=== PATIENT | male | born 1975 | race African-American/Black ===

== ENCOUNTER 2016-10-31 11:15 | Inpatient (IN) | payer OTHER ==
[2016-10-31 12:20] VITALS: BMI 30.3
--- NOTE | 2016-10-31 17:07 | HP ---
CIWA Score - CIWA Score Nausea/Vomitin-Mild Nausea/No Vomiting Muscle Tremors: 4-Moderate,w/Arms Extend Anxiety: 4-Mod. Anxious/Guarded Agitation: 4-Moderately Restless Paroxysmal Sweats: 1-Minimal Palms Moist Orientation: 3-Disoriented Date>2 days Tacttile Disturbances: 0-None Auditory Disturbances: 0-None Visual Disturbances: 0-None Headache: 1-Very Mild CIWA-Ar Total Score: 18 Admission ROS S - HPI Chief Complaint: WITHDRAWAL SX Allergies/Adverse Reactions: Allergies Allergy/AdvReac Type Severity Reaction Status Date / Time apple Allergy Severe Swelling Verified 10/31/16 16:16 Fish Containing Products Allergy Severe Swelling Verified 10/31/16 16:16 pork derived (porcine) Allergy Severe Swelling Verified 10/31/16 16:16 No Known Drug Allergies Allergy Verified 10/31/16 16:17 History of Present Illness: 41 YEARS OLD MALE WITH LONG HISTORY OF ALCOHOL XANAX NICOTINE DEPENDENCE HAS HYPERTENSION DIABETES II SEIZURE AND DEPRESSION IS ADMITTED TO DETOX Exam Limitations: No Limitations - Ebola screening Have you traveled outside of the country in the last 21 days: No Have you had contact with anyone from an Ebola affected area: No Have you been sick,other than usual withdrawal symptoms: No Do you have a fever: No - Review of Systems Constitutional: Chills, Changes in sleep, Weight Stable EENT: reports: No Symptoms Reported Respiratory: reports: No Symptoms reported Cardiac: reports: No Symptoms Reported GI: reports: Nausea, Poor Fluid Intake, Abdominal cramping : reports: No Symptoms Reported Musculoskeletal: reports: No Symptoms Reported Integumentary: reports: No Symptoms Reported Neuro: reports: Seizure (8 YEARS OLD SEIZURE), Tremors Endocrine: reports: No Symptoms Reported Hematology: reports: No Symptoms Reported Psychiatric: reports: Judgement Intact, Depressed Other Systems: Reviewed and Negative Patient History - Patient Medical History Hx Anemia: No Hx Asthma: No Hx Chronic Obstructive Pulmonary Disease (COPD): No Hx Cancer: No Hx Cardiac Disorders: No Hx Congestive Heart Failure: No Hx Hypertension: Yes Hx Hypercholesterolemia: No Hx Pacemaker: No HX Cerebrovascular Accident: No Hx Seizures: Yes (etoh related 07/2016.) Hx Dementia: No Hx Diabetes: Yes (Type II) Hx Gastrointestinal Disorders: No Hx Liver Disease: No Hx Genitourinary Disorders: No Hx Sexually Transmitted Disorders: No Hx Renal Disease (ESRD): No Hx Thyroid Disease: No Hx Human Immunodeficiency Virus (HIV): No (08/26 last tested) Hx Hepatitis C: No Hx Depression: Yes Hx Suicide Attempt: No Hx Bipolar Disorder: No Hx Schizophrenia: No - Patient Surgical History Past Surgical History: Yes Hx Neurologic Surgery: No Hx Cataract Extraction: No Hx Cardiac Surgery: No Hx Lung Surgery: No Hx Breast Surgery: No Hx Breast Biopsy: No Hx Abdominal Surgery: No Hx Appendectomy: No Hx Cholecystectomy: No Hx Genitourinary Surgery: No Hx Orthopedic Surgery: Yes (L foot sx for flatfoot.) Anesthesia Reaction: No - PPD History Previous Implant?: Yes Documented Results: Negative w/o proof Implanted On Prior R Admission?: Yes Date: 11/23/13 Results: Negative PPD to be Administered?: Yes - Smoking Cessation Smoking history: Current every day smoker Have you smoked in the past 12 months: Yes Aproximately how many cigarettes per day: 20 Cigars Per Day: 0 Hx Chewing Tobacco Use: No Initiated information on smoking cessation: Yes 'Breaking Loose' booklet given: 10/31/16 - Substance & Tx. History Hx Alcohol Use: Yes Hx Substance Use: Yes Substance Use Type: Alcohol, Tranquilizers Hx Substance Use Treatment: Yes (01/17-01/21/14 [place] - Substances Abused Alcohol Route: Oral Frequency: Daily Amount used: 4-5v cans beer/ 1 pint cognac Age of first use: 14 Date of Last Use: 10/30/16 Alprazolam (Xanax) Route: Oral Frequency: Daily Amount used: 20 MG Age of first use: 18 Date of Last Use: 10/31/16 Family Disease History - Family Disease History Family Disease History: Heart Disease: Grandparent Admission Physical Exam S - Vital Signs Vital Signs: Vital Signs - 24 hr 10/31/16 12:17 Temperature 97.0 F L Pulse Rate 132 H Respiratory 20 Rate Blood Pressure 153/111 - Physical General Appearance: Yes: Appropriately Dressed, Moderate Distress, Obese, Tremorous, Irritable, Sweating, Anxious HEENTM: Yes: Hearing grossly Normal, Normal ENT Inspection, Normocephalic, Normal Voice Respiratory: Yes: Chest Non-Tender, Lungs Clear, Normal Breath Sounds, No Respiratory Distress, No Accessory Muscle Use Neck: Yes: Trachea in good position Breast: Yes: Breasts Symetrical Cardiology: Yes: Regular Rhythm, S1, S2, Tachycardia Abdominal: Yes: Non Tender, Soft Genitourinary: Yes: Within Normal Limits Back: Yes: Normal Inspection Musculoskeletal: Yes: full range of Motion, Gait Steady Extremities: Yes: Normal Inspection, Normal Range of Motion, Non-Tender, Tremors Neurological: Yes: Alert, Motor Strength 5/5, Normal Response, Depressed Affect Integumentary: Yes: Warm, Track Perez Lymphatic: Yes: Within Normal Limits - Diagnostic (1) Depression Current Visit: Yes Status: Suspected Qualifiers: Depression Type: dysthymia Qualified Code(s): F34.1 - Dysthymic disorder (2) Nicotine dependence Current Visit: Yes Status: Acute Qualifiers: Nicotine product type: cigarettes Substance use status: in withdrawal Qualified Code(s): F17.213 - Nicotine dependence, cigarettes, with withdrawal (3) Alcohol dependence with uncomplicated withdrawal Current Visit: Yes Status: Acute (4) Sedative, hypnotic or anxiolytic dependence with withdrawal, uncomplicated Current Visit: Yes Status: Acute (5) Diabetes mellitus type II, controlled, with no complications Current Visit: Yes Status: Chronic Qualifiers: Diabetes mellitus superintendent terminal insulin use: without intermediate use Qualified Code(s): E11.9 - Type 2 diabetes mellitus without complications (6) Hypertension Current Visit: Yes Status: Chronic Qualifiers: Hypertension type: essential hypertension Qualified Code(s): I10 - Essential (primary) hypertension (7) Seizure Current Visit: Yes Status: Chronic Cleared for Admission S - Detox or Rehab [facility] Level of Care: Medically Managed Detox Regimen/Protocol: Librium S Breath Alcohol Content Breath Alcohol Content: 0 Urine Drug Screen - Results Drug Screen Negative: No Urine Drug Screen Results: BZO-Benzodiazepines
[2016-10-31] MEDS ORDERED: chlordiazePOXIDE HCL 25 MG CAPSULE PO PRN (17:11)
[2016-10-31] MEDS ORDERED: MAG HYDROX/AL HYDROX/SIMETH 30 ML UNIT-DOSE CUP PO PRN (17:11)
[2016-10-31] MEDS ORDERED: P-EPHED 60MG/TRIPROLIDI 2.5MG TABLET PO PRN (17:11)
[2016-10-31] MEDS ORDERED: ACETAMINOPHEN 325 MG TABLET (FP) PO PRN (17:11)
[2016-10-31] MEDS ORDERED: MAGNESIUM CITRATE 300 ML BOTTLE PO PRN (17:11)
[2016-10-31] MEDS ORDERED: NICOTINE POLACRILEX 4 MG GUM BC PRN (17:11)
[2016-10-31] MEDS ORDERED: MAGNESIUM HYDROX 2400MG/30ML ORAL SUSPENSION 30 ML CUP PO PRN (17:11)
[2016-10-31] MEDS ORDERED: MENTHOL/PHENOL 1 EACH UD MM PRN (17:11)
[2016-10-31] MEDS ORDERED: hydrOXYzine PAMOATE 50 MG CAPSULE (FP) PO PRN (17:11)
[2016-10-31] MEDS ORDERED: LOPERAMIDE HCL 2 MG CAPSULE PO PRN (17:11)
[2016-10-31] MEDS ORDERED: diphenhydrAMINE HCL 50 MG CAPSULE PO PRN (17:11)
[2016-10-31] MEDS ORDERED: IBUPROFEN 400 MG TABLET (FP) PO PRN (17:11)
[2016-10-31] MEDS ORDERED: chlordiazePOXIDE HCL 25 MG CAPSULE PO ONE (18:45)
[2016-10-31] MEDS: LISINOPRIL 10 MG TABLET (FP) PO SCH (19:57)
[2016-10-31] MEDS: levETIRAcetam 500 MG TABLET (FP) PO SCH (22:34)
[2016-10-31] MEDS: chlordiazePOXIDE HCL 25 MG CAPSULE PO SCH (22:34)
[2016-10-31] MEDS: THIAMINE HCL 100 MG TABLET (FP) PO SCH (22:34)
[2016-10-31 23:25] LABS: URINE APPEARANCE CLEAR; URINE BILIRUBIN NEGATIVE (NEGATIVE); URINE BLOOD NEGATIVE (NEGATIVE); URINE COLOR YELLOW; URINE GLUCOSE (UA) NEGATIVE (NEGATIVE); URINE KETONE NEGATIVE (NEGATIVE); URINE LEUK ESTERASE NEGATIVE (NEGATIVE); URINE NITRITE NEGATIVE (NEGATIVE); URINE UROBILINOGEN NEGATIVE E.U./dl (0.2-1.0)
[2016-10-31 23:26] LABS: URINE PROTEIN 1+ (NEGATIVE)
[2016-10-31 23:28] LABS: URINE MUCUS RARE; URINE RBC 1 /hpf (0-3); URINE WBC 1 /hpf (3-5)
[2016-11-01] MEDS: chlordiazePOXIDE HCL 25 MG CAPSULE PO SCH ×4 (05:16→22:15)
[2016-11-01] MEDS: metFORMIN HCL 500 MG TABLET (FP) PO SCH ×2 (06:45→17:05)
[2016-11-01 09:47] LABS: MCH 28.9 pg (25.7-33.7); MCHC 32.7 g/dl (32.0-35.9); MEAN CELL VOLUME 88.5 fl (80-96); MEAN PLT VOLUME 9.6 fl (7.5-11.1); PLATELET COUNT 197 K/MM3 (134-434); RDW 14.8 % (11.9-15.9); WHITE BLOOD COUNT 9.5 K/mm3 (4.0-10.0)
[2016-11-01] MEDS: NICOTINE 21 MG/24 HOURS TOPICAL PATCH TD SCH (10:14)
[2016-11-01] MEDS: PRENATAL VITAMINS W/ FOLIC ACID TABLET (FP) PO SCH (10:15)
[2016-11-01] MEDS: levETIRAcetam 500 MG TABLET (FP) PO SCH ×2 (10:15→22:15)
[2016-11-01] MEDS: LISINOPRIL 10 MG TABLET (FP) PO SCH (10:15)
[2016-11-01 10:16] LABS: ALBUMIN 4.2 g/dl (3.4-5.0); ALK PHOS 166 U/L (45-117); ANION GAP 9 (8-16); BILIRUBIN,TOTAL 0.6 mg/dL (0.2-1.0); CALCIUM 9.5 mg/dL (8.5-10.1); CO2 27 mmol/L (21-32); CREATININE 1.1 mg/dL (0.7-1.3); GLUCOSE,RANDOM 140 mg/dL (74-106); SGOT/AST 49 U/L (15-37); SGPT/ALT 52 U/L (12-78); TOT PROT 9.2 g/dl (6.4-8.2)
--- NOTE | 2016-11-01 10:26 | CONSULT ---
[facility] Psychiatric Consult - Data Date of interview: 11/01/16 Admission source: [facility] Identifying data: This is 41 years old male with no psychiatrioc hospitalization history intoxicated with: Alcohol, Xanax and Nicotine Substance Abuse History: - Smoking Cessation. Smoking history: Current every day smoker. Have you smoked in the past 12 months: Yes. Aproximately how many cigarettes per day: 20. Cigars Per Day: 0. Hx Chewing Tobacco Use: No. Initiated information on smoking cessation: Yes. 'Breaking Loose' booklet given : 10/31/16. - Substance & Tx. History. Hx Alcohol Use: Yes. Hx Substance Use : Yes. Substance Use Type: Alcohol, Tranquilizers. Hx Substance Use Treatment : Yes (01/17-01/21/14 [place] - Substances Abused. Alcohol. Route: Oral. Frequency: Daily. Amount used: 4-5v cans beer/ 1 pint cognac. Age of first use : 14. Date of Last Use: 10/30/16. Alprazolam (Xanax). Route: Oral. Frequency: Daily. Amount used: 20 MG. Age of first use: 18. Date of Last Use : 10/31/16 Medical History: DM-2, HTN, Seizure history, Syncope history Psychiatric History: Patient reprots historty of depression and insomnia, reports taking prior to admission: Remeron 45mg po qhs Physical/Sexual Abuse/Trauma History: Denies Additional Comment: Remeron 45mg po qhs Mental Status Exam - Mental Status Exam Alert and Oriented to: Person Cognitive Function: Fair Patient Appearance: Unkempt Mood: Sad Affect: Flat Patient Behavior: Sedated Speech Pattern: Delayed Voice Loudness: Moderately Soft/Quiet Thought Process: Circumstantial Thought Disorder: Being Controlled Hallucinations: Denies Suicidal Ideation: Denies Homicidal Ideation: Denies Insight/Judgement: Fair Sleep: Difficulty falling asleep Appetite: Fair Muscle strength/Tone: Moderate Hypotonicity Gait/Station: Shuffling Additional Comments: Remeron 45mg po qhs Psychiatric Findings - Problem List ([place] 1, 2,3) (1) Alcohol dependence with uncomplicated withdrawal Current Visit: Yes Status: Acute (2) Nicotine dependence Current Visit: Yes Status: Acute Qualifiers: Nicotine product type: cigarettes Substance use status: in withdrawal Qualified Code(s): F17.213 - Nicotine dependence, cigarettes, with withdrawal (3) Sedative, hypnotic or anxiolytic dependence with withdrawal, uncomplicated Current Visit: Yes Status: Acute (4) Depression Current Visit: Yes Status: Suspected Qualifiers: Depression Type: dysthymia Qualified Code(s): F34.1 - Dysthymic disorder (5) Alcohol dependence Current Visit: No Status: Acute (6) Substance-induced anxiety disorder Current Visit: No Status: Acute (7) Substance-induced sleep disorder Current Visit: No Status: Acute - Initial Treatment Plan Initial Treatment Plan: Remeron 45mg po qhs
[2016-11-01 10:48] LABS: HIV 1 & 2 AB NEGATIVE; HIV 1 AGp24 NEGATIVE
--- NOTE | 2016-11-01 14:47 | EKG ---
Test Reason : Blood Pressure : / mmHG Vent. Rate : 098 BPM Atrial Rate : 098 BPM P-R Int : 160 ms QRS Dur : 090 ms QT Int : 346 ms P-R-T Axes : 053 019 028 degrees QTc Int : 441 ms NORMAL SINUS RHYTHM POSSIBLE LEFT ATRIAL ENLARGEMENT LEFT VENTRICULAR HYPERTROPHY CANNOT RULE OUT SEPTAL INFARCT , AGE UNDETERMINED ABNORMAL ECG NO PREVIOUS ECGS AVAILABLE Confirmed by CARLA CORNEJO MD ([id number]) on 11/01/2016 2:47:11 PM Referred By: Confirmed By:CARLA CORNEJO MD
--- NOTE | 2016-11-01 15:06 | PN ---
S CIWA - CIWA Score Nausea/Vomitin-No Nausea/No Vomiting Muscle Tremors: 3 Anxiety: 4-Mod. Anxious/Guarded Agitation: 4-Moderately Restless Paroxysmal Sweats: 3 Orientation: 0-Oriented Tacttile Disturbances: 0-None Auditory Disturbances: 0-None Visual Disturbances: 0-None Headache: 0-None Present CIWA-Ar Total Score: 14 [facility] Progress Note (SOAP) Subjective: Anxiety,tremors,sweating,interrupted sleep,restless. Objective: 11/01/16 15:05 Vital Signs - 8 hr 11/01/16 11/01/16 09:20 13:14 Temperature 97.0 F L 97.6 F Pulse Rate 100 H 100 H Respiratory 20 20 Rate Blood Pressure 121/85 125/88 Laboratory Tests 10/31/16 10/31/16 10/31/16 06:00 16:27 23:05 WBC RBC Hgb Hct MCV MCHC RDW Plt Count MPV Sodium Potassium Chloride Carbon Dioxide Anion Gap BUN Creatinine Creat Clearance w eGFR POC Glucometer 146 Random Glucose Calcium Total Bilirubin AST ALT Alkaline Phosphatase Total Protein Albumin Urine Color Yellow Urine Appearance Clear Urine pH 7.0 D Ur Specific [place] 1.020 Urine Protein 1+ H Urine Glucose (UA) Negative Urine Ketones Negative Urine Blood Negative Urine Nitrite Negative Urine Bilirubin Negative Urine Urobilinogen Negative Ur Leukocyte Esterase Negative Urine RBC 1 Urine WBC 1 Ur Epithelial Cells Rare Urine Mucus Rare RPR Titer HIV 1&2 Antibody Screen Negative HIV P24 Antigen Negative 11/01/16 11/01/16 11/01/16 05:19 06:00 06:00 WBC 9.5 D RBC 5.08 Hgb 14.7 Hct 45.0 MCV 88.5 MCHC 32.7 RDW 14.8 Plt Count 197 D MPV 9.6 Sodium 138 Potassium 4.0 Chloride 102 Carbon Dioxide 27 Anion Gap 9 BUN 9 Creatinine 1.1 D Creat Clearance w eGFR > 60 POC Glucometer 166 Random Glucose 140 H D Calcium 9.5 Total Bilirubin 0.6 D AST 49 H D ALT 52 D Alkaline Phosphatase 166 H D Total Protein 9.2 H Albumin 4.2 Urine Color Urine Appearance Urine pH Ur Specific [place] Urine Protein Urine Glucose (UA) Urine Ketones Urine Blood Urine Nitrite Urine Bilirubin Urine Urobilinogen Ur Leukocyte Esterase Urine RBC Urine WBC Ur Epithelial Cells Urine Mucus RPR Titer HIV 1&2 Antibody Screen HIV P24 Antigen 11/01/16 06:00 WBC RBC Hgb Hct MCV MCHC RDW Plt Count MPV Sodium Potassium Chloride Carbon Dioxide Anion Gap BUN Creatinine Creat Clearance w eGFR POC Glucometer Random Glucose Calcium Total Bilirubin AST ALT Alkaline Phosphatase Total Protein Albumin Urine Color Urine Appearance Urine pH Ur Specific [place] Urine Protein Urine Glucose (UA) Urine Ketones Urine Blood Urine Nitrite Urine Bilirubin Urine Urobilinogen Ur Leukocyte Esterase Urine RBC Urine WBC Ur Epithelial Cells Urine Mucus RPR Titer Nonreactive HIV 1&2 Antibody Screen HIV P24 Antigen labs noted Assessment: 11/01/16 15:05 Withdrawal sx. Plan: Continue detox
[2016-11-01] MEDS: guaiFENesin/D-METHORPHAN HB 10 ML UNIT-DOSE CUPS PO PRN (17:07)
[2016-11-01] MEDS: MIRTAZAPINE 15 MG TABLET (FP) PO SCH (22:15)
[2016-11-01] MEDS: THIAMINE HCL 100 MG TABLET (FP) PO SCH (22:15)
[2016-11-02] MEDS: chlordiazePOXIDE HCL 25 MG CAPSULE PO SCH ×3 (07:18→16:49)
[2016-11-02] MEDS: metFORMIN HCL 500 MG TABLET (FP) PO SCH ×2 (07:18→16:49)
[2016-11-02] MEDS: PRENATAL VITAMINS W/ FOLIC ACID TABLET (FP) PO SCH (10:09)
[2016-11-02] MEDS: LISINOPRIL 10 MG TABLET (FP) PO SCH (10:09)
[2016-11-02] MEDS: NICOTINE 21 MG/24 HOURS TOPICAL PATCH TD SCH (10:09)
[2016-11-02] MEDS: levETIRAcetam 500 MG TABLET (FP) PO SCH ×2 (10:09→22:31)
--- NOTE | 2016-11-02 12:19 | PN ---
[facility] CIWA - CIWA Score Nausea/Vomitin-No Nausea/No Vomiting Muscle Tremors: 3 Anxiety: 1-Mildly Anxious Agitation: 0-Normal Activity Paroxysmal Sweats: 4-Forehead w/Sweat Beads Orientation: 2-Disoriented Date<2 days Tacttile Disturbances: 2-Mild Itch/Numbness/Burn Auditory Disturbances: 3-Moderate Harsh/Frighten Visual Disturbances: 1-Very Mild Sensitivity Headache: 0-None Present CIWA-Ar Total Score: 16 [facility] Progress Note (SOAP) Subjective: Fatigue, Tremors, Interrupted sleep, Tremors. Objective: PT. A & O X 2 (DISORIENTED ABOUT DAY / DATE). NO ACUTE DISTRESS. PT. DENIES CHEST PAIN. 11/02/16 12:17 Vital Signs Temperature 95.2 F L 11/02/16 09:42 Pulse Rate 113 H 11/02/16 09:42 Respiratory Rate 18 11/02/16 09:42 Blood Pressure 135/95 11/02/16 09:42 O2 Sat by Pulse Oximetry (%) Laboratory Tests 10/31/16 10/31/16 10/31/16 06:00 16:27 23:05 WBC RBC Hgb Hct MCV MCHC RDW Plt Count MPV Sodium Potassium Chloride Carbon Dioxide Anion Gap BUN Creatinine Creat Clearance w eGFR POC Glucometer 146 Random Glucose Calcium Total Bilirubin AST ALT Alkaline Phosphatase Total Protein Albumin Urine Color Yellow Urine Appearance Clear Urine pH 7.0 D Ur Specific [place] 1.020 Urine Protein 1+ H Urine Glucose (UA) Negative Urine Ketones Negative Urine Blood Negative Urine Nitrite Negative Urine Bilirubin Negative Urine Urobilinogen Negative Ur Leukocyte Esterase Negative Urine RBC 1 Urine WBC 1 Ur Epithelial Cells Rare Urine Mucus Rare RPR Titer HIV 1&2 Antibody Screen Negative HIV P24 Antigen Negative 11/01/16 11/01/16 11/01/16 05:19 06:00 06:00 WBC 9.5 D RBC 5.08 Hgb 14.7 Hct 45.0 MCV 88.5 MCHC 32.7 RDW 14.8 Plt Count 197 D MPV 9.6 Sodium 138 Potassium 4.0 Chloride 102 Carbon Dioxide 27 Anion Gap 9 BUN 9 Creatinine 1.1 D Creat Clearance w eGFR > 60 POC Glucometer 166 Random Glucose 140 H D Calcium 9.5 Total Bilirubin 0.6 D AST 49 H D ALT 52 D Alkaline Phosphatase 166 H D Total Protein 9.2 H Albumin 4.2 Urine Color Urine Appearance Urine pH Ur Specific [place] Urine Protein Urine Glucose (UA) Urine Ketones Urine Blood Urine Nitrite Urine Bilirubin Urine Urobilinogen Ur Leukocyte Esterase Urine RBC Urine WBC Ur Epithelial Cells Urine Mucus RPR Titer HIV 1&2 Antibody Screen HIV P24 Antigen 11/01/16 11/01/16 11/02/16 06:00 16:23 05:31 WBC RBC Hgb Hct MCV MCHC RDW Plt Count MPV Sodium Potassium Chloride Carbon Dioxide Anion Gap BUN Creatinine Creat Clearance w eGFR POC Glucometer 179 227 Random Glucose Calcium Total Bilirubin AST ALT Alkaline Phosphatase Total Protein Albumin Urine Color Urine Appearance Urine pH Ur Specific [place] Urine Protein Urine Glucose (UA) Urine Ketones Urine Blood Urine Nitrite Urine Bilirubin Urine Urobilinogen Ur Leukocyte Esterase Urine RBC Urine WBC Ur Epithelial Cells Urine Mucus RPR Titer Nonreactive HIV 1&2 Antibody Screen HIV P24 Antigen LABS NOTED. Assessment: 11/02/16 12:18 WITHDRAWAL SYMPTOMS. Plan: CONTINUE DETOX.
[2016-11-02] MEDS: guaiFENesin/D-METHORPHAN HB 10 ML UNIT-DOSE CUPS PO PRN (19:37)
[2016-11-02] MEDS: chlordiazePOXIDE 5 MG CAPSULE PO SCH (22:31)
[2016-11-02] MEDS: THIAMINE HCL 100 MG TABLET (FP) PO SCH (22:31)
[2016-11-02] MEDS: MIRTAZAPINE 15 MG TABLET (FP) PO SCH (22:32)
[2016-11-03] MEDS: chlordiazePOXIDE 5 MG CAPSULE PO SCH ×3 (06:28→16:36)
[2016-11-03] MEDS: metFORMIN HCL 500 MG TABLET (FP) PO SCH ×2 (07:14→16:34)
[2016-11-03] MEDS: guaiFENesin/D-METHORPHAN HB 10 ML UNIT-DOSE CUPS PO PRN (09:26)
[2016-11-03] MEDS: LISINOPRIL 10 MG TABLET (FP) PO SCH (10:22)
[2016-11-03] MEDS: PRENATAL VITAMINS W/ FOLIC ACID TABLET (FP) PO SCH (10:22)
[2016-11-03] MEDS: NICOTINE 21 MG/24 HOURS TOPICAL PATCH TD SCH (10:22)
[2016-11-03] MEDS: levETIRAcetam 500 MG TABLET (FP) PO SCH ×2 (10:22→22:26)
--- NOTE | 2016-11-03 13:53 | PN ---
S Progress Note (SOAP) Subjective: Fatigue, Tremors. Objective: PT. A & O X 3, OBSERVED AMBULATING ON UNIT. NO ACUTE DISTRESS. PATIENT DENIES CHEST PAIN. 11/03/16 13:51 Vital Signs Temperature 97.5 F L 11/03/16 13:38 Pulse Rate 100 H 11/03/16 13:38 Respiratory Rate 18 11/03/16 13:38 Blood Pressure 129/90 11/03/16 13:38 O2 Sat by Pulse Oximetry (%) Laboratory Tests 10/31/16 10/31/16 10/31/16 06:00 16:27 23:05 WBC RBC Hgb Hct MCV MCHC RDW Plt Count MPV Sodium Potassium Chloride Carbon Dioxide Anion Gap BUN Creatinine Creat Clearance w eGFR POC Glucometer 146 Random Glucose Calcium Total Bilirubin AST ALT Alkaline Phosphatase Total Protein Albumin Urine Color Yellow Urine Appearance Clear Urine pH 7.0 D Ur Specific [place] 1.020 Urine Protein 1+ H Urine Glucose (UA) Negative Urine Ketones Negative Urine Blood Negative Urine Nitrite Negative Urine Bilirubin Negative Urine Urobilinogen Negative Ur Leukocyte Esterase Negative Urine RBC 1 Urine WBC 1 Ur Epithelial Cells Rare Urine Mucus Rare RPR Titer HIV 1&2 Antibody Screen Negative HIV P24 Antigen Negative 11/01/16 11/01/16 11/01/16 05:19 06:00 06:00 WBC 9.5 D RBC 5.08 Hgb 14.7 Hct 45.0 MCV 88.5 MCHC 32.7 RDW 14.8 Plt Count 197 D MPV 9.6 Sodium 138 Potassium 4.0 Chloride 102 Carbon Dioxide 27 Anion Gap 9 BUN 9 Creatinine 1.1 D Creat Clearance w eGFR > 60 POC Glucometer 166 Random Glucose 140 H D Calcium 9.5 Total Bilirubin 0.6 D AST 49 H D ALT 52 D Alkaline Phosphatase 166 H D Total Protein 9.2 H Albumin 4.2 Urine Color Urine Appearance Urine pH Ur Specific [place] Urine Protein Urine Glucose (UA) Urine Ketones Urine Blood Urine Nitrite Urine Bilirubin Urine Urobilinogen Ur Leukocyte Esterase Urine RBC Urine WBC Ur Epithelial Cells Urine Mucus RPR Titer HIV 1&2 Antibody Screen HIV P24 Antigen 11/01/16 11/01/16 11/02/16 06:00 16:23 05:31 WBC RBC Hgb Hct MCV MCHC RDW Plt Count MPV Sodium Potassium Chloride Carbon Dioxide Anion Gap BUN Creatinine Creat Clearance w eGFR POC Glucometer 179 227 Random Glucose Calcium Total Bilirubin AST ALT Alkaline Phosphatase Total Protein Albumin Urine Color Urine Appearance Urine pH Ur Specific [place] Urine Protein Urine Glucose (UA) Urine Ketones Urine Blood Urine Nitrite Urine Bilirubin Urine Urobilinogen Ur Leukocyte Esterase Urine RBC Urine WBC Ur Epithelial Cells Urine Mucus RPR Titer Nonreactive HIV 1&2 Antibody Screen HIV P24 Antigen 11/02/16 11/03/16 16:20 05:38 WBC RBC Hgb Hct MCV MCHC RDW Plt Count MPV Sodium Potassium Chloride Carbon Dioxide Anion Gap BUN Creatinine Creat Clearance w eGFR POC Glucometer 290 267 Random Glucose Calcium Total Bilirubin AST ALT Alkaline Phosphatase Total Protein Albumin Urine Color Urine Appearance Urine pH Ur Specific [place] Urine Protein Urine Glucose (UA) Urine Ketones Urine Blood Urine Nitrite Urine Bilirubin Urine Urobilinogen Ur Leukocyte Esterase Urine RBC Urine WBC Ur Epithelial Cells Urine Mucus RPR Titer HIV 1&2 Antibody Screen HIV P24 Antigen LABS NOTED. Assessment: 11/03/16 13:52 WITHDRAWAL SYMPTOMS. Plan: CONTINUE DETOX.
[2016-11-03] MEDS: MIRTAZAPINE 15 MG TABLET (FP) PO SCH (22:26)
[2016-11-03] MEDS: chlordiazePOXIDE HCL 10 MG CAPSULE PO SCH (22:26)
[2016-11-03] MEDS: THIAMINE HCL 100 MG TABLET (FP) PO SCH (22:26)
[2016-11-04] MEDS: chlordiazePOXIDE HCL 10 MG CAPSULE PO SCH ×3 (06:34→16:41)
[2016-11-04] MEDS: metFORMIN HCL 500 MG TABLET (FP) PO SCH ×2 (07:31→16:41)
[2016-11-04] MEDS: levETIRAcetam 500 MG TABLET (FP) PO SCH (10:23)
[2016-11-04] MEDS: LISINOPRIL 10 MG TABLET (FP) PO SCH (10:23)
[2016-11-04] MEDS: PRENATAL VITAMINS W/ FOLIC ACID TABLET (FP) PO SCH (10:23)
[2016-11-04] MEDS: NICOTINE 21 MG/24 HOURS TOPICAL PATCH TD SCH (10:24)
--- NOTE | 2016-11-04 13:09 | DS ---
[facility] Detox Discharge Summary Admission Date: 10/31/16 Discharge Date: 11/04/16 - History Present History: Alcohol Dependence, Sedative Dependence Additional Comments: ADVISED PATIENT TO FOLLOW-UP WITH [facility] REHAB MEDICAL PROVIDER AFTER DISCHARGE FROM DETOX FOR GENERAL MEDICAL ASSESSMENT. Pertinent Past History: Depression, HTN, Seizures (ETOH-Related), Type II DM. - Physical Exam Results Vital Signs: Vital Signs Temperature 96.5 F L 11/04/16 09:52 Pulse Rate 117 H 11/04/16 09:52 Respiratory Rate 18 11/04/16 09:52 Blood Pressure 130/86 11/04/16 09:52 O2 Sat by Pulse Oximetry (%) Pertinent Admission Physical Exam Findings: WITHDRAWAL SYMPTOMS. Laboratory Tests 10/31/16 10/31/16 10/31/16 06:00 06:00 16:27 WBC RBC Hgb Hct MCV MCHC RDW Plt Count MPV Sodium Potassium Chloride Carbon Dioxide Anion Gap BUN Creatinine Creat Clearance w eGFR POC Glucometer 146 Random Glucose Calcium Total Bilirubin AST ALT Alkaline Phosphatase Total Protein Albumin Urine Color Urine Appearance Urine pH Ur Specific [place] Urine Protein Urine Glucose (UA) Urine Ketones Urine Blood Urine Nitrite Urine Bilirubin Urine Urobilinogen Ur Leukocyte Esterase Urine RBC Urine WBC Ur Epithelial Cells Urine Mucus RPR Titer Hepatitis C Antibody <0.1 HIV 1&2 Antibody Screen Negative HIV P24 Antigen Negative 10/31/16 11/01/16 11/01/16 23:05 05:19 06:00 WBC 9.5 D RBC 5.08 Hgb 14.7 Hct 45.0 MCV 88.5 MCHC 32.7 RDW 14.8 Plt Count 197 D MPV 9.6 Sodium Potassium Chloride Carbon Dioxide Anion Gap BUN Creatinine Creat Clearance w eGFR POC Glucometer 166 Random Glucose Calcium Total Bilirubin AST ALT Alkaline Phosphatase Total Protein Albumin Urine Color Yellow Urine Appearance Clear Urine pH 7.0 D Ur Specific [place] 1.020 Urine Protein 1+ H Urine Glucose (UA) Negative Urine Ketones Negative Urine Blood Negative Urine Nitrite Negative Urine Bilirubin Negative Urine Urobilinogen Negative Ur Leukocyte Esterase Negative Urine RBC 1 Urine WBC 1 Ur Epithelial Cells Rare Urine Mucus Rare RPR Titer Hepatitis C Antibody HIV 1&2 Antibody Screen HIV P24 Antigen 11/01/16 11/01/16 11/01/16 06:00 06:00 16:23 WBC RBC Hgb Hct MCV MCHC RDW Plt Count MPV Sodium 138 Potassium 4.0 Chloride 102 Carbon Dioxide 27 Anion Gap 9 BUN 9 Creatinine 1.1 D Creat Clearance w eGFR > 60 POC Glucometer 179 Random Glucose 140 H D Calcium 9.5 Total Bilirubin 0.6 D AST 49 H D ALT 52 D Alkaline Phosphatase 166 H D Total Protein 9.2 H Albumin 4.2 Urine Color Urine Appearance Urine pH Ur Specific [place] Urine Protein Urine Glucose (UA) Urine Ketones Urine Blood Urine Nitrite Urine Bilirubin Urine Urobilinogen Ur Leukocyte Esterase Urine RBC Urine WBC Ur Epithelial Cells Urine Mucus RPR Titer Nonreactive Hepatitis C Antibody HIV 1&2 Antibody Screen HIV P24 Antigen 11/02/16 11/02/16 11/03/16 05:31 16:20 05:38 WBC RBC Hgb Hct MCV MCHC RDW Plt Count MPV Sodium Potassium Chloride Carbon Dioxide Anion Gap BUN Creatinine Creat Clearance w eGFR POC Glucometer 227 290 267 Random Glucose Calcium Total Bilirubin AST ALT Alkaline Phosphatase Total Protein Albumin Urine Color Urine Appearance Urine pH Ur Specific [place] Urine Protein Urine Glucose (UA) Urine Ketones Urine Blood Urine Nitrite Urine Bilirubin Urine Urobilinogen Ur Leukocyte Esterase Urine RBC Urine WBC Ur Epithelial Cells Urine Mucus RPR Titer Hepatitis C Antibody HIV 1&2 Antibody Screen HIV P24 Antigen 11/03/16 11/04/16 16:19 05:52 WBC RBC Hgb Hct MCV MCHC RDW Plt Count MPV Sodium Potassium Chloride Carbon Dioxide Anion Gap BUN Creatinine Creat Clearance w eGFR POC Glucometer 359 325 Random Glucose Calcium Total Bilirubin AST ALT Alkaline Phosphatase Total Protein Albumin Urine Color Urine Appearance Urine pH Ur Specific [place] Urine Protein Urine Glucose (UA) Urine Ketones Urine Blood Urine Nitrite Urine Bilirubin Urine Urobilinogen Ur Leukocyte Esterase Urine RBC Urine WBC Ur Epithelial Cells Urine Mucus RPR Titer Hepatitis C Antibody HIV 1&2 Antibody Screen HIV P24 Antigen LABS NOTED. - Treatment Hospital Course: Detox Protocol Followed, Detoxed Safely, Responded well, Discharged Condition Good, Rehab Referral Accepted Patient has Accepted a Rehab Referral to: [facility]. - Medication Discharge Medications: Ambulatory Orders Levetiracetam [Keppra -] 500 mg PO BID 08/30/16 Lisinopril 10 mg PO DAILY 08/30/16 Metformin HCl [Glucophage -] 500 mg PO BID 08/30/16 Mirtazapine [Remeron [DO NOT STOCK]] 45 mg PO HS #30 tab 11/01/16 - Diagnosis (1) Alcohol dependence with uncomplicated withdrawal Current Visit: Yes Status: Acute (2) Nicotine dependence Current Visit: Yes Status: Chronic Qualifiers: Nicotine product type: cigarettes Substance use status: in withdrawal Qualified Code(s): F17.213 - Nicotine dependence, cigarettes, with withdrawal (3) Sedative, hypnotic or anxiolytic dependence with withdrawal, uncomplicated Current Visit: Yes Status: Acute (4) Diabetes mellitus type II, controlled, with no complications Current Visit: Yes Status: Chronic Qualifiers: Diabetes mellitus oil heaterman insulin use: without oil heaterman use Qualified Code(s): E11.9 - Type 2 diabetes mellitus without complications (5) Hypertension Current Visit: Yes Status: Chronic Qualifiers: Hypertension type: essential hypertension Qualified Code(s): I10 - Essential (primary) hypertension (6) Seizure Current Visit: Yes Status: Chronic (7) Depression Current Visit: Yes Status: Suspected Qualifiers: Depression Type: dysthymia Qualified Code(s): F34.1 - Dysthymic disorder (8) Substance-induced anxiety disorder Current Visit: Yes Status: Acute (9) Substance-induced sleep disorder Current Visit: Yes Status: Acute - AMA Did Patient Leave Against Medical Advice: No
[2016-11-04 17:11] VITALS: BP 118/85; PULSE 114; TEMP 97.9
== END 2016-11-04 17:32 | disposition other institution (70) | DRG 897 ==
LOC: YASAS 11:15 → Y3N 18:22
PROVIDERS: ADMIT Internal Medicine; ATTEND Internal Medicine
PROC: HZ2ZZZZ Detoxification Services for Substance Abuse Treatment (ICD-10-PCS; principal; 2016-11-04)
DX: F13.230 Sedative, hypnotic or anxiolytic dependence with withdrawal, uncomplicated (principal); F19.282 Other psychoactive substance dependence with psychoactive substance-induced sleep disorder; F19.280 Other psychoactive substance dependence with psychoactive substance-induced anxiety disorder; G40.509 Epileptic seizures related to external causes, not intractable, without status epilepticus; F10.230 Alcohol dependence with withdrawal, uncomplicated; F17.213 Nicotine dependence, cigarettes, with withdrawal; F34.1 Dysthymic disorder; E11.9 Type 2 diabetes mellitus without complications; Z79.84 Long term (current) use of oral hypoglycemic drugs; I10 Essential (primary) hypertension
CPT/HCPCS: 36415; 80053; 81003; 81015; 85027; 86593; 86803; 87389; 93005; 93010

== ENCOUNTER 2016-11-04 19:19 | Inpatient (IN) | payer OTHER ==
--- NOTE | 2016-11-04 17:46 | HP ---
[facility] Rehab Assess/Revision - Admission History Admitted to Rehab from: [facility] Date of Admission to Rehab: 11/04/16 - Findings Detox History & Physical reviewed: Yes Concur with findings: Yes Comments/Additional Findings: transferred from detox to rehab admission as per protocol
[~2016-11-04 19:19] MED LIST: ACETAMINOPHEN 325 MG TABLET (FP) PO PRN; IBUPROFEN 400 MG TABLET (FP) PO PRN; LOPERAMIDE HCL 2 MG CAPSULE PO PRN; MAG HYDROX/AL HYDROX/SIMETH 30 ML UNIT-DOSE CUP PO PRN; MAGNESIUM CITRATE 300 ML BOTTLE PO PRN; MAGNESIUM HYDROX 2400MG/30ML ORAL SUSPENSION 30 ML CUP PO PRN; MENTHOL/PHENOL 1 EACH UD MM PRN; NICOTINE POLACRILEX 2 MG GUM BUC PRN; P-EPHED 60MG/TRIPROLIDI 2.5MG TABLET PO PRN; diphenhydrAMINE HCL 50 MG CAPSULE PO PRN
[2016-11-04] MEDS: INSULIN SLIDING SCALE (NOVOLOG) 1 VIAL SQ SCH (21:06)
[2016-11-04] MEDS: levETIRAcetam 500 MG TABLET (FP) PO SCH (21:08)
[2016-11-04] MEDS: THIAMINE HCL 100 MG TABLET (FP) PO SCH (21:08)
[2016-11-04] MEDS: guaiFENesin/D-METHORPHAN HB 10 ML UNIT-DOSE CUPS PO PRN (21:43)
[2016-11-04] MEDS ORDERED: INSULIN (NOVOLOG) ASPART 100 UNITS/ML 10ML VIAL ONE (21:47)
[2016-11-05] MEDS: metFORMIN HCL 500 MG TABLET (FP) PO SCH ×2 (07:01→16:53)
[2016-11-05] MEDS: INSULIN SLIDING SCALE (NOVOLOG) 1 VIAL SQ SCH ×4 (07:02→21:22)
[2016-11-05] MEDS ORDERED: INSULIN (NOVOLOG) ASPART 100 UNITS/ML 10ML VIAL ONE ×4 (07:03→21:21)
[2016-11-05] MEDS: NICOTINE 14 MG/24 HOURS TOPICAL PATCH TD PRN (09:39)
[2016-11-05] MEDS: LISINOPRIL 10 MG TABLET (FP) PO SCH (09:39)
[2016-11-05] MEDS: PRENATAL VITAMINS W/ FOLIC ACID TABLET (FP) PO SCH (09:39)
[2016-11-05] MEDS: levETIRAcetam 500 MG TABLET (FP) PO SCH ×2 (09:39→21:16)
[2016-11-05] MEDS: guaiFENesin/D-METHORPHAN HB 10 ML UNIT-DOSE CUPS PO PRN (14:27)
[2016-11-05 15:03] LABS: HIV 1 & 2 AB NEGATIVE; HIV 1 AGp24 NEGATIVE
[2016-11-05] MEDS: THIAMINE HCL 100 MG TABLET (FP) PO SCH (21:15)
[2016-11-05] MEDS: MIRTAZAPINE 15 MG TABLET (FP) PO SCH (21:52)
[2016-11-06] MEDS: metFORMIN HCL 500 MG TABLET (FP) PO SCH ×2 (07:08→17:03)
[2016-11-06] MEDS ORDERED: INSULIN (NOVOLOG) ASPART 100 UNITS/ML 10ML VIAL ONE ×2 (07:09→12:13)
[2016-11-06] MEDS: INSULIN SLIDING SCALE (NOVOLOG) 1 VIAL SQ SCH ×4 (07:09→21:45)
[2016-11-06] MEDS: PRENATAL VITAMINS W/ FOLIC ACID TABLET (FP) PO SCH (09:55)
[2016-11-06] MEDS: LISINOPRIL 10 MG TABLET (FP) PO SCH (09:55)
[2016-11-06] MEDS: levETIRAcetam 500 MG TABLET (FP) PO SCH ×2 (09:55→21:45)
[2016-11-06] MEDS: NICOTINE 14 MG/24 HOURS TOPICAL PATCH TD PRN (10:51)
[2016-11-06] MEDS: MIRTAZAPINE 15 MG TABLET (FP) PO SCH (21:44)
[2016-11-06] MEDS: THIAMINE HCL 100 MG TABLET (FP) PO SCH (21:44)
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
[2016-11-07] MEDS: metFORMIN HCL 500 MG TABLET (FP) PO SCH ×2 (07:17→16:52)
[2016-11-07] MEDS ORDERED: INSULIN (NOVOLOG) ASPART 100 UNITS/ML 10ML VIAL ONE ×3 (07:18→21:50)
[2016-11-07] MEDS: INSULIN SLIDING SCALE (NOVOLOG) 1 VIAL SQ SCH ×4 (07:18→21:03)
[2016-11-07] MEDS: PRENATAL VITAMINS W/ FOLIC ACID TABLET (FP) PO SCH (10:06)
[2016-11-07] MEDS: LISINOPRIL 10 MG TABLET (FP) PO SCH (10:06)
[2016-11-07] MEDS: levETIRAcetam 500 MG TABLET (FP) PO SCH ×2 (10:06→21:24)
[2016-11-07] MEDS: NICOTINE 14 MG/24 HOURS TOPICAL PATCH TD PRN (10:46)
[2016-11-07] MEDS: THIAMINE HCL 100 MG TABLET (FP) PO SCH (21:24)
[2016-11-07] MEDS: MIRTAZAPINE 15 MG TABLET (FP) PO SCH (21:24)
[2016-11-08] MEDS: metFORMIN HCL 500 MG TABLET (FP) PO SCH ×2 (06:33→17:18)
[2016-11-08] MEDS ORDERED: INSULIN (NOVOLOG) ASPART 100 UNITS/ML 10ML VIAL ONE ×4 (06:34→21:35)
[2016-11-08] MEDS: INSULIN SLIDING SCALE (NOVOLOG) 1 VIAL SQ SCH ×3 (06:35→17:14)
[2016-11-08] MEDS: levETIRAcetam 500 MG TABLET (FP) PO SCH ×2 (09:48→21:36)
[2016-11-08] MEDS: PRENATAL VITAMINS W/ FOLIC ACID TABLET (FP) PO SCH (09:48)
[2016-11-08] MEDS: LISINOPRIL 10 MG TABLET (FP) PO SCH (09:48)
[2016-11-08] MEDS: MIRTAZAPINE 15 MG TABLET (FP) PO SCH (21:36)
[2016-11-08] MEDS: THIAMINE HCL 100 MG TABLET (FP) PO SCH (21:36)
[2016-11-09] MEDS: INSULIN SLIDING SCALE (NOVOLOG) 1 VIAL SQ SCH ×5 (07:05→21:24)
[2016-11-09] MEDS: metFORMIN HCL 500 MG TABLET (FP) PO SCH ×2 (07:06→16:41)
[2016-11-09] MEDS ORDERED: INSULIN (NOVOLOG) ASPART 100 UNITS/ML 10ML VIAL ONE ×4 (07:06→22:45)
[2016-11-09] MEDS: LISINOPRIL 10 MG TABLET (FP) PO SCH (09:39)
[2016-11-09] MEDS: PRENATAL VITAMINS W/ FOLIC ACID TABLET (FP) PO SCH (09:39)
[2016-11-09] MEDS: levETIRAcetam 500 MG TABLET (FP) PO SCH ×2 (09:40→21:23)
[2016-11-09] MEDS: NICOTINE 14 MG/24 HOURS TOPICAL PATCH TD PRN (09:52)
[2016-11-09] MEDS: THIAMINE HCL 100 MG TABLET (FP) PO SCH (21:23)
[2016-11-09] MEDS: MIRTAZAPINE 15 MG TABLET (FP) PO SCH (21:24)
[2016-11-10] MEDS ORDERED: INSULIN (NOVOLOG) ASPART 100 UNITS/ML 10ML VIAL ONE ×3 (06:05→20:34)
[2016-11-10] MEDS: metFORMIN HCL 500 MG TABLET (FP) PO SCH ×2 (06:41→16:31)
[2016-11-10] MEDS: INSULIN SLIDING SCALE (NOVOLOG) 1 VIAL SQ SCH ×4 (06:41→21:25)
[2016-11-10] MEDS: levETIRAcetam 500 MG TABLET (FP) PO SCH ×2 (09:31→21:25)
[2016-11-10] MEDS: PRENATAL VITAMINS W/ FOLIC ACID TABLET (FP) PO SCH (09:31)
[2016-11-10] MEDS: LISINOPRIL 10 MG TABLET (FP) PO SCH (09:31)
[2016-11-10] MEDS: NICOTINE 14 MG/24 HOURS TOPICAL PATCH TD PRN (09:32)
[2016-11-10] MEDS: MIRTAZAPINE 15 MG TABLET (FP) PO SCH (21:25)
[2016-11-10] MEDS: THIAMINE HCL 100 MG TABLET (FP) PO SCH (21:25)
[2016-11-11] MEDS ORDERED: INSULIN (NOVOLOG) ASPART 100 UNITS/ML 10ML VIAL ONE ×4 (07:19→21:56)
[2016-11-11] MEDS: INSULIN SLIDING SCALE (NOVOLOG) 1 VIAL SQ SCH ×4 (07:19→21:14)
[2016-11-11] MEDS: metFORMIN HCL 500 MG TABLET (FP) PO SCH ×2 (07:20→16:50)
[2016-11-11] MEDS: PRENATAL VITAMINS W/ FOLIC ACID TABLET (FP) PO SCH (09:45)
[2016-11-11] MEDS: levETIRAcetam 500 MG TABLET (FP) PO SCH ×2 (09:45→21:14)
[2016-11-11] MEDS: LISINOPRIL 10 MG TABLET (FP) PO SCH (09:45)
[2016-11-11] MEDS: NICOTINE 14 MG/24 HOURS TOPICAL PATCH TD PRN (09:47)
[2016-11-11] MEDS: MIRTAZAPINE 15 MG TABLET (FP) PO SCH (21:14)
[2016-11-11] MEDS: THIAMINE HCL 100 MG TABLET (FP) PO SCH (21:14)
[2016-11-12] MEDS: metFORMIN HCL 500 MG TABLET (FP) PO SCH ×2 (06:13→16:47)
[2016-11-12] MEDS ORDERED: INSULIN (NOVOLOG) ASPART 100 UNITS/ML 10ML VIAL ONE ×4 (06:16→21:36)
[2016-11-12] MEDS: INSULIN SLIDING SCALE (NOVOLOG) 1 VIAL SQ SCH ×4 (06:17→21:36)
[2016-11-12] MEDS: LISINOPRIL 10 MG TABLET (FP) PO SCH (09:35)
[2016-11-12] MEDS: levETIRAcetam 500 MG TABLET (FP) PO SCH ×2 (09:35→21:36)
[2016-11-12] MEDS: PRENATAL VITAMINS W/ FOLIC ACID TABLET (FP) PO SCH (09:35)
[2016-11-12] MEDS: NICOTINE 14 MG/24 HOURS TOPICAL PATCH TD PRN (09:44)
--- NOTE | 2016-11-12 15:12 | PN ---
[facility] Progress Note Note: pt. has two small rashes on left hand & right leg P : Hydrocortisone cream qid
[2016-11-12] MEDS: HYDROCORTISONE 1% TOPICAL CREAM 30 GM TUBE TP SCH ×3 (16:07→21:50)
[2016-11-12] MEDS: THIAMINE HCL 100 MG TABLET (FP) PO SCH (21:36)
[2016-11-12] MEDS: MIRTAZAPINE 15 MG TABLET (FP) PO SCH (21:49)
[2016-11-13] MEDS: metFORMIN HCL 500 MG TABLET (FP) PO SCH ×2 (06:12→16:56)
[2016-11-13] MEDS ORDERED: INSULIN (NOVOLOG) ASPART 100 UNITS/ML 10ML VIAL ONE ×4 (06:14→21:23)
[2016-11-13] MEDS: INSULIN SLIDING SCALE (NOVOLOG) 1 VIAL SQ SCH ×4 (06:15→21:23)
[2016-11-13] MEDS: HYDROCORTISONE 1% TOPICAL CREAM 30 GM TUBE TP SCH ×4 (09:43→21:25)
[2016-11-13] MEDS: levETIRAcetam 500 MG TABLET (FP) PO SCH ×2 (09:44→21:25)
[2016-11-13] MEDS: LISINOPRIL 10 MG TABLET (FP) PO SCH (09:44)
[2016-11-13] MEDS: PRENATAL VITAMINS W/ FOLIC ACID TABLET (FP) PO SCH (09:45)
[2016-11-13] MEDS: NICOTINE 14 MG/24 HOURS TOPICAL PATCH TD PRN (09:46)
[2016-11-13] MEDS: THIAMINE HCL 100 MG TABLET (FP) PO SCH (21:25)
[2016-11-13] MEDS: MIRTAZAPINE 15 MG TABLET (FP) PO SCH (22:02)
[2016-11-14] MEDS: metFORMIN HCL 500 MG TABLET (FP) PO SCH ×2 (06:04→16:40)
[2016-11-14] MEDS ORDERED: INSULIN (NOVOLOG) ASPART 100 UNITS/ML 10ML VIAL ONE ×3 (06:45→21:52)
[2016-11-14] MEDS: INSULIN SLIDING SCALE (NOVOLOG) 1 VIAL SQ SCH ×4 (06:57→21:08)
[2016-11-14] MEDS: LISINOPRIL 10 MG TABLET (FP) PO SCH (09:55)
[2016-11-14] MEDS: levETIRAcetam 500 MG TABLET (FP) PO SCH ×2 (09:56→21:08)
[2016-11-14] MEDS: PRENATAL VITAMINS W/ FOLIC ACID TABLET (FP) PO SCH (09:56)
[2016-11-14] MEDS: HYDROCORTISONE 1% TOPICAL CREAM 30 GM TUBE TP SCH ×4 (09:57→21:11)
[2016-11-14] MEDS: NICOTINE 14 MG/24 HOURS TOPICAL PATCH TD PRN (14:18)
[2016-11-14] MEDS: MIRTAZAPINE 15 MG TABLET (FP) PO SCH (21:10)
[2016-11-14] MEDS: THIAMINE HCL 100 MG TABLET (FP) PO SCH (21:11)
[2016-11-15] MEDS: INSULIN SLIDING SCALE (NOVOLOG) 1 VIAL SQ SCH ×4 (06:17→21:19)
[2016-11-15] MEDS ORDERED: INSULIN (NOVOLOG) ASPART 100 UNITS/ML 10ML VIAL ONE ×4 (06:18→21:21)
[2016-11-15] MEDS: metFORMIN HCL 500 MG TABLET (FP) PO SCH ×2 (06:19→17:02)
[2016-11-15] MEDS: levETIRAcetam 500 MG TABLET (FP) PO SCH ×2 (09:37→21:18)
[2016-11-15] MEDS: LISINOPRIL 10 MG TABLET (FP) PO SCH (09:37)
[2016-11-15] MEDS: HYDROCORTISONE 1% TOPICAL CREAM 30 GM TUBE TP SCH ×4 (09:37→21:18)
[2016-11-15] MEDS: PRENATAL VITAMINS W/ FOLIC ACID TABLET (FP) PO SCH (09:37)
[2016-11-15] MEDS: NICOTINE 14 MG/24 HOURS TOPICAL PATCH TD PRN (09:37)
[2016-11-15] MEDS: THIAMINE HCL 100 MG TABLET (FP) PO SCH (21:18)
[2016-11-15] MEDS: MIRTAZAPINE 15 MG TABLET (FP) PO SCH (22:00)
[2016-11-16] MEDS ORDERED: INSULIN (NOVOLOG) ASPART 100 UNITS/ML 10ML VIAL ONE ×3 (06:17→21:01)
[2016-11-16] MEDS: metFORMIN HCL 500 MG TABLET (FP) PO SCH ×2 (06:17→16:46)
[2016-11-16] MEDS: INSULIN SLIDING SCALE (NOVOLOG) 1 VIAL SQ SCH ×4 (07:10→20:59)
[2016-11-16] MEDS: NICOTINE 14 MG/24 HOURS TOPICAL PATCH TD PRN (09:35)
[2016-11-16] MEDS: LISINOPRIL 10 MG TABLET (FP) PO SCH (09:35)
[2016-11-16] MEDS: PRENATAL VITAMINS W/ FOLIC ACID TABLET (FP) PO SCH (09:35)
[2016-11-16] MEDS: levETIRAcetam 500 MG TABLET (FP) PO SCH ×2 (09:35→21:43)
[2016-11-16] MEDS: HYDROCORTISONE 1% TOPICAL CREAM 30 GM TUBE TP SCH ×4 (09:36→21:46)
[2016-11-16] MEDS: MIRTAZAPINE 15 MG TABLET (FP) PO SCH (21:44)
[2016-11-16] MEDS: THIAMINE HCL 100 MG TABLET (FP) PO SCH (21:44)
[2016-11-17] MEDS: metFORMIN HCL 500 MG TABLET (FP) PO SCH ×2 (06:04→17:18)
[2016-11-17] MEDS: INSULIN SLIDING SCALE (NOVOLOG) 1 VIAL SQ SCH ×4 (06:06→21:12)
[2016-11-17] MEDS ORDERED: INSULIN (NOVOLOG) ASPART 100 UNITS/ML 10ML VIAL ONE ×3 (06:10→21:12)
[2016-11-17] MEDS: levETIRAcetam 500 MG TABLET (FP) PO SCH ×2 (09:32→21:13)
[2016-11-17] MEDS: LISINOPRIL 10 MG TABLET (FP) PO SCH (09:32)
[2016-11-17] MEDS: HYDROCORTISONE 1% TOPICAL CREAM 30 GM TUBE TP SCH ×4 (09:32→21:13)
[2016-11-17] MEDS: PRENATAL VITAMINS W/ FOLIC ACID TABLET (FP) PO SCH (09:32)
[2016-11-17] MEDS: NICOTINE 14 MG/24 HOURS TOPICAL PATCH TD PRN (09:37)
[2016-11-17] MEDS: THIAMINE HCL 100 MG TABLET (FP) PO SCH (21:13)
[2016-11-17] MEDS: MIRTAZAPINE 15 MG TABLET (FP) PO SCH (21:52)
[2016-11-18] MEDS: metFORMIN HCL 500 MG TABLET (FP) PO SCH ×2 (06:09→16:43)
[2016-11-18] MEDS ORDERED: INSULIN (NOVOLOG) ASPART 100 UNITS/ML 10ML VIAL ONE ×4 (06:56→20:55)
[2016-11-18] MEDS: INSULIN SLIDING SCALE (NOVOLOG) 1 VIAL SQ SCH ×4 (07:08→21:31)
[2016-11-18] MEDS: HYDROCORTISONE 1% TOPICAL CREAM 30 GM TUBE TP SCH ×4 (09:31→21:31)
[2016-11-18] MEDS: PRENATAL VITAMINS W/ FOLIC ACID TABLET (FP) PO SCH (09:32)
[2016-11-18] MEDS: levETIRAcetam 500 MG TABLET (FP) PO SCH ×2 (09:32→21:30)
[2016-11-18] MEDS: LISINOPRIL 10 MG TABLET (FP) PO SCH (09:32)
[2016-11-18] MEDS: NICOTINE 14 MG/24 HOURS TOPICAL PATCH TD PRN (09:35)
[2016-11-18] MEDS: MIRTAZAPINE 15 MG TABLET (FP) PO SCH (21:30)
[2016-11-18] MEDS: THIAMINE HCL 100 MG TABLET (FP) PO SCH (21:30)
[2016-11-19] MEDS: metFORMIN HCL 500 MG TABLET (FP) PO SCH ×2 (06:09→16:38)
[2016-11-19] MEDS: INSULIN SLIDING SCALE (NOVOLOG) 1 VIAL SQ SCH ×4 (07:05→21:37)
[2016-11-19] MEDS ORDERED: INSULIN (NOVOLOG) ASPART 100 UNITS/ML 10ML VIAL ONE ×3 (07:06→16:47)
[2016-11-19] MEDS: LISINOPRIL 10 MG TABLET (FP) PO SCH (09:32)
[2016-11-19] MEDS: PRENATAL VITAMINS W/ FOLIC ACID TABLET (FP) PO SCH (09:32)
[2016-11-19] MEDS: levETIRAcetam 500 MG TABLET (FP) PO SCH ×2 (09:32→21:37)
[2016-11-19] MEDS: HYDROCORTISONE 1% TOPICAL CREAM 30 GM TUBE TP SCH ×4 (09:32→21:37)
[2016-11-19] MEDS: THIAMINE HCL 100 MG TABLET (FP) PO SCH (21:36)
[2016-11-19] MEDS: MIRTAZAPINE 15 MG TABLET (FP) PO SCH (21:37)
[2016-11-20] MEDS ORDERED: INSULIN (NOVOLOG) ASPART 100 UNITS/ML 10ML VIAL ONE ×4 (07:07→21:27)
[2016-11-20] MEDS: INSULIN SLIDING SCALE (NOVOLOG) 1 VIAL SQ SCH ×4 (07:07→21:04)
[2016-11-20] MEDS: metFORMIN HCL 500 MG TABLET (FP) PO SCH ×2 (07:08→16:41)
[2016-11-20] MEDS: HYDROCORTISONE 1% TOPICAL CREAM 30 GM TUBE TP SCH ×4 (09:32→21:19)
[2016-11-20] MEDS: levETIRAcetam 500 MG TABLET (FP) PO SCH ×2 (09:32→21:19)
[2016-11-20] MEDS: PRENATAL VITAMINS W/ FOLIC ACID TABLET (FP) PO SCH (09:32)
[2016-11-20] MEDS: LISINOPRIL 10 MG TABLET (FP) PO SCH (09:32)
[2016-11-20] MEDS: THIAMINE HCL 100 MG TABLET (FP) PO SCH (21:18)
[2016-11-20] MEDS: MIRTAZAPINE 15 MG TABLET (FP) PO SCH (21:19)
[2016-11-21] MEDS ORDERED: INSULIN (NOVOLOG) ASPART 100 UNITS/ML 10ML VIAL ONE ×4 (05:26→21:15)
[2016-11-21] MEDS: metFORMIN HCL 500 MG TABLET (FP) PO SCH ×2 (06:16→16:43)
[2016-11-21] MEDS: INSULIN SLIDING SCALE (NOVOLOG) 1 VIAL SQ SCH ×4 (06:18→21:13)
[2016-11-21] MEDS: PRENATAL VITAMINS W/ FOLIC ACID TABLET (FP) PO SCH (09:51)
[2016-11-21] MEDS: levETIRAcetam 500 MG TABLET (FP) PO SCH ×2 (09:51→21:12)
[2016-11-21] MEDS: LISINOPRIL 10 MG TABLET (FP) PO SCH (09:51)
[2016-11-21] MEDS: HYDROCORTISONE 1% TOPICAL CREAM 30 GM TUBE TP SCH ×4 (09:51→21:17)
[2016-11-21] MEDS: THIAMINE HCL 100 MG TABLET (FP) PO SCH (21:12)
[2016-11-21] MEDS: MIRTAZAPINE 15 MG TABLET (FP) PO SCH (21:12)
[2016-11-22] MEDS: INSULIN SLIDING SCALE (NOVOLOG) 1 VIAL SQ SCH ×4 (06:46→21:15)
[2016-11-22] MEDS ORDERED: INSULIN (NOVOLOG) ASPART 100 UNITS/ML 10ML VIAL ONE ×3 (06:47→21:15)
[2016-11-22] MEDS: metFORMIN HCL 500 MG TABLET (FP) PO SCH ×2 (06:47→17:01)
[2016-11-22] MEDS: levETIRAcetam 500 MG TABLET (FP) PO SCH ×2 (09:46→21:16)
[2016-11-22] MEDS: PRENATAL VITAMINS W/ FOLIC ACID TABLET (FP) PO SCH (09:46)
[2016-11-22] MEDS: LISINOPRIL 10 MG TABLET (FP) PO SCH (09:46)
[2016-11-22] MEDS: HYDROCORTISONE 1% TOPICAL CREAM 30 GM TUBE TP SCH ×4 (09:47→21:16)
[2016-11-22] MEDS: THIAMINE HCL 100 MG TABLET (FP) PO SCH (21:16)
[2016-11-22] MEDS: MIRTAZAPINE 15 MG TABLET (FP) PO SCH (21:16)
[2016-11-23] MEDS: metFORMIN HCL 500 MG TABLET (FP) PO SCH ×2 (07:13→16:32)
[2016-11-23] MEDS ORDERED: INSULIN (NOVOLOG) ASPART 100 UNITS/ML 10ML VIAL ONE ×4 (07:14→21:01)
[2016-11-23] MEDS: INSULIN SLIDING SCALE (NOVOLOG) 1 VIAL SQ SCH ×4 (07:14→21:13)
[2016-11-23] MEDS: PRENATAL VITAMINS W/ FOLIC ACID TABLET (FP) PO SCH (09:43)
[2016-11-23] MEDS: LISINOPRIL 10 MG TABLET (FP) PO SCH (09:43)
[2016-11-23] MEDS: levETIRAcetam 500 MG TABLET (FP) PO SCH ×2 (09:43→21:13)
[2016-11-23] MEDS: HYDROCORTISONE 1% TOPICAL CREAM 30 GM TUBE TP SCH ×4 (09:44→21:13)
[2016-11-23] MEDS: MIRTAZAPINE 15 MG TABLET (FP) PO SCH (21:12)
[2016-11-23] MEDS: THIAMINE HCL 100 MG TABLET (FP) PO SCH (21:13)
[2016-11-24 06:32] VITALS: TEMP 98.3
[2016-11-24] MEDS: metFORMIN HCL 500 MG TABLET (FP) PO SCH ×2 (07:09→16:45)
[2016-11-24] MEDS: INSULIN SLIDING SCALE (NOVOLOG) 1 VIAL SQ SCH ×4 (07:10→21:34)
[2016-11-24] MEDS ORDERED: INSULIN (NOVOLOG) ASPART 100 UNITS/ML 10ML VIAL ONE ×3 (07:11→21:44)
[2016-11-24] MEDS: HYDROCORTISONE 1% TOPICAL CREAM 30 GM TUBE TP SCH ×4 (09:30→21:34)
[2016-11-24] MEDS: PRENATAL VITAMINS W/ FOLIC ACID TABLET (FP) PO SCH (09:30)
[2016-11-24] MEDS: LISINOPRIL 10 MG TABLET (FP) PO SCH (09:30)
[2016-11-24] MEDS: levETIRAcetam 500 MG TABLET (FP) PO SCH ×2 (09:30→21:34)
--- NOTE | 2016-11-24 10:11 | PN ---
Psychiatric Progress Note Vital Signs: Vital Signs Period Temp Pulse Resp BP Sys/[place] Pulse Ox Last 24 Hr 98.3 F 92-101 18-20 117-125/82-82 Date of Session: 11/24/16 Chief Complaint:: Discharge Note HPI: Patient addressing Alcohol and Sedative Dependence comorbid with Nicotine Dependence and Depressive Disorder ROS: Type 2 DM, HTN were medically managed Current Medications: Active Medications Generic Name Dose Route Start Last Admin Trade Name Freq PRN Reason Stop Dose Admin Acetaminophen 650 mg 11/04/16 17:46 Tylenol - PO Q4H PRN FEVER OR PAIN Al Hydroxide/Mg Hydroxide 30 ml 11/04/16 17:46 Mylanta Oral Suspension - PO Q6H PRN DYSPEPSIA Diphenhydramine HCl 50 mg 11/04/16 17:46 Benadryl - PO HSMR1 PRN FOR ITCHING Eucalyptus/Menthol/Phenol/Sorbitol 1 each 11/04/16 17:46 Cepastat Lozenge - MM Q4H PRN SORE THROAT Guaifenesin 10 ml 11/04/16 17:46 11/05/16 14:27 Robitussin Dm - PO 10 ml Q6H PRN Administration COUGH Hydrocortisone 1 applic 11/12/16 15:10 11/24/16 09:30 Hytone 1% Cream - TP Not Given QID WALTER Ibuprofen 400 mg 11/04/16 17:46 Motrin - PO Q6H PRN PAIN Insulin Aspart 1 vial 11/04/16 22:00 11/24/16 07:10 Novolog Vial Sliding Scale - SQ 6 unit ACHS WALTER Administration Protocol Levetiracetam 500 mg 11/04/16 22:00 11/24/16 09:30 Keppra - PO 500 mg BID WALTER Administration Lisinopril 10 mg 11/05/16 10:00 11/24/16 09:30 Prinivil PO 10 mg DAILY WALTER Administration Loperamide HCl 4 mg 11/04/16 17:46 Imodium - PO Q6H PRN DIARRHEA Magnesium Hydroxide 30 ml 11/04/16 17:46 Milk Of Magnesia - PO DAILY PRN CONSTIPATION Metformin HCl 1,000 mg 11/05/16 23:59 11/24/16 07:09 Glucophage - PO 1,000 mg BID@0700,1630 WALTER Administration Mirtazapine 45 mg 11/05/16 22:00 11/23/16 21:12 Remeron - PO 45 mg HS WALTER Administration Nicotine 14 mg 11/04/16 17:46 11/18/16 09:35 Nicoderm Patch - TD 14 mg DAILY PRN Administration WITHDRAWAL(CONT SUBST) Nicotine Polacrilex 2 mg 11/04/16 17:46 Nicorette Gum - BUC Q2H PRN NICOTINE REPLACEMENT RX Multivit/Folic Acid/Iron 1 tab 11/05/16 10:00 11/24/16 09:30 Vitamins (Sjr) - PO 1 tab DAILY WALTER Administration Pseudoephedrine/Triprolidine 1 combo 11/04/16 17:46 Actifed - PO TID PRN NASAL CONGESTION Thiamine HCl 100 mg 11/04/16 22:00 11/23/16 21:13 Vitamin B1 - PO 100 mg HS WALTER Administration Current Side Effect: No Lab tests ordered: Yes Lab tests reviewed: Yes Provider note:: Patient will complete this program on 11/25/16. He has met his treatment goals and will continue to address his issues [facility] Told global technical writer that from his participation in this program, he has learned the importance of attending AA/NA meetings and surrounding himself with positive People in order to maintain abstinence. He responded well to Remeron 45 mg po HS. Script for 30 days supply of that medication will be electronically transmitted to [facility] at [address] [place] [address]. He is stable for discharge on 11/25/16 Total face to face time:: 35 Mental Status Exam - Mental Status Exam Alert and Oriented to: Time, Place, Person Cognitive Function: Fair Patient Appearance: Well Groomed Mood: Hopeful, Euthymic Affect: Appropriate Patient Behavior: Cooperative Speech Pattern: Clear Voice Loudness: Normal Thought Process: Intact, Goal Oriented Thought Disorder: Not Present Hallucinations: Denies Suicidal Ideation: Denies Homicidal Ideation: Denies Insight/Judgement: Fair Sleep: Fair Appetite: Good Muscle strength/Tone: Normal Gait/Station: Normal Psychiatric Treatment Plan - Problem List (1) Alcohol dependence Current Visit: No (2) Sedative dependence Current Visit: Yes (3) Nicotine dependence Current Visit: No Qualifiers: Nicotine product type: cigarettes Substance use status: in withdrawal Qualified Code(s): F17.213 - Nicotine dependence, cigarettes, with withdrawal (4) Substance induced mood disorder Current Visit: Yes (5) MDD (major depressive disorder) Current Visit: Yes (6) Diabetes mellitus type II, controlled, with no complications Current Visit: No Qualifiers: Diabetes mellitus senior care insulin use: without bed bug exterminator use Qualified Code(s): E11.9 - Type 2 diabetes mellitus without complications (7) Hypertension Current Visit: No Qualifiers: Hypertension type: essential hypertension Qualified Code(s): I10 - Essential (primary) hypertension (8) Depressive disorder Current Visit: Yes Initial treatment plan: Patient will be discharged tomorrow and referred to [facility] for bed bug exterminator treatment
[2016-11-24] MEDS: MIRTAZAPINE 15 MG TABLET (FP) PO SCH (21:33)
[2016-11-24] MEDS: THIAMINE HCL 100 MG TABLET (FP) PO SCH (21:33)
[2016-11-25 06:31] VITALS: BP 137/88; PULSE 102
[2016-11-25] MEDS ORDERED: INSULIN (NOVOLOG) ASPART 100 UNITS/ML 10ML VIAL ONE (07:04)
[2016-11-25] MEDS: INSULIN SLIDING SCALE (NOVOLOG) 1 VIAL SQ SCH (07:04)
[2016-11-25] MEDS: metFORMIN HCL 500 MG TABLET (FP) PO SCH (07:05)
[2016-11-25] MEDS: PRENATAL VITAMINS W/ FOLIC ACID TABLET (FP) PO SCH (09:38)
[2016-11-25] MEDS: levETIRAcetam 500 MG TABLET (FP) PO SCH (09:38)
[2016-11-25] MEDS: LISINOPRIL 10 MG TABLET (FP) PO SCH (09:38)
[2016-11-25] MEDS: HYDROCORTISONE 1% TOPICAL CREAM 30 GM TUBE TP SCH (09:40)
== END 2016-11-25 09:50 | disposition home or self-care (01) | DRG 895 ==
LOC: YASAS 19:19 → Y3W 19:21
PROVIDERS: ADMIT Psychiatry & Neurology Psychiatry; ATTEND Psychiatry & Neurology Psychiatry
PROC: HZ42ZZZ Group Counseling for Substance Abuse Treatment, Cognitive-Behavioral (ICD-10-PCS; principal; 2016-11-25)
DX: F10.20 Alcohol dependence, uncomplicated (principal); F13.20 Sedative, hypnotic or anxiolytic dependence, uncomplicated; F33.9 Major depressive disorder, recurrent, unspecified; G40.509 Epileptic seizures related to external causes, not intractable, without status epilepticus; F17.213 Nicotine dependence, cigarettes, with withdrawal; F19.24 Other psychoactive substance dependence with psychoactive substance-induced mood disorder; E11.9 Type 2 diabetes mellitus without complications; I10 Essential (primary) hypertension
CPT/HCPCS: 36415; 87389

== ENCOUNTER 2017-01-09 12:56 | Inpatient (IN) | payer OTHER ==
[2017-01-09 14:36] VITALS: BMI 31.8
--- NOTE | 2017-01-09 15:52 | HP ---
CIWA Score - CIWA Score Nausea/Vomitin Muscle Tremors: 3 Anxiety: 3 Agitation: 3 Paroxysmal Sweats: 1-Minimal Palms Moist Orientation: 0-Oriented Tacttile Disturbances: 2-Mild Itch/Numbness/Burn Auditory Disturbances: 2-Mild Harshness/Frighten Visual Disturbances: 2-Mild Sensitivity Headache: 2-Mild CIWA-Ar Total Score: 21 Admission ROS [facility] - HPI Chief Complaint: i am here for detox from alcohol Allergies/Adverse Reactions: Allergies Allergy/AdvReac Type Severity Reaction Status Date / Time apple Allergy Severe Swelling Verified 01/09/17 16:30 Fish Containing Products Allergy Severe Swelling Verified 01/09/17 16:30 pork derived (porcine) Allergy Severe Swelling Verified 01/09/17 16:30 No Known Drug Allergies Allergy Verified 01/09/17 16:30 History of Present Illness: this 41 years old male with alcohol dependence,seeking detox,patient seen in [place] last night,refer for detox, last detox 10/31/16 to 11/06/16 detox,rehab 11/04/16 to 11/25/16 syncope alcohol related type 2 dm nicotine dependence longest period of sobriety 5 years - Ebola screening Have you traveled outside of the country in the last 21 days: No Have you had contact with anyone from an Ebola affected area: No Have you been sick,other than usual withdrawal symptoms: No Do you have a fever: No - Review of Systems Constitutional: Loss of Appetite, Night Sweats, Weakness EENT: reports: Nose Congestion Respiratory: reports: No Symptoms reported Cardiac: reports: Palpitations GI: reports: Nausea, Vomiting, Abdominal cramping : reports: No Symptoms Reported Musculoskeletal: reports: Back Pain, Muscle Pain Integumentary: reports: Dryness Neuro: reports: Headache, Tremors Endocrine: reports: No Symptoms Reported Hematology: reports: No Symptoms Reported Psychiatric: reports: No Sypmtoms Reported, Judgement Intact, Mood/Affect Appropiate, Orientated x3 Patient History - Patient Medical History Hx Anemia: No Hx Asthma: No Hx Chronic Obstructive Pulmonary Disease (COPD): No Hx Cancer: No Hx Cardiac Disorders: No Hx Congestive Heart Failure: No Hx Hypertension: Yes (no medication) Hx Hypercholesterolemia: No Hx Pacemaker: No HX Cerebrovascular Accident: No Hx Seizures: Yes (last since 1991) Hx Dementia: No Hx Diabetes: No Hx Gastrointestinal Disorders: No Hx Liver Disease: No Hx Genitourinary Disorders: No Hx Sexually Transmitted Disorders: No Hx Renal Disease (ESRD): No Hx Thyroid Disease: No Hx Human Immunodeficiency Virus (HIV): No (08/26 last tested negative) Hx Hepatitis C: No Hx Depression: Yes (no med) Hx Suicide Attempt: No Hx Bipolar Disorder: No Hx Schizophrenia: No Other Medical History: no suicidal,no homicidal - Patient Surgical History Past Surgical History: Yes Hx Neurologic Surgery: No Hx Cataract Extraction: No Hx Cardiac Surgery: No Hx Lung Surgery: No Hx Breast Surgery: No Hx Breast Biopsy: No Hx Abdominal Surgery: No Hx Appendectomy: No Hx Cholecystectomy: No Hx Genitourinary Surgery: No Hx Section: No Hx Orthopedic Surgery: Yes (L foot sx for flatfoot.) Anesthesia Reaction: No - PPD History Previous Implant?: Yes Documented Results: Negative w/proof Date: 11/02/16 Results: Negative PPD to be Administered?: No - Smoking Cessation Smoking history: Current every day smoker Have you smoked in the past 12 months: Yes Aproximately how many cigarettes per day: 20 Cigars Per Day: 0 Hx Chewing Tobacco Use: No Initiated information on smoking cessation: Yes 'Breaking Loose' booklet given: 01/09/17 - Substance & Tx. History Hx Alcohol Use: Yes Hx Substance Use: No Substance Use Type: Alcohol Hx Substance Use Treatment: Yes ([facility] 10/31/16 to 11/04/16,rehab 11/04/16 to ) - Substances Abused Alcohol Route: Oral Frequency: Daily Amount used: 1pint of liquor/5 of 24 ozs of beer Age of first use: 14 Date of Last Use: 01/08/17 Family Disease History - Family Disease History Family Disease History: Heart Disease: Grandparent, Other: Father (alcohol), Mother (alcohol) Admission Physical Exam [facility] - Vital Signs Vital Signs: Vital Signs - 24 hr 01/09/17 14:35 Temperature 98.0 F Pulse Rate 122 H Respiratory 20 Rate Blood Pressure 156/110 - Physical General Appearance: Yes: Moderate Distress, Tremorous, Irritable, Sweating, Anxious HEENTM: Yes: Within Normal Limits, Normocephalic, TIMOTHY Respiratory: Yes: Lungs Clear, Normal Breath Sounds, No Respiratory Distress Neck: Yes: Within Normal Limits Breast: Yes: Within Normal Limits Cardiology: Yes: S1, S2, Tachycardia Abdominal: Yes: Within Normal Limits, Normal Bowel Sounds, Non Tender, Flat, Soft Genitourinary: Yes: Within Normal Limits Back: Yes: Muscle Spasm Musculoskeletal: Yes: Back pain, Muscle Pain Extremities: Yes: Within Normal Limits, Normal Range of Motion, Tremors Neurological: Yes: Within Normal Limits, recyclable materials sorter II-XII NML intact, Fully Oriented, Alert, Motor Strength 5/5 Integumentary: Yes: Dry Lymphatic: Yes: Within Normal Limits - Diagnostic (1) Alcohol dependence with uncomplicated withdrawal Current Visit: No Status: Acute (2) Syncope Current Visit: No Status: Acute (3) Diabetes mellitus type II, controlled, with no complications Current Visit: No Status: Chronic Qualifiers: Qualified Code(s): E11.9 - Type 2 diabetes mellitus without complications (4) Hypertension Current Visit: No Status: Chronic Qualifiers: Qualified Code(s): I10 - Essential (primary) hypertension (5) Nicotine dependence Current Visit: No Status: Chronic Qualifiers: Qualified Code(s): F17.213 - Nicotine dependence, cigarettes, with withdrawal (6) Seizure Current Visit: No Status: Chronic (7) Depression Current Visit: No Status: Suspected Qualifiers: Qualified Code(s): F34.1 - Dysthymic disorder (8) Insomnia Current Visit: Yes Status: Acute Cleared for Admission [facility] - Detox or Rehab [facility] Level of Care: Medically Managed Detox Regimen/Protocol: Librium [facility] Breath Alcohol Content Breath Alcohol Content: 0 Urine Drug Screen - Results Drug Screen Negative: Yes
[2017-01-09] MEDS ORDERED: hydrOXYzine PAMOATE 25 MG CAPSULE (FP) PO PRN (16:05)
[2017-01-09] MEDS ORDERED: diphenhydrAMINE HCL 50 MG CAPSULE PO PRN (16:05)
[2017-01-09] MEDS ORDERED: MAG HYDROX/AL HYDROX/SIMETH 30 ML UNIT-DOSE CUP PO PRN (16:05)
[2017-01-09] MEDS ORDERED: MAGNESIUM CITRATE 300 ML BOTTLE PO PRN (16:05)
[2017-01-09] MEDS ORDERED: chlordiazePOXIDE HCL 25 MG CAPSULE PO PRN (16:05)
[2017-01-09] MEDS ORDERED: IBUPROFEN 400 MG TABLET (FP) PO PRN (16:05)
[2017-01-09] MEDS ORDERED: MAGNESIUM HYDROX 2400MG/30ML ORAL SUSPENSION 30 ML CUP PO PRN (16:05)
[2017-01-09] MEDS ORDERED: ACETAMINOPHEN 325 MG TABLET (FP) PO PRN (16:05)
[2017-01-09] MEDS ORDERED: P-EPHED 60MG/TRIPROLIDI 2.5MG TABLET PO PRN (16:05)
[2017-01-09] MEDS ORDERED: guaiFENesin/D-METHORPHAN HB 10 ML UNIT-DOSE CUPS PO PRN (16:05)
[2017-01-09] MEDS ORDERED: chlordiazePOXIDE HCL 25 MG CAPSULE PO ONE (16:05)
[2017-01-09] MEDS ORDERED: MENTHOL/PHENOL 1 EACH UD MM PRN (16:05)
[2017-01-09] MEDS ORDERED: LOPERAMIDE HCL 2 MG CAPSULE PO PRN (16:05)
[2017-01-09] MEDS: LISINOPRIL 10 MG TABLET (FP) PO SCH (19:41)
[2017-01-09] MEDS: metFORMIN HCL 500 MG TABLET (FP) PO SCH (19:41)
[2017-01-09] MEDS: NICOTINE 21 MG/24 HOURS TOPICAL PATCH TD SCH (19:43)
[2017-01-09 21:02] LABS: URINE APPEARANCE CLEAR; URINE BILIRUBIN NEGATIVE (NEGATIVE); URINE BLOOD NEGATIVE (NEGATIVE); URINE COLOR YELLOW; URINE GLUCOSE (UA) 2+ (NEGATIVE); URINE KETONE NEGATIVE (NEGATIVE); URINE LEUK ESTERASE NEGATIVE (NEGATIVE); URINE NITRITE NEGATIVE (NEGATIVE); URINE UROBILINOGEN NEGATIVE mg/dL (0.2-1.0)
[2017-01-09 21:12] LABS: URINE PROTEIN 1+ (NEGATIVE)
[2017-01-09 21:22] LABS: URINE MUCUS RARE; URINE WBC 1 /hpf (3-5)
[2017-01-09] MEDS: THIAMINE HCL 100 MG TABLET (FP) PO SCH (22:14)
[2017-01-09] MEDS: levETIRAcetam 500 MG TABLET (FP) PO SCH (22:14)
[2017-01-09] MEDS: chlordiazePOXIDE HCL 25 MG CAPSULE PO SCH (22:14)
[2017-01-10] MEDS: chlordiazePOXIDE HCL 25 MG CAPSULE PO SCH ×4 (05:31→22:18)
[2017-01-10] MEDS: metFORMIN HCL 500 MG TABLET (FP) PO SCH ×2 (06:28→16:45)
[2017-01-10 10:20] LABS: ALBUMIN 3.6 g/dl (3.4-5.0); ALK PHOS 107 U/L (45-117); ANION GAP 7 (8-16); BILIRUBIN,TOTAL 0.2 mg/dL (0.2-1.0); CALCIUM 8.9 mg/dL (8.5-10.1); CO2 27 mmol/L (21-32); GLUCOSE,RANDOM 159 mg/dL (74-106); MCH 28.7 pg (25.7-33.7); MCHC 32.6 g/dl (32.0-35.9); MEAN CELL VOLUME 88.1 fl (80-96); MEAN PLT VOLUME 9.4 fl (7.5-11.1); PLATELET COUNT 192 K/MM3 (134-434); RDW 14.1 % (11.9-15.9); SGOT/AST 20 U/L (15-37); SGPT/ALT 23 U/L (12-78); TOT PROT 7.5 g/dl (6.4-8.2); WHITE BLOOD COUNT 7.1 K/mm3 (4.0-10.0)
[2017-01-10] MEDS: PRENATAL VITAMINS W/ FOLIC ACID TABLET (FP) PO SCH (10:42)
[2017-01-10] MEDS: levETIRAcetam 500 MG TABLET (FP) PO SCH ×2 (10:42→22:18)
[2017-01-10] MEDS: LISINOPRIL 10 MG TABLET (FP) PO SCH (10:43)
[2017-01-10] MEDS: NICOTINE 21 MG/24 HOURS TOPICAL PATCH TD SCH (10:45)
--- NOTE | 2017-01-10 11:21 | PN ---
[facility] CIWA - CIWA Score Nausea/Vomitin Muscle Tremors: 3 Anxiety: 3 Agitation: 2 Paroxysmal Sweats: 1-Minimal Palms Moist Orientation: 0-Oriented Tacttile Disturbances: 1-Very Mild Itch/Numbness Auditory Disturbances: 1-Very Mild Visual Disturbances: 1-Very Mild Sensitivity Headache: 2-Mild CIWA-Ar Total Score: 17 S Progress Note (SOAP) Subjective: ALERT,IRRITABLE,ANXIOUS,INTERRUPTED SLEEP,TREMOR Objective: 01/10/17 11:18 Vital Signs Temperature 97.3 F L 01/10/17 10:23 Pulse Rate 106 H 01/10/17 10:23 Respiratory Rate 18 01/10/17 10:23 Blood Pressure 137/95 01/10/17 10:23 O2 Sat by Pulse Oximetry (%) EKG SINUS TACHYCARDIA 104/VA,ST IN V2 V3 NO CHEST PAIN,NO SOB,,NO DIZZINESS Laboratory Last Values WBC 7.1 K/mm3 (4.0-10.0) 01/10/17 07:00 RBC 4.80 M/mm3 (4.00-5.60) 01/10/17 07:00 Hgb 13.8 GM/dL (11.7-16.9) 01/10/17 07:00 Hct 42.3 % (35.4-49) 01/10/17 07:00 MCV 88.1 fl (80-96) 01/10/17 07:00 MCH 28.7 pg (25.7-33.7) 01/10/17 07:00 MCHC 32.6 g/dl (32.0-35.9) 01/10/17 07:00 RDW 14.1 % (11.9-15.9) 01/10/17 07:00 Plt Count 192 K/MM3 (134-434) 01/10/17 07:00 MPV 9.4 fl (7.5-11.1) 01/10/17 07:00 Sodium 140 mmol/L (136-145) 01/10/17 07:00 Potassium 4.3 mmol/L (3.5-5.1) 01/10/17 07:00 Chloride 106 mmol/L (98-107) 01/10/17 07:00 Carbon Dioxide 27 mmol/L (21-32) 01/10/17 07:00 Anion Gap 7 (8-16) L 01/10/17 07:00 BUN 15 mg/dL (7-18) D 01/10/17 07:00 Creatinine 1.0 mg/dL (0.7-1.3) 01/10/17 07:00 Creat Clearance w eGFR > 60 (>60) 01/10/17 07:00 POC Glucometer 155 UNITS (()) 01/10/17 05:34 Random Glucose 159 mg/dL (74-106) H 01/10/17 07:00 Calcium 8.9 mg/dL (8.5-10.1) 01/10/17 07:00 Total Bilirubin 0.2 mg/dL (0.2-1.0) D 01/10/17 07:00 AST 20 U/L (15-37) D 01/10/17 07:00 ALT 23 U/L (12-78) D 01/10/17 07:00 Alkaline Phosphatase 107 U/L (45-117) D 01/10/17 07:00 Total Protein 7.5 g/dl (6.4-8.2) 01/10/17 07:00 Albumin 3.6 g/dl (3.4-5.0) 01/10/17 07:00 Urine Color Yellow 01/09/17 20:47 Urine Appearance Clear 01/09/17 20:47 Urine pH 8.0 (5.0-8.0) 01/09/17 20:47 Ur Specific [place] 1.015 (1.005-1.025) 01/09/17 20:47 Urine Protein 1+ (NEGATIVE) H 01/09/17 20:47 Urine Glucose (UA) 2+ (NEGATIVE) H 01/09/17 20:47 Urine Ketones Negative (NEGATIVE) 01/09/17 20:47 Urine Blood Negative (NEGATIVE) 01/09/17 20:47 Urine Nitrite Negative (NEGATIVE) 01/09/17 20:47 Urine Bilirubin Negative (NEGATIVE) 01/09/17 20:47 Urine Urobilinogen Negative mg/dL (0.2-1.0) 01/09/17 20:47 Ur Leukocyte Esterase Negative (NEGATIVE) 01/09/17 20:47 Urine RBC None /hpf (0-3) 01/09/17 20:47 Urine WBC 1 /hpf (3-5) 01/09/17 20:47 Urine Mucus Rare 01/09/17 20:47 Assessment: 01/10/17 11:20 WITHDRAWAL SYMPTOM Plan: CONTINUE DETOX
[2017-01-10 11:36] LABS: HIV 1 & 2 AB NEGATIVE; HIV 1 AGp24 NEGATIVE
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
[2017-01-10] MEDS: THIAMINE HCL 100 MG TABLET (FP) PO SCH (22:18)
[2017-01-10] MEDS: MIRTAZAPINE 30 MG TABLET (FP) PO SCH (22:18)
[2017-01-11] MEDS: chlordiazePOXIDE HCL 25 MG CAPSULE PO SCH ×3 (05:28→17:00)
[2017-01-11] MEDS: metFORMIN HCL 500 MG TABLET (FP) PO SCH ×2 (06:54→16:58)
[2017-01-11] MEDS: levETIRAcetam 500 MG TABLET (FP) PO SCH ×2 (10:15→22:25)
[2017-01-11] MEDS: NICOTINE 21 MG/24 HOURS TOPICAL PATCH TD SCH (10:15)
[2017-01-11] MEDS: LISINOPRIL 10 MG TABLET (FP) PO SCH (10:15)
[2017-01-11] MEDS: PRENATAL VITAMINS W/ FOLIC ACID TABLET (FP) PO SCH (10:15)
--- NOTE | 2017-01-11 11:42 | PN ---
S CIWA - CIWA Score Nausea/Vomitin Muscle Tremors: 4-Moderate,w/Arms Extend Anxiety: 4-Mod. Anxious/Guarded Agitation: 4-Moderately Restless Paroxysmal Sweats: 3 Orientation: 0-Oriented Tacttile Disturbances: 0-None Auditory Disturbances: 0-None Visual Disturbances: 0-None Headache: 0-None Present CIWA-Ar Total Score: 18 BHS Progress Note (SOAP) Subjective: nausea, sweats, interrupted sleep, anxiety, trmeors Objective: 01/11/17 11:41 Vital Signs - 8 hr 01/11/17 01/11/17 06:31 09:51 Temperature 96.3 F L 97.2 F L Pulse Rate 87 116 H Respiratory 18 20 Rate Blood Pressure 103/72 135/97 Laboratory Tests 01/09/17 01/09/17 01/09/17 07:00 16:41 20:47 WBC RBC Hgb Hct MCV MCH MCHC RDW Plt Count MPV Sodium Potassium Chloride Carbon Dioxide Anion Gap BUN Creatinine Creat Clearance w eGFR POC Glucometer 115 Random Glucose Calcium Total Bilirubin AST ALT Alkaline Phosphatase Total Protein Albumin Urine Color Yellow Urine Appearance Clear Urine pH 8.0 Ur Specific [place] 1.015 Urine Protein 1+ H Urine Glucose (UA) 2+ H Urine Ketones Negative Urine Blood Negative Urine Nitrite Negative Urine Bilirubin Negative Urine Urobilinogen Negative Ur Leukocyte Esterase Negative Urine RBC None Urine WBC 1 Urine Mucus Rare RPR Titer HIV 1&2 Antibody Screen Negative HIV P24 Antigen Negative 01/10/17 01/10/17 01/10/17 05:34 07:00 07:00 WBC 7.1 RBC 4.80 Hgb 13.8 Hct 42.3 MCV 88.1 MCH 28.7 MCHC 32.6 RDW 14.1 Plt Count 192 MPV 9.4 Sodium 140 Potassium 4.3 Chloride 106 Carbon Dioxide 27 Anion Gap 7 L BUN 15 D Creatinine 1.0 Creat Clearance w eGFR > 60 POC Glucometer 155 Random Glucose 159 H Calcium 8.9 Total Bilirubin 0.2 D AST 20 D ALT 23 D Alkaline Phosphatase 107 D Total Protein 7.5 Albumin 3.6 Urine Color Urine Appearance Urine pH Ur Specific [place] Urine Protein Urine Glucose (UA) Urine Ketones Urine Blood Urine Nitrite Urine Bilirubin Urine Urobilinogen Ur Leukocyte Esterase Urine RBC Urine WBC Urine Mucus RPR Titer HIV 1&2 Antibody Screen HIV P24 Antigen 0801/10/17 01/11/17 07:00 16:15 06:06 WBC RBC Hgb Hct MCV MCH MCHC RDW Plt Count MPV Sodium Potassium Chloride Carbon Dioxide Anion Gap BUN Creatinine Creat Clearance w eGFR POC Glucometer 162 227 Random Glucose Calcium Total Bilirubin AST ALT Alkaline Phosphatase Total Protein Albumin Urine Color Urine Appearance Urine pH Ur Specific [place] Urine Protein Urine Glucose (UA) Urine Ketones Urine Blood Urine Nitrite Urine Bilirubin Urine Urobilinogen Ur Leukocyte Esterase Urine RBC Urine WBC Urine Mucus RPR Titer Nonreactive HIV 1&2 Antibody Screen HIV P24 Antigen Assessment: 01/11/17 11:42 withdrawal sx Plan: cont detox, fluids, encourage ambualtion
[2017-01-11] MEDS: THIAMINE HCL 100 MG TABLET (FP) PO SCH (22:25)
[2017-01-11] MEDS: MIRTAZAPINE 30 MG TABLET (FP) PO SCH (22:25)
[2017-01-11] MEDS: chlordiazePOXIDE 5 MG CAPSULE PO SCH (22:25)
[2017-01-12] MEDS: chlordiazePOXIDE 5 MG CAPSULE PO SCH ×3 (06:03→17:55)
[2017-01-12] MEDS: metFORMIN HCL 500 MG TABLET (FP) PO SCH ×2 (06:08→16:52)
[2017-01-12] MEDS: PRENATAL VITAMINS W/ FOLIC ACID TABLET (FP) PO SCH (10:43)
[2017-01-12] MEDS: NICOTINE 21 MG/24 HOURS TOPICAL PATCH TD SCH (10:43)
[2017-01-12] MEDS: levETIRAcetam 500 MG TABLET (FP) PO SCH ×2 (10:44→22:27)
[2017-01-12] MEDS: LISINOPRIL 10 MG TABLET (FP) PO SCH (10:45)
--- NOTE | 2017-01-12 11:36 | EKG ---
Test Reason : Blood Pressure : / mmHG Vent. Rate : 104 BPM Atrial Rate : 104 BPM P-R Int : 166 ms QRS Dur : 092 ms QT Int : 304 ms P-R-T Axes : 046 017 049 degrees QTc Int : 399 ms SINUS TACHYCARDIA POSSIBLE LEFT ATRIAL ENLARGEMENT SEPTAL INFARCT (CITED ON OR BEFORE 31-OCT-2016) ABNORMAL ECG WHEN COMPARED WITH ECG OF 31-OCT-2016 18:48, NO SIGNIFICANT CHANGE WAS FOUND Confirmed by DENG LYONS, DIOGENES ([id number]) on 01/12/2017 11:35:51 AM Referred By: Confirmed By:DIOGENES VILCHIS MD
--- NOTE | 2017-01-12 13:17 | PN ---
BHS Progress Note (SOAP) Subjective: nausea, sweats, interrupted sleep, anxiety, tremors Objective: 01/12/17 13:16 Vital Signs - 8 hr 01/12/17 01/12/17 06:37 09:32 Temperature 97.7 F 97.5 F L Pulse Rate 85 112 H Respiratory 18 18 Rate Blood Pressure 98/62 116/79 Laboratory Tests 01/09/17 01/09/17 01/09/17 07:00 16:41 20:47 WBC RBC Hgb Hct MCV MCH MCHC RDW Plt Count MPV Sodium Potassium Chloride Carbon Dioxide Anion Gap BUN Creatinine Creat Clearance w eGFR POC Glucometer 115 Random Glucose Calcium Total Bilirubin AST ALT Alkaline Phosphatase Total Protein Albumin Urine Color Yellow Urine Appearance Clear Urine pH 8.0 Ur Specific [place] 1.015 Urine Protein 1+ H Urine Glucose (UA) 2+ H Urine Ketones Negative Urine Blood Negative Urine Nitrite Negative Urine Bilirubin Negative Urine Urobilinogen Negative Ur Leukocyte Esterase Negative Urine RBC None Urine WBC 1 Urine Mucus Rare RPR Titer HIV 1&2 Antibody Screen Negative HIV P24 Antigen Negative 01/10/17 01/10/17 01/10/17 05:34 07:00 07:00 WBC 7.1 RBC 4.80 Hgb 13.8 Hct 42.3 MCV 88.1 MCH 28.7 MCHC 32.6 RDW 14.1 Plt Count 192 MPV 9.4 Sodium 140 Potassium 4.3 Chloride 106 Carbon Dioxide 27 Anion Gap 7 L BUN 15 D Creatinine 1.0 Creat Clearance w eGFR > 60 POC Glucometer 155 Random Glucose 159 H Calcium 8.9 Total Bilirubin 0.2 D AST 20 D ALT 23 D Alkaline Phosphatase 107 D Total Protein 7.5 Albumin 3.6 Urine Color Urine Appearance Urine pH Ur Specific [place] Urine Protein Urine Glucose (UA) Urine Ketones Urine Blood Urine Nitrite Urine Bilirubin Urine Urobilinogen Ur Leukocyte Esterase Urine RBC Urine WBC Urine Mucus RPR Titer HIV 1&2 Antibody Screen HIV P24 Antigen 01/10/17 01/10/17 01/11/17 07:00 16:15 06:06 WBC RBC Hgb Hct MCV MCH MCHC RDW Plt Count MPV Sodium Potassium Chloride Carbon Dioxide Anion Gap BUN Creatinine Creat Clearance w eGFR POC Glucometer 162 227 Random Glucose Calcium Total Bilirubin AST ALT Alkaline Phosphatase Total Protein Albumin Urine Color Urine Appearance Urine pH Ur Specific [place] Urine Protein Urine Glucose (UA) Urine Ketones Urine Blood Urine Nitrite Urine Bilirubin Urine Urobilinogen Ur Leukocyte Esterase Urine RBC Urine WBC Urine Mucus RPR Titer Nonreactive HIV 1&2 Antibody Screen HIV P24 Antigen 01/11/17 01/12/17 16:27 06:07 WBC RBC Hgb Hct MCV MCH MCHC RDW Plt Count MPV Sodium Potassium Chloride Carbon Dioxide Anion Gap BUN Creatinine Creat Clearance w eGFR POC Glucometer 305 395 Random Glucose Calcium Total Bilirubin AST ALT Alkaline Phosphatase Total Protein Albumin Urine Color Urine Appearance Urine pH Ur Specific [place] Urine Protein Urine Glucose (UA) Urine Ketones Urine Blood Urine Nitrite Urine Bilirubin Urine Urobilinogen Ur Leukocyte Esterase Urine RBC Urine WBC Urine Mucus RPR Titer HIV 1&2 Antibody Screen HIV P24 Antigen Assessment: 01/12/17 13:16 withdrawal sx Plan: cont detox, fluids, control bs
[2017-01-12] MEDS ORDERED: ZOLPIDEM TARTRATE 10 MG TABLET (PARK CARE ONLY) PO PRN (13:19)
[2017-01-12] MEDS: INSULIN SLIDING SCALE (NOVOLOG) 1 VIAL SQ SCH (16:48)
[2017-01-12] MEDS ORDERED: INSULIN (NOVOLOG) ASPART 100 UNITS/ML 10ML VIAL ONE (16:51)
[2017-01-12] MEDS: THIAMINE HCL 100 MG TABLET (FP) PO SCH (22:27)
[2017-01-12] MEDS: MIRTAZAPINE 30 MG TABLET (FP) PO SCH (22:27)
[2017-01-12] MEDS: chlordiazePOXIDE HCL 10 MG CAPSULE PO SCH (22:28)
[2017-01-13] MEDS: chlordiazePOXIDE HCL 10 MG CAPSULE PO SCH (06:01)
[2017-01-13] MEDS: metFORMIN HCL 500 MG TABLET (FP) PO SCH (06:03)
[2017-01-13] MEDS ORDERED: INSULIN (NOVOLOG) ASPART 100 UNITS/ML 10ML VIAL ONE (06:48)
[2017-01-13] MEDS: INSULIN SLIDING SCALE (NOVOLOG) 1 VIAL SQ SCH (06:50)
--- NOTE | 2017-01-13 09:37 | DS ---
[facility] Detox Discharge Summary Admission Date: 01/09/17 Discharge Date: 01/13/17 - History Present History: Alcohol Dependence Additional Comments: FOLLOW UP WITH AFTER CARE PROGRAM ARRANGEMENT Pertinent Past History: TYPE 2 DM HYPERTENSION SEIZURE NICOTINE DEPENDENCE INSOMNIA 'DEPRESSION - Physical Exam Results Vital Signs: Vital Signs Temperature 97.2 F L 01/13/17 06:00 Pulse Rate 90 01/13/17 06:00 Respiratory Rate 18 01/13/17 06:00 Blood Pressure 108/69 01/13/17 06:00 O2 Sat by Pulse Oximetry (%) Pertinent Admission Physical Exam Findings: WITHDRAWAL SYMPTOM - Treatment Hospital Course: Detox Protocol Followed, Detoxed Safely, Responded well, Discharged Condition Good Patient has Accepted a Rehab Referral to: DECLINED - Medication Discharge Medications: Ambulatory Orders Levetiracetam [Keppra -] 500 mg PO BID #60 tab 11/24/16 Lisinopril 10 mg PO DAILY #30 tab 11/24/16 Mirtazapine [Remeron -] 45 mg PO HS #30 tablet 11/24/16 Metformin HCl [Glucophage -] 1,000 mg PO BID 01/09/17 Mirtazapine [Remeron -] 45 mg PO HS #60 tablet 01/10/17 - Diagnosis (1) Alcohol dependence with uncomplicated withdrawal Current Visit: Yes Status: Acute (2) Syncope Current Visit: No Status: Acute (3) Diabetes mellitus type II, controlled, with no complications Current Visit: Yes Status: Chronic Qualifiers: 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-term insulin use: without long-term use Qualified Code(s): E11.9 - Type 2 diabetes mellitus without complications (4) Hypertension Current Visit: Yes Status: Chronic Qualifiers: Hypertension type: essential hypertension Qualified Code(s): I10 - Essential (primary) hypertension (5) Nicotine dependence Current Visit: Yes Status: Acute Qualifiers: Nicotine product type: cigarettes Substance use status: in withdrawal Qualified Code(s): F17.213 - Nicotine dependence, cigarettes, with withdrawal (6) Seizure Current Visit: No Status: Chronic (7) Depression Current Visit: No Status: Suspected Qualifiers: Depression Type: dysthymia Qualified Code(s): F34.1 - Dysthymic disorder (8) Insomnia Current Visit: Yes Status: Acute - AMA Did Patient Leave Against Medical Advice: No
[2017-01-13 10:03] VITALS: BP 144/95; PULSE 121; TEMP 98.1
== END 2017-01-13 10:03 | disposition home or self-care (01) | DRG 897 ==
LOC: YASAS 12:56 → Y6N 18:30
PROVIDERS: ADMIT Internal Medicine Addiction Medicine; ATTEND Internal Medicine Addiction Medicine
PROC: HZ2ZZZZ Detoxification Services for Substance Abuse Treatment (ICD-10-PCS; principal; 2017-01-13)
DX: F10.230 Alcohol dependence with withdrawal, uncomplicated (principal); F17.213 Nicotine dependence, cigarettes, with withdrawal; F34.1 Dysthymic disorder; G47.00 Insomnia, unspecified; I10 Essential (primary) hypertension; E11.9 Type 2 diabetes mellitus without complications; Z86.69 Personal history of other diseases of the nervous system and sense organs; Z86.79 Personal history of other diseases of the circulatory system; R55 Syncope and collapse
CPT/HCPCS: 36415; 80053; 81003; 81015; 85027; 86593; 87389; 93005; 93010

== ENCOUNTER 2017-05-02 18:24 | Inpatient (IN) | payer OTHER ==
[2017-05-02 18:43] VITALS: BMI 30.9
--- NOTE | 2017-05-02 20:18 | HP ---
Admission ROS [facility] Chief Complaint: I WANT TO GO TO REHAB Allergies/Adverse Reactions: Allergies Allergy/AdvReac Type Severity Reaction Status Date / Time apple Allergy Severe Swelling Verified 05/02/17 18:31 Fish Containing Products Allergy Severe Swelling Verified 05/02/17 18:31 pork derived (porcine) Allergy Severe Swelling Verified 05/02/17 18:31 No Known Drug Allergies Allergy Verified 05/02/17 18:31 History of Present Illness: 41 YEARS OLD MALE WITH LONG HISTORY OF ALCOHOL NICOTINE DEPENDENCE HAS DIABETES II (SINCE AGE 14), HYPERTENSION SEIZURE (LAST EPISODE 2006), BIPOLAR II IS ADMITTED TO REHAB Exam Limitations: No Limitations - Ebola screening Have you traveled outside of the country in the last 21 days: No Have you had contact with anyone from an Ebola affected area: No Have you been sick,other than usual withdrawal symptoms: No Do you have a fever: No - Review of Systems Constitutional: Weight Stable EENT: reports: No Symptoms Reported Respiratory: reports: No Symptoms reported Cardiac: reports: No Symptoms Reported GI: reports: No Symptoms Reported : reports: No Symptoms Reported Musculoskeletal: reports: No Symptoms Reported Integumentary: reports: No Symptoms Reported Neuro: reports: Seizure (LAST EPISODE 2006 NO TREATMENT) Endocrine: reports: Increased Urine Hematology: reports: No Symptoms Reported Psychiatric: reports: Judgement Intact, Orientated x3, Anxious, Depressed Other Systems: Reviewed and Negative Patient History - Patient Medical History Hx Anemia: No Hx Asthma: No Hx Chronic Obstructive Pulmonary Disease (COPD): No Hx Cancer: No Hx Cardiac Disorders: No Hx Congestive Heart Failure: No Hx Hypertension: Yes (no medication) Hx Hypercholesterolemia: No Hx Pacemaker: No HX Cerebrovascular Accident: No Hx Seizures: Yes (last since 1991) Hx Dementia: No Hx Diabetes: Yes Hx Gastrointestinal Disorders: No Hx Liver Disease: No Hx Genitourinary Disorders: No Hx Sexually Transmitted Disorders: No Hx Renal Disease (ESRD): No Hx Thyroid Disease: No Hx Human Immunodeficiency Virus (HIV): No (08/26 last tested negative) Hx Hepatitis C: No Hx Depression: No (no med) Hx Suicide Attempt: No Hx Bipolar Disorder: Yes Hx Schizophrenia: No - Patient Surgical History Past Surgical History: Yes Hx Neurologic Surgery: No Hx Cataract Extraction: No Hx Cardiac Surgery: No Hx Lung Surgery: No Hx Breast Surgery: No Hx Breast Biopsy: No Hx Abdominal Surgery: No Hx Appendectomy: No Hx Cholecystectomy: No Hx Genitourinary Surgery: No Hx Orthopedic Surgery: Yes (L foot sx for flatfoot.2011) Anesthesia Reaction: No - PPD History Previous Implant?: Yes Documented Results: Negative w/proof Implanted On Prior [facility] Admission?: Yes Date: 11/02/16 Results: Negative PPD to be Administered?: No - Smoking Cessation Smoking history: Current every day smoker Have you smoked in the past 12 months: Yes Aproximately how many cigarettes per day: 20 Cigars Per Day: 0 Hx Chewing Tobacco Use: No Initiated information on smoking cessation: Yes 'Breaking Loose' booklet given: 05/02/17 - Substance & Tx. History Hx Alcohol Use: Yes Hx Substance Use: No Substance Use Type: Alcohol Hx Substance Use Treatment: Yes (01/2017 [facility] ) - Substances Abused Alcohol Route: Oral Frequency: Daily Amount used: PINT E&J [id number] Age of first use: 14 Date of Last Use: 04/23/17 Family Disease History - Family Disease History Family Disease History: Heart Disease: Grandparent, Other: Father (alcohol), Mother (alcohol) Admission Physical Exam S - Vital Signs Vital Signs: Vital Signs - 24 hr 05/02/17 18:35 Temperature 98.8 F Pulse Rate 96 H Respiratory 18 Rate Blood Pressure 131/102 - Physical General Appearance: Yes: Obese HEENTM: Yes: Hearing grossly Normal, Normal ENT Inspection, Normocephalic, Normal Voice Respiratory: Yes: Chest Non-Tender, Lungs Clear, Normal Breath Sounds, No Respiratory Distress, No Accessory Muscle Use Neck: Yes: Supple, Trachea in good position Breast: Yes: Breasts Symetrical Cardiology: Yes: Regular Rhythm, S1, S2, Tachycardia Abdominal: Yes: Normal Bowel Sounds, Non Tender, Soft Genitourinary: Yes: Within Normal Limits Back: Yes: Normal Inspection Musculoskeletal: Yes: full range of Motion, Gait Steady Extremities: Yes: Normal Inspection, Normal Range of Motion, Non-Tender Neurological: Yes: Fully Oriented, Alert, Motor Strength 5/5, Normal Response, Depressed Affect Integumentary: Yes: Warm Lymphatic: Yes: Within Normal Limits - Diagnostic (1) Hyperlipidemia Current Visit: Yes Status: Chronic Qualifiers: Hyperlipidemia type: pure hypercholesterolemia Qualified Code(s): E78.00 - Pure hypercholesterolemia, unspecified; E78.0 - Pure hypercholesterolemia (2) Neuropathy Current Visit: Yes Status: Chronic (3) Alcohol dependence with uncomplicated withdrawal Current Visit: Yes Status: Acute Comment: ADMITTED TO [facility] X 9 DAYS FOR SUICIDAL IDEATION (BEST FRIEND ) DISCHRGED TODAY (4) Nicotine dependence Current Visit: Yes Status: Acute Qualifiers: Nicotine product type: cigarettes Substance use status: in withdrawal Qualified Code(s): F17.213 - Nicotine dependence, cigarettes, with withdrawal (5) Diabetes mellitus type II, controlled, with no complications Current Visit: Yes Status: Chronic Qualifiers: Diabetes mellitus extermination inspector insulin use: with correction use Qualified Code( s): E11.9 - Type 2 diabetes mellitus without complications; Z79.4 - senior living ( current) use of insulin; Z79.4 - senior living (current) use of insulin; Z79.4 - extermination inspector (current) use of insulin; Z79.4 - senior living (current) use of insulin (6) Hypertension Current Visit: Yes Status: Chronic Qualifiers: Hypertension type: essential hypertension Qualified Code(s): I10 - Essential (primary) hypertension Cleared for Admission [facility] - Detox or Rehab [facility] Level of Care: Observation Bed Detox Regimen/Protocol: Not Applicable Claeared for Rehab Admission: Yes [facility] Breath Alcohol Content Breath Alcohol Content: 0 Urine Drug Screen - Results Drug Screen Negative: Yes Inpatient Rehab Admission - Initial Determination Are CD services needed?: Yes Free of communicable disease: Yes Not in need of hospitalization: Yes - Rehab Admission Criteria Previous failed treatment: Yes Poor recovery environment: Yes Comorbidities: Yes Lacks judgement: No Patient is meeting Inpatient Rehab admission criteria:: Yes
[2017-05-02] MEDS ORDERED: MENTHOL/PHENOL 1 EACH UD MM PRN (20:25)
[2017-05-02] MEDS ORDERED: ACETAMINOPHEN 325 MG TABLET (FP) PO PRN (20:25)
[2017-05-02] MEDS ORDERED: MAGNESIUM CITRATE 300 ML BOTTLE PO PRN (20:25)
[2017-05-02] MEDS ORDERED: guaiFENesin/D-METHORPHAN HB 10 ML UNIT-DOSE CUPS PO PRN (20:25)
[2017-05-02] MEDS ORDERED: MAG HYDROX/AL HYDROX/SIMETH 30 ML UNIT-DOSE CUP PO PRN (20:25)
[2017-05-02] MEDS ORDERED: IBUPROFEN 400 MG TABLET (FP) PO PRN (20:25)
[2017-05-02] MEDS ORDERED: NICOTINE POLACRILEX 4 MG GUM BC PRN (20:25)
[2017-05-02] MEDS ORDERED: MAGNESIUM HYDROX 2400MG/30ML ORAL SUSPENSION 30 ML CUP PO PRN (20:25)
[2017-05-02] MEDS ORDERED: LOPERAMIDE HCL 2 MG CAPSULE PO PRN (20:25)
[2017-05-02] MEDS ORDERED: P-EPHED 60MG/TRIPROLIDI 2.5MG TABLET PO PRN (20:25)
[2017-05-02] MEDS: GABAPENTIN 300 MG CAPSULE (FP) PO SCH (23:28)
[2017-05-02] MEDS: ATORVASTATIN CA 10 MG TABLET (FP) PO SCH (23:28)
[2017-05-02] MEDS: THIAMINE HCL 100 MG TABLET (FP) PO SCH (23:28)
[2017-05-02] MEDS: INSULIN SLIDING SCALE (NOVOLOG) 1 VIAL SQ SCH (23:29)
[2017-05-02] MEDS: INSULIN DETEMIR 100 UNITS/ML MDV SQ SCH (23:31)
[2017-05-03] MEDS: MIRTAZAPINE 30 MG TABLET (FP) PO SCH ×2 (00:09→21:02)
[2017-05-03 01:25] LABS: URINE APPEARANCE CLEAR; URINE BILIRUBIN NEGATIVE (NEGATIVE); URINE BLOOD NEGATIVE (NEGATIVE); URINE COLOR YELLOW; URINE GLUCOSE (UA) 3+ (NEGATIVE); URINE KETONE NEGATIVE (NEGATIVE); URINE LEUK ESTERASE NEGATIVE (NEGATIVE); URINE NITRITE NEGATIVE (NEGATIVE); URINE PROTEIN NEGATIVE (NEGATIVE); URINE UROBILINOGEN NEGATIVE mg/dL (0.2-1.0)
[2017-05-03] MEDS: metFORMIN HCL 500 MG TABLET (FP) PO SCH ×2 (06:12→16:48)
[2017-05-03] MEDS: GABAPENTIN 300 MG CAPSULE (FP) PO SCH ×3 (06:12→21:02)
[2017-05-03] MEDS: INSULIN SLIDING SCALE (NOVOLOG) 1 VIAL SQ SCH ×4 (06:12→21:02)
[2017-05-03] MEDS ORDERED: INSULIN (NOVOLOG) ASPART 100 UNITS/ML 10ML VIAL ONE ×3 (06:43→16:52)
[2017-05-03] MEDS: NICOTINE 21 MG/24 HOURS TOPICAL PATCH TD SCH (09:57)
[2017-05-03] MEDS: PRENATAL VITAMINS W/ FOLIC ACID TABLET (FP) PO SCH (09:57)
[2017-05-03] MEDS: ASPIRIN 81 MG CHEWABLE TABLETS PO SCH (09:57)
[2017-05-03] MEDS: LISINOPRIL 10 MG TABLET (FP) PO SCH (09:57)
[2017-05-03] MEDS: HALOPERIDOL 5 MG TABLET (FP) PO SCH (09:57)
--- NOTE | 2017-05-03 10:09 | EKG ---
Test Reason : Blood Pressure : / mmHG Vent. Rate : 069 BPM Atrial Rate : 069 BPM P-R Int : 172 ms QRS Dur : 096 ms QT Int : 378 ms P-R-T Axes : 052 020 028 degrees QTc Int : 405 ms NORMAL SINUS RHYTHM NONSPECIFIC ST AND T WAVE ABNORMALITY ABNORMAL ECG WHEN COMPARED WITH ECG OF 09-JAN-2017 18:52, VENT. RATE HAS DECREASED BY 35 BPM CRITERIA FOR SEPTAL INFARCT ARE NO LONGER PRESENT Confirmed by TERESA NUNEZ MD ([id number]) on 05/03/2017 10:09:26 AM Referred By: DELON RODNEY Confirmed By:TERESA NUNEZ MD
[2017-05-03 10:13] LABS: HEMATOCRIT 42.9 % (35.4-49); HEMOGLOBIN 13.9 GM/dL (11.7-16.9); MCH 27.8 pg (25.7-33.7); MCHC 32.5 g/dl (32.0-35.9); MEAN CELL VOLUME 85.5 fl (80-96); MEAN PLT VOLUME 10.1 fl (7.5-11.1); PLATELET COUNT 248 K/MM3 (134-434); RBC 5.02 M/mm3 (4.00-5.60); RDW 13.9 % (11.9-15.9); WHITE BLOOD COUNT 8.2 K/mm3 (4.0-10.0)
[2017-05-03 10:18] LABS: CHLORIDE 105 mmol/L (98-107); POTASSIUM 3.8 mmol/L (3.5-5.1); SODIUM 139 mmol/L (136-145)
[2017-05-03 10:37] LABS: ALBUMIN 4.1 g/dl (3.4-5.0); ALK PHOS 112 U/L (45-117); ANION GAP 8 (8-16); BILIRUBIN,TOTAL 0.4 mg/dL (0.2-1.0); BLOOD UREA NITROGEN 12 mg/dL (7-18); CALCIUM 9.5 mg/dL (8.5-10.1); CO2 26 mmol/L (21-32); CREATININE 1.1 mg/dL (0.7-1.3); GLUCOSE,RANDOM 160 mg/dL (74-106); SGOT/AST 19 U/L (15-37); SGPT/ALT 31 U/L (12-78); TOT PROT 8.2 g/dl (6.4-8.2)
[2017-05-03] MEDS ORDERED: PNEUMOCOCCAL 23 VACCINE 0.5 ML VIAL IM ONE (12:00)
[2017-05-03] MEDS ORDERED: PNEUMOC 13-VAL CONJ-DIP CRM/PF 0.5 ML DISP.SYRIN IM ONE (12:00)
--- NOTE | 2017-05-03 12:17 | HP ---
Psychiatrist Admission - Data Date of interview: 05/03/17 Admission source: [facility] Identifying data: This is the second [facility] for this 41 years old single AA male, father of 2 children, unemployed on SSI/SSD and currently homeless. Medical History: Significant for HTN, type 2 DM, Alcohol-related seizure and history of surgery on the left foot to correct flat foot Psychiatric History: Patient treports history of depression and two psychiatric hospitalizations at [facility] and most recently [facility], he was for 9 days from where he was referred to [place], reports was admitted to depression. He currently on Remeron 30 mg po hs. Physical/Sexual Abuse/Trauma History: Denies Vital Signs: Vital Signs - 24 hr 05/02/17 05/03/17 05/03/17 18:35 00:40 03:30 Temperature 98.8 F Pulse Rate 96 H Respiratory 18 16 16 Rate Blood Pressure 131/102 05/03/17 06:35 Temperature 97.6 F Pulse Rate 72 Respiratory 16 Rate Blood Pressure 108/77 Allergies/Adverse Reactions: Allergies Allergy/AdvReac Type Severity Reaction Status Date / Time apple Allergy Severe Swelling Verified 05/02/17 18:31 Fish Containing Products Allergy Severe Swelling Verified 05/02/17 18:31 pork derived (porcine) Allergy Severe Swelling Verified 05/02/17 18:31 No Known Drug Allergies Allergy Verified 05/02/17 18:31 Date of last physical exam: 05/02/17 Concur with the findings of this exam: Yes - Substance Abuse/Tx History Hx Alcohol Use: Yes Hx Substance Use: Yes Hx Substance Use Treatment: Yes Mental Status Exam - Mental Status Exam Alert and Oriented to: Time, Place, Person Cognitive Function: Grossly Intact Patient Appearance: Well Groomed Mood: Sad Affect: Mood Congruent, Flat, Blunted Patient Behavior: Appropriate, Cooperative Speech Pattern: Clear, Appropriate Voice Loudness: Normal Thought Process: Goal Oriented Thought Disorder: Not Present Hallucinations: Denies Suicidal Ideation: Denies Homicidal Ideation: Denies Insight/Judgement: Fair Sleep: Fair Appetite: Fair Muscle strength/Tone: Normal Gait/Station: Normal Psychiatric Findings - Problem List ([place] 1, 2,3) (1) Nicotine dependence Current Visit: Yes Status: Acute Qualifiers: Nicotine product type: cigarettes Substance use status: in withdrawal Qualified Code(s): F17.213 - Nicotine dependence, cigarettes, with withdrawal (2) Diabetes mellitus type II, controlled, with no complications Current Visit: Yes Status: Chronic Qualifiers: Diabetes mellitus shelter insulin use: with termite treater use Qualified Code( s): E11.9 - Type 2 diabetes mellitus without complications; Z79.4 - jail ( current) use of insulin; Z79.4 - oysterman (current) use of insulin; Z79.4 - oysterman (current) use of insulin; Z79.4 - oysterman (current) use of insulin (3) Hyperlipidemia Current Visit: Yes Status: Chronic Qualifiers: Hyperlipidemia type: pure hypercholesterolemia Qualified Code(s): E78.00 - Pure hypercholesterolemia, unspecified; E78.0 - Pure hypercholesterolemia (4) Hypertension Current Visit: Yes Status: Chronic Qualifiers: Hypertension type: essential hypertension Qualified Code(s): I10 - Essential (primary) hypertension (5) Alcohol dependence Current Visit: No Status: Acute (6) Alcohol-induced mood disorder Current Visit: Yes Status: Acute - Initial Treatment Plan Initial Treatment Plan: will continue Remeron, monitor progress as needed.
[2017-05-03] MEDS: INSULIN DETEMIR 100 UNITS/ML MDV SQ SCH (21:01)
[2017-05-03] MEDS: levETIRAcetam 500 MG TABLET (FP) PO SCH (21:02)
[2017-05-03] MEDS: ATORVASTATIN CA 10 MG TABLET (FP) PO SCH (21:02)
[2017-05-03] MEDS: THIAMINE HCL 100 MG TABLET (FP) PO SCH (21:02)
[2017-05-04] MEDS: GABAPENTIN 300 MG CAPSULE (FP) PO SCH ×3 (06:11→21:23)
[2017-05-04] MEDS: metFORMIN HCL 500 MG TABLET (FP) PO SCH ×2 (06:11→16:55)
[2017-05-04] MEDS: INSULIN SLIDING SCALE (NOVOLOG) 1 VIAL SQ SCH ×4 (06:19→21:24)
[2017-05-04] MEDS: NICOTINE 21 MG/24 HOURS TOPICAL PATCH TD SCH (09:43)
[2017-05-04] MEDS: ASPIRIN 81 MG CHEWABLE TABLETS PO SCH (09:43)
[2017-05-04] MEDS: HALOPERIDOL 5 MG TABLET (FP) PO SCH (09:43)
[2017-05-04] MEDS: levETIRAcetam 500 MG TABLET (FP) PO SCH ×2 (09:43→21:23)
[2017-05-04] MEDS: LISINOPRIL 10 MG TABLET (FP) PO SCH (09:43)
[2017-05-04] MEDS: PRENATAL VITAMINS W/ FOLIC ACID TABLET (FP) PO SCH (09:43)
[2017-05-04] MEDS ORDERED: INSULIN (NOVOLOG) ASPART 100 UNITS/ML 10ML VIAL ONE (16:54)
[2017-05-04] MEDS: THIAMINE HCL 100 MG TABLET (FP) PO SCH (21:23)
[2017-05-04] MEDS: MIRTAZAPINE 30 MG TABLET (FP) PO SCH (21:23)
[2017-05-04] MEDS: ATORVASTATIN CA 10 MG TABLET (FP) PO SCH (21:23)
[2017-05-04] MEDS: INSULIN DETEMIR 100 UNITS/ML MDV SQ SCH (21:25)
[2017-05-05] MEDS: GABAPENTIN 300 MG CAPSULE (FP) PO SCH ×3 (06:16→21:08)
[2017-05-05] MEDS: metFORMIN HCL 500 MG TABLET (FP) PO SCH ×2 (07:04→16:44)
[2017-05-05] MEDS: INSULIN SLIDING SCALE (NOVOLOG) 1 VIAL SQ SCH ×4 (07:23→21:09)
[2017-05-05] MEDS: LISINOPRIL 10 MG TABLET (FP) PO SCH (09:46)
[2017-05-05] MEDS: ASPIRIN 81 MG CHEWABLE TABLETS PO SCH (09:46)
[2017-05-05] MEDS: PRENATAL VITAMINS W/ FOLIC ACID TABLET (FP) PO SCH (09:46)
[2017-05-05] MEDS: levETIRAcetam 500 MG TABLET (FP) PO SCH ×2 (09:46→21:08)
[2017-05-05] MEDS: NICOTINE 21 MG/24 HOURS TOPICAL PATCH TD SCH (09:46)
[2017-05-05] MEDS: HALOPERIDOL 5 MG TABLET (FP) PO SCH (09:46)
[2017-05-05] MEDS ORDERED: INSULIN (NOVOLOG) ASPART 100 UNITS/ML 10ML VIAL ONE (12:05)
[2017-05-05] MEDS: ATORVASTATIN CA 10 MG TABLET (FP) PO SCH (21:08)
[2017-05-05] MEDS: INSULIN DETEMIR 100 UNITS/ML MDV SQ SCH (21:08)
[2017-05-05] MEDS: MIRTAZAPINE 30 MG TABLET (FP) PO SCH (21:08)
[2017-05-05] MEDS: THIAMINE HCL 100 MG TABLET (FP) PO SCH (21:08)
[2017-05-06] MEDS: metFORMIN HCL 500 MG TABLET (FP) PO SCH ×2 (06:26→16:35)
[2017-05-06] MEDS: GABAPENTIN 300 MG CAPSULE (FP) PO SCH ×3 (06:26→21:02)
[2017-05-06] MEDS: INSULIN SLIDING SCALE (NOVOLOG) 1 VIAL SQ SCH ×4 (06:27→21:02)
[2017-05-06] MEDS: NICOTINE 21 MG/24 HOURS TOPICAL PATCH TD SCH (09:53)
[2017-05-06] MEDS: levETIRAcetam 500 MG TABLET (FP) PO SCH ×2 (09:54→21:02)
[2017-05-06] MEDS: HALOPERIDOL 5 MG TABLET (FP) PO SCH (09:54)
[2017-05-06] MEDS: PRENATAL VITAMINS W/ FOLIC ACID TABLET (FP) PO SCH (09:54)
[2017-05-06] MEDS: ASPIRIN 81 MG CHEWABLE TABLETS PO SCH (09:54)
[2017-05-06] MEDS: LISINOPRIL 10 MG TABLET (FP) PO SCH (09:54)
[2017-05-06] MEDS ORDERED: INSULIN (NOVOLOG) ASPART 100 UNITS/ML 10ML VIAL ONE ×2 (11:47→16:42)
[2017-05-06] MEDS: INSULIN DETEMIR 100 UNITS/ML MDV SQ SCH (21:00)
[2017-05-06] MEDS: THIAMINE HCL 100 MG TABLET (FP) PO SCH (21:01)
[2017-05-06] MEDS: ATORVASTATIN CA 10 MG TABLET (FP) PO SCH (21:02)
[2017-05-06] MEDS: MIRTAZAPINE 30 MG TABLET (FP) PO SCH (21:02)
[2017-05-07] MEDS: metFORMIN HCL 500 MG TABLET (FP) PO SCH ×2 (06:27→16:38)
[2017-05-07] MEDS: GABAPENTIN 300 MG CAPSULE (FP) PO SCH ×3 (06:27→21:02)
[2017-05-07] MEDS: INSULIN SLIDING SCALE (NOVOLOG) 1 VIAL SQ SCH ×4 (06:28→21:02)
[2017-05-07] MEDS: LISINOPRIL 10 MG TABLET (FP) PO SCH (09:21)
[2017-05-07] MEDS: HALOPERIDOL 5 MG TABLET (FP) PO SCH (09:21)
[2017-05-07] MEDS: levETIRAcetam 500 MG TABLET (FP) PO SCH ×2 (09:21→21:02)
[2017-05-07] MEDS: ASPIRIN 81 MG CHEWABLE TABLETS PO SCH (09:21)
[2017-05-07] MEDS: PRENATAL VITAMINS W/ FOLIC ACID TABLET (FP) PO SCH (09:21)
[2017-05-07] MEDS: NICOTINE 21 MG/24 HOURS TOPICAL PATCH TD SCH (09:22)
[2017-05-07] MEDS ORDERED: INSULIN (NOVOLOG) ASPART 100 UNITS/ML 10ML VIAL ONE ×2 (12:06→16:48)
[2017-05-07] MEDS: INSULIN DETEMIR 100 UNITS/ML MDV SQ SCH (21:01)
[2017-05-07] MEDS: THIAMINE HCL 100 MG TABLET (FP) PO SCH (21:02)
[2017-05-07] MEDS: MIRTAZAPINE 30 MG TABLET (FP) PO SCH (21:02)
[2017-05-07] MEDS: ATORVASTATIN CA 10 MG TABLET (FP) PO SCH (21:02)
[2017-05-08] MEDS: GABAPENTIN 300 MG CAPSULE (FP) PO SCH ×3 (06:09→21:04)
[2017-05-08] MEDS: metFORMIN HCL 500 MG TABLET (FP) PO SCH ×2 (06:09→16:47)
[2017-05-08] MEDS: INSULIN SLIDING SCALE (NOVOLOG) 1 VIAL SQ SCH ×4 (06:10→21:06)
[2017-05-08] MEDS: ASPIRIN 81 MG CHEWABLE TABLETS PO SCH (09:58)
[2017-05-08] MEDS: LISINOPRIL 10 MG TABLET (FP) PO SCH (09:59)
[2017-05-08] MEDS: PRENATAL VITAMINS W/ FOLIC ACID TABLET (FP) PO SCH (09:59)
[2017-05-08] MEDS: levETIRAcetam 500 MG TABLET (FP) PO SCH ×2 (09:59→21:04)
[2017-05-08] MEDS: NICOTINE 21 MG/24 HOURS TOPICAL PATCH TD SCH (09:59)
[2017-05-08] MEDS: HALOPERIDOL 5 MG TABLET (FP) PO SCH (09:59)
[2017-05-08] MEDS ORDERED: INSULIN (NOVOLOG) ASPART 100 UNITS/ML 10ML VIAL ONE ×2 (11:53→16:46)
[2017-05-08] MEDS: ATORVASTATIN CA 10 MG TABLET (FP) PO SCH (21:04)
[2017-05-08] MEDS: THIAMINE HCL 100 MG TABLET (FP) PO SCH (21:04)
[2017-05-08] MEDS: MIRTAZAPINE 30 MG TABLET (FP) PO SCH (21:04)
[2017-05-08] MEDS: INSULIN DETEMIR 100 UNITS/ML MDV SQ SCH (21:05)
[2017-05-09] MEDS: metFORMIN HCL 500 MG TABLET (FP) PO SCH ×2 (06:02→16:37)
[2017-05-09] MEDS: GABAPENTIN 300 MG CAPSULE (FP) PO SCH ×3 (06:02→21:10)
[2017-05-09] MEDS: INSULIN SLIDING SCALE (NOVOLOG) 1 VIAL SQ SCH ×4 (06:04→21:11)
[2017-05-09] MEDS ORDERED: INSULIN (NOVOLOG) ASPART 100 UNITS/ML 10ML VIAL ONE ×3 (06:25→16:39)
[2017-05-09] MEDS: LISINOPRIL 10 MG TABLET (FP) PO SCH (09:49)
[2017-05-09] MEDS: ASPIRIN 81 MG CHEWABLE TABLETS PO SCH (09:49)
[2017-05-09] MEDS: levETIRAcetam 500 MG TABLET (FP) PO SCH ×2 (09:49→21:10)
[2017-05-09] MEDS: NICOTINE 21 MG/24 HOURS TOPICAL PATCH TD SCH (09:49)
[2017-05-09] MEDS: HALOPERIDOL 5 MG TABLET (FP) PO SCH (09:49)
[2017-05-09] MEDS: PRENATAL VITAMINS W/ FOLIC ACID TABLET (FP) PO SCH (09:49)
[2017-05-09] MEDS: ATORVASTATIN CA 10 MG TABLET (FP) PO SCH (21:10)
[2017-05-09] MEDS: THIAMINE HCL 100 MG TABLET (FP) PO SCH (21:10)
[2017-05-09] MEDS: MIRTAZAPINE 30 MG TABLET (FP) PO SCH (21:10)
[2017-05-09] MEDS: INSULIN DETEMIR 100 UNITS/ML MDV SQ SCH (21:11)
[2017-05-10] MEDS: metFORMIN HCL 500 MG TABLET (FP) PO SCH ×2 (06:04→16:58)
[2017-05-10] MEDS: GABAPENTIN 300 MG CAPSULE (FP) PO SCH ×3 (06:04→21:06)
[2017-05-10] MEDS: INSULIN SLIDING SCALE (NOVOLOG) 1 VIAL SQ SCH ×4 (06:06→21:06)
[2017-05-10] MEDS ORDERED: INSULIN (NOVOLOG) ASPART 100 UNITS/ML 10ML VIAL ONE ×3 (07:23→17:13)
[2017-05-10] MEDS: NICOTINE 21 MG/24 HOURS TOPICAL PATCH TD SCH (09:47)
[2017-05-10] MEDS: LISINOPRIL 10 MG TABLET (FP) PO SCH (09:47)
[2017-05-10] MEDS: ASPIRIN 81 MG CHEWABLE TABLETS PO SCH (09:47)
[2017-05-10] MEDS: levETIRAcetam 500 MG TABLET (FP) PO SCH ×2 (09:47→21:06)
[2017-05-10] MEDS: HALOPERIDOL 5 MG TABLET (FP) PO SCH (09:47)
[2017-05-10] MEDS: PRENATAL VITAMINS W/ FOLIC ACID TABLET (FP) PO SCH (09:47)
[2017-05-10] MEDS: INSULIN DETEMIR 100 UNITS/ML MDV SQ SCH (21:05)
[2017-05-10] MEDS: MIRTAZAPINE 30 MG TABLET (FP) PO SCH (21:06)
[2017-05-10] MEDS: ATORVASTATIN CA 10 MG TABLET (FP) PO SCH (21:06)
[2017-05-10] MEDS: THIAMINE HCL 100 MG TABLET (FP) PO SCH (21:06)
[2017-05-11] MEDS: GABAPENTIN 300 MG CAPSULE (FP) PO SCH ×3 (06:16→21:01)
[2017-05-11] MEDS: INSULIN SLIDING SCALE (NOVOLOG) 1 VIAL SQ SCH ×4 (06:16→21:02)
[2017-05-11] MEDS: metFORMIN HCL 500 MG TABLET (FP) PO SCH ×2 (06:16→16:38)
[2017-05-11] MEDS: HALOPERIDOL 5 MG TABLET (FP) PO SCH (10:08)
[2017-05-11] MEDS: ASPIRIN 81 MG CHEWABLE TABLETS PO SCH (10:08)
[2017-05-11] MEDS: NICOTINE 21 MG/24 HOURS TOPICAL PATCH TD SCH (10:09)
[2017-05-11] MEDS: PRENATAL VITAMINS W/ FOLIC ACID TABLET (FP) PO SCH (10:09)
[2017-05-11] MEDS: levETIRAcetam 500 MG TABLET (FP) PO SCH ×2 (10:09→21:01)
[2017-05-11] MEDS: LISINOPRIL 10 MG TABLET (FP) PO SCH (10:09)
[2017-05-11] MEDS ORDERED: INSULIN (NOVOLOG) ASPART 100 UNITS/ML 10ML VIAL ONE ×2 (11:32→16:39)
[2017-05-11] MEDS: ATORVASTATIN CA 10 MG TABLET (FP) PO SCH (21:01)
[2017-05-11] MEDS: MIRTAZAPINE 30 MG TABLET (FP) PO SCH (21:01)
[2017-05-11] MEDS: THIAMINE HCL 100 MG TABLET (FP) PO SCH (21:01)
[2017-05-11] MEDS: INSULIN DETEMIR 100 UNITS/ML MDV SQ SCH (21:04)
[2017-05-12] MEDS: INSULIN SLIDING SCALE (NOVOLOG) 1 VIAL SQ SCH ×4 (06:10→21:07)
[2017-05-12] MEDS: GABAPENTIN 300 MG CAPSULE (FP) PO SCH ×3 (06:10→21:07)
[2017-05-12] MEDS: metFORMIN HCL 500 MG TABLET (FP) PO SCH ×2 (06:10→16:41)
[2017-05-12] MEDS ORDERED: INSULIN (NOVOLOG) ASPART 100 UNITS/ML 10ML VIAL ONE ×4 (06:42→21:10)
[2017-05-12] MEDS: PRENATAL VITAMINS W/ FOLIC ACID TABLET (FP) PO SCH (09:32)
[2017-05-12] MEDS: ASPIRIN 81 MG CHEWABLE TABLETS PO SCH (09:33)
[2017-05-12] MEDS: HALOPERIDOL 5 MG TABLET (FP) PO SCH (09:33)
[2017-05-12] MEDS: levETIRAcetam 500 MG TABLET (FP) PO SCH ×2 (09:34→21:07)
[2017-05-12] MEDS: NICOTINE 21 MG/24 HOURS TOPICAL PATCH TD SCH (09:34)
[2017-05-12] MEDS: LISINOPRIL 10 MG TABLET (FP) PO SCH (09:35)
[2017-05-12] MEDS: INSULIN DETEMIR 100 UNITS/ML MDV SQ SCH (21:06)
[2017-05-12] MEDS: THIAMINE HCL 100 MG TABLET (FP) PO SCH (21:07)
[2017-05-12] MEDS: ATORVASTATIN CA 10 MG TABLET (FP) PO SCH (21:07)
[2017-05-12] MEDS: MIRTAZAPINE 30 MG TABLET (FP) PO SCH (21:07)
[2017-05-13] MEDS: GABAPENTIN 300 MG CAPSULE (FP) PO SCH ×3 (06:08→21:07)
[2017-05-13] MEDS: metFORMIN HCL 500 MG TABLET (FP) PO SCH ×2 (06:08→16:37)
[2017-05-13] MEDS: INSULIN SLIDING SCALE (NOVOLOG) 1 VIAL SQ SCH ×4 (06:09→21:10)
[2017-05-13] MEDS ORDERED: INSULIN (NOVOLOG) ASPART 100 UNITS/ML 10ML VIAL ONE ×4 (06:11→21:04)
[2017-05-13] MEDS: NICOTINE 21 MG/24 HOURS TOPICAL PATCH TD SCH (09:42)
[2017-05-13] MEDS: PRENATAL VITAMINS W/ FOLIC ACID TABLET (FP) PO SCH (09:42)
[2017-05-13] MEDS: LISINOPRIL 10 MG TABLET (FP) PO SCH (09:42)
[2017-05-13] MEDS: levETIRAcetam 500 MG TABLET (FP) PO SCH ×2 (09:42→21:07)
[2017-05-13] MEDS: ASPIRIN 81 MG CHEWABLE TABLETS PO SCH (09:42)
[2017-05-13] MEDS: HALOPERIDOL 5 MG TABLET (FP) PO SCH (09:42)
[2017-05-13] MEDS: MIRTAZAPINE 30 MG TABLET (FP) PO SCH (21:07)
[2017-05-13] MEDS: ATORVASTATIN CA 10 MG TABLET (FP) PO SCH (21:07)
[2017-05-13] MEDS: THIAMINE HCL 100 MG TABLET (FP) PO SCH (21:07)
[2017-05-13] MEDS: INSULIN DETEMIR 100 UNITS/ML MDV SQ SCH (21:08)
[2017-05-14] MEDS: metFORMIN HCL 500 MG TABLET (FP) PO SCH ×2 (06:10→16:41)
[2017-05-14] MEDS: GABAPENTIN 300 MG CAPSULE (FP) PO SCH ×3 (06:10→21:06)
[2017-05-14] MEDS: INSULIN SLIDING SCALE (NOVOLOG) 1 VIAL SQ SCH ×4 (06:35→21:09)
[2017-05-14] MEDS: LISINOPRIL 10 MG TABLET (FP) PO SCH (09:21)
[2017-05-14] MEDS: HALOPERIDOL 5 MG TABLET (FP) PO SCH (09:21)
[2017-05-14] MEDS: levETIRAcetam 500 MG TABLET (FP) PO SCH ×2 (09:21→21:06)
[2017-05-14] MEDS: ASPIRIN 81 MG CHEWABLE TABLETS PO SCH (09:21)
[2017-05-14] MEDS: NICOTINE 21 MG/24 HOURS TOPICAL PATCH TD SCH (09:21)
[2017-05-14] MEDS: PRENATAL VITAMINS W/ FOLIC ACID TABLET (FP) PO SCH (09:21)
[2017-05-14] MEDS ORDERED: INSULIN (NOVOLOG) ASPART 100 UNITS/ML 10ML VIAL ONE ×2 (11:55→16:40)
[2017-05-14] MEDS: ATORVASTATIN CA 10 MG TABLET (FP) PO SCH (21:06)
[2017-05-14] MEDS: MIRTAZAPINE 30 MG TABLET (FP) PO SCH (21:06)
[2017-05-14] MEDS: THIAMINE HCL 100 MG TABLET (FP) PO SCH (21:06)
[2017-05-14] MEDS: INSULIN DETEMIR 100 UNITS/ML MDV SQ SCH (21:08)
[2017-05-15] MEDS: GABAPENTIN 300 MG CAPSULE (FP) PO SCH ×3 (06:13→21:07)
[2017-05-15] MEDS: INSULIN SLIDING SCALE (NOVOLOG) 1 VIAL SQ SCH ×4 (06:13→21:07)
[2017-05-15] MEDS: metFORMIN HCL 500 MG TABLET (FP) PO SCH ×2 (06:13→16:38)
[2017-05-15] MEDS ORDERED: INSULIN (NOVOLOG) ASPART 100 UNITS/ML 10ML VIAL ONE ×4 (07:07→21:42)
[2017-05-15] MEDS: PRENATAL VITAMINS W/ FOLIC ACID TABLET (FP) PO SCH (09:20)
[2017-05-15] MEDS: ASPIRIN 81 MG CHEWABLE TABLETS PO SCH (09:20)
[2017-05-15] MEDS: LISINOPRIL 10 MG TABLET (FP) PO SCH (09:21)
[2017-05-15] MEDS: levETIRAcetam 500 MG TABLET (FP) PO SCH ×2 (09:21→21:07)
[2017-05-15] MEDS: HALOPERIDOL 5 MG TABLET (FP) PO SCH (09:21)
[2017-05-15] MEDS: NICOTINE 21 MG/24 HOURS TOPICAL PATCH TD SCH (09:21)
[2017-05-15] MEDS: ATORVASTATIN CA 10 MG TABLET (FP) PO SCH (21:07)
[2017-05-15] MEDS: INSULIN DETEMIR 100 UNITS/ML MDV SQ SCH (21:07)
[2017-05-15] MEDS: THIAMINE HCL 100 MG TABLET (FP) PO SCH (21:07)
[2017-05-15] MEDS: MIRTAZAPINE 30 MG TABLET (FP) PO SCH (21:07)
[2017-05-16] MEDS: GABAPENTIN 300 MG CAPSULE (FP) PO SCH ×3 (06:12→21:22)
[2017-05-16] MEDS: metFORMIN HCL 500 MG TABLET (FP) PO SCH ×2 (06:12→16:36)
[2017-05-16] MEDS: INSULIN SLIDING SCALE (NOVOLOG) 1 VIAL SQ SCH ×4 (06:13→21:21)
[2017-05-16] MEDS ORDERED: INSULIN (NOVOLOG) ASPART 100 UNITS/ML 10ML VIAL ONE ×4 (06:39→22:10)
[2017-05-16] MEDS: ASPIRIN 81 MG CHEWABLE TABLETS PO SCH (09:45)
[2017-05-16] MEDS: PRENATAL VITAMINS W/ FOLIC ACID TABLET (FP) PO SCH (09:45)
[2017-05-16] MEDS: LISINOPRIL 10 MG TABLET (FP) PO SCH (09:45)
[2017-05-16] MEDS: HALOPERIDOL 5 MG TABLET (FP) PO SCH (09:45)
[2017-05-16] MEDS: NICOTINE 21 MG/24 HOURS TOPICAL PATCH TD SCH (09:45)
[2017-05-16] MEDS: levETIRAcetam 500 MG TABLET (FP) PO SCH ×2 (09:45→21:22)
[2017-05-16] MEDS: INSULIN DETEMIR 100 UNITS/ML MDV SQ SCH (21:21)
[2017-05-16] MEDS: THIAMINE HCL 100 MG TABLET (FP) PO SCH (21:22)
[2017-05-16] MEDS: MIRTAZAPINE 30 MG TABLET (FP) PO SCH (21:22)
[2017-05-16] MEDS: ATORVASTATIN CA 10 MG TABLET (FP) PO SCH (21:22)
[2017-05-17] MEDS: metFORMIN HCL 500 MG TABLET (FP) PO SCH ×2 (06:10→16:43)
[2017-05-17] MEDS: GABAPENTIN 300 MG CAPSULE (FP) PO SCH ×3 (06:10→21:03)
[2017-05-17] MEDS: INSULIN SLIDING SCALE (NOVOLOG) 1 VIAL SQ SCH ×4 (06:11→21:04)
[2017-05-17] MEDS: levETIRAcetam 500 MG TABLET (FP) PO SCH ×2 (09:35→21:03)
[2017-05-17] MEDS: NICOTINE 21 MG/24 HOURS TOPICAL PATCH TD SCH (09:35)
[2017-05-17] MEDS: HALOPERIDOL 5 MG TABLET (FP) PO SCH (09:35)
[2017-05-17] MEDS: LISINOPRIL 10 MG TABLET (FP) PO SCH (09:35)
[2017-05-17] MEDS: ASPIRIN 81 MG CHEWABLE TABLETS PO SCH (09:35)
[2017-05-17] MEDS: PRENATAL VITAMINS W/ FOLIC ACID TABLET (FP) PO SCH (09:35)
[2017-05-17] MEDS ORDERED: INSULIN (NOVOLOG) ASPART 100 UNITS/ML 10ML VIAL ONE ×3 (11:50→22:04)
[2017-05-17] MEDS: ATORVASTATIN CA 10 MG TABLET (FP) PO SCH (21:03)
[2017-05-17] MEDS: THIAMINE HCL 100 MG TABLET (FP) PO SCH (21:03)
[2017-05-17] MEDS: MIRTAZAPINE 30 MG TABLET (FP) PO SCH (21:03)
[2017-05-17] MEDS: INSULIN DETEMIR 100 UNITS/ML MDV SQ SCH (21:04)
[2017-05-18] MEDS: INSULIN SLIDING SCALE (NOVOLOG) 1 VIAL SQ SCH ×4 (06:01→20:59)
[2017-05-18] MEDS: GABAPENTIN 300 MG CAPSULE (FP) PO SCH ×3 (06:01→21:00)
[2017-05-18] MEDS: metFORMIN HCL 500 MG TABLET (FP) PO SCH ×2 (06:01→16:57)
[2017-05-18] MEDS ORDERED: INSULIN (NOVOLOG) ASPART 100 UNITS/ML 10ML VIAL ONE ×4 (06:53→20:38)
[2017-05-18] MEDS: PRENATAL VITAMINS W/ FOLIC ACID TABLET (FP) PO SCH (09:47)
[2017-05-18] MEDS: NICOTINE 21 MG/24 HOURS TOPICAL PATCH TD SCH (09:47)
[2017-05-18] MEDS: LISINOPRIL 10 MG TABLET (FP) PO SCH (09:47)
[2017-05-18] MEDS: HALOPERIDOL 5 MG TABLET (FP) PO SCH (09:47)
[2017-05-18] MEDS: ASPIRIN 81 MG CHEWABLE TABLETS PO SCH (09:47)
[2017-05-18] MEDS: levETIRAcetam 500 MG TABLET (FP) PO SCH ×2 (09:47→21:00)
[2017-05-18] MEDS: INSULIN DETEMIR 100 UNITS/ML MDV SQ SCH (21:00)
[2017-05-18] MEDS: MIRTAZAPINE 30 MG TABLET (FP) PO SCH (21:00)
[2017-05-18] MEDS: THIAMINE HCL 100 MG TABLET (FP) PO SCH (21:00)
[2017-05-18] MEDS: ATORVASTATIN CA 10 MG TABLET (FP) PO SCH (21:00)
[2017-05-19] MEDS: INSULIN SLIDING SCALE (NOVOLOG) 1 VIAL SQ SCH ×4 (06:02→21:08)
[2017-05-19] MEDS ORDERED: INSULIN (NOVOLOG) ASPART 100 UNITS/ML 10ML VIAL ONE ×4 (06:02→22:26)
[2017-05-19] MEDS: GABAPENTIN 300 MG CAPSULE (FP) PO SCH ×3 (06:03→21:05)
[2017-05-19] MEDS: metFORMIN HCL 500 MG TABLET (FP) PO SCH ×2 (06:03→16:42)
[2017-05-19] MEDS: NICOTINE 21 MG/24 HOURS TOPICAL PATCH TD SCH (09:38)
[2017-05-19] MEDS: levETIRAcetam 500 MG TABLET (FP) PO SCH ×2 (09:38→21:05)
[2017-05-19] MEDS: PRENATAL VITAMINS W/ FOLIC ACID TABLET (FP) PO SCH (09:38)
[2017-05-19] MEDS: ASPIRIN 81 MG CHEWABLE TABLETS PO SCH (09:38)
[2017-05-19] MEDS: HALOPERIDOL 5 MG TABLET (FP) PO SCH (09:38)
[2017-05-19] MEDS: LISINOPRIL 10 MG TABLET (FP) PO SCH (09:39)
[2017-05-19] MEDS: MIRTAZAPINE 30 MG TABLET (FP) PO SCH (21:05)
[2017-05-19] MEDS: ATORVASTATIN CA 10 MG TABLET (FP) PO SCH (21:05)
[2017-05-19] MEDS: THIAMINE HCL 100 MG TABLET (FP) PO SCH (21:05)
[2017-05-19] MEDS: INSULIN DETEMIR 100 UNITS/ML MDV SQ SCH (21:06)
[2017-05-20] MEDS: metFORMIN HCL 500 MG TABLET (FP) PO SCH ×2 (06:49→16:51)
[2017-05-20] MEDS: INSULIN SLIDING SCALE (NOVOLOG) 1 VIAL SQ SCH ×4 (06:50→21:10)
[2017-05-20] MEDS: GABAPENTIN 300 MG CAPSULE (FP) PO SCH ×3 (06:50→21:11)
[2017-05-20] MEDS: LISINOPRIL 10 MG TABLET (FP) PO SCH (09:36)
[2017-05-20] MEDS: HALOPERIDOL 5 MG TABLET (FP) PO SCH (09:36)
[2017-05-20] MEDS: NICOTINE 21 MG/24 HOURS TOPICAL PATCH TD SCH (09:36)
[2017-05-20] MEDS: ASPIRIN 81 MG CHEWABLE TABLETS PO SCH (09:36)
[2017-05-20] MEDS: PRENATAL VITAMINS W/ FOLIC ACID TABLET (FP) PO SCH (09:36)
[2017-05-20] MEDS: levETIRAcetam 500 MG TABLET (FP) PO SCH ×2 (09:36→21:11)
[2017-05-20] MEDS ORDERED: INSULIN (NOVOLOG) ASPART 100 UNITS/ML 10ML VIAL ONE ×3 (11:54→21:53)
[2017-05-20] MEDS: MIRTAZAPINE 30 MG TABLET (FP) PO SCH (21:11)
[2017-05-20] MEDS: ATORVASTATIN CA 10 MG TABLET (FP) PO SCH (21:11)
[2017-05-20] MEDS: INSULIN DETEMIR 100 UNITS/ML MDV SQ SCH (21:11)
[2017-05-20] MEDS: THIAMINE HCL 100 MG TABLET (FP) PO SCH (21:11)
[2017-05-21] MEDS: metFORMIN HCL 500 MG TABLET (FP) PO SCH ×2 (06:32→16:37)
[2017-05-21] MEDS: GABAPENTIN 300 MG CAPSULE (FP) PO SCH ×3 (06:32→21:07)
[2017-05-21] MEDS: INSULIN SLIDING SCALE (NOVOLOG) 1 VIAL SQ SCH ×4 (06:33→21:06)
[2017-05-21] MEDS: ASPIRIN 81 MG CHEWABLE TABLETS PO SCH (09:27)
[2017-05-21] MEDS: LISINOPRIL 10 MG TABLET (FP) PO SCH (09:28)
[2017-05-21] MEDS: HALOPERIDOL 5 MG TABLET (FP) PO SCH (09:28)
[2017-05-21] MEDS: levETIRAcetam 500 MG TABLET (FP) PO SCH ×2 (09:28→21:07)
[2017-05-21] MEDS: NICOTINE 21 MG/24 HOURS TOPICAL PATCH TD SCH (09:28)
[2017-05-21] MEDS: PRENATAL VITAMINS W/ FOLIC ACID TABLET (FP) PO SCH (09:28)
[2017-05-21] MEDS ORDERED: INSULIN (NOVOLOG) ASPART 100 UNITS/ML 10ML VIAL ONE ×3 (11:53→21:08)
[2017-05-21] MEDS: INSULIN DETEMIR 100 UNITS/ML MDV SQ SCH (21:06)
[2017-05-21] MEDS: ATORVASTATIN CA 10 MG TABLET (FP) PO SCH (21:07)
[2017-05-21] MEDS: THIAMINE HCL 100 MG TABLET (FP) PO SCH (21:07)
[2017-05-21] MEDS: MIRTAZAPINE 30 MG TABLET (FP) PO SCH (21:07)
[2017-05-22] MEDS: metFORMIN HCL 500 MG TABLET (FP) PO SCH ×2 (06:17→16:39)
[2017-05-22] MEDS: GABAPENTIN 300 MG CAPSULE (FP) PO SCH ×3 (06:17→21:08)
[2017-05-22] MEDS: INSULIN SLIDING SCALE (NOVOLOG) 1 VIAL SQ SCH ×4 (06:52→21:09)
[2017-05-22] MEDS: ASPIRIN 81 MG CHEWABLE TABLETS PO SCH (09:51)
[2017-05-22] MEDS: NICOTINE 21 MG/24 HOURS TOPICAL PATCH TD SCH (09:52)
[2017-05-22] MEDS: levETIRAcetam 500 MG TABLET (FP) PO SCH ×2 (09:52→21:08)
[2017-05-22] MEDS: PRENATAL VITAMINS W/ FOLIC ACID TABLET (FP) PO SCH (09:52)
[2017-05-22] MEDS: LISINOPRIL 10 MG TABLET (FP) PO SCH (09:52)
[2017-05-22] MEDS: HALOPERIDOL 5 MG TABLET (FP) PO SCH (09:52)
[2017-05-22] MEDS ORDERED: INSULIN (NOVOLOG) ASPART 100 UNITS/ML 10ML VIAL ONE (16:37)
[2017-05-22] MEDS: MIRTAZAPINE 30 MG TABLET (FP) PO SCH (21:07)
[2017-05-22] MEDS: ATORVASTATIN CA 10 MG TABLET (FP) PO SCH (21:07)
[2017-05-22] MEDS: THIAMINE HCL 100 MG TABLET (FP) PO SCH (21:08)
[2017-05-22] MEDS: INSULIN DETEMIR 100 UNITS/ML MDV SQ SCH (21:11)
[2017-05-23] MEDS: GABAPENTIN 300 MG CAPSULE (FP) PO SCH ×3 (06:05→21:28)
[2017-05-23] MEDS: INSULIN SLIDING SCALE (NOVOLOG) 1 VIAL SQ SCH ×4 (07:21→21:27)
[2017-05-23] MEDS: metFORMIN HCL 500 MG TABLET (FP) PO SCH ×2 (07:21→17:07)
[2017-05-23] MEDS ORDERED: INSULIN (NOVOLOG) ASPART 100 UNITS/ML 10ML VIAL ONE ×3 (08:02→22:09)
[2017-05-23] MEDS: levETIRAcetam 500 MG TABLET (FP) PO SCH ×2 (09:33→21:28)
[2017-05-23] MEDS: HALOPERIDOL 5 MG TABLET (FP) PO SCH (09:33)
[2017-05-23] MEDS: NICOTINE 21 MG/24 HOURS TOPICAL PATCH TD SCH (09:33)
[2017-05-23] MEDS: PRENATAL VITAMINS W/ FOLIC ACID TABLET (FP) PO SCH (09:33)
[2017-05-23] MEDS: LISINOPRIL 10 MG TABLET (FP) PO SCH (09:33)
[2017-05-23] MEDS: ASPIRIN 81 MG CHEWABLE TABLETS PO SCH (09:33)
[2017-05-23] MEDS: INSULIN DETEMIR 100 UNITS/ML MDV SQ SCH (21:26)
[2017-05-23] MEDS: THIAMINE HCL 100 MG TABLET (FP) PO SCH (21:27)
[2017-05-23] MEDS: MIRTAZAPINE 30 MG TABLET (FP) PO SCH (21:28)
[2017-05-23] MEDS: ATORVASTATIN CA 10 MG TABLET (FP) PO SCH (21:28)
[2017-05-24] MEDS ORDERED: INSULIN (NOVOLOG) ASPART 100 UNITS/ML 10ML VIAL ONE ×3 (06:13→16:42)
[2017-05-24] MEDS: INSULIN SLIDING SCALE (NOVOLOG) 1 VIAL SQ SCH ×4 (06:45→21:12)
[2017-05-24] MEDS: GABAPENTIN 300 MG CAPSULE (FP) PO SCH ×3 (06:45→21:09)
[2017-05-24] MEDS: metFORMIN HCL 500 MG TABLET (FP) PO SCH ×2 (06:45→16:41)
[2017-05-24] MEDS: HALOPERIDOL 5 MG TABLET (FP) PO SCH (09:34)
[2017-05-24] MEDS: LISINOPRIL 10 MG TABLET (FP) PO SCH (09:34)
[2017-05-24] MEDS: NICOTINE 21 MG/24 HOURS TOPICAL PATCH TD SCH (09:34)
[2017-05-24] MEDS: ASPIRIN 81 MG CHEWABLE TABLETS PO SCH (09:34)
[2017-05-24] MEDS: PRENATAL VITAMINS W/ FOLIC ACID TABLET (FP) PO SCH (09:34)
[2017-05-24] MEDS: levETIRAcetam 500 MG TABLET (FP) PO SCH ×2 (09:34→21:09)
[2017-05-24] MEDS: THIAMINE HCL 100 MG TABLET (FP) PO SCH (21:09)
[2017-05-24] MEDS: ATORVASTATIN CA 10 MG TABLET (FP) PO SCH (21:09)
[2017-05-24] MEDS: MIRTAZAPINE 30 MG TABLET (FP) PO SCH (21:09)
[2017-05-24] MEDS: INSULIN DETEMIR 100 UNITS/ML MDV SQ SCH (21:10)
[2017-05-25] MEDS: GABAPENTIN 300 MG CAPSULE (FP) PO SCH (06:05)
[2017-05-25 06:31] VITALS: BP 127/90; PULSE 91; TEMP 98.3
[2017-05-25] MEDS: metFORMIN HCL 500 MG TABLET (FP) PO SCH (07:27)
[2017-05-25] MEDS: INSULIN SLIDING SCALE (NOVOLOG) 1 VIAL SQ SCH (07:28)
--- NOTE | 2017-05-25 08:14 | PN ---
Psychiatric Progress Note Vital Signs: Vital Signs Period Temp Pulse Resp BP Sys/Christianson Pulse Ox Last 24 Hr 98.3 F 91 18-18 127/90 Date of Session: 05/25/17 Chief Complaint:: discharge visit HPI: Patient has adddressed alcohol, nicotine dependencxe comorbid Alcohol induced mood disorder. ROS: HTN, type 2 DM, Alcohol-related seizure medically managed. Current Medications: Active Medications Generic Name Dose Route Start Last Admin Trade Name Freq PRN Reason Stop Dose Admin Acetaminophen 650 mg 05/02/17 20:25 Tylenol - PO Q4H PRN PAIN Al Hydroxide/Mg Hydroxide 30 ml 05/02/17 20:25 Mylanta Oral Suspension - PO Q6H PRN DYSPEPSIA Aspirin 81 mg 05/03/17 10:00 05/24/17 09:34 Asa - PO 81 mg DAILY WALTER Administration Atorvastatin Calcium 10 mg 05/02/17 22:00 05/24/17 21:09 Lipitor - PO 10 mg HS WALTER Administration Eucalyptus/Menthol/Phenol/Sorbitol 1 each 05/02/17 20:25 Cepastat Lozenge - MM Q4H PRN SORE THROAT Gabapentin 300 mg 05/02/17 22:00 05/25/17 06:05 Neurontin - PO 300 mg TID WALTER Administration Guaifenesin 10 ml 05/02/17 20:25 Robitussin Dm - PO Q6H PRN COUGH Haloperidol 5 mg 05/03/17 10:00 05/24/17 09:34 Haldol - PO 5 mg DAILY WALTER Administration Insulin Aspart 1 vial 05/19/17 12:09 05/25/17 07:28 Novolog Vial Sliding Scale - SQ Not Given ACHS [facility] Protocol Insulin Detemir 45 units 05/02/17 22:00 05/24/17 21:10 Levemir Vial SQ 45 unit HS WALTER Administration Levetiracetam 500 mg 05/03/17 22:00 05/24/17 21:09 Keppra - PO 500 mg BID WALTER Administration Lisinopril 10 mg 05/03/17 10:00 05/24/17 09:34 Prinivil PO 10 mg DAILY WALTER Administration Loperamide HCl 4 mg 05/02/17 20:25 Imodium - PO Q6H PRN DIARRHEA Magnesium Citrate 300 ml 05/02/17 20:25 Citroma - PO Q48H PRN CONSTIPATION Magnesium Hydroxide 30 ml 05/02/17 20:25 Milk Of Magnesia - PO DAILY PRN CONSTIPATION Metformin HCl 1,000 mg 05/03/17 07:00 05/25/17 07:27 Glucophage - PO 1,000 mg BID@0700,1630 WALTER Administration Mirtazapine 30 mg 05/02/17 23:45 05/24/17 21:09 Remeron - PO 30 mg HS WALTER Administration Nicotine 21 mg 05/03/17 10:00 05/24/17 09:34 Nicoderm Patch - TD Not Given DAILY WALTER Nicotine Polacrilex 4 mg 05/02/17 20:25 Nicorette Gum - BC Q2H PRN NICOTINE REPLACEMENT RX Multivit/Folic Acid/Iron 1 tab 05/03/17 10:00 05/24/17 09:34 Vitamins (Sjr) - PO 1 tab DAILY WALTER Administration Pseudoephedrine/Triprolidine 1 combo 05/02/17 20:25 Actifed - PO TID PRN NASAL CONGESTION Thiamine HCl 100 mg 05/02/17 22:00 05/24/17 21:09 Vitamin B1 - PO 100 mg HS WALTER Administration Current Side Effect: No Lab tests ordered: No Lab tests reviewed: Yes Provider note:: Patient has completed today his treatment and met his goals, will continue to address his issues at [facility] rehabilitation program.He verbalized understanding of the consequence of his addiction and the need to make positive changes to his lifestyle in order to maintain abstience. Pt. responded well to Haldol and Remeron. Scripts for 30 days supply were electronically transferred to [place] pharmacy. He is stable for discharge today. Total face to face time:: 20 Mental Status Exam - Mental Status Exam Alert and Oriented to: Time, Place, Person Cognitive Function: Good Patient Appearance: Well Groomed Mood: Hopeful Affect: Appropriate, Mood Congruent Patient Behavior: Appropriate, Cooperative Speech Pattern: Clear, Appropriate Voice Loudness: Normal Thought Process: Intact, Goal Oriented Thought Disorder: Not Present Hallucinations: Denies Suicidal Ideation: Denies Homicidal Ideation: Denies Insight/Judgement: Good Sleep: Well Appetite: Good Muscle strength/Tone: Normal Gait/Station: Normal Psychiatric Treatment Plan - Problem List (1) Nicotine dependence Current Visit: Yes Qualifiers: Nicotine product type: cigarettes Substance use status: in withdrawal Qualified Code(s): F17.213 - Nicotine dependence, cigarettes, with withdrawal (2) Alcohol dependence Current Visit: No (3) Alcohol-induced mood disorder Current Visit: Yes
[2017-05-25] MEDS: levETIRAcetam 500 MG TABLET (FP) PO SCH (09:43)
[2017-05-25] MEDS: ASPIRIN 81 MG CHEWABLE TABLETS PO SCH (09:43)
[2017-05-25] MEDS: PRENATAL VITAMINS W/ FOLIC ACID TABLET (FP) PO SCH (09:43)
[2017-05-25] MEDS: NICOTINE 21 MG/24 HOURS TOPICAL PATCH TD SCH (09:44)
[2017-05-25] MEDS: LISINOPRIL 10 MG TABLET (FP) PO SCH (09:44)
[2017-05-25] MEDS: HALOPERIDOL 5 MG TABLET (FP) PO SCH (09:44)
== END 2017-05-25 10:25 | disposition home or self-care (01) | DRG 895 ==
LOC: YASAS 18:24 → Y5N 21:30
PROVIDERS: ADMIT Psychiatry & Neurology Psychiatry; ATTEND Psychiatry & Neurology Psychiatry
PROC: HZ42ZZZ Group Counseling for Substance Abuse Treatment, Cognitive-Behavioral (ICD-10-PCS; principal; 2017-05-02)
DX: F10.230 Alcohol dependence with withdrawal, uncomplicated (principal); G40.509 Epileptic seizures related to external causes, not intractable, without status epilepticus; F17.213 Nicotine dependence, cigarettes, with withdrawal; F10.24 Alcohol dependence with alcohol-induced mood disorder; E11.9 Type 2 diabetes mellitus without complications; Z79.4 Long term (current) use of insulin; E78.00 Pure hypercholesterolemia, unspecified; I10 Essential (primary) hypertension
CPT/HCPCS: 36415; 80053; 81003; 82962; 85027; 86593; 87389; 90732; 93005; 93010; G0009

== ENCOUNTER 2017-06-20 10:00 | Inpatient (IN) | payer OTHER ==
[2017-06-20 10:18] VITALS: BMI 31.3
--- NOTE | 2017-06-20 11:46 | HP ---
CIWA Score - CIWA Score Nausea/Vomitin-Mild Nausea/No Vomiting Muscle Tremors: 4-Moderate,w/Arms Extend Anxiety: 4-Mod. Anxious/Guarded Agitation: 4-Moderately Restless Paroxysmal Sweats: 3 Orientation: 0-Oriented Tacttile Disturbances: 0-None Auditory Disturbances: 0-None Visual Disturbances: 0-None Headache: 0-None Present CIWA-Ar Total Score: 16 Admission ROS S - HPI Chief Complaint: I am here for detox. Allergies/Adverse Reactions: Allergies Allergy/AdvReac Type Severity Reaction Status Date / Time apple Allergy Severe Swelling Verified 06/20/17 11:11 Fish Containing Products Allergy Severe Swelling Verified 06/20/17 11:11 pork derived (porcine) Allergy Severe Swelling Verified 06/20/17 11:11 No Known Drug Allergies Allergy Verified 06/20/17 11:11 History of Present Illness: pt is a 42yr old male with a history of alcohol dependence seeking detox for treatment. pt was seen at [facility] 06/20/17 for alcohol intoxication to be d/c to home. Pt is now here at [facility] for detox. Exam Limitations: No Limitations - Ebola screening Have you traveled outside of the country in the last 21 days: No Have you had contact with anyone from an Ebola affected area: No Have you been sick,other than usual withdrawal symptoms: No Do you have a fever: No - Review of Systems Constitutional: Chills, Night Sweats, Changes in sleep EENT: reports: No Symptoms Reported Respiratory: reports: No Symptoms reported Cardiac: reports: Syncope GI: reports: Nausea, Poor Appetite, Poor Fluid Intake : reports: No Symptoms Reported Musculoskeletal: reports: No Symptoms Reported Integumentary: reports: Flushing, Sweating Neuro: reports: Headache, Seizure (alcohol related seizure a year ago.), Tingling, Tremors Endocrine: reports: Excessive Sweating, Flushing, Intolerance to Cold, Intolerance to Heat Hematology: reports: No Symptoms Reported Psychiatric: reports: Judgement Intact, Mood/Affect Appropiate, Orientated x3, Agitated, Anxious Other Systems: Reviewed and Negative Patient History - Patient Medical History Hx Anemia: No Hx Asthma: No Hx Chronic Obstructive Pulmonary Disease (COPD): No Hx Cancer: No Hx Cardiac Disorders: No Hx Congestive Heart Failure: No Hx Hypertension: Yes Hx Hypercholesterolemia: No Hx Pacemaker: No HX Cerebrovascular Accident: No Hx Seizures: Yes (alcohol related-last episode was a year ago) Hx Dementia: No Hx Diabetes: Yes (NIDDM) Hx Gastrointestinal Disorders: No Hx Liver Disease: No Hx Genitourinary Disorders: No Hx Sexually Transmitted Disorders: No Hx Renal Disease (ESRD): No Hx Thyroid Disease: No Hx Human Immunodeficiency Virus (HIV): No (08/26 last tested negative) Hx Hepatitis C: No (negative) Hx Depression: Yes Hx Suicide Attempt: No Hx Bipolar Disorder: Yes Hx Schizophrenia: Yes - Patient Surgical History Past Surgical History: Yes Hx Neurologic Surgery: No Hx Cataract Extraction: No Hx Cardiac Surgery: No Hx Lung Surgery: No Hx Breast Surgery: No Hx Breast Biopsy: No Hx Abdominal Surgery: No Hx Appendectomy: No Hx Cholecystectomy: No Hx Genitourinary Surgery: No Hx Section: No Hx Orthopedic Surgery: Yes (L foot sx for flatfoot.2011) Anesthesia Reaction: No - PPD History Previous Implant?: Yes Documented Results: Negative w/proof Implanted On Prior [facility] Admission?: Yes Date: 11/02/16 Results: 0 mm PPD to be Administered?: No - Reproductive History Patient is a Female of Child Bearing Age (11 -55 yrs old): No - Smoking Cessation Smoking history: Current every day smoker Have you smoked in the past 12 months: Yes Aproximately how many cigarettes per day: 20 Cigars Per Day: 0 Hx Chewing Tobacco Use: No Initiated information on smoking cessation: Yes 'Breaking Loose' booklet given: 06/20/17 - Substance & Tx. History Hx Alcohol Use: Yes Hx Substance Use: No Substance Use Type: Alcohol Hx Substance Use Treatment: Yes (last detox [facility] 2016) - Substances Abused Alcohol-vodka/beer Route: Oral Frequency: Daily Amount used: 1 pt./4-6 pks. Age of first use: 14 Date of Last Use: 06/19/17 Family Disease History - Family Disease History Family Disease History: Heart Disease: Grandparent, Other: Father (alcohol), Mother (alcohol) Admission Physical Exam BHS - Vital Signs Vital Signs: Vital Signs - 24 hr 06/20/17 10:11 Temperature 97.2 F L Pulse Rate 121 H Respiratory 20 Rate Blood Pressure 165/116 - Physical General Appearance: Yes: Appropriately Dressed, Moderate Distress, Tremorous, Irritable, Sweating, Anxious HEENTM: Yes: Normal Voice, Nasal Congestion, Rhinorrhea Respiratory: Yes: Lungs Clear, Normal Breath Sounds, No Respiratory Distress Neck: Yes: No masses,lesions,Nodules Breast: Yes: Within Normal Limits Cardiology: Yes: Regular Rhythm, Regular Rate, S1, S2 Abdominal: Yes: Normal Bowel Sounds, Non Tender, Soft Genitourinary: Yes: Within Normal Limits Back: Yes: Normal Inspection Musculoskeletal: Yes: full range of Motion Extremities: Yes: Normal Capillary Refill, Normal Inspection, Tremors Neurological: Yes: Fully Oriented, Alert, Normal Response Integumentary: Yes: Normal Color, Diaphoresis Lymphatic: Yes: Within Normal Limits - Diagnostic (1) Alcohol dependence with uncomplicated withdrawal Current Visit: Yes Status: Chronic (2) Nicotine dependence Current Visit: Yes Status: Chronic Qualifiers: Nicotine product type: cigarettes Substance use status: uncomplicated Qualified Code(s): F17.210 - Nicotine dependence, cigarettes, uncomplicated (3) Hyperlipidemia Current Visit: Yes Status: Chronic Qualifiers: Hyperlipidemia type: pure hypercholesterolemia (4) Hypertension Current Visit: Yes Status: Chronic Qualifiers: Hypertension type: essential hypertension (5) Neuropathy Current Visit: Yes Status: Chronic (6) Seizure Current Visit: Yes Status: Suspected Comment: ETOH related seizures Cleared for Admission S - Detox or Rehab [facility] Level of Care: Medically Managed Detox Regimen/Protocol: Librium S Breath Alcohol Content Breath Alcohol Content: 0 Urine Drug Screen - Results Drug Screen Negative: Yes
[2017-06-20] MEDS ORDERED: LOPERAMIDE HCL 2 MG CAPSULE PO PRN (11:49)
[2017-06-20] MEDS ORDERED: ACETAMINOPHEN 325 MG TABLET (FP) PO PRN (11:49)
[2017-06-20] MEDS ORDERED: P-EPHED 60MG/TRIPROLIDI 2.5MG TABLET PO PRN (11:49)
[2017-06-20] MEDS ORDERED: guaiFENesin/D-METHORPHAN HB 10 ML UNIT-DOSE CUPS PO PRN (11:49)
[2017-06-20] MEDS ORDERED: MAG HYDROX/AL HYDROX/SIMETH 30 ML UNIT-DOSE CUP PO PRN (11:49)
[2017-06-20] MEDS ORDERED: NICOTINE POLACRILEX 4 MG GUM BUC PRN (11:49)
[2017-06-20] MEDS ORDERED: MENTHOL/PHENOL 1 EACH UD MM PRN (11:49)
[2017-06-20] MEDS ORDERED: hydrOXYzine PAMOATE 50 MG CAPSULE (FP) PO PRN (11:49)
[2017-06-20] MEDS ORDERED: chlordiazePOXIDE HCL 25 MG CAPSULE PO PRN (11:49)
[2017-06-20] MEDS ORDERED: IBUPROFEN 400 MG TABLET (FP) PO PRN (11:49)
[2017-06-20] MEDS ORDERED: MAGNESIUM HYDROX 2400MG/30ML ORAL SUSPENSION 30 ML CUP PO PRN (11:49)
[2017-06-20] MEDS ORDERED: MAGNESIUM CITRATE 300 ML BOTTLE PO PRN (11:49)
[2017-06-20] MEDS ORDERED: chlordiazePOXIDE HCL 25 MG CAPSULE PO ONE (12:15)
[2017-06-20] MEDS: GABAPENTIN 300 MG CAPSULE (FP) PO SCH ×2 (13:00→22:12)
[2017-06-20 16:58] LABS: URINE APPEARANCE CLEAR; URINE BILIRUBIN NEGATIVE (NEGATIVE); URINE BLOOD NEGATIVE (NEGATIVE); URINE COLOR LTYELLOW; URINE GLUCOSE (UA) NEGATIVE (NEGATIVE); URINE KETONE NEGATIVE (NEGATIVE); URINE LEUK ESTERASE NEGATIVE (NEGATIVE); URINE NITRITE NEGATIVE (NEGATIVE); URINE UROBILINOGEN NEGATIVE mg/dL (0.2-1.0)
[2017-06-20 17:02] LABS: URINE PROTEIN 1+ (NEGATIVE)
[2017-06-20 17:05] LABS: EPI CELLS RARE /HPF (FEW); URINE MUCUS RARE
[2017-06-20] MEDS: chlordiazePOXIDE HCL 25 MG CAPSULE PO SCH ×2 (17:18→22:12)
[2017-06-20] MEDS: metFORMIN HCL 500 MG TABLET (FP) PO SCH (17:18)
--- NOTE | 2017-06-20 17:32 | EKG ---
Test Reason : Blood Pressure : / mmHG Vent. Rate : 101 BPM Atrial Rate : 101 BPM P-R Int : 164 ms QRS Dur : 086 ms QT Int : 328 ms P-R-T Axes : 053 030 042 degrees QTc Int : 425 ms SINUS TACHYCARDIA OTHERWISE NORMAL ECG WHEN COMPARED WITH ECG OF 03-MAY-2017 07:18, NO SIGNIFICANT CHANGE WAS FOUND Confirmed by Topher Hurt ([id number]) on 06/20/2017 5:31:42 PM Referred By: Confirmed By:Topher Hurt
[2017-06-20] MEDS: ATORVASTATIN CA 10 MG TABLET (FP) PO SCH (22:12)
[2017-06-20] MEDS: THIAMINE HCL 100 MG TABLET (FP) PO SCH (22:12)
[2017-06-20] MEDS: levETIRAcetam 500 MG TABLET (FP) PO SCH (22:12)
[2017-06-21] MEDS: chlordiazePOXIDE HCL 25 MG CAPSULE PO SCH ×4 (05:47→22:08)
[2017-06-21] MEDS: GABAPENTIN 300 MG CAPSULE (FP) PO SCH ×3 (05:47→22:08)
[2017-06-21] MEDS: metFORMIN HCL 500 MG TABLET (FP) PO SCH ×2 (07:09→17:22)
[2017-06-21] MEDS: levETIRAcetam 500 MG TABLET (FP) PO SCH ×2 (10:09→22:08)
[2017-06-21] MEDS: PRENATAL VITAMINS W/ FOLIC ACID TABLET (FP) PO SCH (10:09)
[2017-06-21] MEDS: LISINOPRIL 10 MG TABLET (FP) PO SCH (10:09)
[2017-06-21] MEDS: NICOTINE 21 MG/24 HOURS TOPICAL PATCH TD SCH (10:09)
[2017-06-21 10:28] LABS: HEMATOCRIT 44.5 % (35.4-49); HEMOGLOBIN 14.5 GM/dL (11.7-16.9); MCH 27.9 pg (25.7-33.7); MCHC 32.5 g/dl (32.0-35.9); MEAN CELL VOLUME 85.9 fl (80-96); MEAN PLT VOLUME 9.3 fl (7.5-11.1); PLATELET COUNT 240 K/MM3 (134-434); RBC 5.18 M/mm3 (4.00-5.60); RDW 14.8 % (11.9-15.9); WHITE BLOOD COUNT 8.9 K/mm3 (4.0-10.0)
[2017-06-21 10:35] LABS: ALBUMIN 4.5 g/dl (3.4-5.0); ANION GAP 11 (8-16); BLOOD UREA NITROGEN 6 mg/dL (7-18); CALCIUM 8.9 mg/dL (8.5-10.1); CHLORIDE 105 mmol/L (98-107); CO2 23 mmol/L (21-32); GLUCOSE,RANDOM 148 mg/dL (74-106); POTASSIUM 3.9 mmol/L (3.5-5.1); SODIUM 139 mmol/L (136-145)
[2017-06-21 10:38] LABS: ALK PHOS 148 U/L (45-117); BILIRUBIN,TOTAL 0.5 mg/dL (0.2-1.0); CREATININE 1.1 mg/dL (0.7-1.3); SGOT/AST 28 U/L (15-37); SGPT/ALT 34 U/L (12-78)
--- NOTE | 2017-06-21 11:22 | PN ---
[facility] CIWA - CIWA Score Nausea/Vomitin-No Nausea/No Vomiting Muscle Tremors: 4-Moderate,w/Arms Extend Anxiety: 4-Mod. Anxious/Guarded Agitation: 4-Moderately Restless Paroxysmal Sweats: 1-Minimal Palms Moist Orientation: 0-Oriented Tacttile Disturbances: 3-Moderate Itch/Numb/Burn Auditory Disturbances: 0-None Visual Disturbances: 0-None Headache: 0-None Present CIWA-Ar Total Score: 16 BHS Progress Note (SOAP) Subjective: C/O ANXIETY,SWEATS,TREMORS,FATIGUE,DIARRHEA Objective: 06/21/17 11:21 Vital Signs 06/21/17 06/21/17 06/21/17 04:05 06:17 09:06 Temperature 97.4 F L 96.3 F L Pulse Rate 86 115 H Respiratory 18 18 20 Rate Blood Pressure 124/86 132/94 Laboratory Last Values WBC 8.9 K/mm3 (4.0-10.0) 06/21/17 06:00 RBC 5.18 M/mm3 (4.00-5.60) 06/21/17 06:00 Hgb 14.5 GM/dL (11.7-16.9) 06/21/17 06:00 Hct 44.5 % (35.4-49) 06/21/17 06:00 MCV 85.9 fl (80-96) 06/21/17 06:00 MCH 27.9 pg (25.7-33.7) 06/21/17 06:00 MCHC 32.5 g/dl (32.0-35.9) 06/21/17 06:00 RDW 14.8 % (11.9-15.9) 06/21/17 06:00 Plt Count 240 K/MM3 (134-434) 06/21/17 06:00 MPV 9.3 fl (7.5-11.1) 06/21/17 06:00 Sodium 139 mmol/L (136-145) 06/21/17 06:00 Potassium 3.9 mmol/L (3.5-5.1) 06/21/17 06:00 Chloride 105 mmol/L (98-107) 06/21/17 06:00 Carbon Dioxide 23 mmol/L (21-32) 06/21/17 06:00 Anion Gap 11 (8-16) 06/21/17 06:00 BUN 6 mg/dL (7-18) L D 06/21/17 06:00 Creatinine 1.1 mg/dL (0.7-1.3) 06/21/17 06:00 Creat Clearance w eGFR > 60 (>60) 06/21/17 06:00 POC Glucometer 160 UNITS (80-120) 06/21/17 05:47 Random Glucose 148 mg/dL (74-106) H 06/21/17 06:00 Calcium 8.9 mg/dL (8.5-10.1) 06/21/17 06:00 Total Bilirubin 0.5 mg/dL (0.2-1.0) D 06/21/17 06:00 AST 28 U/L (15-37) D 06/21/17 06:00 ALT 34 U/L (12-78) 06/21/17 06:00 Alkaline Phosphatase 148 U/L (45-117) H D 06/21/17 06:00 Total Protein 9.0 g/dl (6.4-8.2) H 06/21/17 06:00 Albumin 4.5 g/dl (3.4-5.0) 06/21/17 06:00 Urine Color Ltyellow 06/20/17 15:00 Urine Appearance Clear 06/20/17 15:00 Urine pH 8.0 (5.0-8.0) D 06/20/17 15:00 Ur Specific [place] 1.015 (1.001-1.035) 06/20/17 15:00 Urine Protein 1+ (NEGATIVE) H 06/20/17 15:00 Urine Glucose (UA) Negative (NEGATIVE) 06/20/17 15:00 Urine Ketones Negative (NEGATIVE) 06/20/17 15:00 Urine Blood Negative (NEGATIVE) 06/20/17 15:00 Urine Nitrite Negative (NEGATIVE) 06/20/17 15:00 Urine Bilirubin Negative (NEGATIVE) 06/20/17 15:00 Urine Urobilinogen Negative mg/dL (0.2-1.0) 06/20/17 15:00 Ur Leukocyte Esterase Negative (NEGATIVE) 06/20/17 15:00 Urine WBC (Auto) None /hpf (3-5) 06/20/17 15:00 Urine RBC (Auto) <1 /hpf (0-3) 06/20/17 15:00 Ur Epithelial Cells Rare /HPF (FEW) 06/20/17 15:00 Urine Mucus Rare 06/20/17 15:00 Assessment: 06/21/17 11:22 WITHDRAWAL SX Plan: CONTINUE DETOX
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
[2017-06-21] MEDS: THIAMINE HCL 100 MG TABLET (FP) PO SCH (22:08)
[2017-06-21] MEDS: ATORVASTATIN CA 10 MG TABLET (FP) PO SCH (22:08)
[2017-06-21] MEDS: MIRTAZAPINE 15 MG TABLET (FP) PO SCH (22:08)
[2017-06-22] MEDS: chlordiazePOXIDE HCL 25 MG CAPSULE PO SCH ×2 (05:33→10:20)
[2017-06-22] MEDS: GABAPENTIN 300 MG CAPSULE (FP) PO SCH ×3 (05:33→22:24)
[2017-06-22] MEDS: metFORMIN HCL 500 MG TABLET (FP) PO SCH ×2 (07:12→17:30)
[2017-06-22] MEDS: LISINOPRIL 10 MG TABLET (FP) PO SCH (10:20)
[2017-06-22] MEDS: levETIRAcetam 500 MG TABLET (FP) PO SCH ×2 (10:20→22:24)
[2017-06-22] MEDS: NICOTINE 21 MG/24 HOURS TOPICAL PATCH TD SCH (10:20)
[2017-06-22] MEDS: PRENATAL VITAMINS W/ FOLIC ACID TABLET (FP) PO SCH (10:20)
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
[2017-06-22] MEDS: chlordiazePOXIDE 5 MG CAPSULE PO SCH ×2 (17:46→22:23)
[2017-06-22] MEDS: THIAMINE HCL 100 MG TABLET (FP) PO SCH (22:23)
[2017-06-22] MEDS: ATORVASTATIN CA 10 MG TABLET (FP) PO SCH (22:24)
[2017-06-22] MEDS: MIRTAZAPINE 15 MG TABLET (FP) PO SCH (22:24)
[2017-06-23] MEDS: GABAPENTIN 300 MG CAPSULE (FP) PO SCH ×3 (05:19→22:37)
[2017-06-23] MEDS: chlordiazePOXIDE 5 MG CAPSULE PO SCH ×2 (05:19→10:35)
[2017-06-23] MEDS: metFORMIN HCL 500 MG TABLET (FP) PO SCH ×2 (07:47→17:37)
[2017-06-23] MEDS: PRENATAL VITAMINS W/ FOLIC ACID TABLET (FP) PO SCH (10:35)
[2017-06-23] MEDS: levETIRAcetam 500 MG TABLET (FP) PO SCH ×2 (10:35→22:37)
[2017-06-23] MEDS: LISINOPRIL 10 MG TABLET (FP) PO SCH (10:35)
[2017-06-23] MEDS: NICOTINE 21 MG/24 HOURS TOPICAL PATCH TD SCH (10:38)
--- NOTE | 2017-06-23 12:19 | PN ---
[facility] Progress Note (SOAP) Subjective: Tremors, Fatigue, Anxious, Sweating. Objective: PT. A & O X 2 (UNCERTAIN ABOUT CURRENT DAY/ DATE), OBSERVED AMBULATING ON UNIT. NO ACUTE DISTRESS. 06/23/17 12:17 Vital Signs Temperature 97.2 F L 06/23/17 09:40 Pulse Rate 78 06/23/17 09:40 Respiratory Rate 18 06/23/17 09:40 Blood Pressure 123/72 06/23/17 09:40 O2 Sat by Pulse Oximetry (%) Laboratory Tests 06/20/17 06/20/17 06/20/17 11:26 11:55 15:00 WBC RBC Hgb Hct MCV MCH MCHC RDW Plt Count MPV Sodium Potassium Chloride Carbon Dioxide Anion Gap BUN Creatinine Creat Clearance w eGFR POC Glucometer 130 Random Glucose Calcium Total Bilirubin AST ALT Alkaline Phosphatase Total Protein Albumin Urine Color Ltyellow Urine Appearance Clear Urine pH 8.0 D Ur Specific [place] 1.015 Urine Protein 1+ H Urine Glucose (UA) Negative Urine Ketones Negative Urine Blood Negative Urine Nitrite Negative Urine Bilirubin Negative Urine Urobilinogen Negative Ur Leukocyte Esterase Negative Urine WBC (Auto) None Urine RBC (Auto) <1 Ur Epithelial Cells Rare Urine Mucus Rare Levetiracetam 2.8 L RPR Titer 06/20/17 06/21/17 06/21/17 16:23 05:47 06:00 WBC 8.9 RBC 5.18 Hgb 14.5 Hct 44.5 MCV 85.9 MCH 27.9 MCHC 32.5 RDW 14.8 Plt Count 240 MPV 9.3 Sodium Potassium Chloride Carbon Dioxide Anion Gap BUN Creatinine Creat Clearance w eGFR POC Glucometer 141 160 Random Glucose Calcium Total Bilirubin AST ALT Alkaline Phosphatase Total Protein Albumin Urine Color Urine Appearance Urine pH Ur Specific [place] Urine Protein Urine Glucose (UA) Urine Ketones Urine Blood Urine Nitrite Urine Bilirubin Urine Urobilinogen Ur Leukocyte Esterase Urine WBC (Auto) Urine RBC (Auto) Ur Epithelial Cells Urine Mucus Levetiracetam RPR Titer 06/21/17 06/21/17 06/21/17 06:00 06:00 16:22 WBC RBC Hgb Hct MCV MCH MCHC RDW Plt Count MPV Sodium 139 Potassium 3.9 Chloride 105 Carbon Dioxide 23 Anion Gap 11 BUN 6 L D Creatinine 1.1 Creat Clearance w eGFR > 60 POC Glucometer 184 Random Glucose 148 H Calcium 8.9 Total Bilirubin 0.5 D AST 28 D ALT 34 Alkaline Phosphatase 148 H D Total Protein 9.0 H Albumin 4.5 Urine Color Urine Appearance Urine pH Ur Specific [place] Urine Protein Urine Glucose (UA) Urine Ketones Urine Blood Urine Nitrite Urine Bilirubin Urine Urobilinogen Ur Leukocyte Esterase Urine WBC (Auto) Urine RBC (Auto) Ur Epithelial Cells Urine Mucus Levetiracetam RPR Titer Nonreactive 06/22/17 06/22/17 06/23/17 05:33 16:23 05:18 WBC RBC Hgb Hct MCV MCH MCHC RDW Plt Count MPV Sodium Potassium Chloride Carbon Dioxide Anion Gap BUN Creatinine Creat Clearance w eGFR POC Glucometer 229 362 298 Random Glucose Calcium Total Bilirubin AST ALT Alkaline Phosphatase Total Protein Albumin Urine Color Urine Appearance Urine pH Ur Specific [place] Urine Protein Urine Glucose (UA) Urine Ketones Urine Blood Urine Nitrite Urine Bilirubin Urine Urobilinogen Ur Leukocyte Esterase Urine WBC (Auto) Urine RBC (Auto) Ur Epithelial Cells Urine Mucus Levetiracetam RPR Titer LABS NOTED. Assessment: 06/23/17 12:17 WITHDRAWAL SYMPTOMS. Plan: CONTINUE DETOX. INCREASE DAILY PO FLUID INTAKE.
--- NOTE | 2017-06-23 15:09 | PN ---
[facility] Progress Note Note: Received call from [facility] Sdet David Palmer that patient has been approved by his insurance company ([employer]) to remain on Detox unit for two (2) additional days beyond original date of discharge so as to reduce likelihood of relapse. Patient to remain on Detox unit until 06/26/2017, at which time he will be discharged to go to [facility] ([place], [place] Patient in agreement with this plan. Stewart Rivas NP
[2017-06-23] MEDS: chlordiazePOXIDE HCL 10 MG CAPSULE PO SCH ×2 (17:37→22:37)
[2017-06-23] MEDS: THIAMINE HCL 100 MG TABLET (FP) PO SCH (22:36)
[2017-06-23] MEDS: ATORVASTATIN CA 10 MG TABLET (FP) PO SCH (22:37)
[2017-06-23] MEDS: MIRTAZAPINE 15 MG TABLET (FP) PO SCH (22:37)
[2017-06-24] MEDS: chlordiazePOXIDE HCL 10 MG CAPSULE PO SCH ×2 (06:11→10:52)
[2017-06-24] MEDS: GABAPENTIN 300 MG CAPSULE (FP) PO SCH ×3 (06:11→22:19)
[2017-06-24] MEDS: metFORMIN HCL 500 MG TABLET (FP) PO SCH ×2 (06:11→17:26)
[2017-06-24] MEDS: levETIRAcetam 500 MG TABLET (FP) PO SCH ×2 (10:50→22:19)
[2017-06-24] MEDS: PRENATAL VITAMINS W/ FOLIC ACID TABLET (FP) PO SCH (10:50)
[2017-06-24] MEDS: LISINOPRIL 10 MG TABLET (FP) PO SCH (10:50)
[2017-06-24] MEDS: NICOTINE 21 MG/24 HOURS TOPICAL PATCH TD SCH (10:51)
--- NOTE | 2017-06-24 14:07 | PN ---
[facility] Progress Note (SOAP) Subjective: Sweating, tremor, interrupted sleep Objective: 06/24/17 14:03 Last Vital Signs Temp Pulse Resp BP Pulse Ox 97.4 F L 114 H 20 111/80 06/24/17 13:18 06/24/17 13:18 06/24/17 13:18 06/24/17 13:18 Laboratory Tests 06/20/17 06/20/17 06/20/17 11:26 11:55 15:00 WBC RBC Hgb Hct MCV MCH MCHC RDW Plt Count MPV Sodium Potassium Chloride Carbon Dioxide Anion Gap BUN Creatinine Creat Clearance w eGFR POC Glucometer 130 Random Glucose Calcium Total Bilirubin AST ALT Alkaline Phosphatase Total Protein Albumin Urine Color Ltyellow Urine Appearance Clear Urine pH 8.0 D Ur Specific [place] 1.015 Urine Protein 1+ H Urine Glucose (UA) Negative Urine Ketones Negative Urine Blood Negative Urine Nitrite Negative Urine Bilirubin Negative Urine Urobilinogen Negative Ur Leukocyte Esterase Negative Urine WBC (Auto) None Urine RBC (Auto) <1 Ur Epithelial Cells Rare Urine Mucus Rare Levetiracetam 2.8 L RPR Titer 06/20/17 06/21/17 06/21/17 16:23 05:47 06:00 WBC 8.9 RBC 5.18 Hgb 14.5 Hct 44.5 MCV 85.9 MCH 27.9 MCHC 32.5 RDW 14.8 Plt Count 240 MPV 9.3 Sodium Potassium Chloride Carbon Dioxide Anion Gap BUN Creatinine Creat Clearance w eGFR POC Glucometer 141 160 Random Glucose Calcium Total Bilirubin AST ALT Alkaline Phosphatase Total Protein Albumin Urine Color Urine Appearance Urine pH Ur Specific [place] Urine Protein Urine Glucose (UA) Urine Ketones Urine Blood Urine Nitrite Urine Bilirubin Urine Urobilinogen Ur Leukocyte Esterase Urine WBC (Auto) Urine RBC (Auto) Ur Epithelial Cells Urine Mucus Levetiracetam RPR Titer 06/21/17 06/21/17 06/21/17 06:00 06:00 16:22 WBC RBC Hgb Hct MCV MCH MCHC RDW Plt Count MPV Sodium 139 Potassium 3.9 Chloride 105 Carbon Dioxide 23 Anion Gap 11 BUN 6 L D Creatinine 1.1 Creat Clearance w eGFR > 60 POC Glucometer 184 Random Glucose 148 H Calcium 8.9 Total Bilirubin 0.5 D AST 28 D ALT 34 Alkaline Phosphatase 148 H D Total Protein 9.0 H Albumin 4.5 Urine Color Urine Appearance Urine pH Ur Specific [place] Urine Protein Urine Glucose (UA) Urine Ketones Urine Blood Urine Nitrite Urine Bilirubin Urine Urobilinogen Ur Leukocyte Esterase Urine WBC (Auto) Urine RBC (Auto) Ur Epithelial Cells Urine Mucus Levetiracetam RPR Titer Nonreactive 06/22/17 06/22/17 06/23/17 05:33 16:23 05:18 WBC RBC Hgb Hct MCV MCH MCHC RDW Plt Count MPV Sodium Potassium Chloride Carbon Dioxide Anion Gap BUN Creatinine Creat Clearance w eGFR POC Glucometer 229 362 298 Random Glucose Calcium Total Bilirubin AST ALT Alkaline Phosphatase Total Protein Albumin Urine Color Urine Appearance Urine pH Ur Specific [place] Urine Protein Urine Glucose (UA) Urine Ketones Urine Blood Urine Nitrite Urine Bilirubin Urine Urobilinogen Ur Leukocyte Esterase Urine WBC (Auto) Urine RBC (Auto) Ur Epithelial Cells Urine Mucus Levetiracetam RPR Titer 06/23/17 06/24/17 16:19 06:12 WBC RBC Hgb Hct MCV MCH MCHC RDW Plt Count MPV Sodium Potassium Chloride Carbon Dioxide Anion Gap BUN Creatinine Creat Clearance w eGFR POC Glucometer 358 239 Random Glucose Calcium Total Bilirubin AST ALT Alkaline Phosphatase Total Protein Albumin Urine Color Urine Appearance Urine pH Ur Specific [place] Urine Protein Urine Glucose (UA) Urine Ketones Urine Blood Urine Nitrite Urine Bilirubin Urine Urobilinogen Ur Leukocyte Esterase Urine WBC (Auto) Urine RBC (Auto) Ur Epithelial Cells Urine Mucus Levetiracetam RPR Titer Labs noted: hyperglycemia Assessment: 06/24/17 14:03 Withdrawal symptoms Noted with hyperglycemia r/t DMT2 Plan: Continue detox Encouraged PO hydration (water) Hyperglycemia secondary to DMT2: continue regimen, encouraged adherence to diabetic diet
[2017-06-24] MEDS: MIRTAZAPINE 15 MG TABLET (FP) PO SCH (22:19)
[2017-06-24] MEDS: THIAMINE HCL 100 MG TABLET (FP) PO SCH (22:19)
[2017-06-24] MEDS: ATORVASTATIN CA 10 MG TABLET (FP) PO SCH (22:19)
[2017-06-24] MEDS ORDERED: INSULIN (NOVOLOG) ASPART 100 UNITS/ML 10ML VIAL SQ ONE (23:31)
[2017-06-25] MEDS: GABAPENTIN 300 MG CAPSULE (FP) PO SCH ×3 (05:55→22:30)
[2017-06-25] MEDS: metFORMIN HCL 500 MG TABLET (FP) PO SCH ×2 (06:09→16:54)
[2017-06-25] MEDS: PRENATAL VITAMINS W/ FOLIC ACID TABLET (FP) PO SCH (10:01)
[2017-06-25] MEDS: LISINOPRIL 10 MG TABLET (FP) PO SCH (10:01)
[2017-06-25] MEDS: levETIRAcetam 500 MG TABLET (FP) PO SCH ×2 (10:01→22:30)
[2017-06-25] MEDS: NICOTINE 21 MG/24 HOURS TOPICAL PATCH TD SCH (10:02)
[2017-06-25] MEDS ORDERED: Insulin (LOG) Aspart 100 UNITS/ML VIAL SQ ONE (17:15)
[2017-06-25] MEDS ORDERED: INSULIN (NOVOLOG) ASPART 100 UNITS/ML 10ML VIAL ONE ×2 (17:23→22:29)
--- NOTE | 2017-06-25 21:36 | PN ---
[facility] Progress Note (SOAP) Subjective: sleepy shakes sleep disturbance Objective: 06/25/17 21:34 A & o x 3 Assessment: 06/25/17 21:35 withdrawal sx Plan: continue detox
[2017-06-25] MEDS: MIRTAZAPINE 15 MG TABLET (FP) PO SCH (22:30)
[2017-06-25] MEDS: THIAMINE HCL 100 MG TABLET (FP) PO SCH (22:30)
[2017-06-25] MEDS: ATORVASTATIN CA 10 MG TABLET (FP) PO SCH (22:30)
[2017-06-25] MEDS: INSULIN SLIDING SCALE (NOVOLOG) 1 VIAL SQ SCH (22:31)
[2017-06-26] MEDS: GABAPENTIN 300 MG CAPSULE (FP) PO SCH (05:19)
[2017-06-26 05:57] VITALS: BP 100/68; PULSE 83; TEMP 97.3
[2017-06-26] MEDS ORDERED: INSULIN (NOVOLOG) ASPART 100 UNITS/ML 10ML VIAL ONE (05:58)
[2017-06-26] MEDS: metFORMIN HCL 500 MG TABLET (FP) PO SCH (06:34)
[2017-06-26] MEDS: INSULIN SLIDING SCALE (NOVOLOG) 1 VIAL SQ SCH (06:43)
--- NOTE | 2017-06-26 09:10 | DS ---
[facility] Detox Discharge Summary Admission Date: 06/20/17 Discharge Date: 06/26/17 - History Present History: Alcohol Dependence Additional Comments: DETOX COMPLETED. Pertinent Past History: SEE DX BELOW - Physical Exam Results Vital Signs: Vital Signs Temperature 97.3 F L 06/26/17 05:56 Pulse Rate 83 06/26/17 05:56 Respiratory Rate 18 06/26/17 05:56 Blood Pressure 100/68 06/26/17 05:56 O2 Sat by Pulse Oximetry (%) Pertinent Admission Physical Exam Findings: WITHDRAWAL SX Laboratory Last Values WBC 8.9 K/mm3 (4.0-10.0) 06/21/17 06:00 RBC 5.18 M/mm3 (4.00-5.60) 06/21/17 06:00 Hgb 14.5 GM/dL (11.7-16.9) 06/21/17 06:00 Hct 44.5 % (35.4-49) 06/21/17 06:00 MCV 85.9 fl (80-96) 06/21/17 06:00 MCH 27.9 pg (25.7-33.7) 06/21/17 06:00 MCHC 32.5 g/dl (32.0-35.9) 06/21/17 06:00 RDW 14.8 % (11.9-15.9) 06/21/17 06:00 Plt Count 240 K/MM3 (134-434) 06/21/17 06:00 MPV 9.3 fl (7.5-11.1) 06/21/17 06:00 Sodium 139 mmol/L (136-145) 06/21/17 06:00 Potassium 3.9 mmol/L (3.5-5.1) 06/21/17 06:00 Chloride 105 mmol/L (98-107) 06/21/17 06:00 Carbon Dioxide 23 mmol/L (21-32) 06/21/17 06:00 Anion Gap 11 (8-16) 06/21/17 06:00 BUN 6 mg/dL (7-18) L D 06/21/17 06:00 Creatinine 1.1 mg/dL (0.7-1.3) 06/21/17 06:00 Creat Clearance w eGFR > 60 (>60) 06/21/17 06:00 POC Glucometer 277 UNITS (80-120) 06/26/17 05:19 Random Glucose 148 mg/dL (74-106) H 06/21/17 06:00 Calcium 8.9 mg/dL (8.5-10.1) 06/21/17 06:00 Total Bilirubin 0.5 mg/dL (0.2-1.0) D 06/21/17 06:00 AST 28 U/L (15-37) D 06/21/17 06:00 ALT 34 U/L (12-78) 06/21/17 06:00 Alkaline Phosphatase 148 U/L (45-117) H D 06/21/17 06:00 Total Protein 9.0 g/dl (6.4-8.2) H 06/21/17 06:00 Albumin 4.5 g/dl (3.4-5.0) 06/21/17 06:00 Urine Color Ltyellow 06/20/17 15:00 Urine Appearance Clear 06/20/17 15:00 Urine pH 8.0 (5.0-8.0) D 06/20/17 15:00 Ur Specific [place] 1.015 (1.001-1.035) 06/20/17 15:00 Urine Protein 1+ (NEGATIVE) H 06/20/17 15:00 Urine Glucose (UA) Negative (NEGATIVE) 06/20/17 15:00 Urine Ketones Negative (NEGATIVE) 06/20/17 15:00 Urine Blood Negative (NEGATIVE) 06/20/17 15:00 Urine Nitrite Negative (NEGATIVE) 06/20/17 15:00 Urine Bilirubin Negative (NEGATIVE) 06/20/17 15:00 Urine Urobilinogen Negative mg/dL (0.2-1.0) 06/20/17 15:00 Ur Leukocyte Esterase Negative (NEGATIVE) 06/20/17 15:00 Urine WBC (Auto) None /hpf (3-5) 06/20/17 15:00 Urine RBC (Auto) <1 /hpf (0-3) 06/20/17 15:00 Ur Epithelial Cells Rare /HPF (FEW) 06/20/17 15:00 Urine Mucus Rare 06/20/17 15:00 Levetiracetam 2.8 MCG/ML (10.0-40.0) L 06/20/17 11:55 RPR Titer Nonreactive (NONREACTIVE) 06/21/17 06:00 - Treatment Hospital Course: Detox Protocol Followed, Detoxed Safely, Responded well, Discharged Condition Good - Medication Discharge Medications: Ambulatory Orders Insulin Glargine,Hum.rec.anlog [Lantus] 45 unit SQ DAILY 05/02/17 Mirtazapine [Remeron -] 30 mg PO HS 05/02/17 Gabapentin 300 mg PO TID #90 capsule 05/23/17 Lisinopril 10 mg PO DAILY #30 tab 05/23/17 levETIRAcetam [Keppra -] 500 mg PO BID #60 tab 05/23/17 metFORMIN HCL [Glucophage -] 1,000 mg PO BID@0700,1630 #60 tablet 05/23/17 Haloperidol [Haldol -] 5 mg PO DAILY #30 tablet 05/24/17 Atorvastatin Ca [Lipitor] 10 mg PO HS 06/20/17 - Diagnosis (1) Alcohol dependence with uncomplicated withdrawal Status: Acute (2) Hyperlipidemia Status: Chronic Qualifiers: Hyperlipidemia type: pure hypercholesterolemia Qualified Code(s): E78.00 - Pure hypercholesterolemia, unspecified; E78.0 - Pure hypercholesterolemia (3) Hypertension Status: Chronic Qualifiers: Hypertension type: essential hypertension Qualified Code(s): I10 - Essential (primary) hypertension (4) Neuropathy Status: Chronic (5) Nicotine dependence Status: Acute Qualifiers: Nicotine product type: cigarettes Substance use status: in withdrawal Qualified Code(s): F17.213 - Nicotine dependence, cigarettes, with withdrawal (6) Seizure Status: Suspected (7) Diabetes mellitus type II, controlled, with no complications Status: Chronic Qualifiers: Diabetes mellitus jail insulin use: with jail use Qualified Code( s): E11.9 - Type 2 diabetes mellitus without complications; Z79.4 - MCFP ( current) use of insulin; Z79.4 - MCFP (current) use of insulin; Z79.4 - MCFP (current) use of insulin; Z79.4 - tick eradicator (current) use of insulin - AMA Did Patient Leave Against Medical Advice: No
== END 2017-06-26 08:53 | disposition home or self-care (01) | DRG 897 ==
LOC: YASAS 10:00 → Y3N 11:58
PROVIDERS: ADMIT Internal Medicine; ATTEND Internal Medicine
PROC: HZ2ZZZZ Detoxification Services for Substance Abuse Treatment (ICD-10-PCS; principal; 2017-06-20)
DX: F10.230 Alcohol dependence with withdrawal, uncomplicated (principal); F17.213 Nicotine dependence, cigarettes, with withdrawal; F32.9 Major depressive disorder, single episode, unspecified; F19.24 Other psychoactive substance dependence with psychoactive substance-induced mood disorder; E11.65 Type 2 diabetes mellitus with hyperglycemia; E78.5 Hyperlipidemia, unspecified; I10 Essential (primary) hypertension; G40.909 Epilepsy, unspecified, not intractable, without status epilepticus; G47.00 Insomnia, unspecified; Z79.4 Long term (current) use of insulin; Z91.013 Allergy to seafood; Z91.018 Allergy to other foods
CPT/HCPCS: 36415; 80053; 81003; 81015; 82962; 85027; 86593; 93005; 93010

== ENCOUNTER 2018-09-24 08:25 | Inpatient (IN) | payer OTHER ==
[2018-09-24 08:44] VITALS: BMI 29.8
--- NOTE | 2018-09-24 09:02 | HP ---
CIWA Score Nausea/Vomitin Muscle Tremors: 2 Anxiety: 2 Agitation: 3 Paroxysmal Sweats: 1-Minimal Palms Moist Orientation: 0-Oriented Tacttile Disturbances: 1-Very Mild Itch/Numbness Auditory Disturbances: 1-Very Mild Visual Disturbances: 0-None Headache: 2-Mild CIWA-Ar Total Score: 14 - Admission Criteria [facility]ASAS Guidelines: Admission for Medically Managed Detox: Requires at least one of the followin. CIWA greater than 12 2. Seizures within the past 24 hours 3. Delirium tremens within the past 24 hours 4. Hallucinations within the past 24 hours 5. Acute intervention needed for co occurring medical disorder 6. Acute intervention needed for co occurring psychiatric disorder 7. Severe withdrawal that cannot be handled at a lower level of care (continued vomiting, continued diarrhea, abnormal vital signs) requiring intravenous medication and/or fluids 8. Admission ROS [facility] - HPI Chief Complaint: I need help to stop drinking alcohol Allergies/Adverse Reactions: Allergies Allergy/AdvReac Type Severity Reaction Status Date / Time apple Allergy Severe Swelling Verified 09/24/18 08:32 Fish Containing Products Allergy Severe Swelling Verified 09/24/18 08:32 pork derived (porcine) Allergy Severe Swelling Verified 09/24/18 08:32 No Known Drug Allergies Allergy Verified 09/24/18 08:32 History of Present Illness: this 43 years old male with alcohol dependence,seeking detox,withdrawal symptom, multiple admissions in detox,last treatment 12/11/17 to 12/13/17 but keep relapsing syncope alcohol related nicotine dependence 1 pack.day,would like nicotine patch type 2 dm longest period of sobriety 5 years depression plan for rehab after detox hypertension seizure last 2016 also has bipolar disorder,schizoaffective disorder, hypercholestrolemia and neuropathy Exam Limitations: No Limitations - Ebola screening Have you traveled outside of the country in the last 21 days: No Have you had contact with anyone from an Ebola affected area: No Do you have a fever: No - Review of Systems Constitutional: Loss of Appetite, Malaise, Night Sweats, Changes in sleep, Weakness EENT: reports: Nose Congestion Respiratory: reports: No Symptoms reported Cardiac: reports: Palpitations GI: reports: Nausea, Abdominal cramping : reports: No Symptoms Reported Musculoskeletal: reports: Back Pain, Muscle Pain Integumentary: reports: Dryness Neuro: reports: Headache, Tremors Endocrine: reports: No Symptoms Reported Hematology: reports: No Symptoms Reported Psychiatric: reports: No Sypmtoms Reported, Judgement Intact, Mood/Affect Appropiate, Orientated x3, Depressed, other Other Systems: Reviewed and Negative (insomnia) Patient History - Patient Medical History Hx Anemia: No Hx Asthma: No Hx Chronic Obstructive Pulmonary Disease (COPD): No Hx Cancer: No Hx Cardiac Disorders: No Hx Congestive Heart Failure: No Hx Hypertension: Yes (non compliance) Hx Hypercholesterolemia: Yes (non compliance) Hx Pacemaker: No HX Cerebrovascular Accident: No Hx Seizures: Yes (alcohol related-last episode was a year ago) Hx Dementia: No Hx Diabetes: Yes (NIDDM) Hx Gastrointestinal Disorders: No Hx Liver Disease: No Hx Genitourinary Disorders: No Hx Sexually Transmitted Disorders: No Hx Renal Disease (ESRD): No Hx Thyroid Disease: No Hx Human Immunodeficiency Virus (HIV): No (08/26 last tested negative) Hx Hepatitis C: No (negative) Hx Depression: Yes Hx Suicide Attempt: No Hx Bipolar Disorder: Yes Hx Schizophrenia: Yes Other Medical History: no suicidal,no homicidal,neuropathy - Patient Surgical History Past Surgical History: Yes Hx Neurologic Surgery: No Hx Cataract Extraction: No Hx Cardiac Surgery: No Hx Lung Surgery: No Hx Breast Surgery: No Hx Breast Biopsy: No Hx Abdominal Surgery: No Hx Appendectomy: No Hx Cholecystectomy: No Hx Genitourinary Surgery: No Hx Section: No Hx Orthopedic Surgery: Yes (L foot sx for flatfoot.2011) Anesthesia Reaction: No - PPD History Previous Implant?: Yes Documented Results: Negative w/proof Implanted On Prior [facility] Admission?: Yes Date: 12/14/17 Results: 0 mm PPD to be Administered?: No - Smoking Cessation Smoking history: Current every day smoker Have you smoked in the past 12 months: Yes Aproximately how many cigarettes per day: 20 Cigars Per Day: 0 Hx Chewing Tobacco Use: No Initiated information on smoking cessation: Yes 'Breaking Loose' booklet given: 09/24/18 - Substance & Tx. History Hx Alcohol Use: Yes Hx Substance Use: No Substance Use Type: Alcohol Hx Substance Use Treatment: Yes ([facility] 12/11/17 to 12/13/17) - Substances abused Alcohol Substance route: Oral Frequency: Daily Amount used: 1 pint E&J angella Age of first use: 14 Date of last use: 09/23/18 Family Disease History - Family Disease History Family Disease History: Heart Disease: Grandparent, Other: Father (alcohol), Mother (alcohol) Admission Physical Exam [facility] - Vital Signs Vital Signs: Vital Signs - 24 hr 09/24/18 08:36 Temperature 98.7 F Pulse Rate 104 H Respiratory 20 Rate Blood Pressure 139/93 - Physical General Appearance: Yes: Moderate Distress, Tremorous, Irritable, Anxious HEENTM: Yes: Normal ENT Inspection, TIMOTHY, Pharynx Normal Respiratory: Yes: Lungs Clear, Normal Breath Sounds, No Respiratory Distress Neck: Yes: Within Normal Limits, Supple, Trachea in good position Breast: Yes: Within Normal Limits Cardiology: Yes: Tachycardia Abdominal: Yes: Normal Bowel Sounds, Non Tender, Flat, Soft Genitourinary: Yes: Within Normal Limits Back: Yes: Muscle Spasm Musculoskeletal: Yes: Back pain, Muscle Pain Extremities: Yes: Normal Range of Motion, Non-Tender, Tremors, Other ( neuropathy s/p surgery left foot) Neurological: Yes: vegetable loader II-XII NML intact, Fully Oriented, Alert, Motor Strength 5/5 Integumentary: Yes: Dry Lymphatic: Yes: Within Normal Limits - Diagnostic (1) Alcohol related seizure Current Visit: Yes Status: Acute (2) Alcohol dependence with uncomplicated withdrawal Current Visit: No Status: Acute (3) Nicotine dependence Current Visit: No Status: Acute Qualifiers: Nicotine product type: cigarettes Substance use status: in withdrawal Qualified Code(s): F17.213 - Nicotine dependence, cigarettes, with withdrawal (4) Syncope Current Visit: No Status: Acute (5) Diabetes mellitus type II, controlled, with no complications Current Visit: No Status: Chronic Qualifiers: 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 line 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 insulin use: without usp use Qualified Code(s): E11.9 - Type 2 diabetes mellitus without complications (6) Hyperlipidemia Current Visit: No Status: Chronic Qualifiers: Hyperlipidemia type: pure hypercholesterolemia Qualified Code(s): E78.00 - Pure hypercholesterolemia, unspecified; E78.0 - Pure hypercholesterolemia (7) Hypertension Current Visit: No Status: Chronic Qualifiers: Hypertension type: essential hypertension Qualified Code(s): I10 - Essential (primary) hypertension (8) Seizure Current Visit: No Status: Chronic Comment: ETOH related seizures (9) Schizoaffective disorder Current Visit: No Status: Suspected Cleared for Admission [facility] - Detox or Rehab [facility] Level of Care: Medically Managed Detox Regimen/Protocol: Dog Digitalium Urine Drug Screen - Test Device Lot number: [id number] Expiration date: 06/14/20 - Control Is test valid?: Yes - Results Drug screen NEGATIVE: Yes Inpatient Rehab Admission - Rehab Decision to Admit Inpatient rehab admission?: No
[2018-09-24] MEDS ORDERED: chlordiazePOXIDE HCL 25 MG CAPSULE PO PRN (09:11)
[2018-09-24] MEDS ORDERED: ACETAMINOPHEN 325 MG TABLET (FP) PO PRN ×2 (09:11)
[2018-09-24] MEDS ORDERED: MAGNESIUM CITRATE 300 ML BOTTLE PO PRN (09:11)
[2018-09-24] MEDS ORDERED: BISMUTH SUBSALICYLATE 262 MG/15 ML BTL PO PRN (09:11)
[2018-09-24] MEDS ORDERED: MAG HYDROX/AL HYDROX/SIMETH 30 ML UNIT-DOSE CUP PO PRN (09:11)
[2018-09-24] MEDS ORDERED: IBUPROFEN 400 MG TABLET (FP) PO PRN (09:11)
[2018-09-24] MEDS ORDERED: MELATONIN 5 MG TABLETS PO PRN (09:11)
[2018-09-24] MEDS ORDERED: MAGNESIUM HYDROX 2400MG/30ML ORAL SUSPENSION 30 ML CUP PO PRN (09:11)
[2018-09-24] MEDS ORDERED: METHOCARBAMOL 500 MG TABLET PO PRN (09:11)
[2018-09-24] MEDS ORDERED: hydrOXYzine PAMOATE 25 MG CAPSULE (FP) PO PRN (09:11)
[2018-09-24] MEDS ORDERED: MENTHOL/PHENOL 1 EACH UD MM PRN (09:11)
[2018-09-24] MEDS: NICOTINE 21 MG/24 HOURS TOPICAL PATCH TD SCH (10:20)
[2018-09-24] MEDS: levETIRAcetam 500 MG TABLET (FP) PO SCH ×2 (10:20→22:32)
[2018-09-24] MEDS: LISINOPRIL 10 MG TABLET (FP) PO SCH (10:20)
[2018-09-24] MEDS: chlordiazePOXIDE HCL 25 MG CAPSULE PO SCH ×3 (10:20→22:33)
[2018-09-24] MEDS: PRENATAL VITAMINS W/ FOLIC ACID TABLET (FP) PO SCH (10:20)
[2018-09-24 12:05] LABS: HEMATOCRIT 43.7 % (35.4-49); HEMOGLOBIN 14.8 GM/dL (11.7-16.9); MCH 28.5 pg (25.7-33.7); MCHC 33.8 g/dl (32.0-35.9); MEAN CELL VOLUME 84.5 fl (80-96); MEAN PLT VOLUME 9.6 fl (7.5-11.1); PLATELET COUNT 248 K/MM3 (134-434); RBC 5.18 M/mm3 (4.00-5.60); RDW 13.1 % (11.9-15.9); WHITE BLOOD COUNT 5.4 K/mm3 (4.0-10.0)
[2018-09-24 12:20] LABS: ALBUMIN 4.1 g/dl (3.4-5.0); BILIRUBIN,TOTAL 0.5 mg/dL (0.2-1); CALCIUM 8.7 mg/dL (8.5-10.1); CREATININE 1.1 mg/dL (0.55-1.3); POTASSIUM 4.2 mmol/L (3.5-5.1)
[2018-09-24] MEDS ORDERED: INSULIN SLIDING SCALE (NOVOLOG) 1 VIAL SQ ONE (17:06)
[2018-09-24] MEDS: INSULIN (NOVOLOG) ASPART 100 UNITS/ML 10ML VIAL SQ ONE (17:29)
[2018-09-24] MEDS: metFORMIN HCL 500 MG TABLET (FP) PO SCH (17:29)
[2018-09-24] MEDS: THIAMINE HCL 100 MG TABLET (FP) PO SCH (22:32)
[2018-09-24] MEDS: INSULIN SLIDING SCALE (NOVOLOG) 1 VIAL SQ SCH (22:33)
[2018-09-24] MEDS: ATORVASTATIN CA 10 MG TABLET (FP) PO SCH (22:33)
[2018-09-25] MEDS: chlordiazePOXIDE HCL 25 MG CAPSULE PO SCH ×4 (05:16→22:04)
[2018-09-25] MEDS ORDERED: INSULIN SLIDING SCALE (NOVOLOG) 1 VIAL SQ ONE (05:59)
[2018-09-25] MEDS: INSULIN (NOVOLOG) ASPART 100 UNITS/ML 10ML VIAL SQ ONE (06:03)
[2018-09-25] MEDS: metFORMIN HCL 500 MG TABLET (FP) PO SCH ×2 (08:11→16:45)
[2018-09-25] MEDS: INSULIN SLIDING SCALE (NOVOLOG) 1 VIAL SQ SCH ×4 (08:23→22:05)
[2018-09-25] MEDS: NICOTINE 21 MG/24 HOURS TOPICAL PATCH TD SCH (10:13)
[2018-09-25] MEDS: levETIRAcetam 500 MG TABLET (FP) PO SCH ×2 (10:13→22:04)
[2018-09-25] MEDS: LISINOPRIL 10 MG TABLET (FP) PO SCH (10:13)
[2018-09-25] MEDS: PRENATAL VITAMINS W/ FOLIC ACID TABLET (FP) PO SCH (10:14)
--- NOTE | 2018-09-25 10:59 | PN ---
[facility] CIWA - CIWA Score Nausea/Vomitin-Mild Nausea/No Vomiting Muscle Tremors: 3 Anxiety: 1-Mildly Anxious Agitation: 3 Paroxysmal Sweats: 1-Minimal Palms Moist Orientation: 1-Uncertain about Date Tacttile Disturbances: 0-None Auditory Disturbances: 0-None Visual Disturbances: 0-None Headache: 1-Very Mild CIWA-Ar Total Score: 11 S Progress Note (SOAP) Subjective: doing well with librium protocol discuss alcohol misuse related seizure Objective: 09/25/18 10:58 Vital Signs Temperature 97.6 F 09/25/18 09:27 Pulse Rate 121 H 09/25/18 09:27 Respiratory Rate 18 09/25/18 09:27 Blood Pressure 113/74 09/25/18 09:27 O2 Sat by Pulse Oximetry (%) Laboratory Last Values WBC 5.4 K/mm3 (4.0-10.0) 09/24/18 09:55 RBC 5.18 M/mm3 (4.00-5.60) 09/24/18 09:55 Hgb 14.8 GM/dL (11.7-16.9) 09/24/18 09:55 Hct 43.7 % (35.4-49) 09/24/18 09:55 MCV 84.5 fl (80-96) 09/24/18 09:55 MCH 28.5 pg (25.7-33.7) 09/24/18 09:55 MCHC 33.8 g/dl (32.0-35.9) 09/24/18 09:55 RDW 13.1 % (11.9-15.9) 09/24/18 09:55 Plt Count 248 K/MM3 (134-434) D 09/24/18 09:55 MPV 9.6 fl (7.5-11.1) D 09/24/18 09:55 Sodium 135 mmol/L (136-145) L 09/24/18 09:55 Potassium 4.2 mmol/L (3.5-5.1) 09/24/18 09:55 Chloride 99 mmol/L (98-107) 09/24/18 09:55 Carbon Dioxide 25 mmol/L (21-32) 09/24/18 09:55 Anion Gap 11 MMOL/L (8-16) 09/24/18 09:55 BUN 13 mg/dL (7-18) 09/24/18 09:55 Creatinine 1.1 mg/dL (0.55-1.3) 09/24/18 09:55 Est GFR (CKD-EPI)AfAm 95.46 09/24/18 09:55 Est GFR (CKD-EPI)NonAf 82.36 09/24/18 09:55 POC Glucometer 362 UNITS (80-120) 09/25/18 05:15 Random Glucose 395 mg/dL (74-106) H* 09/24/18 09:55 Calcium 8.7 mg/dL (8.5-10.1) 09/24/18 09:55 Total Bilirubin 0.5 mg/dL (0.2-1) 09/24/18 09:55 AST 26 U/L (15-37) 09/24/18 09:55 ALT 26 U/L (13-61) 09/24/18 09:55 Alkaline Phosphatase 189 U/L (45-117) H 09/24/18 09:55 Total Protein 9.0 g/dl (6.4-8.2) H 09/24/18 09:55 Albumin 4.1 g/dl (3.4-5.0) 09/24/18 09:55 Urine Color Yellow 09/24/18 18:40 Urine Appearance Clear 09/24/18 18:40 Urine pH Cancelled 09/24/18 15:25 Urine pH (Auto) 5.0 (5.0-8.0) 09/24/18 18:40 Ur Specific [place] Cancelled 09/24/18 15:25 Specific [place] (Auto) 1.015 (1.010-1.035) 09/24/18 18:40 Urine Protein Cancelled 09/24/18 15:25 Urine Protein (Auto) Trace (NEGATIVE) 09/24/18 18:40 Urine Glucose (UA) Cancelled 09/24/18 15:25 Glucose (UA)(Auto) 2+ (NEGATIVE) 09/24/18 18:40 Urine Ketones Cancelled 09/24/18 15:25 Urine Ketones (Auto) 2+ (NEGATIVE) H 09/24/18 18:40 Urine Blood Cancelled 09/24/18 15:25 Urine Blood (Auto) Negative (NEGATIVE) 09/24/18 18:40 Urine Nitrite Cancelled 09/24/18 15:25 Urine Nitrite (Auto) Negative (NEGATIVE) 09/24/18 18:40 Urine Bilirubin Negative (<2.0 mg/dL) 09/24/18 18:40 Urine Urobilinogen Cancelled 09/24/18 15:25 Urine Urobilinogen (Auto) 0.2 mg/dL (0.2-1.0) 09/24/18 18:40 Ur Leukocyte Esterase Cancelled 09/24/18 15:25 Leukocyte Esterase (Auto) Negative (NEGATIVE) 09/24/18 18:40 Urine WBC (Auto) Cancelled 09/24/18 15:25 Urine RBC (Auto) Cancelled 09/24/18 15:25 Urine Casts (Auto) Cancelled 09/24/18 15:25 U Pathogenic Cast Auto Cancelled 09/24/18 15:25 U Epithel Cells (Auto) Cancelled 09/24/18 15:25 U Sm Round Cell (Auto) Cancelled 09/24/18 15:25 Urine Crystals (Auto) Cancelled 09/24/18 15:25 Urine Bacteria (Auto) Cancelled 09/24/18 15:25 Urine Yeast (Auto) Cancelled 09/24/18 15:25 RPR Titer Nonreactive (NONREACTIVE) 09/24/18 09:55 lab noted Assessment: 09/25/18 10:58 alcohol withdrawal sx Plan: continue detox
[2018-09-25] MEDS: INSULIN (LEVEMIR) 100 UNITS/ML UNITS SQ SCH (22:04)
[2018-09-25] MEDS: ATORVASTATIN CA 10 MG TABLET (FP) PO SCH (22:08)
[2018-09-25] MEDS: THIAMINE HCL 100 MG TABLET (FP) PO SCH (22:08)
[2018-09-26] MEDS: chlordiazePOXIDE HCL 25 MG CAPSULE PO SCH (04:42)
[2018-09-26] MEDS: metFORMIN HCL 500 MG TABLET (FP) PO SCH ×2 (06:12→16:34)
[2018-09-26] MEDS: INSULIN SLIDING SCALE (NOVOLOG) 1 VIAL SQ SCH ×4 (06:42→21:02)
[2018-09-26] MEDS ORDERED: INSULIN SLIDING SCALE (NOVOLOG) 1 VIAL SQ ONE (06:44)
[2018-09-26] MEDS: NICOTINE 21 MG/24 HOURS TOPICAL PATCH TD SCH (10:06)
[2018-09-26] MEDS: LISINOPRIL 10 MG TABLET (FP) PO SCH (10:06)
[2018-09-26] MEDS: levETIRAcetam 500 MG TABLET (FP) PO SCH ×2 (10:06→21:16)
[2018-09-26] MEDS: chlordiazePOXIDE HCL 10 MG CAPSULE PO SCH ×3 (10:06→22:24)
[2018-09-26] MEDS: PRENATAL VITAMINS W/ FOLIC ACID TABLET (FP) PO SCH (10:06)
[2018-09-26] MEDS ORDERED: chlordiazePOXIDE HCL 10 MG CAPSULE PO PRN (11:00)
--- NOTE | 2018-09-26 14:12 | PN ---
S CIWA - CIWA Score Nausea/Vomitin-Mild Nausea/No Vomiting Muscle Tremors: 2 Anxiety: 2 Agitation: 2 Paroxysmal Sweats: 1-Minimal Palms Moist Orientation: 0-Oriented Tacttile Disturbances: 0-None Auditory Disturbances: 0-None Visual Disturbances: 0-None Headache: 0-None Present CIWA-Ar Total Score: 8 S Progress Note (SOAP) Subjective: trouble sleep at night tremor would like to try seroquel for sleep to night Objective: 09/26/18 14:10 Vital Signs Temperature 96.4 F L 09/26/18 13:39 Pulse Rate 98 H 09/26/18 13:39 Respiratory Rate 18 09/26/18 13:39 Blood Pressure 108/79 09/26/18 13:39 O2 Sat by Pulse Oximetry (%) Laboratory Last Values WBC 5.4 K/mm3 (4.0-10.0) 09/24/18 09:55 RBC 5.18 M/mm3 (4.00-5.60) 09/24/18 09:55 Hgb 14.8 GM/dL (11.7-16.9) 09/24/18 09:55 Hct 43.7 % (35.4-49) 09/24/18 09:55 MCV 84.5 fl (80-96) 09/24/18 09:55 MCH 28.5 pg (25.7-33.7) 09/24/18 09:55 MCHC 33.8 g/dl (32.0-35.9) 09/24/18 09:55 RDW 13.1 % (11.9-15.9) 09/24/18 09:55 Plt Count 248 K/MM3 (134-434) D 09/24/18 09:55 MPV 9.6 fl (7.5-11.1) D 09/24/18 09:55 Sodium 135 mmol/L (136-145) L 09/24/18 09:55 Potassium 4.2 mmol/L (3.5-5.1) 09/24/18 09:55 Chloride 99 mmol/L (98-107) 09/24/18 09:55 Carbon Dioxide 25 mmol/L (21-32) 09/24/18 09:55 Anion Gap 11 MMOL/L (8-16) 09/24/18 09:55 BUN 13 mg/dL (7-18) 09/24/18 09:55 Creatinine 1.1 mg/dL (0.55-1.3) 09/24/18 09:55 Est GFR (CKD-EPI)AfAm 95.46 09/24/18 09:55 Est GFR (CKD-EPI)NonAf 82.36 09/24/18 09:55 POC Glucometer 359 UNITS (80-120) 09/26/18 05:07 Random Glucose 395 mg/dL (74-106) H* 09/24/18 09:55 Calcium 8.7 mg/dL (8.5-10.1) 09/24/18 09:55 Total Bilirubin 0.5 mg/dL (0.2-1) 09/24/18 09:55 AST 26 U/L (15-37) 09/24/18 09:55 ALT 26 U/L (13-61) 09/24/18 09:55 Alkaline Phosphatase 189 U/L (45-117) H 09/24/18 09:55 Total Protein 9.0 g/dl (6.4-8.2) H 09/24/18 09:55 Albumin 4.1 g/dl (3.4-5.0) 09/24/18 09:55 Urine Color Yellow 09/24/18 18:40 Urine Appearance Clear 09/24/18 18:40 Urine pH Cancelled 09/24/18 15:25 Urine pH (Auto) 5.0 (5.0-8.0) 09/24/18 18:40 Ur Specific [place] Cancelled 09/24/18 15:25 Specific [place] (Auto) 1.015 (1.010-1.035) 09/24/18 18:40 Urine Protein Cancelled 09/24/18 15:25 Urine Protein (Auto) Trace (NEGATIVE) 09/24/18 18:40 Urine Glucose (UA) Cancelled 09/24/18 15:25 Glucose (UA)(Auto) 2+ (NEGATIVE) 09/24/18 18:40 Urine Ketones Cancelled 09/24/18 15:25 Urine Ketones (Auto) 2+ (NEGATIVE) H 09/24/18 18:40 Urine Blood Cancelled 09/24/18 15:25 Urine Blood (Auto) Negative (NEGATIVE) 09/24/18 18:40 Urine Nitrite Cancelled 09/24/18 15:25 Urine Nitrite (Auto) Negative (NEGATIVE) 09/24/18 18:40 Urine Bilirubin Negative (<2.0 mg/dL) 09/24/18 18:40 Urine Urobilinogen Cancelled 09/24/18 15:25 Urine Urobilinogen (Auto) 0.2 mg/dL (0.2-1.0) 09/24/18 18:40 Ur Leukocyte Esterase Cancelled 09/24/18 15:25 Leukocyte Esterase (Auto) Negative (NEGATIVE) 09/24/18 18:40 Urine WBC (Auto) Cancelled 09/24/18 15:25 Urine RBC (Auto) Cancelled 09/24/18 15:25 Urine Casts (Auto) Cancelled 09/24/18 15:25 U Pathogenic Cast Auto Cancelled 09/24/18 15:25 U Epithel Cells (Auto) Cancelled 09/24/18 15:25 U Sm Round Cell (Auto) Cancelled 09/24/18 15:25 Urine Crystals (Auto) Cancelled 09/24/18 15:25 Urine Bacteria (Auto) Cancelled 09/24/18 15:25 Urine Yeast (Auto) Cancelled 09/24/18 15:25 RPR Titer Nonreactive (NONREACTIVE) 09/24/18 09:55 lab noted Assessment: 09/26/18 14:11 withdrawal sx Plan: continue detox
[2018-09-26] MEDS: INSULIN (LEVEMIR) 100 UNITS/ML UNITS SQ SCH (21:03)
[2018-09-26] MEDS: THIAMINE HCL 100 MG TABLET (FP) PO SCH (21:05)
[2018-09-26] MEDS: ATORVASTATIN CA 10 MG TABLET (FP) PO SCH (21:16)
[2018-09-26] MEDS ORDERED: QUEtiapine FUMARATE 50 MG TABLET PO ONE (22:00)
[2018-09-26] MEDS ORDERED: QUEtiapine FUMARATE 50 MG TABLET PO SCH (22:00)
[2018-09-27] MEDS: chlordiazePOXIDE HCL 10 MG CAPSULE PO SCH (06:17)
[2018-09-27] MEDS: INSULIN SLIDING SCALE (NOVOLOG) 1 VIAL SQ SCH ×2 (07:12→10:52)
[2018-09-27] MEDS ORDERED: INSULIN SLIDING SCALE (NOVOLOG) 1 VIAL SQ ONE (07:14)
[2018-09-27] MEDS: metFORMIN HCL 500 MG TABLET (FP) PO SCH (07:17)
[2018-09-27] MEDS ORDERED: levETIRAcetam 250 MG TABLET (FP) PO ONE (09:31)
[2018-09-27 09:43] VITALS: BP 106/77; PULSE 109; TEMP 97.2
[2018-09-27] MEDS: PRENATAL VITAMINS W/ FOLIC ACID TABLET (FP) PO SCH (10:16)
[2018-09-27] MEDS: LISINOPRIL 10 MG TABLET (FP) PO SCH (10:16)
[2018-09-27] MEDS: levETIRAcetam 500 MG TABLET (FP) PO SCH (10:16)
[2018-09-27] MEDS: NICOTINE 21 MG/24 HOURS TOPICAL PATCH TD SCH (10:17)
[2018-09-27] MEDS ORDERED: chlordiazePOXIDE HCL 10 MG CAPSULE PO SCH (11:00)
--- NOTE | 2018-09-27 11:30 | PN ---
[facility] Progress Note (SOAP) Subjective: aftercare referral requests psychiatric referral
--- NOTE | 2018-09-27 14:52 | DS ---
[facility] Detox Discharge Summary Admission Date: 09/24/18 Discharge Date: 09/27/18 - History Present History: Alcohol Dependence Additional Comments: 43 years old male admitted on 09/24/18 for alcohol withdrawal stabilization feeling better today preferring to go to alcohol rehab today alert no acute distress denies suicidal ideation aftercare [facility] Pertinent Past History: bring in medication list and lab report to aftercare appointment - Physical Exam Results Vital Signs: Vital Signs Temperature 97.2 F L 09/27/18 09:42 Pulse Rate 109 H 09/27/18 09:42 Respiratory Rate 18 09/27/18 09:42 Blood Pressure 106/77 09/27/18 09:42 O2 Sat by Pulse Oximetry (%) Pertinent Admission Physical Exam Findings: alcohol withdrawal sx Vital Signs Temperature 97.2 F L 09/27/18 09:42 Pulse Rate 109 H 09/27/18 09:42 Respiratory Rate 18 09/27/18 09:42 Blood Pressure 106/77 09/27/18 09:42 O2 Sat by Pulse Oximetry (%) Laboratory Last Values WBC 5.4 K/mm3 (4.0-10.0) 09/24/18 09:55 RBC 5.18 M/mm3 (4.00-5.60) 09/24/18 09:55 Hgb 14.8 GM/dL (11.7-16.9) 09/24/18 09:55 Hct 43.7 % (35.4-49) 09/24/18 09:55 MCV 84.5 fl (80-96) 09/24/18 09:55 MCH 28.5 pg (25.7-33.7) 09/24/18 09:55 MCHC 33.8 g/dl (32.0-35.9) 09/24/18 09:55 RDW 13.1 % (11.9-15.9) 09/24/18 09:55 Plt Count 248 K/MM3 (134-434) D 09/24/18 09:55 MPV 9.6 fl (7.5-11.1) D 09/24/18 09:55 Sodium 135 mmol/L (136-145) L 09/24/18 09:55 Potassium 4.2 mmol/L (3.5-5.1) 09/24/18 09:55 Chloride 99 mmol/L (98-107) 09/24/18 09:55 Carbon Dioxide 25 mmol/L (21-32) 09/24/18 09:55 Anion Gap 11 MMOL/L (8-16) 09/24/18 09:55 BUN 13 mg/dL (7-18) 09/24/18 09:55 Creatinine 1.1 mg/dL (0.55-1.3) 09/24/18 09:55 Est GFR (CKD-EPI)AfAm 95.46 09/24/18 09:55 Est GFR (CKD-EPI)NonAf 82.36 09/24/18 09:55 POC Glucometer > 600 UNITS (80-120) 09/27/18 10:47 Random Glucose 395 mg/dL (74-106) H* 09/24/18 09:55 Calcium 8.7 mg/dL (8.5-10.1) 09/24/18 09:55 Total Bilirubin 0.5 mg/dL (0.2-1) 09/24/18 09:55 AST 26 U/L (15-37) 09/24/18 09:55 ALT 26 U/L (13-61) 09/24/18 09:55 Alkaline Phosphatase 189 U/L (45-117) H 09/24/18 09:55 Total Protein 9.0 g/dl (6.4-8.2) H 09/24/18 09:55 Albumin 4.1 g/dl (3.4-5.0) 09/24/18 09:55 Urine Color Yellow 09/24/18 18:40 Urine Appearance Clear 09/24/18 18:40 Urine pH Cancelled 09/24/18 15:25 Urine pH (Auto) 5.0 (5.0-8.0) 09/24/18 18:40 Ur Specific [place] Cancelled 09/24/18 15:25 Specific [place] (Auto) 1.015 (1.010-1.035) 09/24/18 18:40 Urine Protein Cancelled 09/24/18 15:25 Urine Protein (Auto) Trace (NEGATIVE) 09/24/18 18:40 Urine Glucose (UA) Cancelled 09/24/18 15:25 Glucose (UA)(Auto) 2+ (NEGATIVE) 09/24/18 18:40 Urine Ketones Cancelled 09/24/18 15:25 Urine Ketones (Auto) 2+ (NEGATIVE) H 09/24/18 18:40 Urine Blood Cancelled 09/24/18 15:25 Urine Blood (Auto) Negative (NEGATIVE) 09/24/18 18:40 Urine Nitrite Cancelled 09/24/18 15:25 Urine Nitrite (Auto) Negative (NEGATIVE) 09/24/18 18:40 Urine Bilirubin Negative (<2.0 mg/dL) 09/24/18 18:40 Urine Urobilinogen Cancelled 09/24/18 15:25 Urine Urobilinogen (Auto) 0.2 mg/dL (0.2-1.0) 09/24/18 18:40 Ur Leukocyte Esterase Cancelled 09/24/18 15:25 Leukocyte Esterase (Auto) Negative (NEGATIVE) 09/24/18 18:40 Urine WBC (Auto) Cancelled 09/24/18 15:25 Urine RBC (Auto) Cancelled 09/24/18 15:25 Urine Casts (Auto) Cancelled 09/24/18 15:25 U Pathogenic Cast Auto Cancelled 09/24/18 15:25 U Epithel Cells (Auto) Cancelled 09/24/18 15:25 U Sm Round Cell (Auto) Cancelled 09/24/18 15:25 Urine Crystals (Auto) Cancelled 09/24/18 15:25 Urine Bacteria (Auto) Cancelled 09/24/18 15:25 Urine Yeast (Auto) Cancelled 09/24/18 15:25 RPR Titer Nonreactive (NONREACTIVE) 09/24/18 09:55 lab noted - Treatment Hospital Course: Detox Protocol Followed, Detoxed Safely, Responded well, Discharged Condition Good, Rehab Referral Accepted Patient has Accepted a Rehab Referral to: [facility] - Medication Discharge Medications: Ambulatory Orders Mirtazapine [Remeron -] 30 mg PO HS 05/02/17 Lisinopril 10 mg PO DAILY #30 tab 05/23/17 levETIRAcetam [Keppra -] 500 mg PO BID #60 tab 05/23/17 metFORMIN HCL [Glucophage -] 1,000 mg PO BID@0700,1630 #60 tablet 05/23/17 Haloperidol [Haldol -] 5 mg PO DAILY #30 tablet 05/24/17 Atorvastatin Ca [Lipitor] 10 mg PO HS 06/20/17 Bupropion HCl [Wellbutrin Xl -] 150 mg PO DAILY 12/11/17 Citalopram Hydrobromide [Celexa -] 40 mg PO DAILY 12/11/17 Quetiapine Fumarate [Seroquel -] 200 mg PO HS 12/11/17 Sitagliptin Phosphate [Januvia] 50 mg PO DAILY 12/11/17 hydrOXYzine HCL [Atarax -] 50 mg PO TID 12/11/17 - Diagnosis (1) Alcohol dependence with uncomplicated withdrawal Status: Acute (2) Nicotine dependence Status: Acute Qualifiers: Nicotine product type: cigarettes Substance use status: in withdrawal Qualified Code(s): F17.213 - Nicotine dependence, cigarettes, with withdrawal (3) Substance induced mood disorder Status: Suspected (4) Diabetes mellitus type II, controlled, with no complications Status: Chronic Qualifiers: Diabetes mellitus snf insulin use: without burr filer use Qualified Code(s): E11.9 - Type 2 diabetes mellitus without complications (5) Hypertension Status: Chronic Qualifiers: Hypertension type: essential hypertension Qualified Code(s): I10 - Essential (primary) hypertension (6) Seizure Status: Chronic (7) Schizoaffective disorder Status: Suspected Qualifiers: Schizoaffective disorder type: unspecified Qualified Code(s): F25.9 - Schizoaffective disorder, unspecified - AMA Did Patient Leave Against Medical Advice: No
== END 2018-09-27 12:30 | disposition home or self-care (01) | DRG 897 ==
LOC: YASAS 08:25 → Y3N 09:22
PROVIDERS: ADMIT Surgery; ATTEND Surgery
PROC: HZ2ZZZZ Detoxification Services for Substance Abuse Treatment (ICD-10-PCS; principal; 2018-09-24)
DX: F10.230 Alcohol dependence with withdrawal, uncomplicated (principal); F17.213 Nicotine dependence, cigarettes, with withdrawal; F19.24 Other psychoactive substance dependence with psychoactive substance-induced mood disorder; F25.9 Schizoaffective disorder, unspecified; I10 Essential (primary) hypertension; E11.9 Type 2 diabetes mellitus without complications; G40.909 Epilepsy, unspecified, not intractable, without status epilepticus; E78.00 Pure hypercholesterolemia, unspecified; R00.0 Tachycardia, unspecified; Z91.14 Patient's other noncompliance with medication regimen; Z79.84 Long term (current) use of oral hypoglycemic drugs; Z91.013 Allergy to seafood
CPT/HCPCS: 36415; 80053; 81003; 82962; 85027; 86593

== ENCOUNTER 2019-10-24 09:04 | Inpatient (IN) | payer OTHER ==
--- NOTE | 2019-10-24 09:28 | BHS.RME ---
Substance Use & Tx History - Substance Use History Alcohol Substance amount: 1 pint vodka and 5 20 oz of beers Frequency of use: Daily Substance route: Oral Date of Last Use: 10/24/19 Nicotine Substance amount: 1 pack Frequency of use: Daily Substance route: Smoking Date of Last Use: 10/24/19 Physical/Psych/Mental Status - Behavior General Behavior: Decreased activity Eye Contact: Normal - Cooperativeness Cooperativeness: Cooperative - Thinking Thought Processes: Tight, Logical, Goal Directed - Physical Health Problems Is patient presently having any pain?: No Does patient presently have any injuries (include location): No Does patient currently have a fever: No Is patient : No CIWA Nausea/Vomitin Muscle Tremors: 2 Anxiety: 2 Agitation: 1-Slight > Activity Paroxysmal Sweats: 3 Orientation: 0-Oriented Tacttile Disturbances: 0-None Auditory Disturbances: 0-None Visual Disturbances: 0-None Headache: 1-Very Mild CIWA-Ar Total Score: 12
[2019-10-24 09:45] VITALS: BMI 26.4
--- NOTE | 2019-10-24 10:04 | HP ---
CIWA Score Nausea/Vomitin Muscle Tremors: 2 Anxiety: 2 Agitation: 1-Slight > Activity Paroxysmal Sweats: 3 Orientation: 0-Oriented Tacttile Disturbances: 0-None Auditory Disturbances: 0-None Visual Disturbances: 0-None Headache: 1-Very Mild CIWA-Ar Total Score: 12 - Admission Criteria OASAS Guidelines: Admission for Medically Managed Detox: Requires at least one of the followin. CIWA greater than 12 2. Seizures within the past 24 hours 3. Delirium tremens within the past 24 hours 4. Hallucinations within the past 24 hours 5. Acute intervention needed for co occurring medical disorder 6. Acute intervention needed for co occurring psychiatric disorder 7. Severe withdrawal that cannot be handled at a lower level of care (continued vomiting, continued diarrhea, abnormal vital signs) requiring intravenous medication and/or fluids 8. Admitting History and Physical - Admission Chief Complaint: Mr. Barajas presents to [facility] stating "I'm tired of drinking and I want to get my life in order". History of Present Illness: Mr. Barajas presents to [facility] stating "I'm tired of drinking and I want to get my life in order". He as at [facility] 2 days ago, tx wt Librium, left and drank alcohol immediately. Last [facility] admission: 07/21 to 07/28/19 PMH: DM, HTN, HLD, Seizure disorder: no meds PSH: left foot Psych: depression: Remeron, and Seroquel SoC: lives with sister, [place] Legal: none Substance Use History Alcohol Substance amount: 1 pint vodka and 5 20 oz of beers Frequency of use: Daily Substance route: Oral Date of Last Use: 10/24/19 Start: age 15y (+) hx withdrawal seizures. 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 Nicotine Substance amount: 1 pack Frequency of use: Daily Substance route: Smoking Date of Last Use: 10/24/19 Began; age 14y History Source: Patient Limitations to Obtaining History: No Limitations - Smoking History Smoking history: Current every day smoker Have you smoked in the past 12 months: Yes Aproximately how many cigarettes per day: 1 - Alcohol/Substance Use Hx Alcohol Use: Yes Admission ROS S - HPI Allergies/Adverse Reactions: Allergies Allergy/AdvReac Type Severity Reaction Status Date / Time apple Allergy Severe Swelling Verified 07/22/19 12:38 Fish Containing Products Allergy Severe Swelling Verified 07/22/19 12:38 pork derived (porcine) Allergy Severe Swelling Verified 07/22/19 12:38 No Known Drug Allergies Allergy Verified 07/22/19 12:38 Exam Limitations: No Limitations - Ebola screening Have you traveled outside of the country in the last 21 days: No Have you had contact with anyone from an Ebola affected area: No Have you been sick,other than usual withdrawal symptoms: No - Review of Systems Constitutional: No Symptoms Reported EENT: reports: No Symptoms Reported Respiratory: reports: SOB with Exertion Cardiac: reports: No Symptoms Reported GI: reports: No Symptoms Reported : reports: No Symptoms Reported Musculoskeletal: reports: Back Pain (mild) Integumentary: reports: No Symptoms Reported Neuro: reports: Tremors Endocrine: reports: Other (Hx of DM, no meds in 2 days) Hematology: reports: No Symptoms Reported Psychiatric: reports: Anxious Patient History - Patient Medical History Hx Anemia: No Hx Asthma: No Hx Chronic Obstructive Pulmonary Disease (COPD): No Hx Cancer: No Hx Cardiac Disorders: No Hx Congestive Heart Failure: No Hx Hypertension: Yes Hx Hypercholesterolemia: Yes (non compliance) Hx Pacemaker: No HX Cerebrovascular Accident: No Hx Seizures: Yes Hx Dementia: No Hx Diabetes: Yes Hx Gastrointestinal Disorders: No Hx Liver Disease: No Hx Genitourinary Disorders: No Hx Sexually Transmitted Disorders: No Hx Renal Disease (ESRD): No Hx Thyroid Disease: No Hx Human Immunodeficiency Virus (HIV): No (08/26 last tested negative) Hx Hepatitis C: No (negative) Hx Depression: Yes Hx Suicide Attempt: No Hx Bipolar Disorder: Yes Hx Schizophrenia: Yes - Patient Surgical History Past Surgical History: Yes Hx Neurologic Surgery: No Hx Cataract Extraction: No Hx Cardiac Surgery: No Hx Lung Surgery: No Hx Breast Surgery: No Hx Breast Biopsy: No Hx Abdominal Surgery: No Hx Appendectomy: No Hx Cholecystectomy: No Hx Genitourinary Surgery: No Hx Section: No Hx Orthopedic Surgery: Yes (L foot sx for flatfoot.2011) Anesthesia Reaction: No - PPD History Date: 07/24/19 Results: 0 mm - Smoking Cessation Smoking history: Current every day smoker Have you smoked in the past 12 months: Yes Aproximately how many cigarettes per day: 20 Cigars Per Day: 0 Hx Chewing Tobacco Use: No Initiated information on smoking cessation: Yes 'Breaking Loose' booklet given: 10/24/19 Admission Physical Exam [facility] - Vital Signs Vital Signs: Vital Signs - 24 hr 10/24/19 09:44 Temperature 96.9 F L Pulse Rate 102 H Respiratory 20 Rate Blood Pressure 113/76 - Physical General Appearance: Yes: Nourished, Appropriately Dressed, Intoxicated, Anxious HEENTM: Yes: EOMI, Hearing grossly Normal, Normocephalic, Normal Voice Respiratory: Yes: Lungs Clear, Normal Breath Sounds Neck: Yes: Within Normal Limits, Supple Breast: Yes: Breast Exam Deferred Cardiology: Yes: Regular Rhythm, Regular Rate, S1, S2 Abdominal: Yes: Non Tender, Flat, Soft, Decreased BS Genitourinary: Yes: Other (deferred) Back: Yes: Normal Inspection Musculoskeletal: Yes: full range of Motion Extremities: Yes: Normal Inspection, Non-Tender Neurological: Yes: Alert, Normal Mood/Affect Integumentary: Yes: Other (few scars left thumb dorsum, pt says from scratching himself) - Diagnostic (1) Alcohol dependence with uncomplicated withdrawal Current Visit: Yes Status: Acute (2) Diabetes mellitus type II, controlled, with no complications Current Visit: Yes Status: Chronic Qualifiers: Diabetes mellitus oysterman insulin use: without retirement use Qualified Code(s): E11.9 - Type 2 diabetes mellitus without complications Comment: type i diabetes (3) Hyperlipidemia Current Visit: No Status: Chronic Qualifiers: Hyperlipidemia type: pure hypercholesterolemia Qualified Code(s): E78.00 - Pure hypercholesterolemia, unspecified; E78.0 - Pure hypercholesterolemia (4) Hypertension Current Visit: No Status: Chronic Qualifiers: Hypertension type: essential hypertension Qualified Code(s): I10 - Essential (primary) hypertension (5) Depression Current Visit: Yes Status: Chronic Qualifiers: Depression Type: dysthymia Qualified Code(s): F34.1 - Dysthymic disorder Cleared for Admission [facility] - Detox or Rehab [facility] Level of Care: Medically Managed Detox Regimen/Protocol: Librium Breathalyzer - Breathalyzer Breathalyzer: 0.060 Urine Drug Screen - Test Device Lot number: [id number] Expiration date: 01/12/21 - Control Is test valid?: Yes - Results Drug screen NEGATIVE: No Urine drug screen results: BZO-Benzodiazepines Inpatient Rehab Admission - Rehab Decision to Admit Inpatient rehab admission?: No
[2019-10-24] MEDS ORDERED: BISMUTH SUBSALICYLATE 262 MG/15 ML BTL PO PRN (10:11)
[2019-10-24] MEDS ORDERED: MENTHOL/PHENOL 1 EACH UD MM PRN (10:11)
[2019-10-24] MEDS ORDERED: ACETAMINOPHEN 325 MG TABLET (FP) PO PRN ×2 (10:11)
[2019-10-24] MEDS ORDERED: MAGNESIUM HYDROX 2400MG/30ML ORAL SUSPENSION 30 ML CUP PO PRN (10:11)
[2019-10-24] MEDS ORDERED: MAG HYDROX/AL HYDROX/SIMETH 30 ML UNIT-DOSE CUP PO PRN (10:11)
[2019-10-24] MEDS ORDERED: ONDANSETRON *ODT* 4 MG TABLET SL PRN (10:11)
[2019-10-24] MEDS ORDERED: MAGNESIUM CITRATE 300 ML BOTTLE PO PRN (10:11)
[2019-10-24] MEDS ORDERED: chlordiazePOXIDE HCL 25 MG CAPSULE PO PRN (10:11)
[2019-10-24] MEDS ORDERED: NICOTINE POLACRILEX 2 MG GUM BUC PRN (10:11)
[2019-10-24] MEDS ORDERED: INSULIN SLIDING SCALE (NOVOLOG) 1 VIAL SQ ONE ×3 (10:57→21:36)
[2019-10-24] MEDS: NICOTINE 21 MG/24 HOURS TOPICAL PATCH TD SCH (10:59)
[2019-10-24] MEDS: PRENATAL VITAMINS W/ FOLIC ACID TABLET (FP) PO SCH (10:59)
[2019-10-24] MEDS: INSULIN SLIDING SCALE (NOVOLOG) 1 VIAL SQ SCH ×3 (11:03→21:34)
--- NOTE | 2019-10-24 12:21 | CONSULT ---
[facility] Psychiatric Consult - Data Date of interview: 10/24/19 Admission source: Self-referred Identifying data: Mr Barajas is a 44 years old single Black male, father of 2 children, unemployed receiving SSI, living with his sister in the [place] seeking detox treatment for alcohol Substance Abuse History: Reports history of alcohol use. Refer to addiction counselor'christiana for further information Medical History: Significant for hypertension, type 2 diabetes mellitus, dyslipidemia, seizure disorder and history of orthosurgery for correction of flat foot in 2011. Smokes cigarettes 1 ppd Psychiatric History: Patient is known for multiple previous admission to this facility. Reports that his first psychiatric contact occured in 2001 when he was admitted to [facility], diagnosed with Bipolar/Schizophrenia and started on medications. Denies subsequent psychiatric admission as reported on previous encounter. Told contract technical writer that he was admitted to [place] ED not intpatient psychiatry. Reports total non adherence to OPD and suboptimal adherence to medications. During most recent admission to this facility, he saw Dr Keen on 07/22/19 and he was prescribed Seroquel 50 mg/hs and Remeron 15 mg/hs. Told contract technical writer that his compliance with taking medication has been very dysmal since his recent discharge from this facility. In the past, he has been on Celexa, Wellbutrin etc. Reports one previous suicidal attempt via self- immolation years ago. At present, denies expertiencing psychotic, manic or depressive symptoms, S/H ideations. However, reports feeling anxious and sleeping. Requests to resume Seroquel and Remeron as previously prescribed Physical/Sexual Abuse/Trauma History: Denies history of abuse as a child or DV relationship as an adult Mental Status Exam - Mental Status Exam Alert and Oriented to: Time (october 19, 2019), Place, Person Cognitive Function: Fair Patient Appearance: Disheveled Mood: Anxious Affect: Appropriate Patient Behavior: Cooperative Speech Pattern: Clear Voice Loudness: Normal Thought Process: Intact, Goal Oriented Thought Disorder: Not Present Hallucinations: Denies Suicidal Ideation: Denies Homicidal Ideation: Denies Insight/Judgement: Poor Sleep: Poorly Appetite: Poor Muscle strength/Tone: Normal Gait/Station: Normal Psychiatric Findings - Problem List ([place] 1, 2,3) (1) Schizoaffective disorder Current Visit: No Status: Chronic Qualifiers: Schizoaffective disorder type: unspecified Qualified Code(s): F25.9 - Schizoaffective disorder, unspecified Comment: As per records. (2) Bipolar disorder Current Visit: Yes Status: Ruled-out (3) Alcohol-induced anxiety disorder Current Visit: Yes Status: Acute (4) Alcohol-induced sleep disorder Current Visit: Yes Status: Acute (5) Diabetes mellitus type II, controlled, with no complications Current Visit: Yes Status: Chronic Qualifiers: Diabetes mellitus ad terminal makeup operator insulin use: without ad terminal makeup operator use Qualified Code(s): E11.9 - Type 2 diabetes mellitus without complications Comment: type i diabetes (6) Alcohol related seizure Current Visit: No Status: Resolved (7) Hyperlipidemia Current Visit: No Status: Chronic Qualifiers: Hyperlipidemia type: pure hypercholesterolemia Qualified Code(s): E78.00 - Pure hypercholesterolemia, unspecified; E78.0 - Pure hypercholesterolemia (8) Hypertension Current Visit: No Status: Chronic Qualifiers: Hypertension type: essential hypertension Qualified Code(s): I10 - Essential (primary) hypertension (9) Neuropathy Current Visit: No Status: Chronic (10) Alcohol dependence with uncomplicated withdrawal Current Visit: Yes Status: Acute - Initial Treatment Plan Initial Treatment Plan: 1) Resume Seroquel 50 mg po HS and Remeron 15 mg po HS. 2) Continue inpatient detoxification
[2019-10-24] MEDS: IBUPROFEN 400 MG TABLET (FP) PO PRN ×2 (12:41→22:03)
[2019-10-24] MEDS: METHOCARBAMOL 500 MG TABLET PO PRN (12:41)
[2019-10-24] MEDS ORDERED: hydrOXYzine PAMOATE 25 MG CAPSULE (FP) PO PRN (13:06)
[2019-10-24] MEDS ORDERED: hydrOXYzine PAMOATE 25 MG CAPSULE (FP) PO SCH (14:00)
[2019-10-24 14:30] LABS: HEMATOCRIT 38.9 % (35.4-49); HEMOGLOBIN 12.5 GM/dL (11.7-16.9); MCH 29.2 pg (25.7-33.7); MCHC 32.1 g/dl (32.0-35.9); MEAN CELL VOLUME 90.7 fl (80-96); MEAN PLT VOLUME 11.7 fl (7.5-11.1); PLATELET COUNT 265 K/MM3 (134-434); RBC 4.28 M/mm3 (4.00-5.60); RDW 16.4 % (11.9-15.9); WHITE BLOOD COUNT 4.4 K/mm3 (4.0-10.0)
[2019-10-24 14:49] LABS: BLOOD UREA NITROGEN 4.8 mg/dL (7-18); CALCIUM 9.2 mg/dL (8.5-10.1); POTASSIUM 4.2 mmol/L (3.5-5.1)
[2019-10-24 14:51] LABS: BILIRUBIN,TOTAL 0.2 mg/dL (0.2-1); CREATININE 1.2 mg/dL (0.55-1.3); TOT PROT 8.2 g/dl (6.4-8.2)
[2019-10-24] MEDS: metFORMIN HCL 500 MG TABLET (FP) PO SCH (16:46)
[2019-10-24] MEDS: chlordiazePOXIDE HCL 25 MG CAPSULE PO SCH ×2 (16:46→22:03)
[2019-10-24] MEDS ORDERED: MIRTAZAPINE 15 MG TABLET (FP) PO SCH (22:00)
[2019-10-24] MEDS: THIAMINE HCL 100 MG TABLET (FP) PO SCH (22:02)
[2019-10-24] MEDS: ATORVASTATIN CA 10 MG TABLET (FP) PO SCH (22:02)
[2019-10-24] MEDS: levETIRAcetam 500 MG TABLET (FP) PO SCH (22:02)
[2019-10-24] MEDS: QUEtiapine FUMARATE 50 MG TABLET PO SCH (22:03)
[2019-10-24] MEDS: MELATONIN 5 MG TABLETS PO SCH (22:04)
[2019-10-24] MEDS: MIRTAZAPINE 15 MG TABLET (FP) PO SCH (22:05)
[2019-10-25] MEDS: chlordiazePOXIDE HCL 25 MG CAPSULE PO SCH ×4 (05:33→22:04)
[2019-10-25] MEDS: metFORMIN HCL 500 MG TABLET (FP) PO SCH ×2 (06:20→17:03)
[2019-10-25] MEDS: sitaGLIPtin PHOSPHATE 50 MG TABLET PO SCH (06:20)
[2019-10-25] MEDS: INSULIN SLIDING SCALE (NOVOLOG) 1 VIAL SQ SCH ×4 (06:21→22:06)
[2019-10-25] MEDS: LISINOPRIL 10 MG TABLET (FP) PO SCH (10:05)
[2019-10-25] MEDS: levETIRAcetam 500 MG TABLET (FP) PO SCH ×2 (10:05→22:04)
[2019-10-25] MEDS: PRENATAL VITAMINS W/ FOLIC ACID TABLET (FP) PO SCH (10:06)
[2019-10-25] MEDS: NICOTINE 21 MG/24 HOURS TOPICAL PATCH TD SCH (10:06)
--- NOTE | 2019-10-25 10:36 | PN ---
[facility] CIWA - CIWA Score Nausea/Vomitin-Mild Nausea/No Vomiting Muscle Tremors: 2 Anxiety: 2 Agitation: 2 Paroxysmal Sweats: 1-Minimal Palms Moist Orientation: 0-Oriented Tacttile Disturbances: 1-Very Mild Itch/Numbness Auditory Disturbances: 0-None Visual Disturbances: 0-None Headache: 2-Mild CIWA-Ar Total Score: 11 S Progress Note (SOAP) Subjective: alert,irritable,anxious,interrupted sleep,tremor,nausea,pain in the body, Objective: 10/25/19 10:34 Vital Signs Temperature 97.5 F L 10/25/19 08:20 Pulse Rate 102 H 10/25/19 08:20 Respiratory Rate 18 10/25/19 08:20 Blood Pressure 116/69 10/25/19 08:20 O2 Sat by Pulse Oximetry (%) 98 10/25/19 05:28 Laboratory Last Values WBC 4.4 K/mm3 (4.0-10.0) 10/24/19 10:00 RBC 4.28 M/mm3 (4.00-5.60) 10/24/19 10:00 Hgb 12.5 GM/dL (11.7-16.9) 10/24/19 10:00 Hct 38.9 % (35.4-49) 10/24/19 10:00 MCV 90.7 fl (80-96) 10/24/19 10:00 MCH 29.2 pg (25.7-33.7) 10/24/19 10:00 MCHC 32.1 g/dl (32.0-35.9) 10/24/19 10:00 RDW 16.4 % (11.9-15.9) H 10/24/19 10:00 Plt Count 265 K/MM3 (134-434) 10/24/19 10:00 MPV 11.7 fl (7.5-11.1) H D 10/24/19 10:00 Sodium 136 mmol/L (136-145) 10/24/19 10:00 Potassium 4.2 mmol/L (3.5-5.1) 10/24/19 10:00 Chloride 104 mmol/L (98-107) 10/24/19 10:00 Carbon Dioxide 22 mmol/L (21-32) 10/24/19 10:00 Anion Gap 11 MMOL/L (8-16) 10/24/19 10:00 BUN 4.8 mg/dL (7-18) L 10/24/19 10:00 Creatinine 1.2 mg/dL (0.55-1.3) 10/24/19 10:00 Est GFR (CKD-EPI)AfAm 85.32 10/24/19 10:00 Est GFR (CKD-EPI)NonAf 73.62 10/24/19 10:00 POC Glucometer 335 UNITS (80-120) 10/25/19 10:10 Random Glucose 536 mg/dL (74-106) H* 10/24/19 10:00 Calcium 9.2 mg/dL (8.5-10.1) 10/24/19 10:00 Total Bilirubin 0.2 mg/dL (0.2-1) 10/24/19 10:00 AST 56 U/L (15-37) H 10/24/19 10:00 ALT 83 U/L (13-61) H 10/24/19 10:00 Alkaline Phosphatase 172 U/L (45-117) H 10/24/19 10:00 Total Protein 8.2 g/dl (6.4-8.2) 10/24/19 10:00 Albumin 4.0 g/dl (3.4-5.0) 10/24/19 10:00 Syphilis Serology Non-reactive (NONREACTIVE) 10/24/19 10:00 COVID-19 ([facility]) Not detected (Not Detected) 10/24/19 10:00 HIV Ag/Ab Combo Qual Negative (NEGATIVE) 10/24/19 10:00 Assessment: 10/25/19 10:35 withdrawal symptom Plan: continue detox librium regimen,bgm monitoring,continue metformin 1000 mgs po bid,and insulin coverage sliding scale
[2019-10-25] MEDS ORDERED: INSULIN SLIDING SCALE (NOVOLOG) 1 VIAL SQ ONE ×3 (11:20→23:32)
[2019-10-25] MEDS: IBUPROFEN 400 MG TABLET (FP) PO PRN (14:00)
[2019-10-25] MEDS: METHOCARBAMOL 500 MG TABLET PO PRN (14:02)
[2019-10-25] MEDS: MELATONIN 5 MG TABLETS PO SCH (22:04)
[2019-10-25] MEDS: THIAMINE HCL 100 MG TABLET (FP) PO SCH (22:04)
[2019-10-25] MEDS: ATORVASTATIN CA 10 MG TABLET (FP) PO SCH (22:04)
[2019-10-25] MEDS: MIRTAZAPINE 15 MG TABLET (FP) PO SCH (22:04)
[2019-10-25] MEDS: QUEtiapine FUMARATE 50 MG TABLET PO SCH (22:04)
[2019-10-26] MEDS: chlordiazePOXIDE HCL 25 MG CAPSULE PO SCH ×4 (05:59→22:25)
[2019-10-26] MEDS: INSULIN SLIDING SCALE (NOVOLOG) 1 VIAL SQ SCH ×4 (06:07→21:12)
[2019-10-26] MEDS ORDERED: INSULIN SLIDING SCALE (NOVOLOG) 1 VIAL SQ ONE ×5 (06:07→21:12)
[2019-10-26] MEDS: metFORMIN HCL 500 MG TABLET (FP) PO SCH ×2 (06:08→16:54)
[2019-10-26] MEDS: sitaGLIPtin PHOSPHATE 50 MG TABLET PO SCH (06:08)
[2019-10-26] MEDS: levETIRAcetam 500 MG TABLET (FP) PO SCH ×2 (09:06→21:09)
[2019-10-26] MEDS: IBUPROFEN 400 MG TABLET (FP) PO PRN (09:06)
[2019-10-26] MEDS: LISINOPRIL 10 MG TABLET (FP) PO SCH (09:06)
[2019-10-26] MEDS: PRENATAL VITAMINS W/ FOLIC ACID TABLET (FP) PO SCH (09:07)
[2019-10-26] MEDS: NICOTINE 21 MG/24 HOURS TOPICAL PATCH TD SCH (09:07)
[2019-10-26] MEDS: METHYL SALICYLATE/MENTHOL OINT 30 GM TUBE TP SCH ×2 (15:24→21:09)
--- NOTE | 2019-10-26 16:40 | PN ---
S CIWA - CIWA Score Nausea/Vomitin-No Nausea/No Vomiting Muscle Tremors: None Anxiety: 3 Agitation: 3 Paroxysmal Sweats: No Perspiration Orientation: 0-Oriented Tacttile Disturbances: 0-None Auditory Disturbances: 0-None Visual Disturbances: 0-None Headache: 0-None Present CIWA-Ar Total Score: 6 BHS Progress Note (SOAP) Subjective: Body Aches, Anxious, Restless, Insomnia. Objective: Patient A & O X 3, Observed Ambulating on Detox Unit Unassisted. In No Acute Distress. 10/26/19 16:36 Vital Signs Temperature 98.0 F 10/26/19 12:30 Pulse Rate 90 10/26/19 12:30 Respiratory Rate 18 10/26/19 12:30 Blood Pressure 111/80 10/26/19 12:30 O2 Sat by Pulse Oximetry (%) 98 10/26/19 12:30 Laboratory Tests 10/24/19 10/24/19 10/24/19 10:00 10:00 10:00 WBC 4.4 RBC 4.28 Hgb 12.5 Hct 38.9 MCV 90.7 MCH 29.2 MCHC 32.1 RDW 16.4 H Plt Count 265 MPV 11.7 H D Sodium 136 Potassium 4.2 Chloride 104 Carbon Dioxide 22 Anion Gap 11 BUN 4.8 L Creatinine 1.2 Est GFR (CKD-EPI)AfAm 85.32 Est GFR (CKD-EPI)NonAf 73.62 POC Glucometer Random Glucose 536 H* Calcium 9.2 Total Bilirubin 0.2 AST 56 H ALT 83 H Alkaline Phosphatase 172 H Total Protein 8.2 Albumin 4.0 Syphilis Serology COVID-19 ([facility]) HIV Ag/Ab Combo Qual Negative 10/24/19 10/24/19 10/24/19 10:00 10:00 10:23 WBC RBC Hgb Hct MCV MCH MCHC RDW Plt Count MPV Sodium Potassium Chloride Carbon Dioxide Anion Gap BUN Creatinine Est GFR (CKD-EPI)AfAm Est GFR (CKD-EPI)NonAf POC Glucometer 539 Random Glucose Calcium Total Bilirubin AST ALT Alkaline Phosphatase Total Protein Albumin Syphilis Serology Non-reactive COVID-19 ([facility]) Not detected HIV Ag/Ab Combo Qual 10/24/19 10/24/19 10/25/19 16:27 21:32 05:32 WBC RBC Hgb Hct MCV MCH MCHC RDW Plt Count MPV Sodium Potassium Chloride Carbon Dioxide Anion Gap BUN Creatinine Est GFR (CKD-EPI)AfAm Est GFR (CKD-EPI)NonAf POC Glucometer 289 330 322 Random Glucose Calcium Total Bilirubin AST ALT Alkaline Phosphatase Total Protein Albumin Syphilis Serology COVID-19 ([facility]) HIV Ag/Ab Combo Qual 10/25/19 10/25/19 10/25/19 10:10 16:41 20:42 WBC RBC Hgb Hct MCV MCH MCHC RDW Plt Count MPV Sodium Potassium Chloride Carbon Dioxide Anion Gap BUN Creatinine Est GFR (CKD-EPI)AfAm Est GFR (CKD-EPI)NonAf POC Glucometer 335 271 243 Random Glucose Calcium Total Bilirubin AST ALT Alkaline Phosphatase Total Protein Albumin Syphilis Serology COVID-19 ([facility]) HIV Ag/Ab Combo Qual 10/26/19 10/26/19 10/26/19 05:59 10:30 16:26 WBC RBC Hgb Hct MCV MCH MCHC RDW Plt Count MPV Sodium Potassium Chloride Carbon Dioxide Anion Gap BUN Creatinine Est GFR (CKD-EPI)AfAm Est GFR (CKD-EPI)NonAf POC Glucometer 304 370 335 Random Glucose Calcium Total Bilirubin AST ALT Alkaline Phosphatase Total Protein Albumin Syphilis Serology COVID-19 ([facility]) HIV Ag/Ab Combo Qual LABS NOTED. Assessment: 10/26/19 16:39 WITHDRAWAL SYMPTOMS. ELEVATED AST, ALT, AND AP LEVELS. Plan: Continue Detox. Increase Daily Oral Water Intake. Patient requests dosage modification of medications currently prescribed for treatment of Insomnia. Psychiatric Consultation ordered for further evaluation.
[2019-10-26] MEDS: ATORVASTATIN CA 10 MG TABLET (FP) PO SCH (21:09)
[2019-10-26] MEDS: MIRTAZAPINE 15 MG TABLET (FP) PO SCH (21:09)
[2019-10-26] MEDS: THIAMINE HCL 100 MG TABLET (FP) PO SCH (21:09)
[2019-10-26] MEDS: QUEtiapine FUMARATE 50 MG TABLET PO SCH (21:09)
[2019-10-26] MEDS: MELATONIN 5 MG TABLETS PO SCH (21:09)
[2019-10-27] MEDS ORDERED: chlordiazePOXIDE HCL 10 MG CAPSULE PO PRN
[2019-10-27] MEDS: chlordiazePOXIDE HCL 10 MG CAPSULE PO SCH ×4 (05:57→22:19)
[2019-10-27] MEDS: INSULIN SLIDING SCALE (NOVOLOG) 1 VIAL SQ SCH ×4 (05:59→21:20)
[2019-10-27] MEDS ORDERED: INSULIN SLIDING SCALE (NOVOLOG) 1 VIAL SQ ONE ×4 (06:00→21:20)
[2019-10-27] MEDS: metFORMIN HCL 500 MG TABLET (FP) PO SCH ×2 (07:13→16:54)
[2019-10-27] MEDS: sitaGLIPtin PHOSPHATE 50 MG TABLET PO SCH (07:13)
--- NOTE | 2019-10-27 09:47 | PN ---
S CIWA - CIWA Score Nausea/Vomitin-No Nausea/No Vomiting Muscle Tremors: 1-None Visible, but [place] Anxiety: 1-Mildly Anxious Agitation: 0-Normal Activity Paroxysmal Sweats: No Perspiration Orientation: 0-Oriented Tacttile Disturbances: 0-None Auditory Disturbances: 0-None Visual Disturbances: 1-Very Mild Sensitivity Headache: 0-None Present CIWA-Ar Total Score: 3 [facility] Progress Note (SOAP) Subjective: 44 years old male admitted on 10/24/19 for alcohol withdrawal sx management treating with librium detox regiment seen by psychiatrist resume seroquel And remeral feeling better today less tremor mild anxiety Objective: 10/27/19 09:42 Vital Signs - 24 hr 10/26/19 10/26/19 10/26/19 12:30 16:33 20:30 Temperature 98.0 F 97.5 F L 97.8 F Pulse Rate 90 87 92 H Respiratory 18 18 18 Rate Blood Pressure 111/80 92/66 113/71 O2 Sat by Pulse 98 100 Oximetry (%) 10/27/19 10/27/19 10/27/19 00:18 03:22 05:49 Temperature 98.2 F Pulse Rate 77 Respiratory 18 16 18 Rate Blood Pressure 101/69 O2 Sat by Pulse 99 Oximetry (%) 10/27/19 08:35 Temperature 97.6 F Pulse Rate 114 H Respiratory 20 Rate Blood Pressure 107/83 O2 Sat by Pulse Oximetry (%) Laboratory Tests 10/24/19 10/24/19 10/24/19 10:00 10:00 10:00 WBC 4.4 RBC 4.28 Hgb 12.5 Hct 38.9 MCV 90.7 MCH 29.2 MCHC 32.1 RDW 16.4 H Plt Count 265 MPV 11.7 H D Sodium 136 Potassium 4.2 Chloride 104 Carbon Dioxide 22 Anion Gap 11 BUN 4.8 L Creatinine 1.2 Est GFR (CKD-EPI)AfAm 85.32 Est GFR (CKD-EPI)NonAf 73.62 POC Glucometer Random Glucose 536 H* Calcium 9.2 Total Bilirubin 0.2 AST 56 H ALT 83 H Alkaline Phosphatase 172 H Total Protein 8.2 Albumin 4.0 Syphilis Serology COVID-19 (ALLAN) HIV Ag/Ab Combo Qual Negative 10/24/19 10/24/19 10/24/19 10:00 10:00 10:23 WBC RBC Hgb Hct MCV MCH MCHC RDW Plt Count MPV Sodium Potassium Chloride Carbon Dioxide Anion Gap BUN Creatinine Est GFR (CKD-EPI)AfAm Est GFR (CKD-EPI)NonAf POC Glucometer 539 Random Glucose Calcium Total Bilirubin AST ALT Alkaline Phosphatase Total Protein Albumin Syphilis Serology Non-reactive COVID-19 (ALLAN) Not detected HIV Ag/Ab Combo Qual 10/24/19 10/24/19 10/25/19 16:27 21:32 05:32 WBC RBC Hgb Hct MCV MCH MCHC RDW Plt Count MPV Sodium Potassium Chloride Carbon Dioxide Anion Gap BUN Creatinine Est GFR (CKD-EPI)AfAm Est GFR (CKD-EPI)NonAf POC Glucometer [phone] Random Glucose Calcium Total Bilirubin AST ALT Alkaline Phosphatase Total Protein Albumin Syphilis Serology COVID-19 (ALLAN) HIV Ag/Ab Combo Qual 10/25/19 10/25/19 10/25/19 10:10 16:41 20:42 WBC RBC Hgb Hct MCV MCH MCHC RDW Plt Count MPV Sodium Potassium Chloride Carbon Dioxide Anion Gap BUN Creatinine Est GFR (CKD-EPI)AfAm Est GFR (CKD-EPI)NonAf POC Glucometer [phone] Random Glucose Calcium Total Bilirubin AST ALT Alkaline Phosphatase Total Protein Albumin Syphilis Serology COVID-19 (ALLAN) HIV Ag/Ab Combo Qual 10/26/19 10/26/19 10/26/19 05:59 10:30 16:26 WBC RBC Hgb Hct MCV MCH MCHC RDW Plt Count MPV Sodium Potassium Chloride Carbon Dioxide Anion Gap BUN Creatinine Est GFR (CKD-EPI)AfAm Est GFR (CKD-EPI)NonAf POC Glucometer 304 370 335 Random Glucose Calcium Total Bilirubin AST ALT Alkaline Phosphatase Total Protein Albumin Syphilis Serology COVID-19 (ALLAN) HIV Ag/Ab Combo Qual 10/26/19 10/27/19 20:36 05:56 WBC RBC Hgb Hct MCV MCH MCHC RDW Plt Count MPV Sodium Potassium Chloride Carbon Dioxide Anion Gap BUN Creatinine Est GFR (CKD-EPI)AfAm Est GFR (CKD-EPI)NonAf POC Glucometer 354 257 Random Glucose Calcium Total Bilirubin AST ALT Alkaline Phosphatase Total Protein Albumin Syphilis Serology COVID-19 (ALLAN) HIV Ag/Ab Combo Qual insulin dependent diabetes 10/27/19 09:45 treated with metformin + januvia + lantus 15units hs non adherence with antidiabetic medications bgm gradually lowering from 500 to 200 10/27/19 09:48 hypertension treated with lisinopril bp within acceptable range Assessment: 10/27/19 09:48 alcohol withdrawal insulin dependent diabetes hypertension Plan: librium regiment
[2019-10-27] MEDS: METHYL SALICYLATE/MENTHOL OINT 30 GM TUBE TP SCH ×2 (09:57→22:20)
[2019-10-27] MEDS: levETIRAcetam 500 MG TABLET (FP) PO SCH ×2 (09:58→22:20)
[2019-10-27] MEDS: NICOTINE 21 MG/24 HOURS TOPICAL PATCH TD SCH (09:58)
[2019-10-27] MEDS: PRENATAL VITAMINS W/ FOLIC ACID TABLET (FP) PO SCH (09:58)
[2019-10-27] MEDS: LISINOPRIL 10 MG TABLET (FP) PO SCH (09:59)
--- NOTE | 2019-10-27 10:25 | PN ---
[facility] Progress Note Note: Reports sleeping poorly despite taking Seroquel 50 mg/hs and Remeron 15 mg/hs. Patient is made aware of Melatonin that he can request for sleep in addition to the 2 medications he is already on. Melatonin dosage will be increase to 10 mg/hs prn for insomnia
[2019-10-27] MEDS: THIAMINE HCL 100 MG TABLET (FP) PO SCH (22:19)
[2019-10-27] MEDS: MIRTAZAPINE 15 MG TABLET (FP) PO SCH (22:20)
[2019-10-27] MEDS: QUEtiapine FUMARATE 50 MG TABLET PO SCH (22:20)
[2019-10-27] MEDS: MELATONIN 5 MG TABLETS PO PRN (22:20)
[2019-10-27] MEDS: ATORVASTATIN CA 10 MG TABLET (FP) PO SCH (22:20)
[2019-10-28] MEDS: chlordiazePOXIDE HCL 10 MG CAPSULE PO SCH ×2 (05:58→16:38)
[2019-10-28] MEDS: sitaGLIPtin PHOSPHATE 50 MG TABLET PO SCH (06:01)
[2019-10-28] MEDS: metFORMIN HCL 500 MG TABLET (FP) PO SCH ×2 (06:01→16:38)
[2019-10-28] MEDS: INSULIN SLIDING SCALE (NOVOLOG) 1 VIAL SQ SCH ×4 (06:03→21:11)
[2019-10-28] MEDS ORDERED: INSULIN SLIDING SCALE (NOVOLOG) 1 VIAL SQ ONE ×4 (06:04→21:14)
[2019-10-28] MEDS: PRENATAL VITAMINS W/ FOLIC ACID TABLET (FP) PO SCH (10:09)
[2019-10-28] MEDS: levETIRAcetam 500 MG TABLET (FP) PO SCH ×2 (10:09→21:08)
[2019-10-28] MEDS: METHYL SALICYLATE/MENTHOL OINT 30 GM TUBE TP SCH ×2 (10:09→21:12)
[2019-10-28] MEDS: LISINOPRIL 10 MG TABLET (FP) PO SCH (10:09)
[2019-10-28] MEDS: NICOTINE 21 MG/24 HOURS TOPICAL PATCH TD SCH (10:09)
--- NOTE | 2019-10-28 12:32 | PN ---
[facility] CIWA - CIWA Score Nausea/Vomitin-Mild Nausea/No Vomiting Muscle Tremors: 2 Anxiety: 1-Mildly Anxious Agitation: 1-Slight > Activity Paroxysmal Sweats: No Perspiration Orientation: 0-Oriented Tacttile Disturbances: 1-Very Mild Itch/Numbness Auditory Disturbances: 0-None Visual Disturbances: 0-None Headache: 1-Very Mild CIWA-Ar Total Score: 7 S Progress Note (SOAP) Subjective: alert,irritable,anxious,interrupted sleep,pain in the body Objective: 10/28/19 12:30 Vital Signs Temperature 96.8 F L 10/28/19 08:31 Pulse Rate 94 H 10/28/19 08:31 Respiratory Rate 20 10/28/19 08:31 Blood Pressure 121/87 10/28/19 08:31 O2 Sat by Pulse Oximetry (%) 98 10/28/19 05:11 Laboratory Last Values WBC 4.4 K/mm3 (4.0-10.0) 10/24/19 10:00 RBC 4.28 M/mm3 (4.00-5.60) 10/24/19 10:00 Hgb 12.5 GM/dL (11.7-16.9) 10/24/19 10:00 Hct 38.9 % (35.4-49) 10/24/19 10:00 MCV 90.7 fl (80-96) 10/24/19 10:00 MCH 29.2 pg (25.7-33.7) 10/24/19 10:00 MCHC 32.1 g/dl (32.0-35.9) 10/24/19 10:00 RDW 16.4 % (11.9-15.9) H 10/24/19 10:00 Plt Count 265 K/MM3 (134-434) 10/24/19 10:00 MPV 11.7 fl (7.5-11.1) H D 10/24/19 10:00 Sodium 136 mmol/L (136-145) 10/24/19 10:00 Potassium 4.2 mmol/L (3.5-5.1) 10/24/19 10:00 Chloride 104 mmol/L (98-107) 10/24/19 10:00 Carbon Dioxide 22 mmol/L (21-32) 10/24/19 10:00 Anion Gap 11 MMOL/L (8-16) 10/24/19 10:00 BUN 4.8 mg/dL (7-18) L 10/24/19 10:00 Creatinine 1.2 mg/dL (0.55-1.3) 10/24/19 10:00 Est GFR (CKD-EPI)AfAm 85.32 10/24/19 10:00 Est GFR (CKD-EPI)NonAf 73.62 10/24/19 10:00 POC Glucometer 207 UNITS (80-120) 10/28/19 11:09 Random Glucose 536 mg/dL (74-106) H* 10/24/19 10:00 Calcium 9.2 mg/dL (8.5-10.1) 10/24/19 10:00 Total Bilirubin 0.2 mg/dL (0.2-1) 10/24/19 10:00 AST 56 U/L (15-37) H 10/24/19 10:00 ALT 83 U/L (13-61) H 10/24/19 10:00 Alkaline Phosphatase 172 U/L (45-117) H 10/24/19 10:00 Total Protein 8.2 g/dl (6.4-8.2) 10/24/19 10:00 Albumin 4.0 g/dl (3.4-5.0) 10/24/19 10:00 Syphilis Serology Non-reactive (NONREACTIVE) 10/24/19 10:00 COVID-19 (ALLAN) Not detected (Not Detected) 10/24/19 10:00 HIV Ag/Ab Combo Qual Negative (NEGATIVE) 10/24/19 10:00 Assessment: 10/28/19 12:31 withdrawal symptom Plan: continue detox librium regimen,bgm monitoring with insulin coverage,discharge in am
[2019-10-28] MEDS: THIAMINE HCL 100 MG TABLET (FP) PO SCH (21:08)
[2019-10-28] MEDS: MIRTAZAPINE 15 MG TABLET (FP) PO SCH (21:08)
[2019-10-28] MEDS: ATORVASTATIN CA 10 MG TABLET (FP) PO SCH (21:08)
[2019-10-28] MEDS: QUEtiapine FUMARATE 50 MG TABLET PO SCH (21:08)
[2019-10-28] MEDS: MELATONIN 5 MG TABLETS PO PRN (21:09)
[2019-10-29] MEDS ORDERED: chlordiazePOXIDE HCL 10 MG CAPSULE PO ONE (05:00)
[2019-10-29] MEDS ORDERED: INSULIN SLIDING SCALE (NOVOLOG) 1 VIAL SQ ONE ×2 (05:48→07:35)
[2019-10-29] MEDS: metFORMIN HCL 500 MG TABLET (FP) PO SCH ×2 (06:01→16:15)
[2019-10-29] MEDS: INSULIN SLIDING SCALE (NOVOLOG) 1 VIAL SQ SCH ×4 (06:01→21:10)
[2019-10-29] MEDS: sitaGLIPtin PHOSPHATE 50 MG TABLET PO SCH (06:01)
[2019-10-29] MEDS: levETIRAcetam 500 MG TABLET (FP) PO SCH ×2 (09:30→21:07)
[2019-10-29] MEDS: LISINOPRIL 10 MG TABLET (FP) PO SCH (09:30)
[2019-10-29] MEDS: PRENATAL VITAMINS W/ FOLIC ACID TABLET (FP) PO SCH (09:30)
[2019-10-29] MEDS: NICOTINE 21 MG/24 HOURS TOPICAL PATCH TD SCH (09:31)
[2019-10-29] MEDS: METHYL SALICYLATE/MENTHOL OINT 30 GM TUBE TP SCH ×2 (09:31→21:11)
--- NOTE | 2019-10-29 09:33 | HP ---
[facility] Rehab Assess/Revision - Admission History Admitted to Rehab from: [facility] Date of Admission to Rehab: 10/29/19 - Vital signs Vital Signs: Vital Signs Period Temp Pulse Resp BP Sys/Christianson Pulse Ox Last 24 Hr 96.7 F-97.5 F 71-109 16-18 100-118/68-88 99-100 - Findings Detox History & Physical reviewed: Yes Concur with findings: Yes Comments/Additional Findings: transferred from detox to rehab admission as per protocol Inpatient Rehab Admission - Rehab Decision to Admit Inpatient rehab admission?: Yes - Initial Determination Are CD services needed?: Yes Free of communicable disease: Yes Not in need of hospitalization: Yes - Rehab Admission Criteria Previous failed treatment: Yes Poor recovery environment: Yes Comorbidities: Yes Lacks judgement: Yes Patient is meeting Inpatient Rehab admission criteria:: Yes
--- NOTE | 2019-10-29 11:57 | PN ---
[facility] Progress Note Note: Pt is a 44 y/o male with a hx of alcohol use disorder admitted to rehab today from [facility] after completion of treatment. Pt reports he has no current primary care provider but goes to [facility] when needed. PMHx:HTN, T2DM,HLD,Neuropathy, Alcohol related Seizure, Fracture of left foot r/t basket ball injury PSych Hx:Insomnia, Schizoaffective disorder, Bipolar disorder,Anxiety disorder Vital Signs 10/29/19 10/29/19 10/29/19 05:24 08:32 11:55 Temperature 97.3 F L 96.7 F L 98.4 F Pulse Rate 71 109 H 85 Respiratory 18 18 18 Rate Blood Pressure 100/68 118/88 109/79 O2 Sat by Pulse 100 Oximetry (%) 10/29/19 11:56 Temperature Pulse Rate Respiratory Rate Blood Pressure O2 Sat by Pulse 97 Oximetry (%) Alert o 3 nad oob ambulating with steady gait extremities:no edema,skin intact,Active ROM all ext. old scar on dorsal aspect of left foot. New rehab pt s/p detox Cont rehab increase po fluids pt requests f/u with psych re-eval for insomnia.
[2019-10-29] MEDS ORDERED: INSULIN (NOVOLOG) ASPART 100 UNITS/ML 10ML VIAL ONE ×2 (16:15→21:28)
[2019-10-29] MEDS: MIRTAZAPINE 15 MG TABLET (FP) PO SCH (21:06)
[2019-10-29] MEDS: ATORVASTATIN CA 10 MG TABLET (FP) PO SCH (21:07)
[2019-10-29] MEDS: THIAMINE HCL 100 MG TABLET (FP) PO SCH (21:07)
[2019-10-29] MEDS: MELATONIN 5 MG TABLETS PO PRN (21:07)
[2019-10-29] MEDS: QUEtiapine FUMARATE 50 MG TABLET PO SCH (21:07)
[2019-10-29] MEDS: METHOCARBAMOL 500 MG TABLET PO PRN (21:07)
[2019-10-30] MEDS: metFORMIN HCL 500 MG TABLET (FP) PO SCH ×2 (06:20→16:28)
[2019-10-30] MEDS: INSULIN SLIDING SCALE (NOVOLOG) 1 VIAL SQ SCH ×4 (06:22→21:10)
[2019-10-30] MEDS ORDERED: INSULIN (NOVOLOG) ASPART 100 UNITS/ML 10ML VIAL ONE ×3 (06:23→16:26)
[2019-10-30] MEDS: sitaGLIPtin PHOSPHATE 50 MG TABLET PO SCH (07:40)
[2019-10-30] MEDS: METHYL SALICYLATE/MENTHOL OINT 30 GM TUBE TP SCH ×2 (09:00→21:06)
[2019-10-30] MEDS: PRENATAL VITAMINS W/ FOLIC ACID TABLET (FP) PO SCH (10:32)
[2019-10-30] MEDS: NICOTINE 21 MG/24 HOURS TOPICAL PATCH TD SCH (10:32)
[2019-10-30] MEDS: levETIRAcetam 500 MG TABLET (FP) PO SCH ×2 (10:32→21:05)
[2019-10-30] MEDS: LISINOPRIL 10 MG TABLET (FP) PO SCH (10:32)
--- NOTE | 2019-10-30 13:19 | PN ---
[facility] Progress Note Note: Pt is relocating to [facility] re[facility] today as per Administrative Management request. Vital Signs - 24 hr 10/29/19 10/29/19 10/30/19 14:35 20:16 00:52 Temperature Pulse Rate Respiratory 20 Rate Blood Pressure O2 Sat by Pulse 96 95 Oximetry (%) 10/30/19 10/30/19 03:30 06:45 Temperature 97.7 F Pulse Rate 105 H Respiratory 20 18 Rate Blood Pressure 124/79 O2 Sat by Pulse 96 Oximetry (%) A:Rehab pt P:Continue rehab treatment/protocol on .
--- NOTE | 2019-10-30 14:17 | PN ---
[facility] Progress Note Note: Patient reports sleeping poorly despite taking Seroquel 50 mg/hs, Remeron 15 mg/hs and Melatonin 10 mg/hs. Requests that Seroquel dosage be increased to 100 mg/hs
[2019-10-30] MEDS: THIAMINE HCL 100 MG TABLET (FP) PO SCH (21:05)
[2019-10-30] MEDS: MELATONIN 5 MG TABLETS PO PRN (21:05)
[2019-10-30] MEDS: MIRTAZAPINE 15 MG TABLET (FP) PO SCH (21:05)
[2019-10-30] MEDS: ATORVASTATIN CA 10 MG TABLET (FP) PO SCH (21:05)
[2019-10-30] MEDS: QUEtiapine FUMARATE 100 MG TABLET (FP) PO SCH (21:06)
[2019-10-31] MEDS: metFORMIN HCL 500 MG TABLET (FP) PO SCH ×2 (06:22→16:31)
[2019-10-31] MEDS: INSULIN SLIDING SCALE (NOVOLOG) 1 VIAL SQ SCH ×4 (06:23→21:06)
[2019-10-31] MEDS: sitaGLIPtin PHOSPHATE 50 MG TABLET PO SCH (07:32)
[2019-10-31] MEDS ORDERED: sitaGLIPtin PHOSPHATE 50 MG TABLET PO ONE (09:26)
--- NOTE | 2019-10-31 09:32 | PN ---
S Progress Note Note: BGM elevated. Januvia not given x 2 days because it was not in stock. One time order place now. Will continue to monitor.
[2019-10-31] MEDS: levETIRAcetam 500 MG TABLET (FP) PO SCH ×2 (10:09→21:06)
[2019-10-31] MEDS: METHYL SALICYLATE/MENTHOL OINT 30 GM TUBE TP SCH ×2 (10:09→21:07)
[2019-10-31] MEDS: PRENATAL VITAMINS W/ FOLIC ACID TABLET (FP) PO SCH (10:09)
[2019-10-31] MEDS: NICOTINE 21 MG/24 HOURS TOPICAL PATCH TD SCH (10:09)
[2019-10-31] MEDS: LISINOPRIL 10 MG TABLET (FP) PO SCH (10:10)
[2019-10-31] MEDS ORDERED: INSULIN (NOVOLOG) ASPART 100 UNITS/ML 10ML VIAL ONE ×2 (11:37→16:31)
[2019-10-31] MEDS ORDERED: PT OWN MED DRAWER 7, Y5N ONE (13:39)
[2019-10-31] MEDS: IBUPROFEN 400 MG TABLET (FP) PO PRN (13:40)
[2019-10-31] MEDS: MELATONIN 5 MG TABLETS PO PRN (21:06)
[2019-10-31] MEDS: MIRTAZAPINE 15 MG TABLET (FP) PO SCH (21:06)
[2019-10-31] MEDS: THIAMINE HCL 100 MG TABLET (FP) PO SCH (21:06)
[2019-10-31] MEDS: QUEtiapine FUMARATE 100 MG TABLET (FP) PO SCH (21:06)
[2019-10-31] MEDS: ATORVASTATIN CA 10 MG TABLET (FP) PO SCH (21:06)
[2019-11-01] MEDS: INSULIN SLIDING SCALE (NOVOLOG) 1 VIAL SQ SCH ×4 (07:04→21:10)
[2019-11-01] MEDS: metFORMIN HCL 500 MG TABLET (FP) PO SCH ×2 (07:04→16:47)
[2019-11-01] MEDS: sitaGLIPtin PHOSPHATE 50 MG TABLET PO SCH (07:04)
[2019-11-01] MEDS: PRENATAL VITAMINS W/ FOLIC ACID TABLET (FP) PO SCH (09:40)
[2019-11-01] MEDS: NICOTINE 21 MG/24 HOURS TOPICAL PATCH TD SCH (09:40)
[2019-11-01] MEDS: LISINOPRIL 10 MG TABLET (FP) PO SCH (09:40)
[2019-11-01] MEDS: levETIRAcetam 500 MG TABLET (FP) PO SCH ×2 (09:40→21:09)
[2019-11-01] MEDS: METHYL SALICYLATE/MENTHOL OINT 30 GM TUBE TP SCH ×2 (09:41→21:10)
--- NOTE | 2019-11-01 15:35 | PN ---
[facility] Progress Note Note: Nurse Norah called to report Blood sugar of 440 mg/dl and novolog 12 units give as sliding scale. Vital Signs - 24 hr 10/31/19 11/01/19 11/01/19 20:43 03:33 06:03 Temperature 98.2 F Pulse Rate 82 Respiratory 18 18 Rate Blood Pressure 104/76 O2 Sat by Pulse 98 98 Oximetry (%) 11/01/19 08:16 Temperature 98.3 F Pulse Rate 92 H Respiratory 18 Rate Blood Pressure 102/63 O2 Sat by Pulse Oximetry (%) Alert o x 3 nad oob ambulating with steady gait Hx DM(on med) Cont present care maintain safety
[2019-11-01] MEDS ORDERED: INSULIN SLIDING SCALE (NOVOLOG) 1 VIAL SQ ONE (16:47)
[2019-11-01] MEDS: MELATONIN 5 MG TABLETS PO PRN (21:09)
[2019-11-01] MEDS: MIRTAZAPINE 15 MG TABLET (FP) PO SCH (21:09)
[2019-11-01] MEDS: QUEtiapine FUMARATE 100 MG TABLET (FP) PO SCH (21:09)
[2019-11-01] MEDS: IBUPROFEN 400 MG TABLET (FP) PO PRN (21:09)
[2019-11-01] MEDS: THIAMINE HCL 100 MG TABLET (FP) PO SCH (21:09)
[2019-11-01] MEDS: ATORVASTATIN CA 10 MG TABLET (FP) PO SCH (21:09)
[2019-11-02] MEDS: metFORMIN HCL 500 MG TABLET (FP) PO SCH ×2 (07:06→16:42)
[2019-11-02] MEDS: sitaGLIPtin PHOSPHATE 50 MG TABLET PO SCH (07:06)
[2019-11-02] MEDS: INSULIN SLIDING SCALE (NOVOLOG) 1 VIAL SQ SCH ×4 (07:07→21:09)
[2019-11-02] MEDS ORDERED: INSULIN SLIDING SCALE (NOVOLOG) 1 VIAL SQ ONE ×4 (07:07→22:08)
[2019-11-02] MEDS: LISINOPRIL 10 MG TABLET (FP) PO SCH (10:01)
[2019-11-02] MEDS: levETIRAcetam 500 MG TABLET (FP) PO SCH ×2 (10:01→21:09)
[2019-11-02] MEDS: PRENATAL VITAMINS W/ FOLIC ACID TABLET (FP) PO SCH (10:01)
[2019-11-02] MEDS: IBUPROFEN 400 MG TABLET (FP) PO PRN (10:02)
[2019-11-02] MEDS: METHYL SALICYLATE/MENTHOL OINT 30 GM TUBE TP SCH ×2 (10:29→21:09)
[2019-11-02] MEDS: NICOTINE 21 MG/24 HOURS TOPICAL PATCH TD SCH (10:29)
[2019-11-02] MEDS: ATORVASTATIN CA 10 MG TABLET (FP) PO SCH (21:09)
[2019-11-02] MEDS: QUEtiapine FUMARATE 100 MG TABLET (FP) PO SCH (21:09)
[2019-11-02] MEDS: MIRTAZAPINE 15 MG TABLET (FP) PO SCH (21:09)
[2019-11-02] MEDS: MELATONIN 5 MG TABLETS PO PRN (21:09)
[2019-11-02] MEDS: THIAMINE HCL 100 MG TABLET (FP) PO SCH (21:09)
[2019-11-03] MEDS: metFORMIN HCL 500 MG TABLET (FP) PO SCH ×2 (07:14→16:34)
[2019-11-03] MEDS: sitaGLIPtin PHOSPHATE 50 MG TABLET PO SCH (07:14)
[2019-11-03] MEDS: INSULIN SLIDING SCALE (NOVOLOG) 1 VIAL SQ SCH ×4 (07:15→21:07)
[2019-11-03] MEDS ORDERED: INSULIN SLIDING SCALE (NOVOLOG) 1 VIAL SQ ONE ×4 (07:15→22:01)
[2019-11-03] MEDS: PRENATAL VITAMINS W/ FOLIC ACID TABLET (FP) PO SCH (09:26)
[2019-11-03] MEDS: levETIRAcetam 500 MG TABLET (FP) PO SCH ×2 (09:26→21:07)
[2019-11-03] MEDS: LISINOPRIL 10 MG TABLET (FP) PO SCH (09:26)
[2019-11-03] MEDS: METHYL SALICYLATE/MENTHOL OINT 30 GM TUBE TP SCH ×2 (09:26→21:08)
[2019-11-03] MEDS: NICOTINE 21 MG/24 HOURS TOPICAL PATCH TD SCH (09:26)
[2019-11-03] MEDS: IBUPROFEN 400 MG TABLET (FP) PO PRN ×2 (09:27→19:30)
[2019-11-03] MEDS: ATORVASTATIN CA 10 MG TABLET (FP) PO SCH (21:07)
[2019-11-03] MEDS: MIRTAZAPINE 15 MG TABLET (FP) PO SCH (21:07)
[2019-11-03] MEDS: THIAMINE HCL 100 MG TABLET (FP) PO SCH (21:07)
[2019-11-03] MEDS: QUEtiapine FUMARATE 100 MG TABLET (FP) PO SCH (21:07)
[2019-11-04] MEDS: sitaGLIPtin PHOSPHATE 50 MG TABLET PO SCH (06:13)
[2019-11-04] MEDS: metFORMIN HCL 500 MG TABLET (FP) PO SCH ×2 (06:13→16:37)
[2019-11-04] MEDS: INSULIN SLIDING SCALE (NOVOLOG) 1 VIAL SQ SCH ×4 (06:14→21:41)
[2019-11-04] MEDS: PRENATAL VITAMINS W/ FOLIC ACID TABLET (FP) PO SCH (09:31)
[2019-11-04] MEDS: levETIRAcetam 500 MG TABLET (FP) PO SCH ×2 (09:31→21:40)
[2019-11-04] MEDS: LISINOPRIL 10 MG TABLET (FP) PO SCH (09:31)
[2019-11-04] MEDS: IBUPROFEN 400 MG TABLET (FP) PO PRN (09:32)
[2019-11-04] MEDS: METHYL SALICYLATE/MENTHOL OINT 30 GM TUBE TP SCH ×2 (09:32→21:43)
[2019-11-04] MEDS: NICOTINE 21 MG/24 HOURS TOPICAL PATCH TD SCH (09:32)
[2019-11-04] MEDS ORDERED: PT OWN MED DRAWER 7, Y5N ONE (09:33)
--- NOTE | 2019-11-04 10:42 | PN ---
[facility] Progress Note Note: PATIENT C/O WAX IN BOTH EARS. HE DENIES REDUCED HEARING, EAR PAIN AND DIZZINESS. Vital Signs Temperature 98.7 F 11/04/19 08:06 Pulse Rate 86 11/04/19 08:06 Respiratory Rate 18 11/04/19 08:06 Blood Pressure 110/77 11/04/19 08:06 O2 Sat by Pulse Oximetry (%) 97 11/04/19 06:45 Laboratory Tests 10/24/19 10/24/19 10/24/19 10:00 10:00 10:00 WBC 4.4 RBC 4.28 Hgb 12.5 Hct 38.9 MCV 90.7 MCH 29.2 MCHC 32.1 RDW 16.4 H Plt Count 265 MPV 11.7 H D Sodium 136 Potassium 4.2 Chloride 104 Carbon Dioxide 22 Anion Gap 11 BUN 4.8 L Creatinine 1.2 Est GFR (CKD-EPI)AfAm 85.32 Est GFR (CKD-EPI)NonAf 73.62 POC Glucometer Random Glucose 536 H* Calcium 9.2 Total Bilirubin 0.2 AST 56 H ALT 83 H Alkaline Phosphatase 172 H Total Protein 8.2 Albumin 4.0 Syphilis Serology COVID-19 (ALLAN) HIV Ag/Ab Combo Qual Negative 10/24/19 10/24/19 10/24/19 10:00 10:00 10:23 WBC RBC Hgb Hct MCV MCH MCHC RDW Plt Count MPV Sodium Potassium Chloride Carbon Dioxide Anion Gap BUN Creatinine Est GFR (CKD-EPI)AfAm Est GFR (CKD-EPI)NonAf POC Glucometer 539 Random Glucose Calcium Total Bilirubin AST ALT Alkaline Phosphatase Total Protein Albumin Syphilis Serology Non-reactive COVID-19 (ALLAN) Not detected HIV Ag/Ab Combo Qual 10/24/19 10/24/19 10/25/19 16:27 21:32 05:32 WBC RBC Hgb Hct MCV MCH MCHC RDW Plt Count MPV Sodium Potassium Chloride Carbon Dioxide Anion Gap BUN Creatinine Est GFR (CKD-EPI)AfAm Est GFR (CKD-EPI)NonAf POC Glucometer [phone] Random Glucose Calcium Total Bilirubin AST ALT Alkaline Phosphatase Total Protein Albumin Syphilis Serology COVID-19 (ALLAN) HIV Ag/Ab Combo Qual 10/25/19 10/25/19 10/25/19 10:10 16:41 20:42 WBC RBC Hgb Hct MCV MCH MCHC RDW Plt Count MPV Sodium Potassium Chloride Carbon Dioxide Anion Gap BUN Creatinine Est GFR (CKD-EPI)AfAm Est GFR (CKD-EPI)NonAf POC Glucometer 335 271 243 Random Glucose Calcium Total Bilirubin AST ALT Alkaline Phosphatase Total Protein Albumin Syphilis Serology COVID-19 (ALLAN) HIV Ag/Ab Combo Qual 10/26/19 10/26/19 10/26/19 05:59 10:30 16:26 WBC RBC Hgb Hct MCV MCH MCHC RDW Plt Count MPV Sodium Potassium Chloride Carbon Dioxide Anion Gap BUN Creatinine Est GFR (CKD-EPI)AfAm Est GFR (CKD-EPI)NonAf POC Glucometer 304 370 335 Random Glucose Calcium Total Bilirubin AST ALT Alkaline Phosphatase Total Protein Albumin Syphilis Serology COVID-19 (ALLAN) HIV Ag/Ab Combo Qual 10/26/19 10/27/19 10/27/19 20:36 05:56 11:09 WBC RBC Hgb Hct MCV MCH MCHC RDW Plt Count MPV Sodium Potassium Chloride Carbon Dioxide Anion Gap BUN Creatinine Est GFR (CKD-EPI)AfAm Est GFR (CKD-EPI)NonAf POC Glucometer 354 257 359 Random Glucose Calcium Total Bilirubin AST ALT Alkaline Phosphatase Total Protein Albumin Syphilis Serology COVID-19 (ALLAN) HIV Ag/Ab Combo Qual 10/27/19 10/27/19 10/28/19 16:28 20:28 06:00 WBC RBC Hgb Hct MCV MCH MCHC RDW Plt Count MPV Sodium Potassium Chloride Carbon Dioxide Anion Gap BUN Creatinine Est GFR (CKD-EPI)AfAm Est GFR (CKD-EPI)NonAf POC Glucometer 280 261 320 Random Glucose Calcium Total Bilirubin AST ALT Alkaline Phosphatase Total Protein Albumin Syphilis Serology COVID-19 (ALLAN) HIV Ag/Ab Combo Qual 10/28/19 10/28/19 10/28/19 11:09 16:26 20:38 WBC RBC Hgb Hct MCV MCH MCHC RDW Plt Count MPV Sodium Potassium Chloride Carbon Dioxide Anion Gap BUN Creatinine Est GFR (CKD-EPI)AfAm Est GFR (CKD-EPI)NonAf POC Glucometer 207 339 273 Random Glucose Calcium Total Bilirubin AST ALT Alkaline Phosphatase Total Protein Albumin Syphilis Serology COVID-19 (ALLAN) HIV Ag/Ab Combo Qual 10/29/19 10/29/19 10/29/19 05:46 11:40 16:13 WBC RBC Hgb Hct MCV MCH MCHC RDW Plt Count MPV Sodium Potassium Chloride Carbon Dioxide Anion Gap BUN Creatinine Est GFR (CKD-EPI)AfAm Est GFR (CKD-EPI)NonAf POC Glucometer 333 141 312 Random Glucose Calcium Total Bilirubin AST ALT Alkaline Phosphatase Total Protein Albumin Syphilis Serology COVID-19 (ALLAN) HIV Ag/Ab Combo Qual 10/29/19 10/30/19 10/30/19 20:07 06:18 11:10 WBC RBC Hgb Hct MCV MCH MCHC RDW Plt Count MPV Sodium Potassium Chloride Carbon Dioxide Anion Gap BUN Creatinine Est GFR (CKD-EPI)AfAm Est GFR (CKD-EPI)NonAf POC Glucometer [phone] Random Glucose Calcium Total Bilirubin AST ALT Alkaline Phosphatase Total Protein Albumin Syphilis Serology COVID-19 (ALLAN) HIV Ag/Ab Combo Qual 10/30/19 10/30/19 10/31/19 16:27 21:08 06:21 WBC RBC Hgb Hct MCV MCH MCHC RDW Plt Count MPV Sodium Potassium Chloride Carbon Dioxide Anion Gap BUN Creatinine Est GFR (CKD-EPI)AfAm Est GFR (CKD-EPI)NonAf POC Glucometer 310 356 324 Random Glucose Calcium Total Bilirubin AST ALT Alkaline Phosphatase Total Protein Albumin Syphilis Serology COVID-19 (ALLAN) HIV Ag/Ab Combo Qual 10/31/19 10/31/19 10/31/19 11:36 16:32 20:53 WBC RBC Hgb Hct MCV MCH MCHC RDW Plt Count MPV Sodium Potassium Chloride Carbon Dioxide Anion Gap BUN Creatinine Est GFR (CKD-EPI)AfAm Est GFR (CKD-EPI)NonAf POC Glucometer [phone] Random Glucose Calcium Total Bilirubin AST ALT Alkaline Phosphatase Total Protein Albumin Syphilis Serology COVID-19 (ALLAN) HIV Ag/Ab Combo Qual 11/01/19 11/01/19 11/01/19 06:06 11:32 16:46 WBC RBC Hgb Hct MCV MCH MCHC RDW Plt Count MPV Sodium Potassium Chloride Carbon Dioxide Anion Gap BUN Creatinine Est GFR (CKD-EPI)AfAm Est GFR (CKD-EPI)NonAf POC Glucometer 256 440 283 Random Glucose Calcium Total Bilirubin AST ALT Alkaline Phosphatase Total Protein Albumin Syphilis Serology COVID-19 (ALLAN) HIV Ag/Ab Combo Qual 11/01/19 11/02/19 11/02/19 21:07 06:06 11:03 WBC RBC Hgb Hct MCV MCH MCHC RDW Plt Count MPV Sodium Potassium Chloride Carbon Dioxide Anion Gap BUN Creatinine Est GFR (CKD-EPI)AfAm Est GFR (CKD-EPI)NonAf POC Glucometer [phone] Random Glucose Calcium Total Bilirubin AST ALT Alkaline Phosphatase Total Protein Albumin Syphilis Serology COVID-19 (ALLAN) HIV Ag/Ab Combo Qual 11/02/19 11/02/19 11/03/19 16:40 20:45 06:02 WBC RBC Hgb Hct MCV MCH MCHC RDW Plt Count MPV Sodium Potassium Chloride Carbon Dioxide Anion Gap BUN Creatinine Est GFR (CKD-EPI)AfAm Est GFR (CKD-EPI)NonAf POC Glucometer [phone] Random Glucose Calcium Total Bilirubin AST ALT Alkaline Phosphatase Total Protein Albumin Syphilis Serology COVID-19 (ALLAN) HIV Ag/Ab Combo Qual 11/03/19 11/03/19 11/03/19 11:20 16:32 20:56 WBC RBC Hgb Hct MCV MCH MCHC RDW Plt Count MPV Sodium Potassium Chloride Carbon Dioxide Anion Gap BUN Creatinine Est GFR (CKD-EPI)AfAm Est GFR (CKD-EPI)NonAf POC Glucometer 264 260 176 Random Glucose Calcium Total Bilirubin AST ALT Alkaline Phosphatase Total Protein Albumin Syphilis Serology COVID-19 (ALLAN) HIV Ag/Ab Combo Qual 11/04/19 06:12 WBC RBC Hgb Hct MCV MCH MCHC RDW Plt Count MPV Sodium Potassium Chloride Carbon Dioxide Anion Gap BUN Creatinine Est GFR (CKD-EPI)AfAm Est GFR (CKD-EPI)NonAf POC Glucometer 271 Random Glucose Calcium Total Bilirubin AST ALT Alkaline Phosphatase Total Protein Albumin Syphilis Serology COVID-19 (ALLAN) HIV Ag/Ab Combo Qual PE ALERT AND ORIENTED X 3 SKIN WARM AND DRY EARS SYMMETRICAL, HEARING WNL EXT FULL ROM, AMB AD DAMIÁN A/P: B/L EAR CERUMEN WILL START DEBROX DROPS 10 DROPS AU BID X 7 DAYS MONITOR CLINICALLY
[2019-11-04] MEDS: CARBAMIDE PEROXIDE 6.5% OTIC 15 ML BOTTLE AU SCH ×2 (10:49→21:41)
[2019-11-04] MEDS ORDERED: INSULIN SLIDING SCALE (NOVOLOG) 1 VIAL SQ ONE (11:36)
[2019-11-04] MEDS: ATORVASTATIN CA 10 MG TABLET (FP) PO SCH (21:40)
[2019-11-04] MEDS: MIRTAZAPINE 15 MG TABLET (FP) PO SCH (21:40)
[2019-11-04] MEDS: QUEtiapine FUMARATE 100 MG TABLET (FP) PO SCH (21:40)
[2019-11-04] MEDS: MELATONIN 5 MG TABLETS PO PRN (21:40)
[2019-11-04] MEDS: THIAMINE HCL 100 MG TABLET (FP) PO SCH (21:40)
[2019-11-05] MEDS ORDERED: PT OWN MED DRAWER 7, Y5N ONE (03:29)
[2019-11-05] MEDS ORDERED: INSULIN SLIDING SCALE (NOVOLOG) 1 VIAL SQ ONE ×2 (06:35→21:50)
[2019-11-05] MEDS: sitaGLIPtin PHOSPHATE 50 MG TABLET PO SCH (07:02)
[2019-11-05] MEDS: metFORMIN HCL 500 MG TABLET (FP) PO SCH ×2 (07:02→16:43)
[2019-11-05] MEDS: INSULIN SLIDING SCALE (NOVOLOG) 1 VIAL SQ SCH ×4 (07:03→21:19)
[2019-11-05] MEDS: PRENATAL VITAMINS W/ FOLIC ACID TABLET (FP) PO SCH (09:40)
[2019-11-05] MEDS: LISINOPRIL 10 MG TABLET (FP) PO SCH (09:40)
[2019-11-05] MEDS: NICOTINE 21 MG/24 HOURS TOPICAL PATCH TD SCH (09:40)
[2019-11-05] MEDS: levETIRAcetam 500 MG TABLET (FP) PO SCH ×2 (09:40→21:18)
[2019-11-05] MEDS: CARBAMIDE PEROXIDE 6.5% OTIC 15 ML BOTTLE AU SCH ×2 (09:40→21:19)
[2019-11-05] MEDS: METHYL SALICYLATE/MENTHOL OINT 30 GM TUBE TP SCH ×2 (09:42→21:20)
[2019-11-05] MEDS: THIAMINE HCL 100 MG TABLET (FP) PO SCH (21:18)
[2019-11-05] MEDS: QUEtiapine FUMARATE 100 MG TABLET (FP) PO SCH (21:18)
[2019-11-05] MEDS: MELATONIN 5 MG TABLETS PO PRN (21:18)
[2019-11-05] MEDS: ATORVASTATIN CA 10 MG TABLET (FP) PO SCH (21:19)
[2019-11-05] MEDS: MIRTAZAPINE 15 MG TABLET (FP) PO SCH (21:19)
[2019-11-06] MEDS: INSULIN SLIDING SCALE (NOVOLOG) 1 VIAL SQ SCH ×4 (07:08→21:34)
[2019-11-06] MEDS ORDERED: INSULIN SLIDING SCALE (NOVOLOG) 1 VIAL SQ ONE (07:08)
[2019-11-06] MEDS: metFORMIN HCL 500 MG TABLET (FP) PO SCH ×2 (07:09→16:37)
[2019-11-06] MEDS: sitaGLIPtin PHOSPHATE 50 MG TABLET PO SCH (07:09)
--- NOTE | 2019-11-06 08:34 | PN ---
[facility] Progress Note Note: patient states that the debrox worked. P/E: General: no apparent distress HEENTM: EARS: canal clear. Vital Signs Period Temp Pulse Resp BP Sys/Christianson Pulse Ox Last 24 Hr 97.8 F-98.1 F 96 18-18 108/90 97-99
[2019-11-06] MEDS: LISINOPRIL 10 MG TABLET (FP) PO SCH (09:46)
[2019-11-06] MEDS: PRENATAL VITAMINS W/ FOLIC ACID TABLET (FP) PO SCH (09:46)
[2019-11-06] MEDS: levETIRAcetam 500 MG TABLET (FP) PO SCH ×2 (09:46→21:33)
[2019-11-06] MEDS: IBUPROFEN 400 MG TABLET (FP) PO PRN ×2 (09:46→21:34)
[2019-11-06] MEDS: NICOTINE 21 MG/24 HOURS TOPICAL PATCH TD SCH (09:47)
[2019-11-06] MEDS: METHYL SALICYLATE/MENTHOL OINT 30 GM TUBE TP SCH ×2 (09:47→21:34)
[2019-11-06] MEDS ORDERED: PT OWN MED DRAWER 7, Y5N ONE (11:56)
[2019-11-06] MEDS: QUEtiapine FUMARATE 100 MG TABLET (FP) PO SCH (21:33)
[2019-11-06] MEDS: THIAMINE HCL 100 MG TABLET (FP) PO SCH (21:33)
[2019-11-06] MEDS: MIRTAZAPINE 15 MG TABLET (FP) PO SCH (21:33)
[2019-11-06] MEDS: MELATONIN 5 MG TABLETS PO PRN (21:33)
[2019-11-06] MEDS: ATORVASTATIN CA 10 MG TABLET (FP) PO SCH (21:33)
[2019-11-07] MEDS: sitaGLIPtin PHOSPHATE 50 MG TABLET PO SCH (06:52)
[2019-11-07] MEDS ORDERED: INSULIN SLIDING SCALE (NOVOLOG) 1 VIAL SQ ONE ×2 (07:09→11:18)
[2019-11-07] MEDS: INSULIN SLIDING SCALE (NOVOLOG) 1 VIAL SQ SCH ×4 (07:09→21:09)
[2019-11-07] MEDS: metFORMIN HCL 500 MG TABLET (FP) PO SCH ×2 (07:10→16:35)
[2019-11-07] MEDS: levETIRAcetam 500 MG TABLET (FP) PO SCH ×2 (09:36→21:07)
[2019-11-07] MEDS: PRENATAL VITAMINS W/ FOLIC ACID TABLET (FP) PO SCH (09:36)
[2019-11-07] MEDS: LISINOPRIL 10 MG TABLET (FP) PO SCH (09:36)
[2019-11-07] MEDS: NICOTINE 21 MG/24 HOURS TOPICAL PATCH TD SCH (09:37)
[2019-11-07] MEDS: METHYL SALICYLATE/MENTHOL OINT 30 GM TUBE TP SCH ×2 (10:05→21:09)
[2019-11-07] MEDS: MIRTAZAPINE 15 MG TABLET (FP) PO SCH (21:07)
[2019-11-07] MEDS: ATORVASTATIN CA 10 MG TABLET (FP) PO SCH (21:07)
[2019-11-07] MEDS: QUEtiapine FUMARATE 100 MG TABLET (FP) PO SCH (21:07)
[2019-11-07] MEDS: THIAMINE HCL 100 MG TABLET (FP) PO SCH (21:07)
[2019-11-07] MEDS: IBUPROFEN 400 MG TABLET (FP) PO PRN (21:08)
[2019-11-08] MEDS: sitaGLIPtin PHOSPHATE 50 MG TABLET PO SCH (06:34)
[2019-11-08] MEDS: metFORMIN HCL 500 MG TABLET (FP) PO SCH ×2 (06:34→16:28)
[2019-11-08] MEDS ORDERED: INSULIN SLIDING SCALE (NOVOLOG) 1 VIAL SQ ONE ×3 (06:35→16:28)
[2019-11-08] MEDS: INSULIN SLIDING SCALE (NOVOLOG) 1 VIAL SQ SCH ×4 (06:36→21:19)
[2019-11-08] MEDS: IBUPROFEN 400 MG TABLET (FP) PO PRN (09:49)
[2019-11-08] MEDS: LISINOPRIL 10 MG TABLET (FP) PO SCH (09:49)
[2019-11-08] MEDS: PRENATAL VITAMINS W/ FOLIC ACID TABLET (FP) PO SCH (09:49)
[2019-11-08] MEDS: levETIRAcetam 500 MG TABLET (FP) PO SCH ×2 (09:49→21:19)
[2019-11-08] MEDS: METHYL SALICYLATE/MENTHOL OINT 30 GM TUBE TP SCH ×2 (10:13→21:20)
[2019-11-08] MEDS: NICOTINE 21 MG/24 HOURS TOPICAL PATCH TD SCH (10:13)
[2019-11-08] MEDS: THIAMINE HCL 100 MG TABLET (FP) PO SCH (21:19)
[2019-11-08] MEDS: ATORVASTATIN CA 10 MG TABLET (FP) PO SCH (21:19)
[2019-11-08] MEDS: MIRTAZAPINE 15 MG TABLET (FP) PO SCH (21:19)
[2019-11-08] MEDS: QUEtiapine FUMARATE 100 MG TABLET (FP) PO SCH (21:19)
[2019-11-09] MEDS: metFORMIN HCL 500 MG TABLET (FP) PO SCH ×2 (06:07→16:35)
[2019-11-09] MEDS: sitaGLIPtin PHOSPHATE 50 MG TABLET PO SCH (06:08)
[2019-11-09] MEDS: INSULIN SLIDING SCALE (NOVOLOG) 1 VIAL SQ SCH ×4 (07:21→21:06)
[2019-11-09] MEDS: NICOTINE 21 MG/24 HOURS TOPICAL PATCH TD SCH (09:56)
[2019-11-09] MEDS: IBUPROFEN 400 MG TABLET (FP) PO PRN (09:57)
[2019-11-09] MEDS: PRENATAL VITAMINS W/ FOLIC ACID TABLET (FP) PO SCH (09:57)
[2019-11-09] MEDS: levETIRAcetam 500 MG TABLET (FP) PO SCH ×2 (09:57→21:04)
[2019-11-09] MEDS: LISINOPRIL 10 MG TABLET (FP) PO SCH (09:57)
[2019-11-09] MEDS: METHYL SALICYLATE/MENTHOL OINT 30 GM TUBE TP SCH ×2 (09:57→21:07)
[2019-11-09] MEDS ORDERED: INSULIN SLIDING SCALE (NOVOLOG) 1 VIAL SQ ONE (11:31)
[2019-11-09] MEDS: THIAMINE HCL 100 MG TABLET (FP) PO SCH (21:04)
[2019-11-09] MEDS: QUEtiapine FUMARATE 100 MG TABLET (FP) PO SCH (21:04)
[2019-11-09] MEDS: MIRTAZAPINE 15 MG TABLET (FP) PO SCH (21:04)
[2019-11-09] MEDS: MELATONIN 5 MG TABLETS PO PRN (21:04)
[2019-11-09] MEDS: ATORVASTATIN CA 10 MG TABLET (FP) PO SCH (21:04)
[2019-11-10] MEDS: sitaGLIPtin PHOSPHATE 50 MG TABLET PO SCH (06:05)
[2019-11-10] MEDS: metFORMIN HCL 500 MG TABLET (FP) PO SCH ×2 (06:05→16:24)
[2019-11-10] MEDS ORDERED: INSULIN SLIDING SCALE (NOVOLOG) 1 VIAL SQ ONE ×3 (06:57→16:26)
[2019-11-10] MEDS: INSULIN SLIDING SCALE (NOVOLOG) 1 VIAL SQ SCH ×4 (07:21→21:08)
[2019-11-10] MEDS ORDERED: PT OWN MED DRAWER 7, Y5N ONE (08:32)
[2019-11-10] MEDS: IBUPROFEN 400 MG TABLET (FP) PO PRN (09:32)
[2019-11-10] MEDS: NICOTINE 21 MG/24 HOURS TOPICAL PATCH TD SCH (09:32)
[2019-11-10] MEDS: LISINOPRIL 10 MG TABLET (FP) PO SCH (09:32)
[2019-11-10] MEDS: levETIRAcetam 500 MG TABLET (FP) PO SCH ×2 (09:32→21:06)
[2019-11-10] MEDS: METHYL SALICYLATE/MENTHOL OINT 30 GM TUBE TP SCH ×2 (09:32→21:08)
[2019-11-10] MEDS: PRENATAL VITAMINS W/ FOLIC ACID TABLET (FP) PO SCH (09:32)
[2019-11-10] MEDS: MELATONIN 5 MG TABLETS PO PRN (21:06)
[2019-11-10] MEDS: THIAMINE HCL 100 MG TABLET (FP) PO SCH (21:06)
[2019-11-10] MEDS: ATORVASTATIN CA 10 MG TABLET (FP) PO SCH (21:06)
[2019-11-10] MEDS: QUEtiapine FUMARATE 100 MG TABLET (FP) PO SCH (21:06)
[2019-11-10] MEDS: MIRTAZAPINE 15 MG TABLET (FP) PO SCH (21:06)
[2019-11-11] MEDS ORDERED: INSULIN SLIDING SCALE (NOVOLOG) 1 VIAL SQ ONE (07:03)
[2019-11-11] MEDS: INSULIN SLIDING SCALE (NOVOLOG) 1 VIAL SQ SCH ×4 (07:03→21:18)
[2019-11-11] MEDS: metFORMIN HCL 500 MG TABLET (FP) PO SCH ×2 (07:04→16:46)
[2019-11-11] MEDS: sitaGLIPtin PHOSPHATE 50 MG TABLET PO SCH (07:04)
[2019-11-11] MEDS: levETIRAcetam 500 MG TABLET (FP) PO SCH ×2 (09:58→21:15)
[2019-11-11] MEDS: LISINOPRIL 10 MG TABLET (FP) PO SCH (09:58)
[2019-11-11] MEDS: NICOTINE 21 MG/24 HOURS TOPICAL PATCH TD SCH (09:58)
[2019-11-11] MEDS: PRENATAL VITAMINS W/ FOLIC ACID TABLET (FP) PO SCH (09:58)
[2019-11-11] MEDS: METHYL SALICYLATE/MENTHOL OINT 30 GM TUBE TP SCH ×2 (09:58→21:15)
[2019-11-11] MEDS ORDERED: PT OWN MED DRAWER 7, Y5N ONE (19:48)
[2019-11-11] MEDS: QUEtiapine FUMARATE 100 MG TABLET (FP) PO SCH (21:15)
[2019-11-11] MEDS: MIRTAZAPINE 15 MG TABLET (FP) PO SCH (21:15)
[2019-11-11] MEDS: ATORVASTATIN CA 10 MG TABLET (FP) PO SCH (21:15)
[2019-11-11] MEDS: MELATONIN 5 MG TABLETS PO PRN (21:16)
[2019-11-11] MEDS: THIAMINE HCL 100 MG TABLET (FP) PO SCH (22:10)
[2019-11-12] MEDS ORDERED: INSULIN SLIDING SCALE (NOVOLOG) 1 VIAL SQ ONE ×2 (07:20→16:28)
[2019-11-12] MEDS: sitaGLIPtin PHOSPHATE 50 MG TABLET PO SCH (07:21)
[2019-11-12] MEDS: metFORMIN HCL 500 MG TABLET (FP) PO SCH ×2 (07:21→16:28)
[2019-11-12] MEDS: INSULIN SLIDING SCALE (NOVOLOG) 1 VIAL SQ SCH ×4 (07:21→21:02)
[2019-11-12] MEDS: PRENATAL VITAMINS W/ FOLIC ACID TABLET (FP) PO SCH (09:47)
[2019-11-12] MEDS: METHYL SALICYLATE/MENTHOL OINT 30 GM TUBE TP SCH ×2 (09:47→21:02)
[2019-11-12] MEDS: levETIRAcetam 500 MG TABLET (FP) PO SCH ×2 (09:47→21:00)
[2019-11-12] MEDS: NICOTINE 21 MG/24 HOURS TOPICAL PATCH TD SCH (09:47)
[2019-11-12] MEDS: LISINOPRIL 10 MG TABLET (FP) PO SCH (09:47)
[2019-11-12] MEDS: IBUPROFEN 400 MG TABLET (FP) PO PRN (18:19)
[2019-11-12] MEDS: THIAMINE HCL 100 MG TABLET (FP) PO SCH (20:59)
[2019-11-12] MEDS: MELATONIN 5 MG TABLETS PO PRN (20:59)
[2019-11-12] MEDS: ATORVASTATIN CA 10 MG TABLET (FP) PO SCH (21:00)
[2019-11-12] MEDS: QUEtiapine FUMARATE 100 MG TABLET (FP) PO SCH (21:00)
[2019-11-12] MEDS: MIRTAZAPINE 15 MG TABLET (FP) PO SCH (21:00)
[2019-11-13] MEDS ORDERED: INSULIN SLIDING SCALE (NOVOLOG) 1 VIAL SQ ONE ×3 (06:17→16:31)
[2019-11-13] MEDS: metFORMIN HCL 500 MG TABLET (FP) PO SCH ×2 (06:18→16:30)
[2019-11-13] MEDS: INSULIN SLIDING SCALE (NOVOLOG) 1 VIAL SQ SCH ×4 (06:18→21:04)
[2019-11-13] MEDS: sitaGLIPtin PHOSPHATE 50 MG TABLET PO SCH (06:18)
[2019-11-13] MEDS: METHYL SALICYLATE/MENTHOL OINT 30 GM TUBE TP SCH ×2 (09:51→21:04)
[2019-11-13] MEDS: levETIRAcetam 500 MG TABLET (FP) PO SCH ×2 (09:52→21:03)
[2019-11-13] MEDS: LISINOPRIL 10 MG TABLET (FP) PO SCH (09:52)
[2019-11-13] MEDS: NICOTINE 21 MG/24 HOURS TOPICAL PATCH TD SCH (09:52)
[2019-11-13] MEDS: PRENATAL VITAMINS W/ FOLIC ACID TABLET (FP) PO SCH (09:52)
[2019-11-13] MEDS: IBUPROFEN 400 MG TABLET (FP) PO PRN (09:53)
[2019-11-13] MEDS: THIAMINE HCL 100 MG TABLET (FP) PO SCH (21:03)
[2019-11-13] MEDS: MELATONIN 5 MG TABLETS PO PRN (21:03)
[2019-11-13] MEDS: ATORVASTATIN CA 10 MG TABLET (FP) PO SCH (21:03)
[2019-11-13] MEDS: QUEtiapine FUMARATE 100 MG TABLET (FP) PO SCH (21:03)
[2019-11-13] MEDS: MIRTAZAPINE 15 MG TABLET (FP) PO SCH (21:03)
[2019-11-14] MEDS ORDERED: PT OWN MED DRAWER 7, Y5N ONE (03:23)
[2019-11-14] MEDS: metFORMIN HCL 500 MG TABLET (FP) PO SCH ×2 (06:04→16:36)
[2019-11-14] MEDS: sitaGLIPtin PHOSPHATE 50 MG TABLET PO SCH (06:04)
[2019-11-14] MEDS: INSULIN SLIDING SCALE (NOVOLOG) 1 VIAL SQ SCH ×4 (06:04→21:02)
[2019-11-14] MEDS ORDERED: INSULIN SLIDING SCALE (NOVOLOG) 1 VIAL SQ ONE (07:56)
[2019-11-14] MEDS: PRENATAL VITAMINS W/ FOLIC ACID TABLET (FP) PO SCH (09:51)
[2019-11-14] MEDS: IBUPROFEN 400 MG TABLET (FP) PO PRN ×2 (09:51→21:02)
[2019-11-14] MEDS: METHYL SALICYLATE/MENTHOL OINT 30 GM TUBE TP SCH ×2 (09:51→21:03)
[2019-11-14] MEDS: levETIRAcetam 500 MG TABLET (FP) PO SCH ×2 (09:51→21:01)
[2019-11-14] MEDS: NICOTINE 21 MG/24 HOURS TOPICAL PATCH TD SCH (09:51)
[2019-11-14] MEDS: LISINOPRIL 10 MG TABLET (FP) PO SCH (09:51)
[2019-11-14] MEDS: QUEtiapine FUMARATE 100 MG TABLET (FP) PO SCH (21:01)
[2019-11-14] MEDS: ATORVASTATIN CA 10 MG TABLET (FP) PO SCH (21:01)
[2019-11-14] MEDS: MELATONIN 5 MG TABLETS PO PRN (21:01)
[2019-11-14] MEDS: MIRTAZAPINE 15 MG TABLET (FP) PO SCH (21:01)
[2019-11-14] MEDS: THIAMINE HCL 100 MG TABLET (FP) PO SCH (21:02)
[2019-11-15] MEDS: INSULIN SLIDING SCALE (NOVOLOG) 1 VIAL SQ SCH ×4 (06:07→21:08)
[2019-11-15] MEDS: metFORMIN HCL 500 MG TABLET (FP) PO SCH ×2 (07:04→16:35)
[2019-11-15] MEDS: sitaGLIPtin PHOSPHATE 50 MG TABLET PO SCH (07:04)
[2019-11-15] MEDS: NICOTINE 21 MG/24 HOURS TOPICAL PATCH TD SCH (10:17)
[2019-11-15] MEDS: METHYL SALICYLATE/MENTHOL OINT 30 GM TUBE TP SCH ×2 (10:17→21:08)
[2019-11-15] MEDS: LISINOPRIL 10 MG TABLET (FP) PO SCH (10:17)
[2019-11-15] MEDS: levETIRAcetam 500 MG TABLET (FP) PO SCH ×2 (10:17→21:07)
[2019-11-15] MEDS: PRENATAL VITAMINS W/ FOLIC ACID TABLET (FP) PO SCH (10:17)
[2019-11-15] MEDS: QUEtiapine FUMARATE 100 MG TABLET (FP) PO SCH (21:06)
[2019-11-15] MEDS: MELATONIN 5 MG TABLETS PO PRN (21:06)
[2019-11-15] MEDS: MIRTAZAPINE 15 MG TABLET (FP) PO SCH (21:06)
[2019-11-15] MEDS: THIAMINE HCL 100 MG TABLET (FP) PO SCH (21:07)
[2019-11-15] MEDS: ATORVASTATIN CA 10 MG TABLET (FP) PO SCH (21:07)
[2019-11-15] MEDS: IBUPROFEN 400 MG TABLET (FP) PO PRN (21:07)
[2019-11-16] MEDS: metFORMIN HCL 500 MG TABLET (FP) PO SCH ×2 (06:10→16:30)
[2019-11-16] MEDS: INSULIN SLIDING SCALE (NOVOLOG) 1 VIAL SQ SCH ×4 (06:10→21:18)
[2019-11-16] MEDS: sitaGLIPtin PHOSPHATE 50 MG TABLET PO SCH (06:10)
[2019-11-16] MEDS ORDERED: PT OWN MED DRAWER 7, Y5N ONE ×2 (08:35→18:47)
[2019-11-16] MEDS: PRENATAL VITAMINS W/ FOLIC ACID TABLET (FP) PO SCH (10:20)
[2019-11-16] MEDS: levETIRAcetam 500 MG TABLET (FP) PO SCH ×2 (10:20→21:13)
[2019-11-16] MEDS: METHYL SALICYLATE/MENTHOL OINT 30 GM TUBE TP SCH ×2 (10:21→21:13)
[2019-11-16] MEDS: LISINOPRIL 10 MG TABLET (FP) PO SCH (10:21)
[2019-11-16] MEDS: NICOTINE 21 MG/24 HOURS TOPICAL PATCH TD SCH (10:21)
[2019-11-16] MEDS ORDERED: INSULIN SLIDING SCALE (NOVOLOG) 1 VIAL SQ ONE ×3 (11:22→21:18)
[2019-11-16] MEDS: MIRTAZAPINE 15 MG TABLET (FP) PO SCH (21:13)
[2019-11-16] MEDS: THIAMINE HCL 100 MG TABLET (FP) PO SCH (21:13)
[2019-11-16] MEDS: ATORVASTATIN CA 10 MG TABLET (FP) PO SCH (21:13)
[2019-11-16] MEDS: QUEtiapine FUMARATE 100 MG TABLET (FP) PO SCH (21:13)
[2019-11-17] MEDS: sitaGLIPtin PHOSPHATE 50 MG TABLET PO SCH (07:00)
[2019-11-17] MEDS: metFORMIN HCL 500 MG TABLET (FP) PO SCH ×2 (07:01→17:03)
[2019-11-17] MEDS: INSULIN SLIDING SCALE (NOVOLOG) 1 VIAL SQ SCH ×4 (07:01→21:07)
[2019-11-17] MEDS: METHYL SALICYLATE/MENTHOL OINT 30 GM TUBE TP SCH ×2 (09:34→21:07)
[2019-11-17] MEDS: PRENATAL VITAMINS W/ FOLIC ACID TABLET (FP) PO SCH (09:34)
[2019-11-17] MEDS: NICOTINE 21 MG/24 HOURS TOPICAL PATCH TD SCH (09:34)
[2019-11-17] MEDS: levETIRAcetam 500 MG TABLET (FP) PO SCH ×2 (09:34→21:09)
[2019-11-17] MEDS: LISINOPRIL 10 MG TABLET (FP) PO SCH (09:34)
[2019-11-17] MEDS ORDERED: INSULIN SLIDING SCALE (NOVOLOG) 1 VIAL SQ ONE ×2 (11:37→16:30)
[2019-11-17] MEDS ORDERED: PT OWN MED DRAWER 7, Y5N ONE (20:38)
[2019-11-17] MEDS: IBUPROFEN 400 MG TABLET (FP) PO PRN (21:08)
[2019-11-17] MEDS: ATORVASTATIN CA 10 MG TABLET (FP) PO SCH (21:09)
[2019-11-17] MEDS: QUEtiapine FUMARATE 100 MG TABLET (FP) PO SCH (21:09)
[2019-11-17] MEDS: THIAMINE HCL 100 MG TABLET (FP) PO SCH (21:09)
[2019-11-17] MEDS: MIRTAZAPINE 15 MG TABLET (FP) PO SCH (21:09)
[2019-11-18] MEDS ORDERED: PT OWN MED DRAWER 7, Y5N ONE (03:27)
[2019-11-18] MEDS: INSULIN SLIDING SCALE (NOVOLOG) 1 VIAL SQ SCH ×4 (06:49→21:02)
[2019-11-18] MEDS: sitaGLIPtin PHOSPHATE 50 MG TABLET PO SCH (06:49)
[2019-11-18] MEDS: metFORMIN HCL 500 MG TABLET (FP) PO SCH ×2 (06:49→16:34)
[2019-11-18] MEDS: PRENATAL VITAMINS W/ FOLIC ACID TABLET (FP) PO SCH (09:34)
[2019-11-18] MEDS: levETIRAcetam 500 MG TABLET (FP) PO SCH ×2 (09:34→21:00)
[2019-11-18] MEDS: IBUPROFEN 400 MG TABLET (FP) PO PRN (09:34)
[2019-11-18] MEDS: LISINOPRIL 10 MG TABLET (FP) PO SCH (09:34)
[2019-11-18] MEDS: NICOTINE 21 MG/24 HOURS TOPICAL PATCH TD SCH (09:35)
[2019-11-18] MEDS: METHYL SALICYLATE/MENTHOL OINT 30 GM TUBE TP SCH ×2 (09:35→21:01)
[2019-11-18] MEDS: ATORVASTATIN CA 10 MG TABLET (FP) PO SCH (21:01)
[2019-11-18] MEDS: MIRTAZAPINE 15 MG TABLET (FP) PO SCH (21:01)
[2019-11-18] MEDS: QUEtiapine FUMARATE 100 MG TABLET (FP) PO SCH (21:01)
[2019-11-18] MEDS: THIAMINE HCL 100 MG TABLET (FP) PO SCH (21:01)
[2019-11-18] MEDS: MELATONIN 5 MG TABLETS PO PRN (21:01)
[2019-11-19] MEDS: sitaGLIPtin PHOSPHATE 50 MG TABLET PO SCH (07:12)
[2019-11-19] MEDS: metFORMIN HCL 500 MG TABLET (FP) PO SCH ×2 (07:12→16:19)
[2019-11-19] MEDS: INSULIN SLIDING SCALE (NOVOLOG) 1 VIAL SQ SCH ×4 (07:12→21:03)
[2019-11-19] MEDS: levETIRAcetam 500 MG TABLET (FP) PO SCH ×2 (09:44→21:03)
[2019-11-19] MEDS: NICOTINE 21 MG/24 HOURS TOPICAL PATCH TD SCH (09:44)
[2019-11-19] MEDS: PRENATAL VITAMINS W/ FOLIC ACID TABLET (FP) PO SCH (09:44)
[2019-11-19] MEDS: LISINOPRIL 10 MG TABLET (FP) PO SCH (09:44)
[2019-11-19] MEDS: IBUPROFEN 400 MG TABLET (FP) PO PRN (09:45)
[2019-11-19] MEDS: METHYL SALICYLATE/MENTHOL OINT 30 GM TUBE TP SCH ×2 (10:27→21:04)
[2019-11-19] MEDS ORDERED: INSULIN SLIDING SCALE (NOVOLOG) 1 VIAL SQ ONE (16:19)
[2019-11-19] MEDS: ATORVASTATIN CA 10 MG TABLET (FP) PO SCH (21:03)
[2019-11-19] MEDS: THIAMINE HCL 100 MG TABLET (FP) PO SCH (21:03)
[2019-11-19] MEDS: QUEtiapine FUMARATE 100 MG TABLET (FP) PO SCH (21:03)
[2019-11-19] MEDS: MIRTAZAPINE 15 MG TABLET (FP) PO SCH (21:03)
[2019-11-19] MEDS: MELATONIN 5 MG TABLETS PO PRN (21:03)
[2019-11-20] MEDS ORDERED: PT OWN MED DRAWER 7, Y5N ONE (05:04)
[2019-11-20] MEDS: sitaGLIPtin PHOSPHATE 50 MG TABLET PO SCH (06:27)
[2019-11-20] MEDS: metFORMIN HCL 500 MG TABLET (FP) PO SCH ×2 (06:27→16:39)
[2019-11-20] MEDS: INSULIN SLIDING SCALE (NOVOLOG) 1 VIAL SQ SCH ×4 (06:27→21:06)
--- NOTE | 2019-11-20 08:46 | DS ---
[facility] Rehab Discharge Summary - [facility] Rehab Discharge Summary Admission Date: 10/24/19 Discharge Date: 11/21/19 - History Present History: Alcohol dependence Pertinent Past History: Mr. Barajas presented to [facility] stating "I'm tired of drinking and I want to get my life in order". He was at [facility] , tx wtih Librium, left and drank alcohol immediately. Last [facility] admission: 07/21 to 07/28/19 PMH: DM, HTN, HLD, Seizure disorder: no meds PSH: left foot Psych: depression: Remeron, and Seroquel SoC: lives with sister, [place] - Discharge Physical Exam Vital Signs: Vital Signs Temperature 98.2 F 11/20/19 06:49 Pulse Rate 99 H 11/20/19 06:49 Respiratory Rate 18 11/20/19 06:49 Blood Pressure 113/82 11/20/19 06:49 O2 Sat by Pulse Oximetry (%) 98 11/20/19 06:49 Pertinent Admission Physical Exam Findings: Physical General Appearance: No apparent distress HEENTM: Normocephalic, Respiratory: Lungs Clear, Neck: Supple Cardiology: S1, S2 Abdominal: + BS Musculoskeletal: full range of Motion - Treatment Discharge Condition: Outpatient referral accepted (Medically stable for discharge. Patient is going to [facility] .) Hospital Course: patient attended groups, had 1:1 with his counselor. He was adherent to his medication regimen and treatment plan. - Medication Discharge Medications: Ambulatory Orders Citalopram Hydrobromide [Celexa -] 40 mg PO DAILY 12/11/17 Atorvastatin Ca [Lipitor] 10 mg PO HS #30 tablet 11/20/19 Lisinopril 10 mg PO DAILY #30 tab 11/20/19 Mirtazapine [Remeron -] 15 mg PO HS #30 tablet 11/20/19 Quetiapine Fumarate [Seroquel -] 100 mg PO HS #30 tablet 11/20/19 Sitagliptin Phosphate [Januvia] 50 mg PO DAILY #30 tablet 11/20/19 levETIRAcetam [Keppra -] 500 mg PO BID #60 tab 11/20/19 metFORMIN HCL [Glucophage -] 1,000 mg PO BID@0700,1630 #60 tablet 11/20/19 - Medication-Assisted Treatment (MAT) Medication-Assisted Treatment (MAT): No - Discharge Instructions Diet, activity, other medical instructions: Diet: as tolerated Activity: as tolerated Other medical instructions: Please follow up with aftercare referral. - Diagnosis (1) Alcohol dependence with uncomplicated withdrawal Current Visit: Yes Status: Acute - Follow-up Referral Minutes to complete discharge: 20 - AMA Did Patient Leave Against Medical Advice: No
[2019-11-20] MEDS: levETIRAcetam 500 MG TABLET (FP) PO SCH ×2 (09:49→21:05)
[2019-11-20] MEDS: PRENATAL VITAMINS W/ FOLIC ACID TABLET (FP) PO SCH (09:49)
[2019-11-20] MEDS: LISINOPRIL 10 MG TABLET (FP) PO SCH (09:49)
[2019-11-20] MEDS: IBUPROFEN 400 MG TABLET (FP) PO PRN (09:49)
[2019-11-20] MEDS: METHYL SALICYLATE/MENTHOL OINT 30 GM TUBE TP SCH ×2 (09:49→21:06)
[2019-11-20] MEDS: NICOTINE 21 MG/24 HOURS TOPICAL PATCH TD SCH (09:49)
[2019-11-20] MEDS ORDERED: INSULIN SLIDING SCALE (NOVOLOG) 1 VIAL SQ ONE ×2 (11:37→21:22)
--- NOTE | 2019-11-20 13:04 | PN ---
[facility] Progress Note Note: Patient is scheduled for discharge tomorrow. Scripts for 30 days supply of medications(Remeron 15 mg/hs, Seroquel 100 mg/hs) will be electronically transmitted to [facility], [address] [place] [id number]
[2019-11-20] MEDS: QUEtiapine FUMARATE 100 MG TABLET (FP) PO SCH (21:05)
[2019-11-20] MEDS: MELATONIN 5 MG TABLETS PO PRN (21:05)
[2019-11-20] MEDS: MIRTAZAPINE 15 MG TABLET (FP) PO SCH (21:05)
[2019-11-20] MEDS: THIAMINE HCL 100 MG TABLET (FP) PO SCH (21:05)
[2019-11-20] MEDS: ATORVASTATIN CA 10 MG TABLET (FP) PO SCH (21:05)
[2019-11-21 06:34] VITALS: BP 124/71; PULSE 99; TEMP 98.2
[2019-11-21] MEDS ORDERED: INSULIN SLIDING SCALE (NOVOLOG) 1 VIAL SQ ONE (06:46)
[2019-11-21] MEDS: INSULIN SLIDING SCALE (NOVOLOG) 1 VIAL SQ SCH (06:48)
[2019-11-21] MEDS: sitaGLIPtin PHOSPHATE 50 MG TABLET PO SCH (06:49)
[2019-11-21] MEDS: metFORMIN HCL 500 MG TABLET (FP) PO SCH (06:49)
[2019-11-21] MEDS: PRENATAL VITAMINS W/ FOLIC ACID TABLET (FP) PO SCH (09:22)
[2019-11-21] MEDS: LISINOPRIL 10 MG TABLET (FP) PO SCH (09:22)
[2019-11-21] MEDS: levETIRAcetam 500 MG TABLET (FP) PO SCH (09:22)
== END 2019-11-21 09:45 | disposition home or self-care (01) | DRG 895 ==
LOC: YASAS 09:04 → Y6N 10:01 → Y3N 10-25 11:45 → Y5N 10-29 10:33 → Y3W 10-30 13:25
PROVIDERS: ADMIT Allergy & Immunology; ATTEND Allergy & Immunology
PROC: HZ42ZZZ Group Counseling for Substance Abuse Treatment, Cognitive-Behavioral (ICD-10-PCS; principal; 2019-10-24)
DX: F19.20 Other psychoactive substance dependence, uncomplicated (principal); G40.509 Epileptic seizures related to external causes, not intractable, without status epilepticus; F10.20 Alcohol dependence, uncomplicated; F31.9 Bipolar disorder, unspecified; F25.9 Schizoaffective disorder, unspecified; F41.8 Other specified anxiety disorders; G62.9 Polyneuropathy, unspecified; I10 Essential (primary) hypertension; E78.5 Hyperlipidemia, unspecified; E11.9 Type 2 diabetes mellitus without complications; Z79.84 Long term (current) use of oral hypoglycemic drugs; H61.23 Impacted cerumen, bilateral
CPT/HCPCS: 36415; 80053; 82962; 85027; 86780; 87389; U0003

== ENCOUNTER 2020-07-22 16:33 | Inpatient (IN) | payer OTHER ==
[2020-07-22 17:42] VITALS: BMI 27.2
[2020-07-22] MEDS ORDERED: MAGNESIUM CITRATE 300 ML BOTTLE PO PRN (19:00)
[2020-07-22] MEDS ORDERED: MAGNESIUM HYDROX 2400MG/30ML ORAL SUSPENSION 30 ML CUP PO PRN (19:00)
[2020-07-22] MEDS ORDERED: MENTHOL/PHENOL 1 EACH UD MM PRN (19:00)
[2020-07-22] MEDS ORDERED: LORazepam 1 MG TABLET PO PRN (19:00)
[2020-07-22] MEDS ORDERED: NICOTINE POLACRILEX 2 MG GUM BUC PRN (19:00)
[2020-07-22] MEDS ORDERED: BISMUTH SUBSALICYLATE 524 MG/30 ML UD PO PRN (19:00)
[2020-07-22] MEDS ORDERED: MAG HYDROX/AL HYDROX/SIMETH 30 ML UNIT-DOSE CUP PO PRN (19:00)
[2020-07-22] MEDS ORDERED: ACETAMINOPHEN 325 MG TABLET (FP) PO PRN (19:00)
[2020-07-22] MEDS ORDERED: ONDANSETRON *ODT* 4 MG TABLET SL PRN (19:00)
[2020-07-22] MEDS: THIAMINE HCL 100 MG TABLET (FP) PO SCH (21:34)
[2020-07-22] MEDS: IBUPROFEN 400 MG TABLET (FP) PO PRN (21:35)
[2020-07-22] MEDS: MELATONIN 5 MG TABLETS PO SCH (21:36)
[2020-07-22] MEDS: LORazepam 2 MG TABLET PO SCH (22:00)
[2020-07-23] MEDS: LORazepam 2 MG TABLET PO SCH ×4 (05:32→22:19)
[2020-07-23] MEDS: LISINOPRIL 10 MG TABLET PO SCH (10:04)
[2020-07-23] MEDS: levETIRAcetam 500 MG TABLET (FP) PO SCH ×2 (10:04→22:20)
[2020-07-23] MEDS: PRENATAL VITAMINS W/ FOLIC ACID TABLET (FP) PO SCH (10:04)
[2020-07-23] MEDS: NICOTINE 21 MG/24 HOURS TOPICAL PATCH TD SCH (10:05)
[2020-07-23] MEDS: sitaGLIPtin PHOSPHATE 50 MG TABLET PO SCH (11:30)
[2020-07-23 12:58] LABS: HEMATOCRIT 39.1 % (35.4-49); HEMOGLOBIN 12.9 GM/dL (11.7-16.9); MCH 28.6 pg (25.7-33.7); MCHC 33.1 g/dl (32.0-35.9); MEAN CELL VOLUME 86.4 fl (80-96); MEAN PLT VOLUME 9.9 fl (7.5-11.1); PLATELET COUNT 225 K/MM3 (134-434); RBC 4.52 M/mm3 (4.00-5.60); RDW 13.5 % (11.9-15.9); WHITE BLOOD COUNT 7.1 K/mm3 (4.0-10.0)
[2020-07-23 13:05] LABS: POTASSIUM 4.3 mmol/L (3.5-5.1)
[2020-07-23 13:15] LABS: ALBUMIN 4.1 g/dl (3.4-5.0); BLOOD UREA NITROGEN 17.1 mg/dL (7-18)
[2020-07-23 13:16] LABS: BILIRUBIN,TOTAL 0.6 mg/dL (0.2-1); TOT PROT 8.4 g/dl (6.4-8.2)
[2020-07-23 13:19] LABS: CALCIUM 9.2 mg/dL (8.5-10.1)
[2020-07-23] MEDS: ACETAMINOPHEN 325 MG TABLET (FP) PO PRN (14:32)
[2020-07-23] MEDS: metFORMIN HCL 500 MG TABLET (FP) PO SCH (16:30)
[2020-07-23] MEDS ORDERED: MIRTAZAPINE 15 MG TABLET (FP) PO SCH (22:00)
[2020-07-23] MEDS: THIAMINE HCL 100 MG TABLET (FP) PO SCH (22:20)
[2020-07-23] MEDS: MELATONIN 5 MG TABLETS PO SCH (22:20)
[2020-07-23] MEDS: ATORVASTATIN CA 10 MG TABLET (FP) PO SCH (22:20)
[2020-07-23] MEDS: MIRTAZAPINE 15 MG TABLET (FP) PO SCH (22:20)
[2020-07-24] MEDS: LORazepam 1 MG TABLET PO SCH ×4 (06:29→23:30)
[2020-07-24] MEDS: metFORMIN HCL 500 MG TABLET (FP) PO SCH ×2 (06:29→17:05)
[2020-07-24] MEDS: sitaGLIPtin PHOSPHATE 50 MG TABLET PO SCH (07:29)
[2020-07-24] MEDS: levETIRAcetam 500 MG TABLET (FP) PO SCH ×2 (10:23→23:30)
[2020-07-24] MEDS: PRENATAL VITAMINS W/ FOLIC ACID TABLET (FP) PO SCH (10:23)
[2020-07-24] MEDS: LISINOPRIL 10 MG TABLET PO SCH (10:23)
[2020-07-24] MEDS: NICOTINE 21 MG/24 HOURS TOPICAL PATCH TD SCH (10:25)
[2020-07-24] MEDS: MELATONIN 5 MG TABLETS PO SCH (23:31)
[2020-07-24] MEDS: ATORVASTATIN CA 10 MG TABLET (FP) PO SCH (23:31)
[2020-07-24] MEDS: THIAMINE HCL 100 MG TABLET (FP) PO SCH (23:31)
[2020-07-24] MEDS: MIRTAZAPINE 15 MG TABLET (FP) PO SCH (23:31)
[2020-07-25] MEDS ORDERED: LORazepam 0.5 MG TABLET PO PRN
[2020-07-25] MEDS: LORazepam 0.5 MG TABLET PO SCH ×4 (05:57→22:38)
[2020-07-25] MEDS: METHOCARBAMOL 500 MG TABLET PO PRN ×2 (05:59→17:41)
[2020-07-25] MEDS: sitaGLIPtin PHOSPHATE 50 MG TABLET PO SCH (06:00)
[2020-07-25] MEDS: metFORMIN HCL 500 MG TABLET (FP) PO SCH ×2 (06:00→17:41)
[2020-07-25] MEDS: LISINOPRIL 10 MG TABLET PO SCH (10:08)
[2020-07-25] MEDS: levETIRAcetam 500 MG TABLET (FP) PO SCH ×2 (10:08→22:38)
[2020-07-25] MEDS: PRENATAL VITAMINS W/ FOLIC ACID TABLET (FP) PO SCH (10:08)
[2020-07-25] MEDS: NICOTINE 21 MG/24 HOURS TOPICAL PATCH TD SCH ×2 (10:08→10:47)
[2020-07-25] MEDS: ATORVASTATIN CA 10 MG TABLET (FP) PO SCH (22:38)
[2020-07-25] MEDS: THIAMINE HCL 100 MG TABLET (FP) PO SCH (22:38)
[2020-07-25] MEDS: MIRTAZAPINE 15 MG TABLET (FP) PO SCH (22:39)
[2020-07-25] MEDS: MELATONIN 5 MG TABLETS PO SCH (22:39)
[2020-07-26] MEDS ORDERED: LORazepam 0.5 MG TABLET PO ONE (05:00)
[2020-07-26] MEDS: sitaGLIPtin PHOSPHATE 50 MG TABLET PO SCH (06:29)
[2020-07-26] MEDS: metFORMIN HCL 500 MG TABLET (FP) PO SCH ×2 (06:29→16:38)
[2020-07-26] MEDS: levETIRAcetam 500 MG TABLET (FP) PO SCH ×2 (09:18→21:13)
[2020-07-26] MEDS: LISINOPRIL 10 MG TABLET PO SCH (09:19)
[2020-07-26] MEDS: PRENATAL VITAMINS W/ FOLIC ACID TABLET (FP) PO SCH (09:19)
[2020-07-26] MEDS: NICOTINE 21 MG/24 HOURS TOPICAL PATCH TD SCH (09:20)
[2020-07-26] MEDS ORDERED: MASKS NR ONE (09:57)
[2020-07-26] MEDS ORDERED: PT OWN MED DRAWER 7, Y5N ONE (16:20)
[2020-07-26] MEDS: THIAMINE HCL 100 MG TABLET (FP) PO SCH (21:13)
[2020-07-26] MEDS: ATORVASTATIN CA 10 MG TABLET (FP) PO SCH (21:13)
[2020-07-26] MEDS: MELATONIN 5 MG TABLETS PO SCH (21:13)
[2020-07-26] MEDS: MIRTAZAPINE 15 MG TABLET (FP) PO SCH (21:13)
[2020-07-27] MEDS ORDERED: PT OWN MED DRAWER 7, Y5N ONE ×3 (03:56→19:36)
[2020-07-27] MEDS: metFORMIN HCL 500 MG TABLET (FP) PO SCH ×2 (06:32→16:37)
[2020-07-27] MEDS: sitaGLIPtin PHOSPHATE 50 MG TABLET PO SCH (06:32)
[2020-07-27] MEDS: levETIRAcetam 500 MG TABLET (FP) PO SCH ×2 (09:57→21:08)
[2020-07-27] MEDS: LISINOPRIL 10 MG TABLET PO SCH (09:57)
[2020-07-27] MEDS: PRENATAL VITAMINS W/ FOLIC ACID TABLET (FP) PO SCH (09:58)
[2020-07-27] MEDS: NICOTINE 21 MG/24 HOURS TOPICAL PATCH TD SCH (09:58)
[2020-07-27] MEDS: MELATONIN 5 MG TABLETS PO SCH (21:08)
[2020-07-27] MEDS: MIRTAZAPINE 15 MG TABLET (FP) PO SCH (21:08)
[2020-07-27] MEDS: ATORVASTATIN CA 10 MG TABLET (FP) PO SCH (21:08)
[2020-07-27] MEDS: THIAMINE HCL 100 MG TABLET (FP) PO SCH (21:08)
[2020-07-27] MEDS: ACETAMINOPHEN 325 MG TABLET (FP) PO PRN (21:09)
[2020-07-28] MEDS ORDERED: PT OWN MED DRAWER 7, Y5N ONE ×3 (03:54→08:31)
[2020-07-28] MEDS: metFORMIN HCL 500 MG TABLET (FP) PO SCH ×2 (06:16→16:44)
[2020-07-28] MEDS: sitaGLIPtin PHOSPHATE 50 MG TABLET PO SCH (06:16)
[2020-07-28] MEDS: levETIRAcetam 500 MG TABLET (FP) PO SCH ×2 (09:47→21:10)
[2020-07-28] MEDS: LISINOPRIL 10 MG TABLET PO SCH (09:47)
[2020-07-28] MEDS: PRENATAL VITAMINS W/ FOLIC ACID TABLET (FP) PO SCH (09:47)
[2020-07-28] MEDS: NICOTINE 21 MG/24 HOURS TOPICAL PATCH TD SCH (09:47)
[2020-07-28] MEDS: ACETAMINOPHEN 325 MG TABLET (FP) PO PRN ×2 (09:48→21:08)
[2020-07-28] MEDS: THIAMINE HCL 100 MG TABLET (FP) PO SCH (21:08)
[2020-07-28] MEDS: MELATONIN 5 MG TABLETS PO SCH (21:08)
[2020-07-28] MEDS: MIRTAZAPINE 15 MG TABLET (FP) PO SCH (21:10)
[2020-07-28] MEDS: ATORVASTATIN CA 10 MG TABLET (FP) PO SCH (21:10)
[2020-07-29] MEDS: metFORMIN HCL 500 MG TABLET (FP) PO SCH ×2 (06:13→16:58)
[2020-07-29] MEDS: sitaGLIPtin PHOSPHATE 50 MG TABLET PO SCH (06:14)
[2020-07-29] MEDS: NICOTINE 21 MG/24 HOURS TOPICAL PATCH TD SCH (10:03)
[2020-07-29] MEDS: LISINOPRIL 10 MG TABLET PO SCH (10:03)
[2020-07-29] MEDS: PRENATAL VITAMINS W/ FOLIC ACID TABLET (FP) PO SCH (10:04)
[2020-07-29] MEDS: levETIRAcetam 500 MG TABLET (FP) PO SCH ×2 (10:04→21:22)
[2020-07-29] MEDS: MIRTAZAPINE 15 MG TABLET (FP) PO SCH (21:22)
[2020-07-29] MEDS: ATORVASTATIN CA 10 MG TABLET (FP) PO SCH (21:22)
[2020-07-29] MEDS: THIAMINE HCL 100 MG TABLET (FP) PO SCH (21:22)
[2020-07-29] MEDS: MELATONIN 5 MG TABLETS PO SCH (21:22)
[2020-07-29] MEDS: IBUPROFEN 400 MG TABLET (FP) PO PRN (21:23)
[2020-07-29] MEDS ORDERED: PT OWN MED DRAWER 7, Y5N ONE (21:38)
[2020-07-30] MEDS: metFORMIN HCL 500 MG TABLET (FP) PO SCH ×2 (06:00→16:51)
[2020-07-30] MEDS ORDERED: PT OWN MED DRAWER 7, Y5N ONE (06:00)
[2020-07-30] MEDS: sitaGLIPtin PHOSPHATE 50 MG TABLET PO SCH (06:01)
[2020-07-30] MEDS: LISINOPRIL 10 MG TABLET PO SCH (10:03)
[2020-07-30] MEDS: NICOTINE 21 MG/24 HOURS TOPICAL PATCH TD SCH (10:03)
[2020-07-30] MEDS: PRENATAL VITAMINS W/ FOLIC ACID TABLET (FP) PO SCH (10:03)
[2020-07-30] MEDS: levETIRAcetam 500 MG TABLET (FP) PO SCH ×2 (10:03→21:10)
[2020-07-30] MEDS: IBUPROFEN 400 MG TABLET (FP) PO PRN ×2 (10:05→21:11)
[2020-07-30] MEDS: THIAMINE HCL 100 MG TABLET (FP) PO SCH (21:10)
[2020-07-30] MEDS: MELATONIN 5 MG TABLETS PO SCH (21:10)
[2020-07-30] MEDS: ATORVASTATIN CA 10 MG TABLET (FP) PO SCH (21:10)
[2020-07-30] MEDS: MIRTAZAPINE 15 MG TABLET (FP) PO SCH (21:11)
[2020-07-31] MEDS: metFORMIN HCL 500 MG TABLET (FP) PO SCH ×2 (06:22→16:28)
[2020-07-31] MEDS: sitaGLIPtin PHOSPHATE 50 MG TABLET PO SCH (06:55)
[2020-07-31] MEDS: PRENATAL VITAMINS W/ FOLIC ACID TABLET (FP) PO SCH (10:18)
[2020-07-31] MEDS: LISINOPRIL 10 MG TABLET PO SCH (10:18)
[2020-07-31] MEDS: levETIRAcetam 500 MG TABLET (FP) PO SCH ×2 (10:18→21:06)
[2020-07-31] MEDS: NICOTINE 21 MG/24 HOURS TOPICAL PATCH TD SCH (10:19)
[2020-07-31] MEDS: THIAMINE HCL 100 MG TABLET (FP) PO SCH (21:06)
[2020-07-31] MEDS: MELATONIN 5 MG TABLETS PO SCH (21:06)
[2020-07-31] MEDS: MIRTAZAPINE 15 MG TABLET (FP) PO SCH (21:06)
[2020-07-31] MEDS: ATORVASTATIN CA 10 MG TABLET (FP) PO SCH (21:06)
[2020-07-31] MEDS: IBUPROFEN 400 MG TABLET (FP) PO PRN (21:07)
[2020-08-01] MEDS ORDERED: PT OWN MED DRAWER 7, Y5N ONE (03:44)
[2020-08-01] MEDS: metFORMIN HCL 500 MG TABLET (FP) PO SCH ×2 (06:06→16:53)
[2020-08-01] MEDS: sitaGLIPtin PHOSPHATE 50 MG TABLET PO SCH (06:06)
[2020-08-01] MEDS: PRENATAL VITAMINS W/ FOLIC ACID TABLET (FP) PO SCH (09:53)
[2020-08-01] MEDS: levETIRAcetam 500 MG TABLET (FP) PO SCH ×2 (09:53→21:35)
[2020-08-01] MEDS: LISINOPRIL 10 MG TABLET PO SCH (09:53)
[2020-08-01] MEDS: NICOTINE 21 MG/24 HOURS TOPICAL PATCH TD SCH (09:54)
[2020-08-01] MEDS: IBUPROFEN 400 MG TABLET (FP) PO PRN ×2 (09:54→21:34)
[2020-08-01] MEDS: THIAMINE HCL 100 MG TABLET (FP) PO SCH (21:35)
[2020-08-01] MEDS: MIRTAZAPINE 15 MG TABLET (FP) PO SCH (21:35)
[2020-08-01] MEDS: ATORVASTATIN CA 10 MG TABLET (FP) PO SCH (21:35)
[2020-08-01] MEDS: MELATONIN 5 MG TABLETS PO SCH (21:36)
[2020-08-02] MEDS: metFORMIN HCL 500 MG TABLET (FP) PO SCH ×2 (06:04→16:43)
[2020-08-02] MEDS: sitaGLIPtin PHOSPHATE 50 MG TABLET PO SCH (06:04)
[2020-08-02] MEDS: PRENATAL VITAMINS W/ FOLIC ACID TABLET (FP) PO SCH (09:46)
[2020-08-02] MEDS: LISINOPRIL 10 MG TABLET PO SCH (09:46)
[2020-08-02] MEDS: NICOTINE 21 MG/24 HOURS TOPICAL PATCH TD SCH (09:46)
[2020-08-02] MEDS: levETIRAcetam 500 MG TABLET (FP) PO SCH ×2 (09:46→21:23)
[2020-08-02] MEDS: ACETAMINOPHEN 325 MG TABLET (FP) PO PRN (16:44)
[2020-08-02] MEDS: ATORVASTATIN CA 10 MG TABLET (FP) PO SCH (21:23)
[2020-08-02] MEDS: THIAMINE HCL 100 MG TABLET (FP) PO SCH (21:23)
[2020-08-02] MEDS: MELATONIN 5 MG TABLETS PO SCH (21:23)
[2020-08-02] MEDS: MIRTAZAPINE 15 MG TABLET (FP) PO SCH (21:23)
[2020-08-03] MEDS: sitaGLIPtin PHOSPHATE 50 MG TABLET PO SCH (06:23)
[2020-08-03] MEDS: metFORMIN HCL 500 MG TABLET (FP) PO SCH ×2 (06:23→17:03)
[2020-08-03] MEDS: ACETAMINOPHEN 325 MG TABLET (FP) PO PRN (06:48)
[2020-08-03] MEDS: levETIRAcetam 500 MG TABLET (FP) PO SCH ×2 (10:03→21:27)
[2020-08-03] MEDS: LISINOPRIL 10 MG TABLET PO SCH (10:03)
[2020-08-03] MEDS: NICOTINE 21 MG/24 HOURS TOPICAL PATCH TD SCH (10:04)
[2020-08-03] MEDS: IBUPROFEN 400 MG TABLET (FP) PO PRN (10:04)
[2020-08-03] MEDS: PRENATAL VITAMINS W/ FOLIC ACID TABLET (FP) PO SCH (10:04)
[2020-08-03] MEDS: METHOCARBAMOL 500 MG TABLET PO SCH ×2 (14:05→21:27)
[2020-08-03] MEDS ORDERED: PT OWN MED DRAWER 7, Y5N ONE ×3 (19:05→21:50)
[2020-08-03] MEDS: ATORVASTATIN CA 10 MG TABLET (FP) PO SCH (21:27)
[2020-08-03] MEDS: MIRTAZAPINE 15 MG TABLET (FP) PO SCH (21:27)
[2020-08-03] MEDS: MELATONIN 5 MG TABLETS PO SCH (21:27)
[2020-08-03] MEDS: THIAMINE HCL 100 MG TABLET (FP) PO SCH (21:27)
[2020-08-03] MEDS ORDERED: INSULIN (NOVOLOG) ASPART 100 UNITS/ML 10ML VIAL ONE (21:50)
[2020-08-04] MEDS: METHOCARBAMOL 500 MG TABLET PO SCH ×3 (06:20→21:12)
[2020-08-04] MEDS: sitaGLIPtin PHOSPHATE 50 MG TABLET PO SCH (06:20)
[2020-08-04] MEDS: metFORMIN HCL 500 MG TABLET (FP) PO SCH ×2 (06:20→16:42)
[2020-08-04] MEDS: PRENATAL VITAMINS W/ FOLIC ACID TABLET (FP) PO SCH (09:54)
[2020-08-04] MEDS: LISINOPRIL 10 MG TABLET PO SCH (09:54)
[2020-08-04] MEDS: levETIRAcetam 500 MG TABLET (FP) PO SCH ×2 (09:55→21:12)
[2020-08-04] MEDS: NICOTINE 21 MG/24 HOURS TOPICAL PATCH TD SCH (09:55)
[2020-08-04 15:45] LABS: HIV INTERPRETATION NEGATIVE (NEGATIVE)
[2020-08-04] MEDS ORDERED: PT OWN MED DRAWER 7, Y5N ONE (19:06)
[2020-08-04] MEDS: MELATONIN 5 MG TABLETS PO SCH (21:11)
[2020-08-04] MEDS: THIAMINE HCL 100 MG TABLET (FP) PO SCH (21:11)
[2020-08-04] MEDS: ATORVASTATIN CA 10 MG TABLET (FP) PO SCH (21:12)
[2020-08-04] MEDS: MIRTAZAPINE 15 MG TABLET (FP) PO SCH (21:12)
[2020-08-04] MEDS ORDERED: INSULIN (NOVOLOG) ASPART 100 UNITS/ML 10ML VIAL ONE (22:10)
[2020-08-05] MEDS ORDERED: PT OWN MED DRAWER 7, Y5N ONE ×3 (03:15→21:40)
[2020-08-05] MEDS: METHOCARBAMOL 500 MG TABLET PO SCH ×3 (06:22→21:15)
[2020-08-05] MEDS: sitaGLIPtin PHOSPHATE 50 MG TABLET PO SCH (06:22)
[2020-08-05] MEDS: metFORMIN HCL 500 MG TABLET (FP) PO SCH ×2 (06:22→16:34)
[2020-08-05] MEDS: PRENATAL VITAMINS W/ FOLIC ACID TABLET (FP) PO SCH (10:08)
[2020-08-05] MEDS: LISINOPRIL 10 MG TABLET PO SCH (10:08)
[2020-08-05] MEDS: levETIRAcetam 500 MG TABLET (FP) PO SCH ×2 (10:08→21:14)
[2020-08-05] MEDS: NICOTINE 21 MG/24 HOURS TOPICAL PATCH TD SCH (10:09)
[2020-08-05] MEDS: MELATONIN 5 MG TABLETS PO SCH (21:13)
[2020-08-05] MEDS: THIAMINE HCL 100 MG TABLET (FP) PO SCH (21:13)
[2020-08-05] MEDS: ATORVASTATIN CA 10 MG TABLET (FP) PO SCH (21:14)
[2020-08-05] MEDS: MIRTAZAPINE 15 MG TABLET (FP) PO SCH (21:14)
[2020-08-05] MEDS ORDERED: INSULIN (NOVOLOG) ASPART 100 UNITS/ML 10ML VIAL ONE (21:40)
[2020-08-06] MEDS: metFORMIN HCL 500 MG TABLET (FP) PO SCH ×2 (06:22→16:24)
[2020-08-06] MEDS: sitaGLIPtin PHOSPHATE 50 MG TABLET PO SCH (06:22)
[2020-08-06] MEDS: METHOCARBAMOL 500 MG TABLET PO SCH ×3 (06:22→21:13)
[2020-08-06] MEDS: levETIRAcetam 500 MG TABLET (FP) PO SCH ×2 (10:01→21:13)
[2020-08-06] MEDS: PRENATAL VITAMINS W/ FOLIC ACID TABLET (FP) PO SCH (10:02)
[2020-08-06] MEDS: NICOTINE 21 MG/24 HOURS TOPICAL PATCH TD SCH (10:02)
[2020-08-06] MEDS: LISINOPRIL 10 MG TABLET PO SCH (10:02)
[2020-08-06] MEDS: MELATONIN 5 MG TABLETS PO SCH (21:13)
[2020-08-06] MEDS: ATORVASTATIN CA 10 MG TABLET (FP) PO SCH (21:13)
[2020-08-06] MEDS: THIAMINE HCL 100 MG TABLET (FP) PO SCH (21:14)
[2020-08-06] MEDS: MIRTAZAPINE 15 MG TABLET (FP) PO SCH (21:14)
[2020-08-06] MEDS ORDERED: PT OWN MED DRAWER 7, Y5N ONE (21:43)
[2020-08-07] MEDS: METHOCARBAMOL 500 MG TABLET PO SCH ×3 (06:24→21:15)
[2020-08-07] MEDS: sitaGLIPtin PHOSPHATE 50 MG TABLET PO SCH (06:24)
[2020-08-07] MEDS: metFORMIN HCL 500 MG TABLET (FP) PO SCH ×2 (06:24→17:00)
[2020-08-07] MEDS ORDERED: PT OWN MED DRAWER 7, Y5N ONE (07:03)
[2020-08-07] MEDS: NICOTINE 21 MG/24 HOURS TOPICAL PATCH TD SCH (10:00)
[2020-08-07] MEDS: levETIRAcetam 500 MG TABLET (FP) PO SCH ×2 (10:00→21:15)
[2020-08-07] MEDS: PRENATAL VITAMINS W/ FOLIC ACID TABLET (FP) PO SCH (10:00)
[2020-08-07] MEDS: LISINOPRIL 10 MG TABLET PO SCH (10:00)
[2020-08-07] MEDS: ATORVASTATIN CA 10 MG TABLET (FP) PO SCH (21:14)
[2020-08-07] MEDS: MELATONIN 5 MG TABLETS PO SCH (21:15)
[2020-08-07] MEDS: MIRTAZAPINE 15 MG TABLET (FP) PO SCH (21:15)
[2020-08-07] MEDS: THIAMINE HCL 100 MG TABLET (FP) PO SCH (21:15)
[2020-08-08] MEDS: METHOCARBAMOL 500 MG TABLET PO SCH ×3 (06:23→21:09)
[2020-08-08] MEDS: metFORMIN HCL 500 MG TABLET (FP) PO SCH ×2 (06:23→16:31)
[2020-08-08] MEDS: sitaGLIPtin PHOSPHATE 50 MG TABLET PO SCH (06:23)
[2020-08-08] MEDS: PRENATAL VITAMINS W/ FOLIC ACID TABLET (FP) PO SCH (09:39)
[2020-08-08] MEDS: LISINOPRIL 10 MG TABLET PO SCH (09:39)
[2020-08-08] MEDS: NICOTINE 21 MG/24 HOURS TOPICAL PATCH TD SCH (09:39)
[2020-08-08] MEDS: levETIRAcetam 500 MG TABLET (FP) PO SCH ×2 (09:39→21:09)
[2020-08-08] MEDS ORDERED: PT OWN MED DRAWER 7, Y5N ONE (21:02)
[2020-08-08] MEDS: THIAMINE HCL 100 MG TABLET (FP) PO SCH (21:09)
[2020-08-08] MEDS: ATORVASTATIN CA 10 MG TABLET (FP) PO SCH (21:09)
[2020-08-08] MEDS: MELATONIN 5 MG TABLETS PO SCH (21:09)
[2020-08-08] MEDS: MIRTAZAPINE 15 MG TABLET (FP) PO SCH (21:10)
[2020-08-09] MEDS ORDERED: PT OWN MED DRAWER 7, Y5N ONE ×3 (03:42→19:26)
[2020-08-09] MEDS: METHOCARBAMOL 500 MG TABLET PO SCH ×3 (06:20→21:19)
[2020-08-09] MEDS: metFORMIN HCL 500 MG TABLET (FP) PO SCH ×2 (06:20→16:30)
[2020-08-09] MEDS: sitaGLIPtin PHOSPHATE 50 MG TABLET PO SCH (06:20)
[2020-08-09] MEDS: LISINOPRIL 10 MG TABLET PO SCH (09:41)
[2020-08-09] MEDS: levETIRAcetam 500 MG TABLET (FP) PO SCH ×2 (09:41→21:21)
[2020-08-09] MEDS: NICOTINE 21 MG/24 HOURS TOPICAL PATCH TD SCH (09:41)
[2020-08-09] MEDS: PRENATAL VITAMINS W/ FOLIC ACID TABLET (FP) PO SCH (09:41)
[2020-08-09] MEDS: MELATONIN 5 MG TABLETS PO SCH (21:19)
[2020-08-09] MEDS: THIAMINE HCL 100 MG TABLET (FP) PO SCH (21:19)
[2020-08-09] MEDS: ATORVASTATIN CA 10 MG TABLET (FP) PO SCH (21:19)
[2020-08-09] MEDS: MIRTAZAPINE 15 MG TABLET (FP) PO SCH (21:20)
[2020-08-10] MEDS ORDERED: PT OWN MED DRAWER 7, Y5N ONE ×3 (03:24→23:10)
[2020-08-10] MEDS: metFORMIN HCL 500 MG TABLET (FP) PO SCH ×2 (06:27→16:27)
[2020-08-10] MEDS: sitaGLIPtin PHOSPHATE 50 MG TABLET PO SCH (06:27)
[2020-08-10] MEDS: METHOCARBAMOL 500 MG TABLET PO SCH ×3 (06:28→21:06)
[2020-08-10] MEDS: PRENATAL VITAMINS W/ FOLIC ACID TABLET (FP) PO SCH (09:32)
[2020-08-10] MEDS: NICOTINE 21 MG/24 HOURS TOPICAL PATCH TD SCH (09:33)
[2020-08-10] MEDS: LISINOPRIL 10 MG TABLET PO SCH (09:33)
[2020-08-10] MEDS: levETIRAcetam 500 MG TABLET (FP) PO SCH ×2 (09:33→21:06)
[2020-08-10] MEDS: MELATONIN 5 MG TABLETS PO SCH (21:05)
[2020-08-10] MEDS: THIAMINE HCL 100 MG TABLET (FP) PO SCH (21:05)
[2020-08-10] MEDS: MIRTAZAPINE 15 MG TABLET (FP) PO SCH (21:06)
[2020-08-10] MEDS: ATORVASTATIN CA 10 MG TABLET (FP) PO SCH (21:06)
[2020-08-11] MEDS ORDERED: PT OWN MED DRAWER 7, Y5N ONE ×3 (03:37→21:33)
[2020-08-11] MEDS: sitaGLIPtin PHOSPHATE 50 MG TABLET PO SCH (06:31)
[2020-08-11] MEDS: METHOCARBAMOL 500 MG TABLET PO SCH ×3 (06:31→21:08)
[2020-08-11] MEDS: metFORMIN HCL 500 MG TABLET (FP) PO SCH ×2 (06:31→16:23)
[2020-08-11] MEDS: LISINOPRIL 10 MG TABLET PO SCH (09:51)
[2020-08-11] MEDS: levETIRAcetam 500 MG TABLET (FP) PO SCH ×2 (09:51→21:08)
[2020-08-11] MEDS: PRENATAL VITAMINS W/ FOLIC ACID TABLET (FP) PO SCH (09:51)
[2020-08-11] MEDS: NICOTINE 21 MG/24 HOURS TOPICAL PATCH TD SCH (09:51)
[2020-08-11] MEDS: THIAMINE HCL 100 MG TABLET (FP) PO SCH (21:07)
[2020-08-11] MEDS: MELATONIN 5 MG TABLETS PO SCH (21:07)
[2020-08-11] MEDS: MIRTAZAPINE 15 MG TABLET (FP) PO SCH (21:08)
[2020-08-11] MEDS: ATORVASTATIN CA 10 MG TABLET (FP) PO SCH (21:08)
[2020-08-12] MEDS ORDERED: PT OWN MED DRAWER 7, Y5N ONE ×2 (03:11→16:14)
[2020-08-12] MEDS: metFORMIN HCL 500 MG TABLET (FP) PO SCH ×2 (06:33→16:48)
[2020-08-12] MEDS: METHOCARBAMOL 500 MG TABLET PO SCH ×3 (06:33→21:07)
[2020-08-12] MEDS: sitaGLIPtin PHOSPHATE 50 MG TABLET PO SCH (06:33)
[2020-08-12] MEDS: NICOTINE 21 MG/24 HOURS TOPICAL PATCH TD SCH (09:51)
[2020-08-12] MEDS: LISINOPRIL 10 MG TABLET PO SCH (09:51)
[2020-08-12] MEDS: levETIRAcetam 500 MG TABLET (FP) PO SCH ×2 (09:51→21:08)
[2020-08-12] MEDS: PRENATAL VITAMINS W/ FOLIC ACID TABLET (FP) PO SCH (09:51)
[2020-08-12] MEDS: THIAMINE HCL 100 MG TABLET (FP) PO SCH (21:07)
[2020-08-12] MEDS: MELATONIN 5 MG TABLETS PO SCH (21:07)
[2020-08-12] MEDS: ATORVASTATIN CA 10 MG TABLET (FP) PO SCH (21:08)
[2020-08-12] MEDS: MIRTAZAPINE 15 MG TABLET (FP) PO SCH (21:08)
[2020-08-13] MEDS ORDERED: PT OWN MED DRAWER 7, Y5N ONE ×2 (03:15→20:59)
[2020-08-13] MEDS: metFORMIN HCL 500 MG TABLET (FP) PO SCH ×2 (06:29→16:23)
[2020-08-13] MEDS: sitaGLIPtin PHOSPHATE 50 MG TABLET PO SCH (06:29)
[2020-08-13] MEDS: METHOCARBAMOL 500 MG TABLET PO SCH ×3 (06:29→21:11)
[2020-08-13] MEDS: NICOTINE 21 MG/24 HOURS TOPICAL PATCH TD SCH (09:36)
[2020-08-13] MEDS: LISINOPRIL 10 MG TABLET PO SCH (09:36)
[2020-08-13] MEDS: PRENATAL VITAMINS W/ FOLIC ACID TABLET (FP) PO SCH (09:36)
[2020-08-13] MEDS: levETIRAcetam 500 MG TABLET (FP) PO SCH ×2 (09:36→21:11)
[2020-08-13] MEDS: ATORVASTATIN CA 10 MG TABLET (FP) PO SCH (21:11)
[2020-08-13] MEDS: THIAMINE HCL 100 MG TABLET (FP) PO SCH (21:11)
[2020-08-13] MEDS: MELATONIN 5 MG TABLETS PO SCH (21:11)
[2020-08-13] MEDS: MIRTAZAPINE 15 MG TABLET (FP) PO SCH (21:12)
[2020-08-13] MEDS ORDERED: INSULIN (NOVOLOG) ASPART 100 UNITS/ML 10ML VIAL ONE (21:35)
[2020-08-14] MEDS ORDERED: PT OWN MED DRAWER 7, Y5N ONE ×2 (03:26→07:37)
[2020-08-14] MEDS: metFORMIN HCL 500 MG TABLET (FP) PO SCH ×2 (06:25→16:34)
[2020-08-14] MEDS: sitaGLIPtin PHOSPHATE 50 MG TABLET PO SCH (06:25)
[2020-08-14] MEDS: METHOCARBAMOL 500 MG TABLET PO SCH ×3 (06:25→21:10)
[2020-08-14] MEDS: LISINOPRIL 10 MG TABLET PO SCH (09:56)
[2020-08-14] MEDS: levETIRAcetam 500 MG TABLET (FP) PO SCH ×2 (09:56→21:10)
[2020-08-14] MEDS: NICOTINE 21 MG/24 HOURS TOPICAL PATCH TD SCH (09:56)
[2020-08-14] MEDS: PRENATAL VITAMINS W/ FOLIC ACID TABLET (FP) PO SCH (09:56)
[2020-08-14] MEDS: ATORVASTATIN CA 10 MG TABLET (FP) PO SCH (21:10)
[2020-08-14] MEDS: THIAMINE HCL 100 MG TABLET (FP) PO SCH (21:10)
[2020-08-14] MEDS: MELATONIN 5 MG TABLETS PO SCH (21:10)
[2020-08-14] MEDS: MIRTAZAPINE 15 MG TABLET (FP) PO SCH (21:11)
[2020-08-15] MEDS ORDERED: PT OWN MED DRAWER 7, Y5N ONE (03:24)
[2020-08-15] MEDS: metFORMIN HCL 500 MG TABLET (FP) PO SCH ×2 (06:29→16:46)
[2020-08-15] MEDS: METHOCARBAMOL 500 MG TABLET PO SCH ×3 (06:29→21:12)
[2020-08-15] MEDS: sitaGLIPtin PHOSPHATE 50 MG TABLET PO SCH (06:29)
[2020-08-15] MEDS: LISINOPRIL 10 MG TABLET PO SCH (09:28)
[2020-08-15] MEDS: PRENATAL VITAMINS W/ FOLIC ACID TABLET (FP) PO SCH (09:28)
[2020-08-15] MEDS: levETIRAcetam 500 MG TABLET (FP) PO SCH ×2 (09:28→21:12)
[2020-08-15] MEDS: NICOTINE 21 MG/24 HOURS TOPICAL PATCH TD SCH (09:29)
[2020-08-15] MEDS: THIAMINE HCL 100 MG TABLET (FP) PO SCH (21:12)
[2020-08-15] MEDS: ATORVASTATIN CA 10 MG TABLET (FP) PO SCH (21:12)
[2020-08-15] MEDS: MELATONIN 5 MG TABLETS PO SCH (21:12)
[2020-08-15] MEDS: MIRTAZAPINE 15 MG TABLET (FP) PO SCH (21:13)
[2020-08-16] MEDS ORDERED: PT OWN MED DRAWER 7, Y5N ONE ×3 (03:14→12:09)
[2020-08-16] MEDS: METHOCARBAMOL 500 MG TABLET PO SCH ×3 (06:34→21:12)
[2020-08-16] MEDS: metFORMIN HCL 500 MG TABLET (FP) PO SCH ×2 (06:34→16:39)
[2020-08-16] MEDS: sitaGLIPtin PHOSPHATE 50 MG TABLET PO SCH (06:34)
[2020-08-16] MEDS: PRENATAL VITAMINS W/ FOLIC ACID TABLET (FP) PO SCH (09:21)
[2020-08-16] MEDS: LISINOPRIL 10 MG TABLET PO SCH (09:21)
[2020-08-16] MEDS: NICOTINE 21 MG/24 HOURS TOPICAL PATCH TD SCH (09:21)
[2020-08-16] MEDS: levETIRAcetam 500 MG TABLET (FP) PO SCH ×2 (09:21→21:12)
[2020-08-16] MEDS: IBUPROFEN 400 MG TABLET (FP) PO PRN (09:22)
[2020-08-16] MEDS: THIAMINE HCL 100 MG TABLET (FP) PO SCH (21:12)
[2020-08-16] MEDS: ATORVASTATIN CA 10 MG TABLET (FP) PO SCH (21:12)
[2020-08-16] MEDS: MELATONIN 5 MG TABLETS PO SCH (21:12)
[2020-08-16] MEDS: MIRTAZAPINE 15 MG TABLET (FP) PO SCH (21:13)
[2020-08-17] MEDS ORDERED: PT OWN MED DRAWER 7, Y5N ONE ×4 (03:17→14:44)
[2020-08-17] MEDS: METHOCARBAMOL 500 MG TABLET PO SCH ×3 (06:39→21:11)
[2020-08-17] MEDS: metFORMIN HCL 500 MG TABLET (FP) PO SCH ×2 (06:39→16:32)
[2020-08-17] MEDS: sitaGLIPtin PHOSPHATE 50 MG TABLET PO SCH (06:39)
[2020-08-17] MEDS: PRENATAL VITAMINS W/ FOLIC ACID TABLET (FP) PO SCH (09:45)
[2020-08-17] MEDS: levETIRAcetam 500 MG TABLET (FP) PO SCH ×2 (09:45→21:11)
[2020-08-17] MEDS: NICOTINE 21 MG/24 HOURS TOPICAL PATCH TD SCH (09:45)
[2020-08-17] MEDS: LISINOPRIL 10 MG TABLET PO SCH (10:04)
[2020-08-17] MEDS: THIAMINE HCL 100 MG TABLET (FP) PO SCH (21:11)
[2020-08-17] MEDS: MELATONIN 5 MG TABLETS PO SCH (21:11)
[2020-08-17] MEDS: MIRTAZAPINE 15 MG TABLET (FP) PO SCH (21:11)
[2020-08-17] MEDS: ATORVASTATIN CA 10 MG TABLET (FP) PO SCH (21:11)
[2020-08-18] MEDS ORDERED: PT OWN MED DRAWER 7, Y5N ONE (02:12)
[2020-08-18] MEDS: metFORMIN HCL 500 MG TABLET (FP) PO SCH (06:19)
[2020-08-18] MEDS: sitaGLIPtin PHOSPHATE 50 MG TABLET PO SCH (06:19)
[2020-08-18] MEDS: METHOCARBAMOL 500 MG TABLET PO SCH (06:20)
[2020-08-18 06:40] VITALS: BP 113/77; PULSE 88; TEMP 97.1
== END 2020-08-18 07:05 | disposition home or self-care (01) | DRG 895 ==
LOC: YASAS 16:33 → Y6N 20:01 → Y3E 07-26 14:36
PROVIDERS: ADMIT Allergy & Immunology; ATTEND Allergy & Immunology
PROC: HZ2ZZZZ Detoxification Services for Substance Abuse Treatment (ICD-10-PCS; 2020-07-22)
PROC: HZ42ZZZ Group Counseling for Substance Abuse Treatment, Cognitive-Behavioral (ICD-10-PCS; principal; 2020-07-26)
DX: F10.20 Alcohol dependence, uncomplicated (principal); F17.210 Nicotine dependence, cigarettes, uncomplicated; F25.9 Schizoaffective disorder, unspecified; F31.9 Bipolar disorder, unspecified; F41.8 Other specified anxiety disorders; E78.5 Hyperlipidemia, unspecified; E11.9 Type 2 diabetes mellitus without complications; Z79.84 Long term (current) use of oral hypoglycemic drugs; I10 Essential (primary) hypertension; G40.909 Epilepsy, unspecified, not intractable, without status epilepticus; M62.838 Other muscle spasm
CPT/HCPCS: 36415; 80053; 80177; 82962; 85027; 86780; 87389; 93005; 93010; C9803; U0003

== ENCOUNTER 2021-04-24 10:18 | Inpatient (IN) | payer OTHER ==
[2021-04-24 10:34] VITALS: BMI 30.3
[2021-04-24] MEDS ORDERED: ONDANSETRON *ODT* 4 MG TABLET SL PRN (11:03)
[2021-04-24] MEDS ORDERED: BISMUTH SUBSALICYLATE 524 MG/30 ML PO PRN (11:03)
[2021-04-24] MEDS ORDERED: MAGNESIUM CITRATE 300 ML BOTTLE PO PRN (11:03)
[2021-04-24] MEDS ORDERED: METHOCARBAMOL 500 MG TABLET PO PRN (11:03)
[2021-04-24] MEDS ORDERED: MAGNESIUM HYDROX 2400MG/30ML ORAL SUSPENSION 30 ML CUP PO PRN (11:03)
[2021-04-24] MEDS ORDERED: NICOTINE 10 MG CARTRIDGE (INHALER) IH PRN (11:03)
[2021-04-24] MEDS ORDERED: ACETAMINOPHEN 325 MG TABLET (FP) PO PRN ×2 (11:03)
[2021-04-24] MEDS ORDERED: MAG HYDROX/AL HYDROX/SIMETH 30 ML UNIT-DOSE CUP PO PRN (11:03)
[2021-04-24] MEDS ORDERED: MENTHOL/PHENOL 1 EACH UD MM PRN (11:03)
[2021-04-24] MEDS: levETIRAcetam 500 MG TABLET (FP) PO SCH ×2 (13:03→22:30)
[2021-04-24] MEDS: LISINOPRIL 10 MG TABLET PO SCH (13:03)
[2021-04-24] MEDS: NICOTINE 21 MG/24 HOURS TOPICAL PATCH TD SCH (13:04)
[2021-04-24] MEDS: PRENATAL VITAMINS W/ FOLIC ACID TABLET (FP) PO SCH (13:04)
[2021-04-24] MEDS: hydrOXYzine PAMOATE 25 MG CAPSULE (FP) PO SCH ×3 (13:09→22:30)
[2021-04-24] MEDS: sitaGLIPtin PHOSPHATE 50 MG TABLET PO SCH (14:36)
[2021-04-24] MEDS: metFORMIN HCL 500 MG TABLET (FP) PO SCH (16:47)
[2021-04-24] MEDS: IBUPROFEN 400 MG TABLET (FP) PO PRN (17:14)
[2021-04-24] MEDS: MELATONIN 5 MG TABLETS PO SCH (22:30)
[2021-04-24] MEDS: ATORVASTATIN CA 10 MG TABLET (FP) PO SCH (22:30)
[2021-04-24] MEDS: THIAMINE HCL 100 MG TABLET (FP) PO SCH (22:30)
[2021-04-25] MEDS: hydrOXYzine PAMOATE 25 MG CAPSULE (FP) PO SCH ×5 (05:24→22:30)
[2021-04-25] MEDS: metFORMIN HCL 500 MG TABLET (FP) PO SCH ×2 (06:29→16:46)
[2021-04-25] MEDS ORDERED: chlordiazePOXIDE HCL 25 MG CAPSULE PO PRN (09:20)
[2021-04-25 09:50] LABS: HEMATOCRIT 41.8 % (35.4-49); HEMOGLOBIN 13.6 GM/dL (11.7-16.9); MCH 27.9 pg (25.7-33.7); MCHC 32.6 g/dl (32.0-35.9); MEAN CELL VOLUME 85.8 fl (80-96); MEAN PLT VOLUME 8.8 fl (7.5-11.1); PLATELET COUNT 251 10^3/uL (134-434); RBC 4.88 M/mm3 (4.00-5.60); RDW 14.1 % (11.9-15.9); WHITE BLOOD COUNT 6.8 K/mm3 (4.0-10.0)
[2021-04-25 10:00] LABS: ALBUMIN 3.4 g/dl (3.4-5.0); BLOOD UREA NITROGEN 9.4 mg/dL (7-18); CALCIUM 9.1 mg/dL (8.5-10.1)
[2021-04-25 10:01] LABS: BILIRUBIN,TOTAL 0.4 mg/dL (0.2-1)
[2021-04-25 10:05] LABS: CREATININE 1.1 mg/dL (0.55-1.3)
[2021-04-25] MEDS: chlordiazePOXIDE HCL 25 MG CAPSULE PO SCH ×3 (10:18→22:28)
[2021-04-25] MEDS: NICOTINE 21 MG/24 HOURS TOPICAL PATCH TD SCH (10:19)
[2021-04-25] MEDS: PRENATAL VITAMINS W/ FOLIC ACID TABLET (FP) PO SCH (10:19)
[2021-04-25] MEDS: LISINOPRIL 10 MG TABLET PO SCH (10:19)
[2021-04-25] MEDS: levETIRAcetam 500 MG TABLET (FP) PO SCH ×2 (10:19→22:29)
[2021-04-25] MEDS: sitaGLIPtin PHOSPHATE 50 MG TABLET PO SCH (10:20)
[2021-04-25] MEDS ORDERED: PNEUMOC 13-VAL CONJ-DIP CRM/PF 0.5 ML DISP.SYRIN IM ONE (11:47)
[2021-04-25] MEDS ORDERED: FLU VACC QS2021-22(6MOS UP)/PF 60 MCG/0.5 ML SYRINGE IM ONE (11:47)
[2021-04-25] MEDS: MIRTAZAPINE 15 MG TABLET (FP) PO SCH (22:29)
[2021-04-25] MEDS: ATORVASTATIN CA 10 MG TABLET (FP) PO SCH (22:29)
[2021-04-25] MEDS: THIAMINE HCL 100 MG TABLET (FP) PO SCH (22:29)
[2021-04-25] MEDS: MELATONIN 5 MG TABLETS PO SCH (22:30)
[2021-04-26] MEDS: hydrOXYzine PAMOATE 25 MG CAPSULE (FP) PO SCH ×5 (05:25→22:13)
[2021-04-26] MEDS: chlordiazePOXIDE HCL 10 MG CAPSULE PO SCH ×4 (05:25→22:15)
[2021-04-26] MEDS: metFORMIN HCL 500 MG TABLET (FP) PO SCH ×2 (07:59→16:36)
[2021-04-26] MEDS: LISINOPRIL 10 MG TABLET PO SCH (10:09)
[2021-04-26] MEDS: PRENATAL VITAMINS W/ FOLIC ACID TABLET (FP) PO SCH (10:09)
[2021-04-26] MEDS: NICOTINE 21 MG/24 HOURS TOPICAL PATCH TD SCH (10:09)
[2021-04-26] MEDS: sitaGLIPtin PHOSPHATE 50 MG TABLET PO SCH (10:09)
[2021-04-26] MEDS: levETIRAcetam 500 MG TABLET (FP) PO SCH ×2 (10:09→22:13)
[2021-04-26] MEDS ORDERED: INSULIN SLIDING SCALE (NOVOLOG) 1 VIAL SQ ONE (16:32)
[2021-04-26] MEDS: INSULIN (NOVOLOG) ASPART 100 UNITS/ML 10ML VIAL SQ SCH ×2 (16:34→22:12)
[2021-04-26] MEDS: IBUPROFEN 400 MG TABLET (FP) PO PRN (17:40)
[2021-04-26] MEDS: ATORVASTATIN CA 10 MG TABLET (FP) PO SCH (22:13)
[2021-04-26] MEDS: MIRTAZAPINE 15 MG TABLET (FP) PO SCH (22:13)
[2021-04-26] MEDS: THIAMINE HCL 100 MG TABLET (FP) PO SCH (22:13)
[2021-04-26] MEDS: MELATONIN 5 MG TABLETS PO SCH (22:13)
[2021-04-27] MEDS ORDERED: chlordiazePOXIDE HCL 10 MG CAPSULE PO SCH (05:00)
[2021-04-27] MEDS ORDERED: INSULIN SLIDING SCALE (NOVOLOG) 1 VIAL SQ ONE (05:22)
[2021-04-27] MEDS: hydrOXYzine PAMOATE 25 MG CAPSULE (FP) PO SCH (05:24)
[2021-04-27] MEDS: metFORMIN HCL 500 MG TABLET (FP) PO SCH (06:15)
[2021-04-27] MEDS: INSULIN (NOVOLOG) ASPART 100 UNITS/ML 10ML VIAL SQ SCH (06:16)
[2021-04-27 09:02] VITALS: BP 117/76; PULSE 108; TEMP 97.5
[2021-04-28] MEDS ORDERED: chlordiazePOXIDE HCL 10 MG CAPSULE PO PRN
[2021-04-28] MEDS ORDERED: chlordiazePOXIDE HCL 10 MG CAPSULE PO ONE (05:00)
== END 2021-04-27 10:05 | disposition left against medical advice (07) | DRG 770 ==
LOC: YASAS 10:18 → UNDOADMIN 11:53 → Y6N 11:53 → Y3N 12:03 → Y6N 04-26 15:05 → Y3N 04-26 15:05
PROVIDERS: ADMIT Allergy & Immunology; ATTEND Allergy & Immunology
PROC: HZ2ZZZZ Detoxification Services for Substance Abuse Treatment (ICD-10-PCS; principal; 2021-04-26)
DX: F10.230 Alcohol dependence with withdrawal, uncomplicated (principal); F10.282 Alcohol dependence with alcohol-induced sleep disorder; F17.210 Nicotine dependence, cigarettes, uncomplicated; F19.24 Other psychoactive substance dependence with psychoactive substance-induced mood disorder; F25.9 Schizoaffective disorder, unspecified; I10 Essential (primary) hypertension; E78.5 Hyperlipidemia, unspecified; E11.42 Type 2 diabetes mellitus with diabetic polyneuropathy; Z79.84 Long term (current) use of oral hypoglycemic drugs; G40.909 Epilepsy, unspecified, not intractable, without status epilepticus; R00.0 Tachycardia, unspecified; Z91.013 Allergy to seafood; Z91.018 Allergy to other foods; Z56.0 Unemployment, unspecified; Z59.02 Unsheltered homelessness
CPT/HCPCS: 36415; 80053; 80177; 82962; 85027; 86780; C9803; U0003; U0005

== ENCOUNTER 2021-06-04 14:23 | Inpatient (IN) | payer OTHER ==
[2021-06-04 17:29] VITALS: BMI 27.6
[2021-06-04] MEDS ORDERED: ONDANSETRON *ODT* 4 MG TABLET SL PRN (17:59)
[2021-06-04] MEDS ORDERED: METHOCARBAMOL 500 MG TABLET PO PRN (17:59)
[2021-06-04] MEDS ORDERED: NICOTINE 10 MG CARTRIDGE (INHALER) IH PRN (17:59)
[2021-06-04] MEDS ORDERED: MAGNESIUM HYDROX 2400MG/30ML ORAL SUSPENSION 30 ML CUP PO PRN (17:59)
[2021-06-04] MEDS ORDERED: MAG HYDROX/AL HYDROX/SIMETH 30 ML UNIT-DOSE CUP PO PRN (17:59)
[2021-06-04] MEDS ORDERED: MAGNESIUM CITRATE 300 ML BOTTLE PO PRN (17:59)
[2021-06-04] MEDS ORDERED: ACETAMINOPHEN 325 MG TABLET (FP) PO PRN ×2 (17:59)
[2021-06-04] MEDS ORDERED: MENTHOL/PHENOL 1 EACH UD MM PRN (17:59)
[2021-06-04] MEDS ORDERED: BISMUTH SUBSALICYLATE 524 MG/30 ML PO PRN (17:59)
[2021-06-04] MEDS ORDERED: chlordiazePOXIDE HCL 25 MG CAPSULE PO PRN (17:59)
[2021-06-04] MEDS ORDERED: hydrOXYzine PAMOATE 25 MG CAPSULE (FP) PO SCH (18:00)
[2021-06-04] MEDS: chlordiazePOXIDE HCL 25 MG CAPSULE PO SCH (22:06)
[2021-06-04] MEDS: MELATONIN 5 MG TABLETS PO SCH (22:06)
[2021-06-04] MEDS: THIAMINE HCL 100 MG TABLET (FP) PO SCH (22:06)
[2021-06-05] MEDS: chlordiazePOXIDE HCL 25 MG CAPSULE PO SCH ×4 (05:31→22:14)
[2021-06-05] MEDS: metFORMIN HCL 500 MG TABLET (FP) PO SCH ×2 (06:02→17:15)
[2021-06-05] MEDS: INSULIN SLIDING SCALE (NOVOLOG) 1 VIAL SQ SCH ×4 (06:02→22:17)
[2021-06-05] MEDS: sitaGLIPtin PHOSPHATE 50 MG TABLET PO SCH (07:59)
[2021-06-05] MEDS: LISINOPRIL 10 MG TABLET PO SCH (09:39)
[2021-06-05] MEDS: levETIRAcetam 500 MG TABLET (FP) PO SCH ×2 (09:39→22:14)
[2021-06-05] MEDS: PRENATAL VITAMINS W/ FOLIC ACID TABLET (FP) PO SCH (09:40)
[2021-06-05] MEDS ORDERED: FLU VACC QS2021-22(6MOS UP)/PF 60 MCG/0.5 ML SYRINGE IM ONE (12:00)
[2021-06-05 13:43] LABS: HEMOGLOBIN 13.7 GM/dL (11.7-16.9); MCH 27.5 pg (25.7-33.7); MCHC 31.8 g/dl (32.0-35.9); MEAN CELL VOLUME 86.5 fl (80-96); MEAN PLT VOLUME 9.7 fl (7.5-11.1); PLATELET COUNT 271 10^3/uL (134-434); RBC 4.97 M/mm3 (4.00-5.60); RDW 14.3 % (11.9-15.9); WHITE BLOOD COUNT 4.8 K/mm3 (4.0-10.0)
[2021-06-05 14:01] LABS: CALCIUM 9.5 mg/dL (8.5-10.1)
[2021-06-05 14:02] LABS: ALBUMIN 3.8 g/dl (3.4-5.0); BLOOD UREA NITROGEN 15.2 mg/dL (7-18)
[2021-06-05 14:05] LABS: CREATININE 1.1 mg/dL (0.55-1.3)
[2021-06-05 14:07] LABS: BILIRUBIN,TOTAL 0.7 mg/dL (0.2-1); TOT PROT 7.9 g/dl (6.4-8.2)
[2021-06-05] MEDS: ATORVASTATIN CA 10 MG TABLET (FP) PO SCH (22:14)
[2021-06-05] MEDS: THIAMINE HCL 100 MG TABLET (FP) PO SCH (22:14)
[2021-06-05] MEDS: MELATONIN 5 MG TABLETS PO SCH (22:14)
[2021-06-06] MEDS: chlordiazePOXIDE HCL 25 MG CAPSULE PO SCH ×4 (05:48→22:27)
[2021-06-06] MEDS: sitaGLIPtin PHOSPHATE 50 MG TABLET PO SCH (06:34)
[2021-06-06] MEDS: metFORMIN HCL 500 MG TABLET (FP) PO SCH ×2 (06:34→17:00)
[2021-06-06] MEDS: INSULIN SLIDING SCALE (NOVOLOG) 1 VIAL SQ SCH ×4 (06:57→22:26)
[2021-06-06] MEDS: PRENATAL VITAMINS W/ FOLIC ACID TABLET (FP) PO SCH (10:04)
[2021-06-06] MEDS: levETIRAcetam 500 MG TABLET (FP) PO SCH ×2 (10:04→22:26)
[2021-06-06] MEDS: LISINOPRIL 10 MG TABLET PO SCH (10:04)
[2021-06-06] MEDS: ATORVASTATIN CA 10 MG TABLET (FP) PO SCH (22:26)
[2021-06-06] MEDS: MIRTAZAPINE 15 MG TABLET (FP) PO SCH (22:26)
[2021-06-06] MEDS: THIAMINE HCL 100 MG TABLET (FP) PO SCH (22:26)
[2021-06-06] MEDS: MELATONIN 5 MG TABLETS PO SCH (22:26)
[2021-06-07] MEDS ORDERED: chlordiazePOXIDE HCL 10 MG CAPSULE PO PRN
[2021-06-07] MEDS: chlordiazePOXIDE HCL 10 MG CAPSULE PO SCH ×4 (05:46→22:31)
[2021-06-07] MEDS: hydrOXYzine PAMOATE 25 MG CAPSULE (FP) PO PRN (05:47)
[2021-06-07] MEDS: INSULIN SLIDING SCALE (NOVOLOG) 1 VIAL SQ SCH ×4 (06:31→22:35)
[2021-06-07] MEDS: sitaGLIPtin PHOSPHATE 50 MG TABLET PO SCH (06:34)
[2021-06-07] MEDS: metFORMIN HCL 500 MG TABLET (FP) PO SCH ×2 (06:34→16:59)
[2021-06-07] MEDS: IBUPROFEN 400 MG TABLET (FP) PO PRN (08:48)
[2021-06-07] MEDS ORDERED: traZODone HCL 100 MG TABLET (FP) PO PRN (09:27)
[2021-06-07] MEDS: LISINOPRIL 10 MG TABLET PO SCH (10:21)
[2021-06-07] MEDS: levETIRAcetam 500 MG TABLET (FP) PO SCH ×2 (10:21→22:31)
[2021-06-07] MEDS: PRENATAL VITAMINS W/ FOLIC ACID TABLET (FP) PO SCH (10:21)
[2021-06-07] MEDS: MIRTAZAPINE 15 MG TABLET (FP) PO SCH (22:30)
[2021-06-07] MEDS: ATORVASTATIN CA 10 MG TABLET (FP) PO SCH (22:30)
[2021-06-07] MEDS: MELATONIN 5 MG TABLETS PO SCH (22:31)
[2021-06-07] MEDS: THIAMINE HCL 100 MG TABLET (FP) PO SCH (22:31)
[2021-06-07] MEDS: INSULIN (LEVEMIR) 100 UNITS/ML UNITS SQ SCH (22:36)
[2021-06-08] MEDS: chlordiazePOXIDE HCL 10 MG CAPSULE PO SCH ×2 (05:51→17:22)
[2021-06-08] MEDS: INSULIN SLIDING SCALE (NOVOLOG) 1 VIAL SQ SCH ×4 (06:01→23:18)
[2021-06-08] MEDS: metFORMIN HCL 500 MG TABLET (FP) PO SCH ×2 (06:01→17:22)
[2021-06-08] MEDS: sitaGLIPtin PHOSPHATE 50 MG TABLET PO SCH (06:02)
[2021-06-08] MEDS: LISINOPRIL 10 MG TABLET PO SCH (09:40)
[2021-06-08] MEDS: hydrOXYzine PAMOATE 25 MG CAPSULE (FP) PO PRN ×2 (09:40→17:22)
[2021-06-08] MEDS: IBUPROFEN 400 MG TABLET (FP) PO PRN (09:41)
[2021-06-08] MEDS: PRENATAL VITAMINS W/ FOLIC ACID TABLET (FP) PO SCH (09:41)
[2021-06-08] MEDS: levETIRAcetam 500 MG TABLET (FP) PO SCH ×2 (09:41→22:58)
[2021-06-08 18:56] LABS: HIV INTERPRETATION NEGATIVE (NEGATIVE)
[2021-06-08] MEDS: THIAMINE HCL 100 MG TABLET (FP) PO SCH (22:56)
[2021-06-08] MEDS: MIRTAZAPINE 15 MG TABLET (FP) PO SCH (22:56)
[2021-06-08] MEDS: ATORVASTATIN CA 10 MG TABLET (FP) PO SCH (22:59)
[2021-06-08] MEDS: INSULIN (LEVEMIR) 100 UNITS/ML UNITS SQ SCH (23:17)
[2021-06-08] MEDS: MELATONIN 5 MG TABLETS PO SCH (23:17)
[2021-06-09] MEDS ORDERED: chlordiazePOXIDE HCL 10 MG CAPSULE PO ONE (05:00)
[2021-06-09] MEDS: metFORMIN HCL 500 MG TABLET (FP) PO SCH (06:01)
[2021-06-09] MEDS: sitaGLIPtin PHOSPHATE 50 MG TABLET PO SCH (06:01)
[2021-06-09] MEDS: INSULIN SLIDING SCALE (NOVOLOG) 1 VIAL SQ SCH (06:05)
[2021-06-09 08:52] VITALS: BP 112/76; PULSE 103; TEMP 97.3
== END 2021-06-09 08:40 | disposition other institution (70) | DRG 775 ==
LOC: YASAS 14:23 → Y3N 18:56
PROVIDERS: ADMIT Allergy & Immunology; ATTEND Allergy & Immunology
PROC: HZ2ZZZZ Detoxification Services for Substance Abuse Treatment (ICD-10-PCS; principal; 2021-06-04)
DX: F10.230 Alcohol dependence with withdrawal, uncomplicated (principal); F17.210 Nicotine dependence, cigarettes, uncomplicated; F25.9 Schizoaffective disorder, unspecified; F10.282 Alcohol dependence with alcohol-induced sleep disorder; F10.280 Alcohol dependence with alcohol-induced anxiety disorder; F10.24 Alcohol dependence with alcohol-induced mood disorder; F32.A Depression, unspecified; E11.42 Type 2 diabetes mellitus with diabetic polyneuropathy; Z79.84 Long term (current) use of oral hypoglycemic drugs; E78.5 Hyperlipidemia, unspecified; I10 Essential (primary) hypertension; G47.00 Insomnia, unspecified; G40.909 Epilepsy, unspecified, not intractable, without status epilepticus; Z59.02 Unsheltered homelessness; Z56.0 Unemployment, unspecified; Z91.018 Allergy to other foods
CPT/HCPCS: 36415; 80053; 82962; 85027; 86780; 87389; 90686; C9803; G0008; U0003; U0005

== ENCOUNTER 2022-05-08 09:42 | Inpatient (IN) | payer OTHER ==
[2022-05-08 11:13] VITALS: BMI 27.4
[2022-05-08] MEDS ORDERED: MAGNESIUM HYDROX 2400MG/30ML ORAL SUSPENSION 30 ML CUP PO PRN (12:32)
[2022-05-08] MEDS ORDERED: BISMUTH SUBSALICYLATE 524 MG/30 ML PO PRN (12:32)
[2022-05-08] MEDS ORDERED: POLYETHYLENE GLYCOL (HEALTHYLAX) 3350 17 GM PACKET PO PRN (12:32)
[2022-05-08] MEDS ORDERED: ONDANSETRON *ODT* 4 MG TABLET SL PRN (12:32)
[2022-05-08] MEDS ORDERED: LOPERAMIDE HCL 2 MG CAPSULE PO PRN (12:32)
[2022-05-08] MEDS ORDERED: IBUPROFEN 400 MG TABLET (FP) PO PRN (12:32)
[2022-05-08] MEDS ORDERED: ACETAMINOPHEN 325 MG TABLET (FP) PO PRN ×2 (12:32)
[2022-05-08] MEDS ORDERED: BENZOCAINE/MENTHOL (CHLORASEPTIC ) LOZENGE MM PRN (12:32)
[2022-05-08] MEDS ORDERED: chlordiazePOXIDE HCL 25 MG CAPSULE PO PRN (12:32)
[2022-05-08] MEDS ORDERED: NALOXONE HCL (KLOXXADO) 8 MG SPRAY NS PRN (12:32)
[2022-05-08] MEDS ORDERED: DICYCLOMINE HCL 10 MG CAPSULE PO PRN (12:32)
[2022-05-08] MEDS ORDERED: MAG HYDROX/AL HYDROX/SIMETH 30 ML UNIT-DOSE CUP PO PRN (12:32)
[2022-05-08] MEDS: IBUPROFEN 600 MG TABLET (FP) PO PRN (13:35)
[2022-05-08] MEDS: metFORMIN HCL 500 MG TABLET (FP) PO SCH (16:50)
[2022-05-08] MEDS: chlordiazePOXIDE HCL 25 MG CAPSULE PO SCH ×2 (17:18→22:22)
[2022-05-08] MEDS: THIAMINE HCL 100 MG TABLET (FP) PO SCH (22:21)
[2022-05-08] MEDS: ATORVASTATIN CA 10 MG TABLET (FP) PO SCH (22:21)
[2022-05-08] MEDS: levETIRAcetam 500 MG TABLET (FP) PO SCH (22:21)
[2022-05-08] MEDS: MELATONIN 5 MG TABLETS PO SCH (22:21)
[2022-05-09] MEDS: chlordiazePOXIDE HCL 25 MG CAPSULE PO SCH ×4 (05:08→22:04)
[2022-05-09] MEDS: metFORMIN HCL 500 MG TABLET (FP) PO SCH ×2 (07:05→16:41)
[2022-05-09] MEDS: sitaGLIPtin PHOSPHATE 50 MG TABLET PO SCH (07:05)
[2022-05-09] MEDS: LISINOPRIL 10 MG TABLET PO SCH (10:08)
[2022-05-09] MEDS: levETIRAcetam 500 MG TABLET (FP) PO SCH ×2 (10:09→22:04)
[2022-05-09 10:58] LABS: HEMATOCRIT 41.4 % (35.4-49); HEMOGLOBIN 13.2 GM/dL (11.7-16.9); MCH 27.6 pg (25.7-33.7); MCHC 31.9 g/dl (32.0-35.9); MEAN CELL VOLUME 86.5 fl (80-96); PLATELET COUNT 269 10^3/uL (134-434); RBC 4.79 M/mm3 (4.00-5.60); RDW 14.1 % (11.9-15.9); WHITE BLOOD COUNT 5.3 K/mm3 (4.0-10.0)
[2022-05-09 11:08] LABS: ALBUMIN 3.6 g/dl (3.4-5.0); BLOOD UREA NITROGEN 8.8 mg/dL (7-18); CALCIUM 9.2 mg/dL (8.5-10.1)
[2022-05-09] MEDS: PRENATAL VITAMINS W/ FOLIC ACID TABLET (FP) PO SCH (11:08)
[2022-05-09 11:13] LABS: BILIRUBIN,TOTAL 0.4 mg/dL (0.2-1); TOT PROT 7.8 g/dl (6.4-8.2)
[2022-05-09] MEDS: IBUPROFEN 600 MG TABLET (FP) PO PRN (13:24)
[2022-05-09] MEDS: NICOTINE 10 MG CARTRIDGE (INHALER) IH PRN ×2 (18:05→22:28)
[2022-05-09] MEDS: ATORVASTATIN CA 10 MG TABLET (FP) PO SCH (22:03)
[2022-05-09] MEDS: MIRTAZAPINE 15 MG TABLET (FP) PO SCH (22:03)
[2022-05-09] MEDS: THIAMINE HCL 100 MG TABLET (FP) PO SCH (22:03)
[2022-05-09] MEDS: MELATONIN 5 MG TABLETS PO SCH (22:28)
[2022-05-10] MEDS: chlordiazePOXIDE HCL 25 MG CAPSULE PO SCH ×4 (05:10→22:17)
[2022-05-10] MEDS: metFORMIN HCL 500 MG TABLET (FP) PO SCH ×2 (06:48→16:25)
[2022-05-10] MEDS: sitaGLIPtin PHOSPHATE 50 MG TABLET PO SCH (06:48)
[2022-05-10] MEDS: PRENATAL VITAMINS W/ FOLIC ACID TABLET (FP) PO SCH (09:58)
[2022-05-10] MEDS: levETIRAcetam 500 MG TABLET (FP) PO SCH ×2 (09:59→22:17)
[2022-05-10] MEDS: hydrOXYzine PAMOATE 25 MG CAPSULE (FP) PO PRN (09:59)
[2022-05-10] MEDS: METHOCARBAMOL 500 MG TABLET PO PRN (09:59)
[2022-05-10] MEDS: LISINOPRIL 10 MG TABLET PO SCH (09:59)
[2022-05-10] MEDS: NICOTINE 10 MG CARTRIDGE (INHALER) IH PRN (16:19)
[2022-05-10] MEDS: MIRTAZAPINE 15 MG TABLET (FP) PO SCH (22:17)
[2022-05-10] MEDS: THIAMINE HCL 100 MG TABLET (FP) PO SCH (22:17)
[2022-05-10] MEDS: ATORVASTATIN CA 10 MG TABLET (FP) PO SCH (22:17)
[2022-05-10] MEDS: MELATONIN 5 MG TABLETS PO SCH (22:18)
[2022-05-11] MEDS ORDERED: chlordiazePOXIDE HCL 10 MG CAPSULE PO PRN
[2022-05-11] MEDS: chlordiazePOXIDE HCL 10 MG CAPSULE PO SCH ×4 (05:17→23:10)
[2022-05-11] MEDS: metFORMIN HCL 500 MG TABLET (FP) PO SCH ×2 (06:20→16:49)
[2022-05-11] MEDS: sitaGLIPtin PHOSPHATE 50 MG TABLET PO SCH (06:20)
[2022-05-11] MEDS: LISINOPRIL 10 MG TABLET PO SCH (10:11)
[2022-05-11] MEDS: METHOCARBAMOL 500 MG TABLET PO PRN (10:11)
[2022-05-11] MEDS: PRENATAL VITAMINS W/ FOLIC ACID TABLET (FP) PO SCH (10:11)
[2022-05-11] MEDS: levETIRAcetam 500 MG TABLET (FP) PO SCH ×2 (10:11→22:46)
[2022-05-11] MEDS: hydrOXYzine PAMOATE 25 MG CAPSULE (FP) PO PRN (10:11)
[2022-05-11] MEDS: NICOTINE 10 MG CARTRIDGE (INHALER) IH PRN (11:01)
[2022-05-11] MEDS: INSULIN (NOVOLOG) ASPART 100 UNITS/ML 10ML VIAL SQ SCH ×2 (16:41→22:47)
[2022-05-11] MEDS ORDERED: INSULIN (NOVOLOG) ASPART 100 UNITS/ML 10ML VIAL ONE ×2 (16:48→23:18)
[2022-05-11] MEDS: THIAMINE HCL 100 MG TABLET (FP) PO SCH (22:46)
[2022-05-11] MEDS: ATORVASTATIN CA 10 MG TABLET (FP) PO SCH (22:46)
[2022-05-11] MEDS: MELATONIN 5 MG TABLETS PO SCH (22:47)
[2022-05-11] MEDS: MIRTAZAPINE 15 MG TABLET (FP) PO SCH (23:09)
[2022-05-12] MEDS: chlordiazePOXIDE HCL 10 MG CAPSULE PO SCH ×2 (05:14→16:40)
[2022-05-12] MEDS ORDERED: INSULIN (NOVOLOG) ASPART 100 UNITS/ML 10ML VIAL ONE ×4 (07:19→22:28)
[2022-05-12] MEDS: sitaGLIPtin PHOSPHATE 50 MG TABLET PO SCH (07:21)
[2022-05-12] MEDS: metFORMIN HCL 500 MG TABLET (FP) PO SCH ×2 (07:21→16:40)
[2022-05-12] MEDS: INSULIN (NOVOLOG) ASPART 100 UNITS/ML 10ML VIAL SQ SCH ×4 (07:23→22:19)
[2022-05-12] MEDS: PRENATAL VITAMINS W/ FOLIC ACID TABLET (FP) PO SCH (10:02)
[2022-05-12] MEDS: LISINOPRIL 10 MG TABLET PO SCH (10:02)
[2022-05-12] MEDS: levETIRAcetam 500 MG TABLET (FP) PO SCH ×2 (10:02→22:19)
[2022-05-12] MEDS: hydrOXYzine PAMOATE 25 MG CAPSULE (FP) PO PRN (10:02)
[2022-05-12] MEDS: THIAMINE HCL 100 MG TABLET (FP) PO SCH (22:19)
[2022-05-12] MEDS: ATORVASTATIN CA 10 MG TABLET (FP) PO SCH (22:19)
[2022-05-12] MEDS: MIRTAZAPINE 15 MG TABLET (FP) PO SCH (22:19)
[2022-05-12] MEDS: MELATONIN 5 MG TABLETS PO SCH (23:09)
[2022-05-13] MEDS ORDERED: chlordiazePOXIDE HCL 10 MG CAPSULE PO ONE (05:00)
[2022-05-13] MEDS: metFORMIN HCL 500 MG TABLET (FP) PO SCH (06:03)
[2022-05-13] MEDS: sitaGLIPtin PHOSPHATE 50 MG TABLET PO SCH (06:04)
[2022-05-13] MEDS: INSULIN (NOVOLOG) ASPART 100 UNITS/ML 10ML VIAL SQ SCH ×2 (06:45→11:46)
[2022-05-13] MEDS ORDERED: INSULIN (NOVOLOG) ASPART 100 UNITS/ML 10ML VIAL ONE (07:35)
[2022-05-13 09:09] VITALS: RESP 18
[2022-05-13] MEDS: levETIRAcetam 500 MG TABLET (FP) PO SCH (10:07)
[2022-05-13] MEDS: PRENATAL VITAMINS W/ FOLIC ACID TABLET (FP) PO SCH (10:07)
[2022-05-13] MEDS: LISINOPRIL 10 MG TABLET PO SCH (10:09)
[2022-05-13 12:58] VITALS: BP 141/80; PULSE 109; TEMP 97.5
== END 2022-05-13 12:16 | disposition other institution (70) | DRG 775 ==
LOC: YASAS 09:42 → Y6N 12:42
PROVIDERS: ADMIT Allergy & Immunology; ATTEND Surgery
PROC: HZ2ZZZZ Detoxification Services for Substance Abuse Treatment (ICD-10-PCS; principal; 2022-05-08)
DX: F10.230 Alcohol dependence with withdrawal, uncomplicated (principal); F17.210 Nicotine dependence, cigarettes, uncomplicated; F10.282 Alcohol dependence with alcohol-induced sleep disorder; F25.9 Schizoaffective disorder, unspecified; F31.9 Bipolar disorder, unspecified; E78.5 Hyperlipidemia, unspecified; G62.9 Polyneuropathy, unspecified; I10 Essential (primary) hypertension; E11.9 Type 2 diabetes mellitus without complications; Z79.84 Long term (current) use of oral hypoglycemic drugs; Z91.014 Allergy to mammalian meats; Z91.018 Allergy to other foods
CPT/HCPCS: 36415; 80053; 82962; 85027; 86780; C9803-CS; Q0162; U0003; U0005

== ENCOUNTER 2022-05-13 12:23 | Inpatient (IN) | payer OTHER ==
[2022-05-13] MEDS ORDERED: MAGNESIUM HYDROX 2400MG/30ML ORAL SUSPENSION 30 ML CUP PO PRN (14:49)
[2022-05-13] MEDS ORDERED: P-EPHED 60MG/TRIPROLIDI 2.5MG TABLET PO PRN (14:49)
[2022-05-13] MEDS ORDERED: POLYETHYLENE GLYCOL (HEALTHYLAX) 3350 17 GM PACKET PO PRN (14:49)
[2022-05-13] MEDS ORDERED: guaiFENesin 200 MG/10 ML 10 ML UNIT-DOSE CUPS PO PRN (14:49)
[2022-05-13] MEDS ORDERED: ACETAMINOPHEN 325 MG TABLET (FP) PO PRN (14:49)
[2022-05-13] MEDS ORDERED: hydrOXYzine PAMOATE 25 MG CAPSULE (FP) PO PRN (14:49)
[2022-05-13] MEDS ORDERED: BENZOCAINE/MENTHOL (CHLORASEPTIC ) LOZENGE MM PRN (14:49)
[2022-05-13] MEDS ORDERED: LOPERAMIDE HCL 2 MG CAPSULE PO PRN (14:49)
[2022-05-13] MEDS ORDERED: MAG HYDROX/AL HYDROX/SIMETH 30 ML UNIT-DOSE CUP PO PRN (14:49)
[2022-05-13] MEDS: NICOTINE 10 MG CARTRIDGE (INHALER) IH PRN ×2 (15:07→19:06)
[2022-05-13] MEDS ORDERED: INSULIN (NOVOLOG) ASPART 100 UNITS/ML 10ML VIAL ONE (16:14)
[2022-05-13] MEDS: metFORMIN HCL 500 MG TABLET (FP) PO SCH (16:18)
[2022-05-13] MEDS ORDERED: INSULIN SLIDING SCALE (NOVOLOG) 1 VIAL SQ SCH (16:30)
[2022-05-13] MEDS: ATORVASTATIN CA 10 MG TABLET (FP) PO SCH (21:15)
[2022-05-13] MEDS: MIRTAZAPINE 15 MG TABLET (FP) PO SCH (21:15)
[2022-05-13] MEDS: MELATONIN 5 MG TABLETS PO SCH (21:15)
[2022-05-13] MEDS: THIAMINE HCL 100 MG TABLET (FP) PO SCH (21:15)
[2022-05-13] MEDS: levETIRAcetam 500 MG TABLET (FP) PO SCH (21:15)
[2022-05-14] MEDS: metFORMIN HCL 500 MG TABLET (FP) PO SCH ×2 (06:09→16:43)
[2022-05-14] MEDS: sitaGLIPtin PHOSPHATE 50 MG TABLET PO SCH (06:10)
[2022-05-14] MEDS: INSULIN SLIDING SCALE (NOVOLOG) 1 VIAL SQ SCH ×2 (06:10→16:45)
[2022-05-14] MEDS ORDERED: INSULIN (NOVOLOG) ASPART 100 UNITS/ML 10ML VIAL ONE ×2 (06:12→16:42)
[2022-05-14] MEDS: NICOTINE 10 MG CARTRIDGE (INHALER) IH PRN ×3 (08:38→18:56)
[2022-05-14] MEDS: PRENATAL VITAMINS W/ FOLIC ACID TABLET (FP) PO SCH (09:37)
[2022-05-14] MEDS: levETIRAcetam 500 MG TABLET (FP) PO SCH ×2 (09:38→21:19)
[2022-05-14] MEDS: LISINOPRIL 10 MG TABLET PO SCH (09:38)
[2022-05-14] MEDS: ATORVASTATIN CA 10 MG TABLET (FP) PO SCH (21:19)
[2022-05-14] MEDS: MELATONIN 5 MG TABLETS PO SCH (21:19)
[2022-05-14] MEDS: MIRTAZAPINE 15 MG TABLET (FP) PO SCH (21:19)
[2022-05-14] MEDS: THIAMINE HCL 100 MG TABLET (FP) PO SCH (21:19)
[2022-05-15] MEDS: metFORMIN HCL 500 MG TABLET (FP) PO SCH ×2 (06:10→16:37)
[2022-05-15] MEDS: sitaGLIPtin PHOSPHATE 50 MG TABLET PO SCH (06:10)
[2022-05-15] MEDS: INSULIN SLIDING SCALE (NOVOLOG) 1 VIAL SQ SCH ×2 (06:13→16:38)
[2022-05-15] MEDS ORDERED: INSULIN (NOVOLOG) ASPART 100 UNITS/ML 10ML VIAL ONE ×2 (06:13→16:32)
[2022-05-15] MEDS: NICOTINE 10 MG CARTRIDGE (INHALER) IH PRN ×2 (08:52→17:54)
[2022-05-15] MEDS: LISINOPRIL 10 MG TABLET PO SCH (09:36)
[2022-05-15] MEDS: PRENATAL VITAMINS W/ FOLIC ACID TABLET (FP) PO SCH (09:36)
[2022-05-15] MEDS: levETIRAcetam 500 MG TABLET (FP) PO SCH ×2 (09:36→21:29)
[2022-05-15] MEDS: THIAMINE HCL 100 MG TABLET (FP) PO SCH (21:29)
[2022-05-15] MEDS: ATORVASTATIN CA 10 MG TABLET (FP) PO SCH (21:29)
[2022-05-15] MEDS: MIRTAZAPINE 15 MG TABLET (FP) PO SCH (21:29)
[2022-05-15] MEDS: MELATONIN 5 MG TABLETS PO SCH (21:29)
[2022-05-16] MEDS: sitaGLIPtin PHOSPHATE 50 MG TABLET PO SCH (06:16)
[2022-05-16] MEDS: metFORMIN HCL 500 MG TABLET (FP) PO SCH ×2 (06:16→16:23)
[2022-05-16] MEDS: INSULIN SLIDING SCALE (NOVOLOG) 1 VIAL SQ SCH ×2 (06:18→16:24)
[2022-05-16] MEDS ORDERED: INSULIN (NOVOLOG) ASPART 100 UNITS/ML 10ML VIAL ONE ×2 (06:18→16:18)
[2022-05-16] MEDS: levETIRAcetam 500 MG TABLET (FP) PO SCH ×2 (09:31→21:34)
[2022-05-16] MEDS: LISINOPRIL 10 MG TABLET PO SCH (09:31)
[2022-05-16] MEDS: PRENATAL VITAMINS W/ FOLIC ACID TABLET (FP) PO SCH (09:31)
[2022-05-16] MEDS: MELATONIN 5 MG TABLETS PO SCH (21:33)
[2022-05-16] MEDS: ATORVASTATIN CA 10 MG TABLET (FP) PO SCH (21:34)
[2022-05-16] MEDS: MIRTAZAPINE 15 MG TABLET (FP) PO SCH (21:34)
[2022-05-16] MEDS: THIAMINE HCL 100 MG TABLET (FP) PO SCH (21:34)
[2022-05-17] MEDS ORDERED: INSULIN (NOVOLOG) ASPART 100 UNITS/ML 10ML VIAL ONE ×2 (05:59→16:17)
[2022-05-17] MEDS: metFORMIN HCL 500 MG TABLET (FP) PO SCH ×2 (06:01→16:19)
[2022-05-17] MEDS: sitaGLIPtin PHOSPHATE 50 MG TABLET PO SCH (06:01)
[2022-05-17] MEDS: INSULIN SLIDING SCALE (NOVOLOG) 1 VIAL SQ SCH ×2 (07:14→16:20)
[2022-05-17] MEDS: levETIRAcetam 500 MG TABLET (FP) PO SCH ×2 (09:34→21:20)
[2022-05-17] MEDS: LISINOPRIL 10 MG TABLET PO SCH (09:34)
[2022-05-17] MEDS: PRENATAL VITAMINS W/ FOLIC ACID TABLET (FP) PO SCH (09:34)
[2022-05-17] MEDS: ATORVASTATIN CA 10 MG TABLET (FP) PO SCH (21:20)
[2022-05-17] MEDS: MELATONIN 5 MG TABLETS PO SCH (21:20)
[2022-05-17] MEDS: THIAMINE HCL 100 MG TABLET (FP) PO SCH (21:20)
[2022-05-17] MEDS: MIRTAZAPINE 15 MG TABLET (FP) PO SCH (21:20)
[2022-05-18] MEDS ORDERED: INSULIN (NOVOLOG) ASPART 100 UNITS/ML 10ML VIAL ONE ×2 (06:43→16:33)
[2022-05-18] MEDS: INSULIN SLIDING SCALE (NOVOLOG) 1 VIAL SQ SCH ×2 (06:44→16:37)
[2022-05-18] MEDS: metFORMIN HCL 500 MG TABLET (FP) PO SCH ×2 (06:45→16:38)
[2022-05-18] MEDS: sitaGLIPtin PHOSPHATE 50 MG TABLET PO SCH (06:45)
[2022-05-18] MEDS: LISINOPRIL 10 MG TABLET PO SCH (09:41)
[2022-05-18] MEDS: PRENATAL VITAMINS W/ FOLIC ACID TABLET (FP) PO SCH (09:41)
[2022-05-18] MEDS: levETIRAcetam 500 MG TABLET (FP) PO SCH ×2 (09:41→21:14)
[2022-05-18] MEDS ORDERED: NICOTINE 10 MG CARTRIDGE (INHALER) IH SCH (10:45)
[2022-05-18] MEDS ORDERED: NICOTINE 10 MG CARTRIDGE (INHALER) IH ONE (11:00)
[2022-05-18] MEDS: LACTULOSE 20 GM/30 ML UDC (FOR ORAL USE ONLY) PO SCH ×3 (12:00→21:14)
[2022-05-18] MEDS: NICOTINE 10 MG CARTRIDGE (INHALER) IH PRN ×2 (14:09→19:12)
[2022-05-18] MEDS: THIAMINE HCL 100 MG TABLET (FP) PO SCH (21:14)
[2022-05-18] MEDS: MIRTAZAPINE 15 MG TABLET (FP) PO SCH (21:14)
[2022-05-18] MEDS: ATORVASTATIN CA 10 MG TABLET (FP) PO SCH (21:14)
[2022-05-18] MEDS: MELATONIN 5 MG TABLETS PO SCH (21:16)
[2022-05-19] MEDS: LACTULOSE 20 GM/30 ML UDC (FOR ORAL USE ONLY) PO SCH ×3 (05:59→21:22)
[2022-05-19] MEDS ORDERED: INSULIN (NOVOLOG) ASPART 100 UNITS/ML 10ML VIAL ONE ×2 (06:47→16:22)
[2022-05-19] MEDS: INSULIN SLIDING SCALE (NOVOLOG) 1 VIAL SQ SCH ×2 (06:52→16:23)
[2022-05-19] MEDS: metFORMIN HCL 500 MG TABLET (FP) PO SCH ×2 (06:53→16:25)
[2022-05-19] MEDS: sitaGLIPtin PHOSPHATE 50 MG TABLET PO SCH (06:53)
[2022-05-19] MEDS: NICOTINE 10 MG CARTRIDGE (INHALER) IH PRN (08:12)
[2022-05-19] MEDS: LISINOPRIL 10 MG TABLET PO SCH (09:54)
[2022-05-19] MEDS: levETIRAcetam 500 MG TABLET (FP) PO SCH ×2 (09:54→21:22)
[2022-05-19] MEDS: PRENATAL VITAMINS W/ FOLIC ACID TABLET (FP) PO SCH (09:54)
[2022-05-19] MEDS: MELATONIN 5 MG TABLETS PO SCH (21:23)
[2022-05-19] MEDS: ATORVASTATIN CA 10 MG TABLET (FP) PO SCH (21:23)
[2022-05-19] MEDS: MIRTAZAPINE 15 MG TABLET (FP) PO SCH (21:23)
[2022-05-19] MEDS: THIAMINE HCL 100 MG TABLET (FP) PO SCH (21:23)
[2022-05-20] MEDS: metFORMIN HCL 500 MG TABLET (FP) PO SCH ×2 (06:07→16:37)
[2022-05-20] MEDS: LACTULOSE 20 GM/30 ML UDC (FOR ORAL USE ONLY) PO SCH ×2 (06:07→21:29)
[2022-05-20] MEDS ORDERED: INSULIN (NOVOLOG) ASPART 100 UNITS/ML 10ML VIAL ONE ×2 (06:13→16:33)
[2022-05-20] MEDS: INSULIN SLIDING SCALE (NOVOLOG) 1 VIAL SQ SCH ×2 (06:14→16:37)
[2022-05-20] MEDS: sitaGLIPtin PHOSPHATE 50 MG TABLET PO SCH (07:16)
[2022-05-20] MEDS: LISINOPRIL 10 MG TABLET PO SCH (09:52)
[2022-05-20] MEDS: levETIRAcetam 500 MG TABLET (FP) PO SCH ×2 (09:52→21:28)
[2022-05-20] MEDS: PRENATAL VITAMINS W/ FOLIC ACID TABLET (FP) PO SCH (09:52)
[2022-05-20] MEDS: NICOTINE 10 MG CARTRIDGE (INHALER) IH PRN ×3 (10:17→20:06)
[2022-05-20] MEDS: MIRTAZAPINE 15 MG TABLET (FP) PO SCH (21:28)
[2022-05-20] MEDS: MELATONIN 5 MG TABLETS PO SCH (21:28)
[2022-05-20] MEDS: ATORVASTATIN CA 10 MG TABLET (FP) PO SCH (21:28)
[2022-05-20] MEDS: THIAMINE HCL 100 MG TABLET (FP) PO SCH (21:28)
[2022-05-20] MEDS ORDERED: IBUPROFEN 400 MG TABLET (FP) PO ONE (22:09)
[2022-05-21] MEDS: metFORMIN HCL 500 MG TABLET (FP) PO SCH ×2 (06:09→16:44)
[2022-05-21] MEDS ORDERED: INSULIN (NOVOLOG) ASPART 100 UNITS/ML 10ML VIAL ONE ×2 (06:09→16:40)
[2022-05-21] MEDS: sitaGLIPtin PHOSPHATE 50 MG TABLET PO SCH (06:09)
[2022-05-21] MEDS: INSULIN SLIDING SCALE (NOVOLOG) 1 VIAL SQ SCH ×2 (07:09→16:45)
[2022-05-21] MEDS: PRENATAL VITAMINS W/ FOLIC ACID TABLET (FP) PO SCH (09:46)
[2022-05-21] MEDS: LACTULOSE 20 GM/30 ML UDC (FOR ORAL USE ONLY) PO SCH ×2 (09:47→21:29)
[2022-05-21] MEDS: LISINOPRIL 10 MG TABLET PO SCH (09:47)
[2022-05-21] MEDS: levETIRAcetam 500 MG TABLET (FP) PO SCH ×2 (09:47→21:28)
[2022-05-21] MEDS: ATORVASTATIN CA 10 MG TABLET (FP) PO SCH (21:28)
[2022-05-21] MEDS: THIAMINE HCL 100 MG TABLET (FP) PO SCH (21:28)
[2022-05-21] MEDS: MIRTAZAPINE 15 MG TABLET (FP) PO SCH (21:28)
[2022-05-21] MEDS: MELATONIN 5 MG TABLETS PO SCH (21:28)
[2022-05-22] MEDS ORDERED: INSULIN (NOVOLOG) ASPART 100 UNITS/ML 10ML VIAL ONE (03:59)
[2022-05-22] MEDS: metFORMIN HCL 500 MG TABLET (FP) PO SCH ×2 (06:11→16:53)
[2022-05-22] MEDS: sitaGLIPtin PHOSPHATE 50 MG TABLET PO SCH (06:12)
[2022-05-22] MEDS: INSULIN SLIDING SCALE (NOVOLOG) 1 VIAL SQ SCH ×2 (07:18→16:54)
[2022-05-22] MEDS: NICOTINE 10 MG CARTRIDGE (INHALER) IH PRN ×2 (09:43→17:48)
[2022-05-22] MEDS: LISINOPRIL 10 MG TABLET PO SCH (09:43)
[2022-05-22] MEDS: PRENATAL VITAMINS W/ FOLIC ACID TABLET (FP) PO SCH (09:43)
[2022-05-22] MEDS: LACTULOSE 20 GM/30 ML UDC (FOR ORAL USE ONLY) PO SCH ×2 (09:44→21:27)
[2022-05-22] MEDS: levETIRAcetam 500 MG TABLET (FP) PO SCH ×2 (09:44→21:27)
[2022-05-22] MEDS: THIAMINE HCL 100 MG TABLET (FP) PO SCH (21:27)
[2022-05-22] MEDS: MIRTAZAPINE 15 MG TABLET (FP) PO SCH (21:27)
[2022-05-22] MEDS: ATORVASTATIN CA 10 MG TABLET (FP) PO SCH (21:27)
[2022-05-22] MEDS: MELATONIN 5 MG TABLETS PO SCH (21:27)
[2022-05-23] MEDS ORDERED: INSULIN (NOVOLOG) ASPART 100 UNITS/ML 10ML VIAL ONE ×3 (04:02→16:31)
[2022-05-23] MEDS: sitaGLIPtin PHOSPHATE 50 MG TABLET PO SCH (06:01)
[2022-05-23] MEDS: metFORMIN HCL 500 MG TABLET (FP) PO SCH ×2 (06:01→16:36)
[2022-05-23] MEDS: INSULIN SLIDING SCALE (NOVOLOG) 1 VIAL SQ SCH ×2 (07:35→16:35)
[2022-05-23] MEDS: LISINOPRIL 10 MG TABLET PO SCH (09:45)
[2022-05-23] MEDS: PRENATAL VITAMINS W/ FOLIC ACID TABLET (FP) PO SCH (09:45)
[2022-05-23] MEDS: levETIRAcetam 500 MG TABLET (FP) PO SCH ×2 (09:45→21:30)
[2022-05-23] MEDS: LACTULOSE 20 GM/30 ML UDC (FOR ORAL USE ONLY) PO SCH ×2 (09:45→21:30)
[2022-05-23] MEDS: MELATONIN 5 MG TABLETS PO SCH (21:30)
[2022-05-23] MEDS: ATORVASTATIN CA 10 MG TABLET (FP) PO SCH (21:30)
[2022-05-23] MEDS: MIRTAZAPINE 15 MG TABLET (FP) PO SCH (21:30)
[2022-05-23] MEDS: THIAMINE HCL 100 MG TABLET (FP) PO SCH (21:30)
[2022-05-24] MEDS: sitaGLIPtin PHOSPHATE 50 MG TABLET PO SCH (06:04)
[2022-05-24] MEDS: metFORMIN HCL 500 MG TABLET (FP) PO SCH ×2 (06:04→16:33)
[2022-05-24] MEDS: INSULIN SLIDING SCALE (NOVOLOG) 1 VIAL SQ SCH ×3 (06:37→16:33)
[2022-05-24] MEDS ORDERED: INSULIN (NOVOLOG) ASPART 100 UNITS/ML 10ML VIAL ONE ×2 (07:11→16:24)
[2022-05-24] MEDS: levETIRAcetam 500 MG TABLET (FP) PO SCH ×2 (10:00→21:21)
[2022-05-24] MEDS: PRENATAL VITAMINS W/ FOLIC ACID TABLET (FP) PO SCH (10:00)
[2022-05-24] MEDS: LISINOPRIL 10 MG TABLET PO SCH (10:00)
[2022-05-24] MEDS: LACTULOSE 20 GM/30 ML UDC (FOR ORAL USE ONLY) PO SCH ×2 (10:00→21:21)
[2022-05-24] MEDS: MIRTAZAPINE 15 MG TABLET (FP) PO SCH (21:21)
[2022-05-24] MEDS: THIAMINE HCL 100 MG TABLET (FP) PO SCH (21:21)
[2022-05-24] MEDS: MELATONIN 5 MG TABLETS PO SCH (21:21)
[2022-05-24] MEDS: ATORVASTATIN CA 10 MG TABLET (FP) PO SCH (21:21)
[2022-05-24 23:49] VITALS: RESP 18
[2022-05-25] MEDS: metFORMIN HCL 500 MG TABLET (FP) PO SCH (06:05)
[2022-05-25] MEDS: sitaGLIPtin PHOSPHATE 50 MG TABLET PO SCH (06:06)
[2022-05-25] MEDS: INSULIN SLIDING SCALE (NOVOLOG) 1 VIAL SQ SCH (06:12)
[2022-05-25] MEDS ORDERED: INSULIN (NOVOLOG) ASPART 100 UNITS/ML 10ML VIAL ONE (07:46)
[2022-05-25 08:12] VITALS: TEMP 97.8
[2022-05-25] MEDS: PRENATAL VITAMINS W/ FOLIC ACID TABLET (FP) PO SCH (09:39)
[2022-05-25] MEDS: LACTULOSE 20 GM/30 ML UDC (FOR ORAL USE ONLY) PO SCH (09:39)
[2022-05-25] MEDS: LISINOPRIL 10 MG TABLET PO SCH (09:40)
[2022-05-25] MEDS: levETIRAcetam 500 MG TABLET (FP) PO SCH (09:40)
[2022-05-25 09:48] VITALS: BP 118/76; PULSE 103
== END 2022-05-25 09:53 | disposition home or self-care (01) | DRG 772 ==
LOC: YASAS 12:23 → Y5N 12:24
PROVIDERS: ADMIT Allergy & Immunology; ATTEND Psychiatry & Neurology Pain Medicine
PROC: HZ42ZZZ Group Counseling for Substance Abuse Treatment, Cognitive-Behavioral (ICD-10-PCS; principal; 2022-05-13)
DX: F10.20 Alcohol dependence, uncomplicated (principal); F10.24 Alcohol dependence with alcohol-induced mood disorder; F17.210 Nicotine dependence, cigarettes, uncomplicated; F10.282 Alcohol dependence with alcohol-induced sleep disorder; F10.280 Alcohol dependence with alcohol-induced anxiety disorder; F31.9 Bipolar disorder, unspecified; F41.9 Anxiety disorder, unspecified; I10 Essential (primary) hypertension; E78.5 Hyperlipidemia, unspecified; E11.9 Type 2 diabetes mellitus without complications; Z79.4 Long term (current) use of insulin; G47.00 Insomnia, unspecified; R74.8 Abnormal levels of other serum enzymes; R79.89 Other specified abnormal findings of blood chemistry; Z86.69 Personal history of other diseases of the nervous system and sense organs; Z59.02 Unsheltered homelessness
CPT/HCPCS: 36415; 82140; 82962; 86803; C9803-CS; U0003; U0005

== ENCOUNTER 2022-06-15 18:15 | Inpatient (IN) | payer OTHER ==
[2022-06-15 18:35] VITALS: BMI 29.0
[2022-06-15] MEDS ORDERED: IBUPROFEN 400 MG TABLET (FP) PO PRN (18:49)
[2022-06-15] MEDS ORDERED: BENZOCAINE/MENTHOL (CHLORASEPTIC ) LOZENGE MM PRN (18:49)
[2022-06-15] MEDS ORDERED: DICYCLOMINE HCL 10 MG CAPSULE PO PRN (18:49)
[2022-06-15] MEDS ORDERED: BISMUTH SUBSALICYLATE 524 MG/30 ML PO PRN (18:49)
[2022-06-15] MEDS ORDERED: P-EPHED 60MG/TRIPROLIDI 2.5MG TABLET PO PRN (18:49)
[2022-06-15] MEDS ORDERED: ONDANSETRON *ODT* 4 MG TABLET SL PRN (18:49)
[2022-06-15] MEDS ORDERED: MAG HYDROX/AL HYDROX/SIMETH 30 ML UNIT-DOSE CUP PO PRN (18:49)
[2022-06-15] MEDS ORDERED: LOPERAMIDE HCL 2 MG CAPSULE PO PRN (18:49)
[2022-06-15] MEDS ORDERED: ACETAMINOPHEN 325 MG TABLET (FP) PO PRN ×2 (18:49)
[2022-06-15] MEDS ORDERED: guaiFENesin 200 MG/10 ML 10 ML UNIT-DOSE CUPS PO PRN (18:49)
[2022-06-15] MEDS ORDERED: NICOTINE 10 MG CARTRIDGE (INHALER) IH PRN (18:49)
[2022-06-15] MEDS ORDERED: POLYETHYLENE GLYCOL (HEALTHYLAX) 3350 17 GM PACKET PO PRN (18:49)
[2022-06-15] MEDS ORDERED: MAGNESIUM HYDROX 2400MG/30ML ORAL SUSPENSION 30 ML CUP PO PRN (18:49)
[2022-06-15] MEDS ORDERED: chlordiazePOXIDE HCL 25 MG CAPSULE PO PRN (18:51)
[2022-06-15] MEDS ORDERED: chlordiazePOXIDE HCL 25 MG CAPSULE PO ONE (19:15)
[2022-06-15] MEDS ORDERED: IBUPROFEN 600 MG TABLET (FP) PO ONE (19:32)
[2022-06-15] MEDS: IBUPROFEN 600 MG TABLET (FP) PO PRN (19:34)
[2022-06-15] MEDS ORDERED: INSULIN (NOVOLOG) ASPART 100 UNITS/ML 10ML VIAL ONE ×2 (19:58→22:26)
[2022-06-15] MEDS: INSULIN SLIDING SCALE (NOVOLOG) 1 VIAL SQ SCH ×2 (20:00→22:27)
[2022-06-15] MEDS: MELATONIN 5 MG TABLETS PO PRN (22:20)
[2022-06-15] MEDS: ATORVASTATIN CA 10 MG TABLET (FP) PO SCH (22:20)
[2022-06-15] MEDS: levETIRAcetam 500 MG TABLET (FP) PO SCH (22:21)
[2022-06-15] MEDS: THIAMINE HCL 100 MG TABLET (FP) PO SCH (22:21)
[2022-06-15] MEDS: chlordiazePOXIDE HCL 25 MG CAPSULE PO SCH (22:21)
[2022-06-16] MEDS: chlordiazePOXIDE HCL 25 MG CAPSULE PO SCH ×4 (05:31→22:15)
[2022-06-16] MEDS ORDERED: INSULIN (NOVOLOG) ASPART 100 UNITS/ML 10ML VIAL ONE ×3 (06:01→16:37)
[2022-06-16] MEDS: metFORMIN HCL 500 MG TABLET (FP) PO SCH ×2 (06:02→16:40)
[2022-06-16] MEDS: INSULIN SLIDING SCALE (NOVOLOG) 1 VIAL SQ SCH ×4 (06:02→22:16)
[2022-06-16] MEDS ORDERED: MIRTAZAPINE 15 MG TABLET (FP) PO SCH (10:00)
[2022-06-16] MEDS: LISINOPRIL 10 MG TABLET PO SCH (10:04)
[2022-06-16] MEDS: levETIRAcetam 500 MG TABLET (FP) PO SCH ×2 (10:05→22:15)
[2022-06-16] MEDS: PRENATAL VITAMINS W/ FOLIC ACID TABLET (FP) PO SCH (10:05)
[2022-06-16 10:48] LABS: ALBUMIN 3.8 g/dl (3.4-5.0); CALCIUM 9.4 mg/dL (8.5-10.1)
[2022-06-16 10:51] LABS: CREATININE 1.1 mg/dL (0.55-1.3)
[2022-06-16 10:53] LABS: BILIRUBIN,TOTAL 0.4 mg/dL (0.2-1); TOT PROT 7.8 g/dl (6.4-8.2)
[2022-06-16 10:54] LABS: HEMATOCRIT 39.6 % (35.4-49); MCH 28.5 pg (25.7-33.7); MCHC 32.8 g/dl (32.0-35.9); MEAN CELL VOLUME 86.8 fl (80-96); MEAN PLT VOLUME 9.4 fl (7.5-11.1); PLATELET COUNT 245 10^3/uL (134-434); RBC 4.56 M/mm3 (4.00-5.60); WHITE BLOOD COUNT 5.5 K/mm3 (4.0-10.0)
[2022-06-16] MEDS: METHOCARBAMOL 500 MG TABLET PO PRN (18:44)
[2022-06-16] MEDS: MELATONIN 5 MG TABLETS PO PRN (22:15)
[2022-06-16] MEDS: THIAMINE HCL 100 MG TABLET (FP) PO SCH (22:15)
[2022-06-16] MEDS: ATORVASTATIN CA 10 MG TABLET (FP) PO SCH (22:16)
[2022-06-16] MEDS: MIRTAZAPINE 15 MG TABLET (FP) PO SCH (22:17)
[2022-06-17] MEDS: chlordiazePOXIDE HCL 25 MG CAPSULE PO SCH ×4 (05:49→22:13)
[2022-06-17] MEDS ORDERED: INSULIN (NOVOLOG) ASPART 100 UNITS/ML 10ML VIAL ONE ×3 (05:50→16:55)
[2022-06-17] MEDS: metFORMIN HCL 500 MG TABLET (FP) PO SCH ×2 (06:03→16:56)
[2022-06-17] MEDS: INSULIN SLIDING SCALE (NOVOLOG) 1 VIAL SQ SCH ×4 (06:03→22:14)
[2022-06-17] MEDS: levETIRAcetam 500 MG TABLET (FP) PO SCH ×2 (10:05→22:13)
[2022-06-17] MEDS: LISINOPRIL 10 MG TABLET PO SCH (10:05)
[2022-06-17] MEDS: PRENATAL VITAMINS W/ FOLIC ACID TABLET (FP) PO SCH (10:05)
[2022-06-17] MEDS: IBUPROFEN 600 MG TABLET (FP) PO PRN (14:40)
[2022-06-17] MEDS: METHOCARBAMOL 500 MG TABLET PO PRN (22:13)
[2022-06-17] MEDS: MIRTAZAPINE 15 MG TABLET (FP) PO SCH (22:13)
[2022-06-17] MEDS: THIAMINE HCL 100 MG TABLET (FP) PO SCH (22:13)
[2022-06-17] MEDS: ATORVASTATIN CA 10 MG TABLET (FP) PO SCH (22:13)
[2022-06-18] MEDS ORDERED: chlordiazePOXIDE HCL 10 MG CAPSULE PO PRN
[2022-06-18] MEDS ORDERED: chlordiazePOXIDE HCL 10 MG CAPSULE PO SCH (05:00)
[2022-06-18] MEDS ORDERED: INSULIN (NOVOLOG) ASPART 100 UNITS/ML 10ML VIAL ONE (05:54)
[2022-06-18 06:46] VITALS: RESP 18
[2022-06-18] MEDS: metFORMIN HCL 500 MG TABLET (FP) PO SCH (07:27)
[2022-06-18] MEDS: INSULIN SLIDING SCALE (NOVOLOG) 1 VIAL SQ SCH (07:28)
[2022-06-18 08:58] VITALS: BP 138/89; PULSE 95; TEMP 97.9
[2022-06-19] MEDS ORDERED: chlordiazePOXIDE HCL 10 MG CAPSULE PO SCH (05:00)
[2022-06-20] MEDS ORDERED: chlordiazePOXIDE HCL 10 MG CAPSULE PO ONE (05:00)
== END 2022-06-18 09:35 | disposition home or self-care (01) | DRG 775 ==
LOC: YASAS 18:15 → Y6N 19:25
PROVIDERS: ADMIT Allergy & Immunology; ATTEND Family Medicine
PROC: HZ2ZZZZ Detoxification Services for Substance Abuse Treatment (ICD-10-PCS; principal; 2022-06-15)
DX: F10.230 Alcohol dependence with withdrawal, uncomplicated (principal); F17.210 Nicotine dependence, cigarettes, uncomplicated; F17.213 Nicotine dependence, cigarettes, with withdrawal; F31.9 Bipolar disorder, unspecified; F10.282 Alcohol dependence with alcohol-induced sleep disorder; I10 Essential (primary) hypertension; E78.5 Hyperlipidemia, unspecified; E11.42 Type 2 diabetes mellitus with diabetic polyneuropathy; Z79.4 Long term (current) use of insulin; Z86.69 Personal history of other diseases of the nervous system and sense organs; Z91.013 Allergy to seafood; Z91.018 Allergy to other foods
CPT/HCPCS: 36415; 80053; 82962; 85027; 86780; 87811; C9803-CS; U0003; U0005

== ENCOUNTER 2022-07-05 08:33 | Inpatient (IN) | payer OTHER ==
[2022-07-05 08:58] VITALS: BMI 29.0
[2022-07-05] MEDS ORDERED: POLYETHYLENE GLYCOL (HEALTHYLAX) 3350 17 GM PACKET PO PRN (09:47)
[2022-07-05] MEDS ORDERED: IBUPROFEN 600 MG TABLET (FP) PO PRN (09:47)
[2022-07-05] MEDS ORDERED: IBUPROFEN 400 MG TABLET (FP) PO PRN (09:47)
[2022-07-05] MEDS ORDERED: DICYCLOMINE HCL 10 MG CAPSULE PO PRN (09:47)
[2022-07-05] MEDS ORDERED: MAGNESIUM HYDROX 2400MG/30ML ORAL SUSPENSION 30 ML CUP PO PRN (09:47)
[2022-07-05] MEDS ORDERED: LOPERAMIDE HCL 2 MG CAPSULE PO PRN (09:47)
[2022-07-05] MEDS ORDERED: MAG HYDROX/AL HYDROX/SIMETH 30 ML UNIT-DOSE CUP PO PRN (09:47)
[2022-07-05] MEDS ORDERED: hydrOXYzine PAMOATE 25 MG CAPSULE (FP) PO PRN (09:47)
[2022-07-05] MEDS ORDERED: ONDANSETRON *ODT* 4 MG TABLET SL PRN (09:47)
[2022-07-05] MEDS ORDERED: BENZOCAINE/MENTHOL (CHLORASEPTIC ) LOZENGE MM PRN (09:47)
[2022-07-05] MEDS ORDERED: METHOCARBAMOL 500 MG TABLET PO PRN (09:47)
[2022-07-05] MEDS ORDERED: BISMUTH SUBSALICYLATE 262 MG/15 ML BTL PO PRN (09:47)
[2022-07-05] MEDS ORDERED: NICOTINE POLACRILEX 4 MG GUM BUC PRN (09:47)
[2022-07-05] MEDS ORDERED: NICOTINE 10 MG CARTRIDGE (INHALER) IH PRN (09:47)
[2022-07-05] MEDS ORDERED: NICOTINE 21 MG/24 HOURS TOPICAL PATCH TD PRN (09:47)
[2022-07-05] MEDS ORDERED: ACETAMINOPHEN 325 MG TABLET (FP) PO PRN ×2 (09:47)
[2022-07-05] MEDS: PRENATAL VITAMINS W/ FOLIC ACID TABLET (FP) PO SCH (11:59)
[2022-07-05] MEDS: INSULIN SLIDING SCALE (NOVOLOG) 1 VIAL SQ SCH ×3 (12:05→22:02)
[2022-07-05] MEDS ORDERED: chlordiazePOXIDE HCL 25 MG CAPSULE PO PRN (13:27)
[2022-07-05] MEDS: metFORMIN HCL 500 MG TABLET (FP) PO SCH (16:51)
[2022-07-05] MEDS: chlordiazePOXIDE HCL 25 MG CAPSULE PO SCH ×2 (17:28→22:03)
[2022-07-05] MEDS ORDERED: ATORVASTATIN CA 10 MG TABLET (FP) PO SCH (22:00)
[2022-07-05] MEDS: QUEtiapine FUMARATE 100 MG TABLET (FP) PO SCH (22:03)
[2022-07-05] MEDS: ATORVASTATIN CA 10 MG TABLET (FP) PO SCH (22:03)
[2022-07-05] MEDS: MIRTAZAPINE 15 MG TABLET (FP) PO SCH (22:03)
[2022-07-05] MEDS: THIAMINE HCL 100 MG TABLET (FP) PO SCH (22:03)
[2022-07-05] MEDS: MELATONIN 5 MG TABLETS PO SCH (22:03)
[2022-07-05] MEDS: levETIRAcetam 500 MG TABLET (FP) PO SCH (22:03)
[2022-07-06] MEDS: chlordiazePOXIDE HCL 25 MG CAPSULE PO SCH ×4 (05:21→22:18)
[2022-07-06] MEDS: metFORMIN HCL 500 MG TABLET (FP) PO SCH ×2 (06:18→17:09)
[2022-07-06] MEDS: INSULIN SLIDING SCALE (NOVOLOG) 1 VIAL SQ SCH ×4 (06:18→21:13)
[2022-07-06] MEDS: sitaGLIPtin PHOSPHATE 50 MG TABLET PO SCH (06:41)
[2022-07-06] MEDS: PRENATAL VITAMINS W/ FOLIC ACID TABLET (FP) PO SCH (10:18)
[2022-07-06] MEDS: levETIRAcetam 500 MG TABLET (FP) PO SCH ×2 (10:19→22:17)
[2022-07-06 10:54] LABS: HEMATOCRIT 38.9 % (35.4-49); HEMOGLOBIN 13.5 GM/dL (11.7-16.9); MCH 29.9 pg (25.7-33.7); MCHC 34.7 g/dl (32.0-35.9); MEAN CELL VOLUME 86.3 fl (80-96); MEAN PLT VOLUME 9.5 fl (7.5-11.1); PLATELET COUNT 242 10^3/uL (134-434); RDW 14.1 % (11.9-15.9); WHITE BLOOD COUNT 5.1 K/mm3 (4.0-10.0)
[2022-07-06 11:46] LABS: CALCIUM 9.9 mg/dL (8.5-10.1)
[2022-07-06 11:47] LABS: ALBUMIN 3.6 g/dl (3.4-5.0)
[2022-07-06 11:50] LABS: BILIRUBIN,TOTAL 0.6 mg/dL (0.2-1); CREATININE 1.1 mg/dL (0.55-1.3)
[2022-07-06] MEDS ORDERED: INSULIN (NOVOLOG) ASPART 100 UNITS/ML 10ML VIAL SQ ONE ×2 (17:11→23:12)
[2022-07-06] MEDS: ATORVASTATIN CA 10 MG TABLET (FP) PO SCH (22:17)
[2022-07-06] MEDS: MIRTAZAPINE 15 MG TABLET (FP) PO SCH (22:17)
[2022-07-06] MEDS: THIAMINE HCL 100 MG TABLET (FP) PO SCH (22:17)
[2022-07-06] MEDS: MELATONIN 5 MG TABLETS PO SCH (22:17)
[2022-07-06] MEDS: QUEtiapine FUMARATE 100 MG TABLET (FP) PO SCH (22:18)
[2022-07-07] MEDS: chlordiazePOXIDE HCL 25 MG CAPSULE PO SCH ×4 (05:24→22:01)
[2022-07-07] MEDS: metFORMIN HCL 500 MG TABLET (FP) PO SCH ×2 (06:05→16:58)
[2022-07-07] MEDS: sitaGLIPtin PHOSPHATE 50 MG TABLET PO SCH (06:05)
[2022-07-07] MEDS: INSULIN SLIDING SCALE (NOVOLOG) 1 VIAL SQ SCH ×4 (06:06→21:16)
[2022-07-07] MEDS: PRENATAL VITAMINS W/ FOLIC ACID TABLET (FP) PO SCH (10:25)
[2022-07-07] MEDS: levETIRAcetam 500 MG TABLET (FP) PO SCH ×2 (10:25→22:01)
[2022-07-07] MEDS: QUEtiapine FUMARATE 100 MG TABLET (FP) PO SCH (22:01)
[2022-07-07] MEDS: MELATONIN 5 MG TABLETS PO SCH (22:01)
[2022-07-07] MEDS: MIRTAZAPINE 15 MG TABLET (FP) PO SCH (22:01)
[2022-07-07] MEDS: THIAMINE HCL 100 MG TABLET (FP) PO SCH (22:01)
[2022-07-07] MEDS: ATORVASTATIN CA 10 MG TABLET (FP) PO SCH (22:01)
[2022-07-08] MEDS ORDERED: chlordiazePOXIDE HCL 10 MG CAPSULE PO PRN
[2022-07-08] MEDS: chlordiazePOXIDE HCL 10 MG CAPSULE PO SCH ×4 (05:12→21:59)
[2022-07-08] MEDS: metFORMIN HCL 500 MG TABLET (FP) PO SCH ×2 (06:50→16:42)
[2022-07-08] MEDS: INSULIN SLIDING SCALE (NOVOLOG) 1 VIAL SQ SCH ×4 (06:50→22:01)
[2022-07-08] MEDS: sitaGLIPtin PHOSPHATE 50 MG TABLET PO SCH (06:50)
[2022-07-08] MEDS: PRENATAL VITAMINS W/ FOLIC ACID TABLET (FP) PO SCH (10:01)
[2022-07-08] MEDS: levETIRAcetam 500 MG TABLET (FP) PO SCH ×2 (10:01→21:59)
[2022-07-08] MEDS ORDERED: INSULIN (LEVEMIR) 100 UNITS/ML UNITS SQ ONE (20:21)
[2022-07-08] MEDS: ATORVASTATIN CA 10 MG TABLET (FP) PO SCH (21:58)
[2022-07-08] MEDS: MELATONIN 5 MG TABLETS PO SCH (21:58)
[2022-07-08] MEDS: THIAMINE HCL 100 MG TABLET (FP) PO SCH (21:58)
[2022-07-08] MEDS: QUEtiapine FUMARATE 100 MG TABLET (FP) PO SCH (21:59)
[2022-07-08] MEDS: MIRTAZAPINE 15 MG TABLET (FP) PO SCH (21:59)
[2022-07-08] MEDS ORDERED: INSULIN (LEVEMIR) 100 UNITS/ML UNITS SQ SCH (22:00)
[2022-07-09] MEDS ORDERED: chlordiazePOXIDE HCL 10 MG CAPSULE PO SCH (05:00)
[2022-07-09] MEDS: metFORMIN HCL 500 MG TABLET (FP) PO SCH (06:27)
[2022-07-09] MEDS: sitaGLIPtin PHOSPHATE 50 MG TABLET PO SCH (06:28)
[2022-07-09] MEDS: INSULIN SLIDING SCALE (NOVOLOG) 1 VIAL SQ SCH ×2 (06:28→11:36)
[2022-07-09 09:41] VITALS: RESP 18
[2022-07-09] MEDS: PRENATAL VITAMINS W/ FOLIC ACID TABLET (FP) PO SCH (10:08)
[2022-07-09] MEDS: levETIRAcetam 500 MG TABLET (FP) PO SCH (10:08)
[2022-07-09] MEDS ORDERED: INSULIN SLIDING SCALE (NOVOLOG) 1 VIAL SQ ONE (11:34)
[2022-07-09 13:05] VITALS: BP 135/91; PULSE 96; TEMP 98.7
[2022-07-10] MEDS ORDERED: chlordiazePOXIDE HCL 10 MG CAPSULE PO ONE (05:00)
== END 2022-07-09 13:36 | disposition other institution (70) | DRG 775 ==
LOC: YASAS 08:33 → Y3N 10:19
PROVIDERS: ADMIT Allergy & Immunology; ATTEND Surgery
PROC: HZ2ZZZZ Detoxification Services for Substance Abuse Treatment (ICD-10-PCS; principal; 2022-07-05)
DX: F10.230 Alcohol dependence with withdrawal, uncomplicated (principal); F17.210 Nicotine dependence, cigarettes, uncomplicated; F25.9 Schizoaffective disorder, unspecified; F32.A Depression, unspecified; F19.24 Other psychoactive substance dependence with psychoactive substance-induced mood disorder; G47.00 Insomnia, unspecified; I10 Essential (primary) hypertension; E78.5 Hyperlipidemia, unspecified; E11.65 Type 2 diabetes mellitus with hyperglycemia; Z79.84 Long term (current) use of oral hypoglycemic drugs; Z86.69 Personal history of other diseases of the nervous system and sense organs; Z91.14 Patient's other noncompliance with medication regimen
CPT/HCPCS: 36415; 80053; 82962; 83036; 85027; 86780; 87811; C9803-CS; U0003; U0005

== ENCOUNTER 2022-07-09 12:02 | Inpatient (IN) | payer OTHER ==
[2022-07-09 14:21] VITALS: RESP 18
[2022-07-09] MEDS ORDERED: LOPERAMIDE HCL 2 MG CAPSULE PO PRN (16:14)
[2022-07-09] MEDS ORDERED: POLYETHYLENE GLYCOL (HEALTHYLAX) 3350 17 GM PACKET PO PRN (16:14)
[2022-07-09] MEDS ORDERED: NICOTINE POLACRILEX 2 MG GUM BUC PRN (16:14)
[2022-07-09] MEDS ORDERED: MAGNESIUM HYDROX 2400MG/30ML ORAL SUSPENSION 30 ML CUP PO PRN (16:14)
[2022-07-09] MEDS ORDERED: BENZOCAINE/MENTHOL (CHLORASEPTIC ) LOZENGE MM PRN (16:14)
[2022-07-09] MEDS ORDERED: P-EPHED 60MG/TRIPROLIDI 2.5MG TABLET PO PRN (16:14)
[2022-07-09] MEDS ORDERED: MAG HYDROX/AL HYDROX/SIMETH 30 ML UNIT-DOSE CUP PO PRN (16:14)
[2022-07-09] MEDS ORDERED: guaiFENesin 200 MG/10 ML 10 ML UNIT-DOSE CUPS PO PRN (16:14)
[2022-07-09] MEDS ORDERED: IBUPROFEN 400 MG TABLET (FP) PO PRN (16:14)
[2022-07-09] MEDS ORDERED: hydrOXYzine PAMOATE 25 MG CAPSULE (FP) PO PRN (16:14)
[2022-07-09] MEDS ORDERED: ACETAMINOPHEN 325 MG TABLET (FP) PO PRN (16:14)
[2022-07-09] MEDS: metFORMIN HCL 500 MG TABLET (FP) PO SCH (16:31)
[2022-07-09] MEDS: INSULIN SLIDING SCALE (NOVOLOG) 1 VIAL SQ SCH ×2 (16:34→21:14)
[2022-07-09] MEDS: levETIRAcetam 500 MG TABLET (FP) PO SCH (21:10)
[2022-07-09] MEDS ORDERED: MELATONIN 5 MG TABLETS PO SCH (22:00)
[2022-07-09] MEDS ORDERED: INSULIN (LEVEMIR) 100 UNITS/ML UNITS SQ SCH (22:00)
[2022-07-09] MEDS ORDERED: MIRTAZAPINE 15 MG TABLET (FP) PO SCH (22:00)
[2022-07-09] MEDS ORDERED: ATORVASTATIN CA 10 MG TABLET (FP) PO SCH (22:00)
[2022-07-09] MEDS ORDERED: THIAMINE HCL 100 MG TABLET (FP) PO SCH (22:00)
[2022-07-09] MEDS ORDERED: QUEtiapine FUMARATE 100 MG TABLET (FP) PO SCH (22:00)
[2022-07-09] MEDS ORDERED: INSULIN (NOVOLOG) ASPART 100 UNITS/ML 10ML VIAL ONE (22:27)
[2022-07-10] MEDS: metFORMIN HCL 500 MG TABLET (FP) PO SCH ×2 (06:21→16:36)
[2022-07-10] MEDS ORDERED: INSULIN (NOVOLOG) ASPART 100 UNITS/ML 10ML VIAL ONE ×2 (06:22→11:45)
[2022-07-10] MEDS: INSULIN SLIDING SCALE (NOVOLOG) 1 VIAL SQ SCH ×3 (06:23→16:35)
[2022-07-10] MEDS ORDERED: sitaGLIPtin PHOSPHATE 50 MG TABLET PO SCH (07:00)
[2022-07-10 07:10] VITALS: TEMP 97.4
[2022-07-10] MEDS: levETIRAcetam 500 MG TABLET (FP) PO SCH (09:58)
[2022-07-10] MEDS ORDERED: PRENATAL VITAMINS W/ FOLIC ACID TABLET (FP) PO SCH (10:00)
[2022-07-10] MEDS ORDERED: NICOTINE 21 MG/24 HOURS TOPICAL PATCH TD SCH (10:00)
[2022-07-10 13:18] VITALS: BP 107/70; PULSE 83
== END 2022-07-10 18:50 | disposition left against medical advice (07) | DRG 770 ==
LOC: YASAS 12:02 → Y5N 12:03
PROVIDERS: ADMIT Allergy & Immunology; ATTEND Psychiatry & Neurology Pain Medicine
PROC: HZ42ZZZ Group Counseling for Substance Abuse Treatment, Cognitive-Behavioral (ICD-10-PCS; principal; 2022-07-09)
DX: F10.20 Alcohol dependence, uncomplicated (principal); F17.210 Nicotine dependence, cigarettes, uncomplicated; G62.9 Polyneuropathy, unspecified; E78.2 Mixed hyperlipidemia; I10 Essential (primary) hypertension; E11.9 Type 2 diabetes mellitus without complications; Z79.4 Long term (current) use of insulin; Z56.9 Unspecified problems related to employment
CPT/HCPCS: 82962

== ENCOUNTER 2022-08-05 12:04 | Inpatient (IN) | payer OTHER ==
[2022-08-05 12:30] VITALS: BMI 29.3
[2022-08-05] MEDS ORDERED: POLYETHYLENE GLYCOL (HEALTHYLAX) 3350 17 GM PACKET PO PRN (13:51)
[2022-08-05] MEDS ORDERED: MAG HYDROX/AL HYDROX/SIMETH 30 ML UNIT-DOSE CUP PO PRN (13:51)
[2022-08-05] MEDS ORDERED: DICYCLOMINE HCL 10 MG CAPSULE PO PRN (13:51)
[2022-08-05] MEDS ORDERED: BENZONATATE 200 MG CAPSULE PO PRN (13:51)
[2022-08-05] MEDS ORDERED: ONDANSETRON *ODT* 4 MG TABLET SL PRN (13:51)
[2022-08-05] MEDS ORDERED: NALOXONE HCL 0.4 MG/ML VIAL IM PRN (13:51)
[2022-08-05] MEDS ORDERED: BENZOCAINE/MENTHOL (CHLORASEPTIC ) LOZENGE MM PRN (13:51)
[2022-08-05] MEDS ORDERED: guaiFENesin 600 MG TABLET.ER (FP) PO PRN (13:51)
[2022-08-05] MEDS ORDERED: METHOCARBAMOL 500 MG TABLET PO PRN (13:51)
[2022-08-05] MEDS ORDERED: LOPERAMIDE HCL 2 MG CAPSULE PO PRN (13:51)
[2022-08-05] MEDS ORDERED: MAGNESIUM HYDROX 2400MG/30ML ORAL SUSPENSION 30 ML CUP PO PRN (13:51)
[2022-08-05] MEDS ORDERED: hydrOXYzine PAMOATE 25 MG CAPSULE (FP) PO PRN (13:51)
[2022-08-05] MEDS ORDERED: BISMUTH SUBSALICYLATE 262 MG/15 ML BTL PO PRN (13:51)
[2022-08-05] MEDS ORDERED: NALOXONE HCL (KLOXXADO) 8 MG SPRAY NS PRN (13:51)
[2022-08-05] MEDS ORDERED: IBUPROFEN 400 MG TABLET (FP) PO PRN (13:51)
[2022-08-05] MEDS ORDERED: IBUPROFEN 600 MG TABLET (FP) PO PRN (13:51)
[2022-08-05] MEDS ORDERED: NICOTINE 10 MG CARTRIDGE (INHALER) IH PRN (13:51)
[2022-08-05] MEDS ORDERED: INSULIN (NOVOLOG) ASPART 100 UNITS/ML 10ML VIAL ONE (15:48)
[2022-08-05] MEDS: INSULIN SLIDING SCALE (NOVOLOG) 1 VIAL SQ SCH ×2 (16:06→21:41)
[2022-08-05 18:58] LABS: HEMATOCRIT 44.2 % (35.4-49); HEMOGLOBIN 14.8 GM/dL (11.7-16.9); MCH 28.8 pg (25.7-33.7); MCHC 33.5 g/dl (32.0-35.9); MEAN PLT VOLUME 9.7 fl (7.5-11.1); PLATELET COUNT 256 10^3/uL (134-434); RBC 5.14 M/mm3 (4.00-5.60); RDW 13.9 % (11.9-15.9); WHITE BLOOD COUNT 7.1 K/mm3 (4.0-10.0)
[2022-08-05 19:02] LABS: CHLORIDE 97 mmol/L (98-107); SODIUM 132 mmol/L (136-145)
[2022-08-05 19:06] LABS: ANION GAP 13 MMOL/L (8-16); BLOOD UREA NITROGEN 12.6 mg/dL (7-18); CALCIUM 9.5 mg/dL (8.5-10.1); CO2 23 mmol/L (21-32)
[2022-08-05 19:09] LABS: CREATININE 1.3 mg/dL (0.55-1.3); SGOT/AST 31 U/L (15-37); SGPT/ALT 33 U/L (13-61)
[2022-08-05 19:11] LABS: BILIRUBIN,TOTAL 0.4 mg/dL (0.2-1); TOT PROT 8.7 g/dl (6.4-8.2)
[2022-08-05 19:12] LABS: ALK PHOS 157 U/L (45-117)
[2022-08-05 19:13] LABS: GLUCOSE,RANDOM 525 mg/dL (74-106)
[2022-08-05] MEDS: THIAMINE HCL 100 MG TABLET (FP) PO SCH (22:29)
[2022-08-05] MEDS: chlordiazePOXIDE HCL 25 MG CAPSULE PO SCH (22:29)
[2022-08-05] MEDS: QUEtiapine FUMARATE 100 MG TABLET (FP) PO SCH (22:30)
[2022-08-05] MEDS: levETIRAcetam 500 MG TABLET (FP) PO SCH (22:30)
[2022-08-05] MEDS: MELATONIN 5 MG TABLETS PO SCH (22:30)
[2022-08-06] MEDS: chlordiazePOXIDE HCL 25 MG CAPSULE PO SCH ×4 (05:24→22:28)
[2022-08-06] MEDS: ACETAMINOPHEN 325 MG TABLET (FP) PO PRN (05:25)
[2022-08-06] MEDS: INSULIN SLIDING SCALE (NOVOLOG) 1 VIAL SQ SCH ×4 (06:18→22:31)
[2022-08-06] MEDS: PRENATAL VITAMINS W/ FOLIC ACID TABLET (FP) PO SCH (10:07)
[2022-08-06] MEDS: levETIRAcetam 500 MG TABLET (FP) PO SCH ×2 (10:07→22:27)
[2022-08-06] MEDS ORDERED: INSULIN SLIDING SCALE (NOVOLOG) 1 VIAL SQ ONE ×2 (12:00→16:43)
[2022-08-06] MEDS: metFORMIN HCL 500 MG TABLET (FP) PO SCH (16:51)
[2022-08-06] MEDS: QUEtiapine FUMARATE 100 MG TABLET (FP) PO SCH (22:27)
[2022-08-06] MEDS: MELATONIN 5 MG TABLETS PO SCH (22:27)
[2022-08-06] MEDS: ATORVASTATIN CA 10 MG TABLET (FP) PO SCH (22:27)
[2022-08-06] MEDS: THIAMINE HCL 100 MG TABLET (FP) PO SCH (22:27)
[2022-08-06] MEDS: INSULIN (LEVEMIR) 100 UNITS/ML UNITS SQ SCH (22:30)
[2022-08-07] MEDS: chlordiazePOXIDE HCL 25 MG CAPSULE PO SCH ×4 (05:27→22:17)
[2022-08-07] MEDS: ACETAMINOPHEN 325 MG TABLET (FP) PO PRN (05:29)
[2022-08-07] MEDS: metFORMIN HCL 500 MG TABLET (FP) PO SCH ×2 (06:19→16:34)
[2022-08-07] MEDS: INSULIN SLIDING SCALE (NOVOLOG) 1 VIAL SQ SCH ×4 (06:20→21:13)
[2022-08-07] MEDS: sitaGLIPtin PHOSPHATE 50 MG TABLET PO SCH (06:20)
[2022-08-07] MEDS: PRENATAL VITAMINS W/ FOLIC ACID TABLET (FP) PO SCH (10:08)
[2022-08-07] MEDS: levETIRAcetam 500 MG TABLET (FP) PO SCH ×2 (10:08→21:17)
[2022-08-07] MEDS: LACTULOSE 20 GM/30 ML UDC (FOR ORAL USE ONLY) PO SCH ×2 (14:15→21:17)
[2022-08-07] MEDS: INSULIN (LEVEMIR) 100 UNITS/ML UNITS SQ SCH (21:14)
[2022-08-07] MEDS: MELATONIN 5 MG TABLETS PO SCH (21:17)
[2022-08-07] MEDS: THIAMINE HCL 100 MG TABLET (FP) PO SCH (21:17)
[2022-08-07] MEDS: QUEtiapine FUMARATE 100 MG TABLET (FP) PO SCH (21:17)
[2022-08-07] MEDS: ATORVASTATIN CA 10 MG TABLET (FP) PO SCH (21:17)
[2022-08-08] MEDS: LACTULOSE 20 GM/30 ML UDC (FOR ORAL USE ONLY) PO SCH ×3 (05:27→22:07)
[2022-08-08] MEDS: chlordiazePOXIDE HCL 10 MG CAPSULE PO SCH ×4 (05:27→22:08)
[2022-08-08] MEDS: sitaGLIPtin PHOSPHATE 50 MG TABLET PO SCH (06:19)
[2022-08-08] MEDS: metFORMIN HCL 500 MG TABLET (FP) PO SCH ×2 (06:19→16:51)
[2022-08-08] MEDS: INSULIN SLIDING SCALE (NOVOLOG) 1 VIAL SQ SCH ×4 (06:20→22:12)
[2022-08-08] MEDS: levETIRAcetam 500 MG TABLET (FP) PO SCH ×2 (10:18→22:07)
[2022-08-08] MEDS: PRENATAL VITAMINS W/ FOLIC ACID TABLET (FP) PO SCH (10:18)
[2022-08-08] MEDS: THIAMINE HCL 100 MG TABLET (FP) PO SCH (22:07)
[2022-08-08] MEDS: ATORVASTATIN CA 10 MG TABLET (FP) PO SCH (22:07)
[2022-08-08] MEDS: MELATONIN 5 MG TABLETS PO SCH (22:07)
[2022-08-08] MEDS: QUEtiapine FUMARATE 100 MG TABLET (FP) PO SCH (22:08)
[2022-08-08] MEDS: INSULIN (LEVEMIR) 100 UNITS/ML UNITS SQ SCH (22:09)
[2022-08-09] MEDS: chlordiazePOXIDE HCL 10 MG CAPSULE PO SCH ×2 (05:25→16:53)
[2022-08-09] MEDS: LACTULOSE 20 GM/30 ML UDC (FOR ORAL USE ONLY) PO SCH ×3 (05:25→22:07)
[2022-08-09] MEDS: INSULIN SLIDING SCALE (NOVOLOG) 1 VIAL SQ SCH ×4 (06:06→22:09)
[2022-08-09] MEDS: sitaGLIPtin PHOSPHATE 50 MG TABLET PO SCH (06:06)
[2022-08-09] MEDS: metFORMIN HCL 500 MG TABLET (FP) PO SCH ×2 (06:06→16:53)
[2022-08-09] MEDS: levETIRAcetam 500 MG TABLET (FP) PO SCH ×2 (10:06→22:05)
[2022-08-09] MEDS: PRENATAL VITAMINS W/ FOLIC ACID TABLET (FP) PO SCH (10:06)
[2022-08-09 11:12] LABS: PH,URINE 5.5 (5.0-8.0); URINE APPEARANCE CLEAR; URINE BILIRUBIN NEGATIVE (NEGATIVE); URINE COLOR YELLOW; URINE GLUCOSE (UA) 3+ (NEGATIVE); URINE KETONE TRACE (NEGATIVE); URINE LEUK ESTERASE NEGATIVE (NEGATIVE); URINE NITRITE NEGATIVE (NEGATIVE); URINE PROTEIN NEGATIVE (NEGATIVE); URINE UROBILINOGEN 0.2 mg/dL (0.2-1.0)
[2022-08-09] MEDS: MELATONIN 5 MG TABLETS PO SCH (22:05)
[2022-08-09] MEDS: INSULIN (LEVEMIR) 100 UNITS/ML UNITS SQ SCH (22:05)
[2022-08-09] MEDS: QUEtiapine FUMARATE 100 MG TABLET (FP) PO SCH (22:05)
[2022-08-09] MEDS: ATORVASTATIN CA 10 MG TABLET (FP) PO SCH (22:05)
[2022-08-09] MEDS: THIAMINE HCL 100 MG TABLET (FP) PO SCH (22:08)
[2022-08-10] MEDS ORDERED: chlordiazePOXIDE HCL 10 MG CAPSULE PO ONE (05:00)
[2022-08-10] MEDS: LACTULOSE 20 GM/30 ML UDC (FOR ORAL USE ONLY) PO SCH (05:16)
[2022-08-10] MEDS: metFORMIN HCL 500 MG TABLET (FP) PO SCH (06:14)
[2022-08-10] MEDS: sitaGLIPtin PHOSPHATE 50 MG TABLET PO SCH (06:14)
[2022-08-10] MEDS: INSULIN SLIDING SCALE (NOVOLOG) 1 VIAL SQ SCH ×2 (06:15→07:00)
[2022-08-10 09:56] VITALS: BP 140/94; PULSE 94; RESP 16; TEMP 97.5
[2022-08-10] MEDS: levETIRAcetam 500 MG TABLET (FP) PO SCH (10:07)
[2022-08-10] MEDS: PRENATAL VITAMINS W/ FOLIC ACID TABLET (FP) PO SCH (10:07)
== END 2022-08-10 10:31 | disposition other institution (70) | DRG 775 ==
LOC: YASAS 12:04 → Y3N 14:21
PROVIDERS: ADMIT Allergy & Immunology; ATTEND Surgery
PROC: HZ2ZZZZ Detoxification Services for Substance Abuse Treatment (ICD-10-PCS; principal; 2022-08-05)
DX: F10.230 Alcohol dependence with withdrawal, uncomplicated (principal); F17.210 Nicotine dependence, cigarettes, uncomplicated; F19.24 Other psychoactive substance dependence with psychoactive substance-induced mood disorder; E72.20 Disorder of urea cycle metabolism, unspecified; E78.5 Hyperlipidemia, unspecified; I10 Essential (primary) hypertension; E11.65 Type 2 diabetes mellitus with hyperglycemia; Z79.4 Long term (current) use of insulin; Z86.69 Personal history of other diseases of the nervous system and sense organs; Z91.14 Patient's other noncompliance with medication regimen
CPT/HCPCS: 36415; 80053; 80177; 81003; 82140; 82962; 85027; 86780; 93005; 93010; C9803-CS; U0003; U0005

== ENCOUNTER 2022-09-01 11:05 | Inpatient (IN) | payer OTHER ==
[2022-09-01 11:48] VITALS: BMI 29.8
[2022-09-01] MEDS ORDERED: IBUPROFEN 400 MG TABLET (FP) PO PRN (12:38)
[2022-09-01] MEDS ORDERED: MAG HYDROX/AL HYDROX/SIMETH 30 ML UNIT-DOSE CUP PO PRN (12:38)
[2022-09-01] MEDS ORDERED: ONDANSETRON *ODT* 4 MG TABLET SL PRN (12:38)
[2022-09-01] MEDS ORDERED: NALOXONE HCL 0.4 MG/ML VIAL IM PRN (12:38)
[2022-09-01] MEDS ORDERED: IBUPROFEN 600 MG TABLET (FP) PO PRN (12:38)
[2022-09-01] MEDS ORDERED: METHOCARBAMOL 500 MG TABLET PO PRN (12:38)
[2022-09-01] MEDS ORDERED: DICYCLOMINE HCL 10 MG CAPSULE PO PRN (12:38)
[2022-09-01] MEDS ORDERED: ACETAMINOPHEN 325 MG TABLET (FP) PO PRN (12:38)
[2022-09-01] MEDS ORDERED: BENZOCAINE/MENTHOL (CHLORASEPTIC ) LOZENGE MM PRN (12:38)
[2022-09-01] MEDS ORDERED: MAGNESIUM HYDROX 2400MG/30ML ORAL SUSPENSION 30 ML CUP PO PRN (12:38)
[2022-09-01] MEDS ORDERED: BISMUTH SUBSALICYLATE 524 MG/30 ML PO PRN (12:38)
[2022-09-01] MEDS ORDERED: BENZONATATE 200 MG CAPSULE PO PRN (12:38)
[2022-09-01] MEDS ORDERED: LOPERAMIDE HCL 2 MG CAPSULE PO PRN (12:38)
[2022-09-01] MEDS ORDERED: LORazepam 1 MG TABLET PO PRN (12:38)
[2022-09-01] MEDS ORDERED: POLYETHYLENE GLYCOL (HEALTHYLAX) 3350 17 GM PACKET PO PRN (12:38)
[2022-09-01] MEDS ORDERED: hydrOXYzine PAMOATE 25 MG CAPSULE (FP) PO PRN (12:38)
[2022-09-01] MEDS ORDERED: NALOXONE HCL (KLOXXADO) 8 MG SPRAY NS PRN (12:38)
[2022-09-01] MEDS ORDERED: NICOTINE 10 MG CARTRIDGE (INHALER) IH PRN (12:38)
[2022-09-01] MEDS ORDERED: guaiFENesin 600 MG TABLET.ER (FP) PO PRN (12:38)
[2022-09-01] MEDS ORDERED: ONDANSETRON *ODT* 4 MG TABLET ONE (15:31)
[2022-09-01] MEDS: NICOTINE 14 MG/24 HOURS TOPICAL PATCH TD SCH (15:48)
[2022-09-01] MEDS: PRENATAL VITAMINS W/ FOLIC ACID TABLET (FP) PO SCH (15:48)
[2022-09-01 16:06] LABS: CHLORIDE 98 mmol/L (98-107); SODIUM 133 mmol/L (136-145)
[2022-09-01 16:10] LABS: ANION GAP 8 MMOL/L (8-16); BLOOD UREA NITROGEN 7.9 mg/dL (7-18); CALCIUM 9.1 mg/dL (8.5-10.1); CO2 27 mmol/L (21-32)
[2022-09-01 16:11] LABS: ALBUMIN 3.5 g/dl (3.4-5.0); HEMATOCRIT 40.4 % (35.4-49); HEMOGLOBIN 13.6 GM/dL (11.7-16.9); MCH 28.7 pg (25.7-33.7); MCHC 33.6 g/dl (32.0-35.9); MEAN CELL VOLUME 85.3 fl (80-96); MEAN PLT VOLUME 9.3 fl (7.5-11.1); PLATELET COUNT 266 10^3/uL (134-434); RBC 4.74 M/mm3 (4.00-5.60); RDW 14.3 % (11.9-15.9); WHITE BLOOD COUNT 6.4 K/mm3 (4.0-10.0)
[2022-09-01 16:14] LABS: CREATININE 1.2 mg/dL (0.55-1.3); SGOT/AST 18 U/L (15-37); SGPT/ALT 22 U/L (13-61)
[2022-09-01 16:15] LABS: BILIRUBIN,TOTAL 0.2 mg/dL (0.2-1); TOT PROT 8.4 g/dl (6.4-8.2)
[2022-09-01 16:16] LABS: ALK PHOS 153 U/L (45-117)
[2022-09-01 16:25] LABS: GLUCOSE,RANDOM 562 mg/dL (74-106)
[2022-09-01] MEDS: INSULIN SLIDING SCALE (NOVOLOG) 1 VIAL SQ SCH (16:40)
[2022-09-01] MEDS: metFORMIN HCL 500 MG TABLET (FP) PO SCH (16:51)
[2022-09-01] MEDS ORDERED: INSULIN SLIDING SCALE (NOVOLOG) 1 VIAL SQ SCH (19:30)
[2022-09-01] MEDS ORDERED: INSULIN (LEVEMIR) 100 UNITS/ML UNITS SQ SCH (22:00)
[2022-09-01] MEDS ORDERED: THIAMINE HCL 100 MG TABLET (FP) PO SCH (22:00)
[2022-09-01] MEDS ORDERED: ATORVASTATIN CA 10 MG TABLET (FP) PO SCH (22:00)
[2022-09-01] MEDS ORDERED: MELATONIN 5 MG TABLETS PO SCH (22:00)
[2022-09-01] MEDS: LORazepam 2 MG TABLET PO SCH (22:37)
[2022-09-01] MEDS: levETIRAcetam 500 MG TABLET (FP) PO SCH (22:38)
[2022-09-02] MEDS: LORazepam 2 MG TABLET PO SCH ×2 (05:14→10:04)
[2022-09-02] MEDS: metFORMIN HCL 500 MG TABLET (FP) PO SCH ×2 (06:02→17:21)
[2022-09-02] MEDS: INSULIN SLIDING SCALE (NOVOLOG) 1 VIAL SQ SCH ×3 (06:17→17:19)
[2022-09-02] MEDS ORDERED: INSULIN (NOVOLOG) ASPART 100 UNITS/ML 10ML VIAL ONE ×3 (06:19→17:18)
[2022-09-02] MEDS ORDERED: sitaGLIPtin PHOSPHATE 50 MG TABLET PO SCH (07:00)
[2022-09-02 09:32] VITALS: TEMP 97.8
[2022-09-02] MEDS: PRENATAL VITAMINS W/ FOLIC ACID TABLET (FP) PO SCH (10:04)
[2022-09-02] MEDS: levETIRAcetam 500 MG TABLET (FP) PO SCH (10:04)
[2022-09-02] MEDS: NICOTINE 14 MG/24 HOURS TOPICAL PATCH TD SCH (10:05)
[2022-09-02 12:10] LABS: HIV INTERPRETATION NEGATIVE (NEGATIVE)
[2022-09-02 13:39] VITALS: BP 122/80; PULSE 91; RESP 18
[2022-09-02] MEDS ORDERED: QUEtiapine FUMARATE 100 MG TABLET (FP) PO SCH (22:00)
[2022-09-03] MEDS ORDERED: LORazepam 1 MG TABLET PO SCH (05:00)
[2022-09-04] MEDS ORDERED: LORazepam 0.5 MG TABLET PO PRN
[2022-09-04] MEDS ORDERED: LORazepam 0.5 MG TABLET PO SCH (05:00)
[2022-09-05] MEDS ORDERED: LORazepam 0.5 MG TABLET PO ONE (05:00)
== END 2022-09-02 17:20 | disposition left against medical advice (07) | DRG 770 ==
LOC: YASAS 11:05 → Y6N 14:52
PROVIDERS: ADMIT Allergy & Immunology; ATTEND Surgery
PROC: HZ2ZZZZ Detoxification Services for Substance Abuse Treatment (ICD-10-PCS; principal; 2022-09-01)
DX: F10.230 Alcohol dependence with withdrawal, uncomplicated (principal); F17.210 Nicotine dependence, cigarettes, uncomplicated; F31.9 Bipolar disorder, unspecified; F25.9 Schizoaffective disorder, unspecified; F10.280 Alcohol dependence with alcohol-induced anxiety disorder; F10.282 Alcohol dependence with alcohol-induced sleep disorder; I10 Essential (primary) hypertension; E78.5 Hyperlipidemia, unspecified; E11.42 Type 2 diabetes mellitus with diabetic polyneuropathy; Z79.4 Long term (current) use of insulin; Z86.69 Personal history of other diseases of the nervous system and sense organs
CPT/HCPCS: 36415; 80053; 82140; 82962; 85027; 86780; 87389; C9803-CS; Q0162; U0003; U0005

== ENCOUNTER 2022-10-27 12:42 | Inpatient (IN) | payer OTHER ==
[2022-10-27] MEDS ORDERED: NICOTINE 10 MG CARTRIDGE (INHALER) IH PRN (14:57)
[2022-10-27] MEDS ORDERED: MAG HYDROX/AL HYDROX/SIMETH 30 ML UNIT-DOSE CUP PO PRN (14:57)
[2022-10-27] MEDS ORDERED: P-EPHED 60MG/TRIPROLIDI 2.5MG TABLET PO PRN (14:57)
[2022-10-27] MEDS ORDERED: POLYETHYLENE GLYCOL (HEALTHYLAX) 3350 17 GM PACKET PO PRN (14:57)
[2022-10-27] MEDS ORDERED: guaiFENesin 600 MG TABLET.ER (FP) PO PRN (14:57)
[2022-10-27] MEDS ORDERED: BENZOCAINE/MENTHOL (CHLORASEPTIC ) LOZENGE MM PRN (14:57)
[2022-10-27] MEDS ORDERED: IBUPROFEN 600 MG TABLET (FP) PO PRN (14:57)
[2022-10-27] MEDS ORDERED: BISMUTH SUBSALICYLATE 524 MG/30 ML PO PRN (14:57)
[2022-10-27] MEDS ORDERED: DICYCLOMINE HCL 10 MG CAPSULE PO PRN (14:57)
[2022-10-27] MEDS ORDERED: LOPERAMIDE HCL 2 MG CAPSULE PO PRN (14:57)
[2022-10-27] MEDS ORDERED: BENZONATATE 200 MG CAPSULE PO PRN (14:57)
[2022-10-27] MEDS ORDERED: ONDANSETRON *ODT* 4 MG TABLET SL PRN (14:57)
[2022-10-27] MEDS ORDERED: NICOTINE POLACRILEX 2 MG GUM BUC PRN (14:57)
[2022-10-27] MEDS ORDERED: IBUPROFEN 400 MG TABLET (FP) PO PRN (14:57)
[2022-10-27] MEDS ORDERED: ACETAMINOPHEN 325 MG TABLET (FP) PO PRN (14:57)
[2022-10-27] MEDS ORDERED: MAGNESIUM HYDROX 2400MG/30ML ORAL SUSPENSION 30 ML CUP PO PRN (14:57)
[2022-10-27] MEDS ORDERED: chlordiazePOXIDE HCL 25 MG CAPSULE PO PRN (14:59)
[2022-10-27] MEDS ORDERED: chlordiazePOXIDE HCL 10 MG CAPSULE PO ONE ×2 (16:00→18:00)
[2022-10-27] MEDS ORDERED: metFORMIN HCL 500 MG TABLET (FP) PO SCH (16:30)
[2022-10-27] MEDS: metFORMIN HCL 500 MG TABLET (FP) PO SCH (17:52)
[2022-10-27] MEDS: INSULIN (NOVOLOG) ASPART 100 UNITS/ML 10ML VIAL SQ SCH ×2 (17:54→22:16)
[2022-10-27] MEDS: NICOTINE 7 MG/24 HOURS TOPICAL PATCH TD SCH (17:54)
[2022-10-27] MEDS ORDERED: chlordiazePOXIDE HCL 25 MG CAPSULE PO ONE (18:00)
[2022-10-27] MEDS: ATORVASTATIN CA 10 MG TABLET (FP) PO SCH (22:11)
[2022-10-27] MEDS: QUEtiapine FUMARATE 100 MG TABLET (FP) PO SCH (22:11)
[2022-10-27] MEDS: THIAMINE HCL 100 MG TABLET (FP) PO SCH (22:11)
[2022-10-27] MEDS: MELATONIN 5 MG TABLETS PO SCH (22:13)
[2022-10-27] MEDS: chlordiazePOXIDE HCL 25 MG CAPSULE PO SCH (22:13)
[2022-10-27] MEDS: levETIRAcetam 500 MG TABLET (FP) PO SCH (22:13)
[2022-10-28] MEDS: chlordiazePOXIDE HCL 25 MG CAPSULE PO SCH ×4 (05:37→22:19)
[2022-10-28] MEDS: sitaGLIPtin PHOSPHATE 50 MG TABLET PO SCH (06:16)
[2022-10-28] MEDS: metFORMIN HCL 500 MG TABLET (FP) PO SCH ×2 (06:16→16:50)
[2022-10-28] MEDS: INSULIN (NOVOLOG) ASPART 100 UNITS/ML 10ML VIAL SQ SCH ×4 (06:16→22:20)
[2022-10-28] MEDS: NICOTINE 7 MG/24 HOURS TOPICAL PATCH TD SCH (10:07)
[2022-10-28] MEDS: PRENATAL VITAMINS W/ FOLIC ACID TABLET (FP) PO SCH (10:07)
[2022-10-28] MEDS: levETIRAcetam 500 MG TABLET (FP) PO SCH ×2 (10:08→22:18)
[2022-10-28 11:05] LABS: POTASSIUM 3.8 mmol/L (3.5-5.1)
[2022-10-28 11:06] LABS: HEMATOCRIT 43.1 % (35.4-49); MCH 28.1 pg (25.7-33.7); MCHC 32.5 g/dl (32.0-35.9); MEAN CELL VOLUME 86.5 fl (80-96); MEAN PLT VOLUME 10.1 fl (7.5-11.1); PLATELET COUNT 233 10^3/uL (134-434); RBC 4.99 M/mm3 (4.00-5.60); RDW 14.9 % (11.9-15.9); WHITE BLOOD COUNT 9.7 K/mm3 (4.0-10.0)
[2022-10-28 11:10] LABS: ALBUMIN 3.8 g/dl (3.4-5.0); BLOOD UREA NITROGEN 11.6 mg/dL (7-18); CALCIUM 9.6 mg/dL (8.5-10.1)
[2022-10-28 11:13] LABS: CREATININE 1.1 mg/dL (0.55-1.3)
[2022-10-28 11:15] LABS: BILIRUBIN,TOTAL 0.7 mg/dL (0.2-1); TOT PROT 8.6 g/dl (6.4-8.2)
[2022-10-28] MEDS: THIAMINE HCL 100 MG TABLET (FP) PO SCH (22:18)
[2022-10-28] MEDS: QUEtiapine FUMARATE 100 MG TABLET (FP) PO SCH (22:18)
[2022-10-28] MEDS: MELATONIN 5 MG TABLETS PO SCH (22:18)
[2022-10-28] MEDS: ATORVASTATIN CA 10 MG TABLET (FP) PO SCH (22:18)
[2022-10-29] MEDS: chlordiazePOXIDE HCL 25 MG CAPSULE PO SCH ×4 (05:29→22:19)
[2022-10-29] MEDS: metFORMIN HCL 500 MG TABLET (FP) PO SCH ×2 (06:26→16:46)
[2022-10-29] MEDS: INSULIN (NOVOLOG) ASPART 100 UNITS/ML 10ML VIAL SQ SCH ×4 (06:26→21:24)
[2022-10-29] MEDS: sitaGLIPtin PHOSPHATE 50 MG TABLET PO SCH (06:26)
[2022-10-29] MEDS: NICOTINE 7 MG/24 HOURS TOPICAL PATCH TD SCH (10:18)
[2022-10-29] MEDS: levETIRAcetam 500 MG TABLET (FP) PO SCH ×2 (10:18→21:20)
[2022-10-29] MEDS: PRENATAL VITAMINS W/ FOLIC ACID TABLET (FP) PO SCH (10:18)
[2022-10-29] MEDS ORDERED: INSULIN (NOVOLOG) ASPART 100 UNITS/ML 10ML VIAL ONE ×2 (16:43→21:18)
[2022-10-29] MEDS: QUEtiapine FUMARATE 100 MG TABLET (FP) PO SCH (21:21)
[2022-10-29] MEDS: THIAMINE HCL 100 MG TABLET (FP) PO SCH (21:21)
[2022-10-29] MEDS: ATORVASTATIN CA 10 MG TABLET (FP) PO SCH (21:21)
[2022-10-29] MEDS: MELATONIN 5 MG TABLETS PO SCH (21:22)
[2022-10-30] MEDS ORDERED: chlordiazePOXIDE HCL 10 MG CAPSULE PO PRN
[2022-10-30] MEDS: chlordiazePOXIDE HCL 10 MG CAPSULE PO SCH ×4 (05:36→22:42)
[2022-10-30] MEDS ORDERED: INSULIN (NOVOLOG) ASPART 100 UNITS/ML 10ML VIAL ONE ×2 (05:59→22:40)
[2022-10-30] MEDS: sitaGLIPtin PHOSPHATE 50 MG TABLET PO SCH (06:01)
[2022-10-30] MEDS: INSULIN (NOVOLOG) ASPART 100 UNITS/ML 10ML VIAL SQ SCH ×4 (06:01→22:38)
[2022-10-30] MEDS: metFORMIN HCL 500 MG TABLET (FP) PO SCH ×2 (06:01→16:47)
[2022-10-30] MEDS: levETIRAcetam 500 MG TABLET (FP) PO SCH ×2 (11:03→22:42)
[2022-10-30] MEDS: PRENATAL VITAMINS W/ FOLIC ACID TABLET (FP) PO SCH (11:03)
[2022-10-30] MEDS: NICOTINE 7 MG/24 HOURS TOPICAL PATCH TD SCH (11:03)
[2022-10-30] MEDS: INSULIN (LEVEMIR) 100 UNITS/ML UNITS SQ SCH (22:37)
[2022-10-30] MEDS: MELATONIN 5 MG TABLETS PO SCH (22:37)
[2022-10-30] MEDS: ATORVASTATIN CA 10 MG TABLET (FP) PO SCH (22:42)
[2022-10-30] MEDS: THIAMINE HCL 100 MG TABLET (FP) PO SCH (22:42)
[2022-10-30] MEDS: QUEtiapine FUMARATE 100 MG TABLET (FP) PO SCH (22:42)
[2022-10-31] MEDS: chlordiazePOXIDE HCL 10 MG CAPSULE PO SCH ×2 (05:41→16:44)
[2022-10-31] MEDS: INSULIN (NOVOLOG) ASPART 100 UNITS/ML 10ML VIAL SQ SCH ×4 (06:13→21:36)
[2022-10-31] MEDS: sitaGLIPtin PHOSPHATE 50 MG TABLET PO SCH (07:58)
[2022-10-31] MEDS: metFORMIN HCL 500 MG TABLET (FP) PO SCH ×2 (07:58→16:43)
[2022-10-31] MEDS: NICOTINE 7 MG/24 HOURS TOPICAL PATCH TD SCH (10:11)
[2022-10-31] MEDS: levETIRAcetam 500 MG TABLET (FP) PO SCH ×2 (10:11→21:36)
[2022-10-31] MEDS: PRENATAL VITAMINS W/ FOLIC ACID TABLET (FP) PO SCH (10:11)
[2022-10-31] MEDS ORDERED: INSULIN (NOVOLOG) ASPART 100 UNITS/ML 10ML VIAL ONE ×2 (16:43→21:34)
[2022-10-31 20:35] VITALS: RESP 18
[2022-10-31] MEDS: ATORVASTATIN CA 10 MG TABLET (FP) PO SCH (21:36)
[2022-10-31] MEDS: QUEtiapine FUMARATE 100 MG TABLET (FP) PO SCH (21:36)
[2022-10-31] MEDS: INSULIN (LEVEMIR) 100 UNITS/ML UNITS SQ SCH (21:36)
[2022-10-31] MEDS: THIAMINE HCL 100 MG TABLET (FP) PO SCH (21:36)
[2022-10-31] MEDS: MELATONIN 5 MG TABLETS PO SCH (21:37)
[2022-11-01] MEDS ORDERED: chlordiazePOXIDE HCL 10 MG CAPSULE PO ONE (05:00)
[2022-11-01] MEDS: metFORMIN HCL 500 MG TABLET (FP) PO SCH (06:09)
[2022-11-01] MEDS: sitaGLIPtin PHOSPHATE 50 MG TABLET PO SCH (06:09)
[2022-11-01] MEDS: INSULIN (NOVOLOG) ASPART 100 UNITS/ML 10ML VIAL SQ SCH (06:09)
[2022-11-01 08:50] VITALS: BP 158/98; PULSE 107; TEMP 98
[2022-11-01] MEDS: NICOTINE 7 MG/24 HOURS TOPICAL PATCH TD SCH (09:53)
[2022-11-01] MEDS: levETIRAcetam 500 MG TABLET (FP) PO SCH (09:53)
[2022-11-01] MEDS: PRENATAL VITAMINS W/ FOLIC ACID TABLET (FP) PO SCH (09:54)
== END 2022-11-01 09:00 | disposition home or self-care (01) | DRG 775 ==
LOC: YASAS 12:42 → Y6N 15:31
PROVIDERS: ADMIT Allergy & Immunology; ATTEND Surgery
PROC: HZ2ZZZZ Detoxification Services for Substance Abuse Treatment (ICD-10-PCS; principal; 2022-10-27)
DX: F10.230 Alcohol dependence with withdrawal, uncomplicated (principal); F17.210 Nicotine dependence, cigarettes, uncomplicated; F25.9 Schizoaffective disorder, unspecified; F10.282 Alcohol dependence with alcohol-induced sleep disorder; E78.1 Pure hyperglyceridemia; E10.42 Type 1 diabetes mellitus with diabetic polyneuropathy; Z79.4 Long term (current) use of insulin; R56.9 Unspecified convulsions; Z91.018 Allergy to other foods
CPT/HCPCS: 36415; 80053; 82962; 85027; 86780; 87635

== ENCOUNTER 2023-03-16 10:49 | Inpatient (IN) | payer OTHER ==
[2023-03-16 12:20] VITALS: BMI 29.0
[2023-03-16] MEDS ORDERED: POLYETHYLENE GLYCOL (HEALTHYLAX) 3350 17 GM PACKET PO PRN (13:56)
[2023-03-16] MEDS ORDERED: IBUPROFEN 400 MG TABLET (FP) PO PRN (13:56)
[2023-03-16] MEDS ORDERED: ONDANSETRON *ODT* 4 MG TABLET SL PRN (13:56)
[2023-03-16] MEDS ORDERED: ACETAMINOPHEN 325 MG TABLET (FP) PO PRN (13:56)
[2023-03-16] MEDS ORDERED: hydrOXYzine PAMOATE 25 MG CAPSULE (FP) PO PRN (13:56)
[2023-03-16] MEDS ORDERED: NALOXONE HCL 0.4 MG/ML VIAL IM PRN (13:56)
[2023-03-16] MEDS ORDERED: BISMUTH SUBSALICYLATE 262 MG/15 ML BTL PO PRN (13:56)
[2023-03-16] MEDS ORDERED: BENZONATATE 200 MG CAPSULE PO PRN (13:56)
[2023-03-16] MEDS ORDERED: MAG HYDROX/AL HYDROX/SIMETH 30 ML UNIT-DOSE CUP PO PRN (13:56)
[2023-03-16] MEDS ORDERED: LOPERAMIDE HCL 2 MG CAPSULE PO PRN (13:56)
[2023-03-16] MEDS ORDERED: NALOXONE HCL (KLOXXADO) 8 MG SPRAY NS PRN (13:56)
[2023-03-16] MEDS ORDERED: guaiFENesin 600 MG TABLET.ER (FP) PO PRN (13:56)
[2023-03-16] MEDS ORDERED: chlordiazePOXIDE HCL 25 MG CAPSULE PO PRN (13:56)
[2023-03-16] MEDS ORDERED: IBUPROFEN 600 MG TABLET (FP) PO PRN (13:56)
[2023-03-16] MEDS ORDERED: DICYCLOMINE HCL 10 MG CAPSULE PO PRN (13:56)
[2023-03-16] MEDS ORDERED: BENZOCAINE/MENTHOL (CHLORASEPTIC ) LOZENGE MM PRN (13:56)
[2023-03-16] MEDS ORDERED: MAGNESIUM HYDROX 2400MG/30ML ORAL SUSPENSION 30 ML CUP PO PRN (13:56)
[2023-03-16] MEDS ORDERED: NICOTINE 21 MG/24 HOURS TOPICAL PATCH ONE (15:01)
[2023-03-16] MEDS ORDERED: PRENATAL VITAMINS W/ FOLIC ACID TABLET (FP) PO ONE (15:01)
[2023-03-16] MEDS: NICOTINE 21 MG/24 HOURS TOPICAL PATCH TD SCH (15:04)
[2023-03-16] MEDS: PRENATAL VITAMINS W/ FOLIC ACID TABLET (FP) PO SCH (15:04)
[2023-03-16] MEDS ORDERED: INSULIN SLIDING SCALE (NOVOLOG) 1 VIAL SQ ONE (17:06)
[2023-03-16] MEDS: metFORMIN HCL 500 MG TABLET (FP) PO SCH (17:08)
[2023-03-16] MEDS: chlordiazePOXIDE HCL 25 MG CAPSULE PO SCH ×2 (17:08→22:53)
[2023-03-16] MEDS: INSULIN SLIDING SCALE (NOVOLOG) 1 VIAL SQ SCH (17:12)
[2023-03-16] MEDS: INSULIN (LEVEMIR) 100 UNITS/ML UNITS SQ SCH (22:50)
[2023-03-16] MEDS: ATORVASTATIN CA 10 MG TABLET (FP) PO SCH (22:52)
[2023-03-16] MEDS: levETIRAcetam 500 MG TABLET (FP) PO SCH (22:52)
[2023-03-16] MEDS: MELATONIN 5 MG TABLETS PO SCH (22:52)
[2023-03-16] MEDS: THIAMINE HCL 100 MG TABLET (FP) PO SCH (22:57)
[2023-03-17] MEDS: chlordiazePOXIDE HCL 25 MG CAPSULE PO SCH ×4 (05:14→22:41)
[2023-03-17] MEDS ORDERED: INSULIN SLIDING SCALE (NOVOLOG) 1 VIAL SQ ONE ×2 (06:28→11:13)
[2023-03-17] MEDS: metFORMIN HCL 500 MG TABLET (FP) PO SCH ×2 (06:29→16:35)
[2023-03-17] MEDS: sitaGLIPtin PHOSPHATE 50 MG TABLET PO SCH (06:29)
[2023-03-17] MEDS: INSULIN SLIDING SCALE (NOVOLOG) 1 VIAL SQ SCH ×3 (06:29→16:35)
[2023-03-17] MEDS: levETIRAcetam 500 MG TABLET (FP) PO SCH ×2 (10:16→22:41)
[2023-03-17] MEDS: PRENATAL VITAMINS W/ FOLIC ACID TABLET (FP) PO SCH (10:17)
[2023-03-17] MEDS: NICOTINE 21 MG/24 HOURS TOPICAL PATCH TD SCH (10:17)
[2023-03-17 11:13] LABS: HEMATOCRIT 41.6 % (35.4-49); HEMOGLOBIN 13.4 GM/dL (11.7-16.9); MCH 27.8 pg (25.7-33.7); MCHC 32.2 g/dl (32.0-35.9); MEAN CELL VOLUME 86.4 fl (80-96); MEAN PLT VOLUME 8.8 fl (7.5-11.1); PLATELET COUNT 267 10^3/uL (134-434); RBC 4.81 M/mm3 (4.00-5.60); WHITE BLOOD COUNT 7.2 K/mm3 (4.0-10.0)
[2023-03-17 11:49] LABS: CHLORIDE 105 mmol/L (98-107); SODIUM 138 mmol/L (136-145)
[2023-03-17] MEDS ORDERED: FLU VACCINE (FLULAVAL) PF 60 MCG/0.5 ML SYRINGE 2023-2024 IM ONE (12:00)
[2023-03-17 12:15] LABS: CALCIUM 9.4 mg/dL (8.5-10.1)
[2023-03-17 12:16] LABS: ALBUMIN 3.9 g/dl (3.4-5.0); ANION GAP 5 mmol/L (4-13); BLOOD UREA NITROGEN 11.4 mg/dL (7-18); CO2 28 mmol/L (21-32); GLUCOSE,RANDOM 186 mg/dL (74-106)
[2023-03-17 12:19] LABS: SGOT/AST 13 U/L (15-37); SGPT/ALT 25 U/L (13-61)
[2023-03-17 12:20] LABS: BILIRUBIN,TOTAL 0.3 mg/dL (0.2-1); TOT PROT 8.1 g/dl (6.4-8.2)
[2023-03-17 12:21] LABS: ALK PHOS 131 U/L (45-117)
[2023-03-17] MEDS: INSULIN (LEVEMIR) 100 UNITS/ML UNITS SQ SCH (21:28)
[2023-03-17] MEDS: ATORVASTATIN CA 10 MG TABLET (FP) PO SCH (22:40)
[2023-03-17] MEDS: QUEtiapine FUMARATE 100 MG TABLET (FP) PO SCH (22:40)
[2023-03-17] MEDS: MELATONIN 5 MG TABLETS PO SCH (22:41)
[2023-03-17] MEDS: MIRTAZAPINE 15 MG TABLET (FP) PO SCH (22:41)
[2023-03-17] MEDS: THIAMINE HCL 100 MG TABLET (FP) PO SCH (22:42)
[2023-03-18] MEDS: chlordiazePOXIDE HCL 25 MG CAPSULE PO SCH ×4 (05:23→22:42)
[2023-03-18] MEDS: INSULIN SLIDING SCALE (NOVOLOG) 1 VIAL SQ SCH ×3 (06:11→16:40)
[2023-03-18] MEDS ORDERED: INSULIN SLIDING SCALE (NOVOLOG) 1 VIAL SQ ONE ×2 (06:12→11:37)
[2023-03-18] MEDS: sitaGLIPtin PHOSPHATE 50 MG TABLET PO SCH (06:17)
[2023-03-18] MEDS: metFORMIN HCL 500 MG TABLET (FP) PO SCH ×2 (06:17→16:38)
[2023-03-18] MEDS: levETIRAcetam 500 MG TABLET (FP) PO SCH ×2 (10:15→22:41)
[2023-03-18] MEDS: PRENATAL VITAMINS W/ FOLIC ACID TABLET (FP) PO SCH (10:15)
[2023-03-18] MEDS: NICOTINE 21 MG/24 HOURS TOPICAL PATCH TD SCH (10:16)
[2023-03-18] MEDS: INSULIN (LEVEMIR) 100 UNITS/ML UNITS SQ SCH (22:37)
[2023-03-18] MEDS: THIAMINE HCL 100 MG TABLET (FP) PO SCH (22:40)
[2023-03-18] MEDS: METHOCARBAMOL 500 MG TABLET PO PRN (22:40)
[2023-03-18] MEDS: MELATONIN 5 MG TABLETS PO SCH (22:40)
[2023-03-18] MEDS: ATORVASTATIN CA 10 MG TABLET (FP) PO SCH (22:41)
[2023-03-18] MEDS: MIRTAZAPINE 15 MG TABLET (FP) PO SCH (22:42)
[2023-03-18] MEDS: QUEtiapine FUMARATE 100 MG TABLET (FP) PO SCH (22:42)
[2023-03-19] MEDS ORDERED: chlordiazePOXIDE HCL 10 MG CAPSULE PO PRN
[2023-03-19] MEDS: chlordiazePOXIDE HCL 10 MG CAPSULE PO SCH ×4 (05:56→22:57)
[2023-03-19] MEDS: sitaGLIPtin PHOSPHATE 50 MG TABLET PO SCH (06:01)
[2023-03-19] MEDS: metFORMIN HCL 500 MG TABLET (FP) PO SCH ×2 (06:01→17:16)
[2023-03-19] MEDS: INSULIN SLIDING SCALE (NOVOLOG) 1 VIAL SQ SCH ×3 (06:02→17:14)
[2023-03-19] MEDS ORDERED: INSULIN SLIDING SCALE (NOVOLOG) 1 VIAL SQ ONE ×3 (06:31→17:08)
[2023-03-19] MEDS: PRENATAL VITAMINS W/ FOLIC ACID TABLET (FP) PO SCH (10:05)
[2023-03-19] MEDS: NICOTINE 21 MG/24 HOURS TOPICAL PATCH TD SCH (10:05)
[2023-03-19] MEDS: levETIRAcetam 500 MG TABLET (FP) PO SCH ×2 (10:05→22:56)
[2023-03-19] MEDS: INSULIN (LEVEMIR) 100 UNITS/ML UNITS SQ SCH (22:54)
[2023-03-19] MEDS: MELATONIN 5 MG TABLETS PO SCH (22:56)
[2023-03-19] MEDS: QUEtiapine FUMARATE 100 MG TABLET (FP) PO SCH (22:56)
[2023-03-19] MEDS: ATORVASTATIN CA 10 MG TABLET (FP) PO SCH (22:56)
[2023-03-19] MEDS: MIRTAZAPINE 15 MG TABLET (FP) PO SCH (22:57)
[2023-03-19] MEDS: METHOCARBAMOL 500 MG TABLET PO PRN (22:57)
[2023-03-19] MEDS: THIAMINE HCL 100 MG TABLET (FP) PO SCH (22:57)
[2023-03-20] MEDS ORDERED: INSULIN SLIDING SCALE (NOVOLOG) 1 VIAL SQ ONE ×3 (05:13→11:12)
[2023-03-20] MEDS: chlordiazePOXIDE HCL 10 MG CAPSULE PO SCH ×2 (05:20→18:00)
[2023-03-20] MEDS: metFORMIN HCL 500 MG TABLET (FP) PO SCH ×2 (06:10→17:26)
[2023-03-20] MEDS: sitaGLIPtin PHOSPHATE 50 MG TABLET PO SCH (06:10)
[2023-03-20] MEDS: INSULIN SLIDING SCALE (NOVOLOG) 1 VIAL SQ SCH ×3 (06:11→17:28)
[2023-03-20] MEDS: PRENATAL VITAMINS W/ FOLIC ACID TABLET (FP) PO SCH (10:07)
[2023-03-20] MEDS: levETIRAcetam 500 MG TABLET (FP) PO SCH ×2 (10:07→22:09)
[2023-03-20] MEDS: NICOTINE 21 MG/24 HOURS TOPICAL PATCH TD SCH (10:08)
[2023-03-20] MEDS: INSULIN (LEVEMIR) 100 UNITS/ML UNITS SQ SCH (22:06)
[2023-03-20] MEDS: QUEtiapine FUMARATE 100 MG TABLET (FP) PO SCH (22:09)
[2023-03-20] MEDS: ATORVASTATIN CA 10 MG TABLET (FP) PO SCH (22:09)
[2023-03-20] MEDS: THIAMINE HCL 100 MG TABLET (FP) PO SCH (22:09)
[2023-03-20] MEDS: MELATONIN 5 MG TABLETS PO SCH (22:09)
[2023-03-20] MEDS: MIRTAZAPINE 15 MG TABLET (FP) PO SCH (22:09)
[2023-03-21] MEDS ORDERED: chlordiazePOXIDE HCL 10 MG CAPSULE PO ONE (05:00)
[2023-03-21] MEDS: sitaGLIPtin PHOSPHATE 50 MG TABLET PO SCH (06:21)
[2023-03-21] MEDS: metFORMIN HCL 500 MG TABLET (FP) PO SCH (06:21)
[2023-03-21] MEDS: INSULIN SLIDING SCALE (NOVOLOG) 1 VIAL SQ SCH (06:22)
[2023-03-21 08:51] VITALS: BP 135/90; PULSE 78; RESP 16; TEMP 98.9
== END 2023-03-21 08:58 | disposition home or self-care (01) | DRG 775 ==
LOC: YASAS 10:49 → Y3N 15:26
PROVIDERS: ADMIT Allergy & Immunology; ATTEND Surgery
PROC: HZ2ZZZZ Detoxification Services for Substance Abuse Treatment (ICD-10-PCS; principal; 2023-03-16)
DX: F10.230 Alcohol dependence with withdrawal, uncomplicated (principal); F17.210 Nicotine dependence, cigarettes, uncomplicated; F25.9 Schizoaffective disorder, unspecified; F10.982 Alcohol use, unspecified with alcohol-induced sleep disorder; E78.5 Hyperlipidemia, unspecified; G40.909 Epilepsy, unspecified, not intractable, without status epilepticus; I10 Essential (primary) hypertension; E11.9 Type 2 diabetes mellitus without complications; Z79.4 Long term (current) use of insulin; Z91.199 Patient's noncompliance with other medical treatment and regimen due to unspecified reason
CPT/HCPCS: 36415; 80053; 80307; 82962; 85027; 86780; 87635

== ENCOUNTER 2023-07-05 11:01 | Inpatient (IN) | payer OTHER ==
[2023-07-05] MEDS ORDERED: ACETAMINOPHEN 325 MG TABLET (FP) PO PRN (11:52)
[2023-07-05] MEDS ORDERED: guaiFENesin 600 MG TABLET.ER (FP) PO PRN (11:52)
[2023-07-05] MEDS ORDERED: MAG HYDROX/AL HYDROX/SIMETH 30 ML UNIT-DOSE CUP PO PRN (11:52)
[2023-07-05] MEDS ORDERED: DICYCLOMINE HCL 10 MG CAPSULE PO PRN (11:52)
[2023-07-05] MEDS ORDERED: IBUPROFEN 400 MG TABLET (FP) PO PRN (11:52)
[2023-07-05] MEDS ORDERED: BENZONATATE 200 MG CAPSULE PO PRN (11:52)
[2023-07-05] MEDS ORDERED: METHOCARBAMOL 500 MG TABLET PO PRN (11:52)
[2023-07-05] MEDS ORDERED: POLYETHYLENE GLYCOL (HEALTHYLAX) 3350 17 GM PACKET PO PRN (11:52)
[2023-07-05] MEDS ORDERED: MAGNESIUM HYDROX 2400MG/30ML ORAL SUSPENSION 30 ML CUP PO PRN (11:52)
[2023-07-05] MEDS ORDERED: NALOXONE HCL (KLOXXADO) 8 MG SPRAY NS PRN (11:52)
[2023-07-05] MEDS ORDERED: BENZOCAINE/MENTHOL (CHLORASEPTIC ) LOZENGE MM PRN (11:52)
[2023-07-05] MEDS ORDERED: LOPERAMIDE HCL 2 MG CAPSULE PO PRN (11:52)
[2023-07-05] MEDS ORDERED: NALOXONE HCL 0.4 MG/ML VIAL IM PRN (11:52)
[2023-07-05] MEDS ORDERED: chlordiazePOXIDE HCL 25 MG CAPSULE ONE (12:13)
[2023-07-05] MEDS ORDERED: ONDANSETRON *ODT* 4 MG TABLET ONE (12:13)
[2023-07-05] MEDS ORDERED: hydrOXYzine PAMOATE 25 MG CAPSULE (FP) PO ONE (12:13)
[2023-07-05] MEDS ORDERED: IBUPROFEN 600 MG TABLET (FP) PO ONE (12:14)
[2023-07-05] MEDS: hydrOXYzine PAMOATE 25 MG CAPSULE (FP) PO PRN (12:15)
[2023-07-05] MEDS ORDERED: PRENATAL VITAMINS W/ FOLIC ACID TABLET (FP) PO ONE (12:16)
[2023-07-05] MEDS ORDERED: NICOTINE 21 MG/24 HOURS TOPICAL PATCH ONE (12:16)
[2023-07-05] MEDS: PRENATAL VITAMINS W/ FOLIC ACID TABLET (FP) PO SCH (12:17)
[2023-07-05] MEDS: NICOTINE 21 MG/24 HOURS TOPICAL PATCH TD SCH (12:17)
[2023-07-05] MEDS: IBUPROFEN 600 MG TABLET (FP) PO PRN (12:17)
[2023-07-05] MEDS: chlordiazePOXIDE HCL 25 MG CAPSULE PO PRN (12:17)
[2023-07-05] MEDS: ONDANSETRON *ODT* 4 MG TABLET SL PRN (12:18)
[2023-07-05] MEDS: chlordiazePOXIDE HCL 25 MG CAPSULE PO SCH (17:37)
[2023-07-05] MEDS ORDERED: INSULIN (NOVOLOG) ASPART 100 UNITS/ML 10ML VIAL ONE ×2 (17:57→22:03)
[2023-07-05] MEDS: INSULIN ASPART SLIDING SCALE (NOVOLOG) 1 VIAL SQ SCH (17:58)
[2023-07-05] MEDS: MELATONIN 5 MG TABLETS PO SCH (22:15)
[2023-07-05] MEDS: QUEtiapine FUMARATE 100 MG TABLET (FP) PO SCH (22:15)
[2023-07-05] MEDS: THIAMINE HCL 100 MG TABLET (FP) PO SCH (22:15)
[2023-07-05] MEDS: INSULIN (LEVEMIR) 100 UNITS/ML UNITS SQ SCH (22:17)
[2023-07-05] MEDS: levETIRAcetam 500 MG TABLET (FP) PO SCH (22:18)
[2023-07-06] MEDS: sitaGLIPtin PHOSPHATE 50 MG TABLET PO SCH (07:13)
[2023-07-06] MEDS: BISMUTH SUBSALICYLATE 262 MG/15 ML BTL PO PRN (08:29)
[2023-07-06 10:59] LABS: CHLORIDE 100 mmol/L (98-107); POTASSIUM 4.2 mmol/L (3.5-5.1); SODIUM 136 mmol/L (136-145)
[2023-07-06 11:02] LABS: HEMATOCRIT 41.6 % (35.4-49); HEMOGLOBIN 13.6 GM/dL (11.7-16.9); MCH 28.5 pg (25.7-33.7); MCHC 32.7 g/dl (32.0-35.9); MEAN CELL VOLUME 87.2 fl (80-96); MEAN PLT VOLUME 9.7 fl (7.5-11.1); PLATELET COUNT 231 10^3/uL (134-434); RBC 4.77 M/mm3 (4.00-5.60); WHITE BLOOD COUNT 4.5 K/mm3 (4.0-10.0)
[2023-07-06 11:04] LABS: CALCIUM 9.3 mg/dL (8.5-10.1)
[2023-07-06 11:05] LABS: ALBUMIN 3.7 g/dl (3.4-5.0); ANION GAP 11 mmol/L (4-13); BLOOD UREA NITROGEN 7.6 mg/dL (7-18); CO2 25 mmol/L (21-32)
[2023-07-06 11:08] LABS: SGOT/AST 25 U/L (15-37); SGPT/ALT 22 U/L (13-61)
[2023-07-06 11:10] LABS: BILIRUBIN,TOTAL 0.4 mg/dL (0.2-1); TOT PROT 8.2 g/dl (6.4-8.2)
[2023-07-06 11:11] LABS: ALK PHOS 141 U/L (45-117)
[2023-07-06 11:21] LABS: GLUCOSE,RANDOM 484 mg/dL (74-106)
[2023-07-06 12:30] LABS: HIV INTERPRETATION NEGATIVE (NEGATIVE)
[2023-07-06] MEDS: LOPERAMIDE HCL 2 MG CAPSULE PO ONE (13:54)
[2023-07-06] MEDS: LACTULOSE 20 GM/30 ML UDC (FOR ORAL USE ONLY) PO SCH (13:54)
[2023-07-06] MEDS: ONDANSETRON *ODT* 4 MG TABLET SL ONE (13:55)
[2023-07-06] MEDS ORDERED: INSULIN (NOVOLOG) ASPART 100 UNITS/ML 10ML VIAL ONE (16:53)
[2023-07-06 18:22] VITALS: RESP 17
[2023-07-06 20:56] VITALS: BP 138/85; PULSE 101; TEMP 97.5
[2023-07-07] MEDS ORDERED: chlordiazePOXIDE HCL 25 MG CAPSULE PO SCH (05:00)
[2023-07-08] MEDS ORDERED: chlordiazePOXIDE HCL 10 MG CAPSULE PO PRN
[2023-07-08] MEDS ORDERED: chlordiazePOXIDE HCL 10 MG CAPSULE PO SCH (05:00)
[2023-07-09] MEDS ORDERED: chlordiazePOXIDE HCL 10 MG CAPSULE PO SCH (05:00)
[2023-07-10] MEDS ORDERED: chlordiazePOXIDE HCL 10 MG CAPSULE PO ONE (05:00)
== END 2023-07-06 10:00 | disposition left against medical advice (07) | DRG 770 ==
LOC: YASAS 11:01 → Y6N 12:59
PROVIDERS: ADMIT Allergy & Immunology; ATTEND Surgery
PROC: HZ2ZZZZ Detoxification Services for Substance Abuse Treatment (ICD-10-PCS; principal; 2023-07-05)
DX: F10.230 Alcohol dependence with withdrawal, uncomplicated (principal); F17.210 Nicotine dependence, cigarettes, uncomplicated; F25.0 Schizoaffective disorder, bipolar type; F10.282 Alcohol dependence with alcohol-induced sleep disorder; I10 Essential (primary) hypertension; E10.42 Type 1 diabetes mellitus with diabetic polyneuropathy; Z79.4 Long term (current) use of insulin; Z56.0 Unemployment, unspecified; Z59.00 Homelessness unspecified
CPT/HCPCS: 36415; 80053; 80305; 80307; 82140; 82962; 85027; 86780; 87389; 87635; 87811; Q0162

== ENCOUNTER 2023-08-22 09:04 | Inpatient (IN) | payer OTHER ==
[2023-08-22] MEDS ORDERED: MAGNESIUM HYDROX 2400MG/30ML ORAL SUSPENSION 30 ML CUP PO PRN (09:37)
[2023-08-22] MEDS ORDERED: IBUPROFEN 600 MG TABLET (FP) PO PRN (09:37)
[2023-08-22] MEDS ORDERED: LOPERAMIDE HCL 2 MG CAPSULE PO PRN (09:37)
[2023-08-22] MEDS ORDERED: LORazepam 1 MG TABLET PO PRN (09:37)
[2023-08-22] MEDS ORDERED: BENZONATATE 200 MG CAPSULE PO PRN (09:37)
[2023-08-22] MEDS ORDERED: NALOXONE HCL 0.4 MG/ML VIAL IM PRN (09:37)
[2023-08-22] MEDS ORDERED: POLYETHYLENE GLYCOL (HEALTHYLAX) 3350 17 GM PACKET PO PRN (09:37)
[2023-08-22] MEDS ORDERED: NALOXONE HCL (KLOXXADO) 8 MG SPRAY NS PRN (09:37)
[2023-08-22] MEDS ORDERED: hydrOXYzine PAMOATE 25 MG CAPSULE (FP) PO PRN (09:37)
[2023-08-22] MEDS ORDERED: DICYCLOMINE HCL 10 MG CAPSULE PO PRN (09:37)
[2023-08-22] MEDS ORDERED: BISMUTH SUBSALICYLATE 524 MG/30 ML PO PRN (09:37)
[2023-08-22] MEDS ORDERED: guaiFENesin 600 MG TABLET.ER (FP) PO PRN (09:37)
[2023-08-22] MEDS ORDERED: ACETAMINOPHEN 325 MG TABLET (FP) PO PRN (09:37)
[2023-08-22] MEDS ORDERED: IBUPROFEN 400 MG TABLET (FP) PO PRN (09:37)
[2023-08-22] MEDS ORDERED: MAG HYDROX/AL HYDROX/SIMETH 30 ML UNIT-DOSE CUP PO PRN (09:37)
[2023-08-22] MEDS ORDERED: BENZOCAINE/MENTHOL (CHLORASEPTIC ) LOZENGE MM PRN (09:37)
[2023-08-22] MEDS ORDERED: METHOCARBAMOL 500 MG TABLET PO PRN (09:37)
[2023-08-22 09:44] VITALS: BMI 24.3
[2023-08-22] MEDS ORDERED: METHOCARBAMOL 500 MG TABLET ONE (10:13)
[2023-08-22] MEDS ORDERED: LORazepam 2 MG TABLET ONE (10:13)
[2023-08-22] MEDS ORDERED: ONDANSETRON *ODT* 4 MG TABLET ONE (10:14)
[2023-08-22] MEDS: LORazepam 2 MG TABLET PO SCH (10:21)
[2023-08-22] MEDS: NICOTINE 21 MG/24 HOURS TOPICAL PATCH TD SCH (10:22)
[2023-08-22] MEDS: PRENATAL VITAMINS W/ FOLIC ACID TABLET (FP) PO SCH (10:22)
[2023-08-22] MEDS: ONDANSETRON *ODT* 4 MG TABLET SL PRN (10:23)
[2023-08-22] MEDS ORDERED: INSULIN (NOVOLOG) ASPART 100 UNITS/ML 10ML VIAL ONE (10:34)
[2023-08-22] MEDS: INSULIN ASPART SLIDING SCALE (NOVOLOG) 1 VIAL SQ SCH (10:38)
[2023-08-22] MEDS ORDERED: NICOTINE 21 MG/24 HOURS TOPICAL PATCH ONE (10:50)
[2023-08-22] MEDS: INSULIN (NOVOLOG) ASPART 100 UNITS/ML 10ML VIAL SQ ONE (21:24)
[2023-08-22] MEDS: MELATONIN 5 MG TABLETS PO SCH (22:13)
[2023-08-22] MEDS: INSULIN (LEVEMIR) 100 UNITS/ML UNITS SQ SCH (22:13)
[2023-08-22] MEDS: MIRTAZAPINE 15 MG TABLET (FP) PO SCH (22:14)
[2023-08-22] MEDS: levETIRAcetam 500 MG TABLET (FP) PO SCH (22:14)
[2023-08-22] MEDS: QUEtiapine FUMARATE 100 MG TABLET (FP) PO SCH (22:14)
[2023-08-22] MEDS: THIAMINE HCL 100 MG TABLET (FP) PO SCH (22:14)
[2023-08-23 11:41] LABS: HEMATOCRIT 41.8 % (35.4-49); HEMOGLOBIN 13.6 GM/dL (11.7-16.9); MCHC 32.6 g/dl (32.0-35.9); MEAN CELL VOLUME 88.9 fl (80-96); MEAN PLT VOLUME 10.6 fl (7.5-11.1); PLATELET COUNT 216 10^3/uL (134-434); RBC 4.71 M/mm3 (4.00-5.60); RDW 13.7 % (11.9-15.9); WHITE BLOOD COUNT 6.9 K/mm3 (4.0-10.0)
[2023-08-23 11:55] LABS: POTASSIUM 3.9 mmol/L (3.5-5.1)
[2023-08-23 12:05] LABS: BILIRUBIN,TOTAL 0.2 mg/dL (0.2-1)
[2023-08-23 12:12] LABS: CALCIUM 9.2 mg/dL (8.5-10.1)
[2023-08-23 12:13] LABS: ALBUMIN 3.7 g/dl (3.4-5.0); BLOOD UREA NITROGEN 5.3 mg/dL (7-18); CREATININE 0.9 mg/dL (0.55-1.3)
[2023-08-23 12:48] VITALS: BP 128/88; PULSE 100; RESP 18; TEMP 97.7
[2023-08-24] MEDS ORDERED: LORazepam 1 MG TABLET PO SCH (05:00)
[2023-08-25] MEDS ORDERED: LORazepam 0.5 MG TABLET PO PRN
[2023-08-25] MEDS ORDERED: LORazepam 0.5 MG TABLET PO SCH (05:00)
[2023-08-26] MEDS ORDERED: LORazepam 0.5 MG TABLET PO ONE (05:00)
== END 2023-08-23 15:00 | disposition left against medical advice (07) | DRG 770 ==
LOC: YASAS 09:04 → Y6N 10:02
PROVIDERS: ADMIT Allergy & Immunology; ATTEND Surgery
PROC: HZ2ZZZZ Detoxification Services for Substance Abuse Treatment (ICD-10-PCS; principal; 2023-08-22)
DX: F10.230 Alcohol dependence with withdrawal, uncomplicated (principal); F13.20 Sedative, hypnotic or anxiolytic dependence, uncomplicated; F17.210 Nicotine dependence, cigarettes, uncomplicated; F31.9 Bipolar disorder, unspecified; F10.282 Alcohol dependence with alcohol-induced sleep disorder; F41.8 Other specified anxiety disorders; E78.1 Pure hyperglyceridemia; G40.909 Epilepsy, unspecified, not intractable, without status epilepticus; I10 Essential (primary) hypertension; E11.42 Type 2 diabetes mellitus with diabetic polyneuropathy; Z79.4 Long term (current) use of insulin; Z91.199 Patient's noncompliance with other medical treatment and regimen due to unspecified reason
CPT/HCPCS: 36415; 80053; 80307; 82140; 82962; 83036; 85027; 86780; 93005; 93010; Q0162

== ENCOUNTER 2023-12-03 09:43 | Inpatient (IN) | payer OTHER ==
[2023-12-03 10:24] VITALS: BMI 27.4
[2023-12-03] MEDS ORDERED: POLYETHYLENE GLYCOL (HEALTHYLAX) 3350 17 GM PACKET PO PRN (10:42)
[2023-12-03] MEDS ORDERED: LOPERAMIDE HCL 2 MG CAPSULE PO PRN (10:42)
[2023-12-03] MEDS ORDERED: ONDANSETRON *ODT* 4 MG TABLET SL PRN (10:42)
[2023-12-03] MEDS ORDERED: MAGNESIUM HYDROX 2400MG/30ML ORAL SUSPENSION 30 ML CUP PO PRN (10:42)
[2023-12-03] MEDS ORDERED: NICOTINE POLACRILEX 2 MG LOZENGE BC PRN (10:42)
[2023-12-03] MEDS ORDERED: NICOTINE POLACRILEX 2 MG GUM BUC PRN (10:42)
[2023-12-03] MEDS ORDERED: IBUPROFEN 400 MG TABLET (FP) PO PRN (10:42)
[2023-12-03] MEDS ORDERED: guaiFENesin 600 MG TABLET.ER (FP) PO PRN (10:42)
[2023-12-03] MEDS ORDERED: MAG HYDROX/AL HYDROX/SIMETH 30 ML UNIT-DOSE CUP PO PRN (10:42)
[2023-12-03] MEDS ORDERED: BENZOCAINE/MENTHOL (CHLORASEPTIC ) LOZENGE MM PRN (10:42)
[2023-12-03] MEDS ORDERED: DICYCLOMINE HCL 10 MG CAPSULE PO PRN (10:42)
[2023-12-03] MEDS ORDERED: BISMUTH SUBSALICYLATE 524 MG/30 ML PO PRN (10:42)
[2023-12-03] MEDS ORDERED: BENZONATATE 200 MG CAPSULE PO PRN (10:42)
[2023-12-03] MEDS ORDERED: METOPROLOL TARTRATE 25 MG TABLET (FP) ONE ×2 (11:14→11:15)
[2023-12-03] MEDS: METOPROLOL TARTRATE 50 MG TABLET (FP) PO ONE (11:28)
[2023-12-03] MEDS: chlordiazePOXIDE HCL 25 MG CAPSULE PO SCH (11:41)
[2023-12-03] MEDS: levETIRAcetam 500 MG TABLET (FP) PO SCH (11:43)
[2023-12-03] MEDS: INSULIN (NOVOLOG) ASPART 100 UNITS/ML 10ML VIAL SQ SCH (12:19)
[2023-12-03] MEDS: THIAMINE 100 MG TABLET PO SCH (21:54)
[2023-12-03] MEDS: QUEtiapine FUMARATE 50 MG TABLET PO SCH (21:54)
[2023-12-03] MEDS: MELATONIN 5 MG TABLETS PO SCH (22:55)
[2023-12-03] MEDS: INSULIN (LEVEMIR) 100 UNITS/ML UNITS SQ SCH (22:55)
[2023-12-04] MEDS: sitaGLIPtin PHOSPHATE 50 MG TABLET PO SCH (06:12)
[2023-12-04] MEDS ORDERED: levETIRAcetam 250 MG TABLET PO ONE (09:33)
[2023-12-04] MEDS: PRENATAL VITAMINS W/ FOLIC ACID TABLET (FP) PO SCH (09:34)
[2023-12-04] MEDS: chlordiazePOXIDE HCL 25 MG CAPSULE PO PRN (09:35)
[2023-12-04] MEDS: amLODIPine BESYLATE 5 MG TABLET (FP) PO SCH (10:49)
[2023-12-04 11:57] LABS: HEMATOCRIT 41.3 % (35.4-49); HEMOGLOBIN 13.9 GM/dL (11.7-16.9); MCHC 33.7 g/dl (32.0-35.9); MEAN PLT VOLUME 9.9 fl (7.5-11.1); PLATELET COUNT 189 10^3/uL (134-434); RBC 4.65 M/mm3 (4.00-5.60); RDW 14.2 % (11.9-15.9); WHITE BLOOD COUNT 5.4 K/mm3 (4.0-10.0)
[2023-12-04 11:58] LABS: CHLORIDE 102 mmol/L (98-107); POTASSIUM 3.7 mmol/L (3.5-5.1); SODIUM 138 mmol/L (136-145)
[2023-12-04 12:01] LABS: ALBUMIN 3.9 g/dl (3.4-5.0); ANION GAP 9 mmol/L (4-13); BLOOD UREA NITROGEN 11.8 mg/dL (7-18); CALCIUM 9.5 mg/dL (8.5-10.1); CO2 27 mmol/L (21-32); GLUCOSE,RANDOM 168 mg/dL (74-106)
[2023-12-04 12:04] LABS: CREATININE 1.1 mg/dL (0.55-1.3); SGOT/AST 33 U/L (15-37); SGPT/ALT 42 U/L (13-61)
[2023-12-04 12:06] LABS: BILIRUBIN,TOTAL 0.7 mg/dL (0.2-1); TOT PROT 8.3 g/dl (6.4-8.2)
[2023-12-04 12:07] LABS: ALK PHOS 136 U/L (45-117)
[2023-12-04] MEDS: ACETAMINOPHEN 325 MG TABLET (FP) PO PRN (18:46)
[2023-12-04] MEDS: INSULIN (LEVEMIR) 100 UNITS/ML UNITS SQ SCH (21:59)
[2023-12-05] MEDS: chlordiazePOXIDE HCL 25 MG CAPSULE PO SCH (05:30)
[2023-12-05] MEDS ORDERED: INSULIN (NOVOLOG) ASPART 100 UNITS/ML 10ML VIAL ONE ×2 (17:18→21:58)
[2023-12-05] MEDS ORDERED: INSULIN (LEVEMIR) 100 UNITS/ML UNITS SQ ONE (21:58)
[2023-12-05] MEDS: METHOCARBAMOL 500 MG TABLET PO PRN (22:10)
[2023-12-05] MEDS: INSULIN (LEVEMIR) 100 UNITS/ML UNITS SQ SCH (22:10)
[2023-12-06] MEDS ORDERED: chlordiazePOXIDE HCL 10 MG CAPSULE PO PRN
[2023-12-06] MEDS: chlordiazePOXIDE HCL 10 MG CAPSULE PO SCH (05:45)
[2023-12-06] MEDS: IBUPROFEN 600 MG TABLET (FP) PO PRN (13:01)
[2023-12-06] MEDS: INSULIN ASPART SLIDING SCALE (NOVOLOG) 1 VIAL SQ SCH (17:04)
[2023-12-07] MEDS: chlordiazePOXIDE HCL 10 MG CAPSULE PO SCH (05:39)
[2023-12-08] MEDS: chlordiazePOXIDE HCL 10 MG CAPSULE PO ONE (05:36)
[2023-12-08 09:38] VITALS: BP 119/91; PULSE 99; RESP 16; TEMP 96.8
== END 2023-12-08 09:40 | disposition home or self-care (01) | DRG 775 ==
LOC: YASAS 09:43 → Y6N 11:11
PROVIDERS: ADMIT Allergy & Immunology; ATTEND Surgery
PROC: HZ2ZZZZ Detoxification Services for Substance Abuse Treatment (ICD-10-PCS; principal; 2023-12-03)
DX: F10.230 Alcohol dependence with withdrawal, uncomplicated (principal); F17.210 Nicotine dependence, cigarettes, uncomplicated; F25.1 Schizoaffective disorder, depressive type; F10.24 Alcohol dependence with alcohol-induced mood disorder; E10.42 Type 1 diabetes mellitus with diabetic polyneuropathy; Z79.4 Long term (current) use of insulin; Z79.84 Long term (current) use of oral hypoglycemic drugs; G40.909 Epilepsy, unspecified, not intractable, without status epilepticus; I10 Essential (primary) hypertension
CPT/HCPCS: 36415; 80053; 80305; 80307; 82947; 82962; 85027; 86780

== ENCOUNTER 2024-01-21 14:52 | Inpatient (IN) | payer OTHER ==
[2024-01-21 15:50] VITALS: BMI 27.1
[2024-01-21] MEDS ORDERED: POLYETHYLENE GLYCOL (HEALTHYLAX) 3350 17 GM PACKET PO PRN (19:19)
[2024-01-21] MEDS ORDERED: MAGNESIUM HYDROX 2400MG/30ML ORAL SUSPENSION 30 ML CUP PO PRN (19:19)
[2024-01-21] MEDS ORDERED: guaiFENesin 600 MG TABLET.ER (FP) PO PRN (19:19)
[2024-01-21] MEDS ORDERED: BENZOCAINE/MENTHOL (CHLORASEPTIC ) LOZENGE MM PRN (19:19)
[2024-01-21] MEDS ORDERED: IBUPROFEN 400 MG TABLET (FP) PO PRN (19:19)
[2024-01-21] MEDS ORDERED: MAG HYDROX/AL HYDROX/SIMETH 30 ML UNIT-DOSE CUP PO PRN (19:19)
[2024-01-21] MEDS ORDERED: BISMUTH SUBSALICYLATE 524 MG/30 ML PO PRN (19:19)
[2024-01-21] MEDS ORDERED: NALOXONE (NARCAN) HCL 4 MG/0.1 ML SPRAY NS PRN (19:19)
[2024-01-21] MEDS ORDERED: LOPERAMIDE HCL 2 MG CAPSULE PO PRN (19:19)
[2024-01-21] MEDS ORDERED: ONDANSETRON *ODT* 4 MG TABLET SL PRN (19:19)
[2024-01-21] MEDS ORDERED: BENZONATATE 200 MG CAPSULE PO PRN (19:19)
[2024-01-21] MEDS ORDERED: chlordiazePOXIDE HCL 25 MG CAPSULE PO PRN (19:19)
[2024-01-21] MEDS ORDERED: DICYCLOMINE HCL 10 MG CAPSULE PO PRN (19:19)
[2024-01-21] MEDS ORDERED: NALOXONE HCL 0.4 MG/ML VIAL IM PRN (19:19)
[2024-01-21] MEDS ORDERED: NICOTINE POLACRILEX 4 MG GUM BUC PRN (19:19)
[2024-01-21] MEDS ORDERED: INSULIN (NOVOLOG) ASPART 100 UNITS/ML 10ML VIAL ONE (20:03)
[2024-01-21] MEDS: INSULIN (NOVOLOG) ASPART 100 UNITS/ML 10ML VIAL SQ ONE (20:05)
[2024-01-21] MEDS: ACETAMINOPHEN 325 MG TABLET (FP) PO PRN (20:58)
[2024-01-21] MEDS: cloNIDine HCL 0.1 MG TABLET PO ONE (21:48)
[2024-01-21] MEDS: INSULIN ASPART SLIDING SCALE (NOVOLOG) 1 VIAL SQ SCH (22:50)
[2024-01-21] MEDS: THIAMINE 100 MG TABLET PO SCH (22:57)
[2024-01-21] MEDS: MELATONIN 5 MG TABLETS PO SCH (22:57)
[2024-01-21] MEDS: levETIRAcetam 500 MG TABLET (FP) PO SCH (22:57)
[2024-01-21] MEDS: INSULIN (LEVEMIR) 100 UNITS/ML UNITS SQ SCH (22:58)
[2024-01-21] MEDS: chlordiazePOXIDE HCL 25 MG CAPSULE PO SCH (22:58)
[2024-01-22] MEDS: sitaGLIPtin PHOSPHATE 50 MG TABLET PO SCH (07:32)
[2024-01-22] MEDS: NICOTINE 21 MG/24 HOURS TOPICAL PATCH TD SCH (10:09)
[2024-01-22] MEDS: amLODIPine BESYLATE 5 MG TABLET (FP) PO SCH (10:09)
[2024-01-22] MEDS: PRENATAL VITAMINS W/ FOLIC ACID TABLET (FP) PO SCH (10:09)
[2024-01-22 12:32] LABS: HEMATOCRIT 42.9 % (35.4-49); HEMOGLOBIN 14.4 GM/dL (11.7-16.9); MCH 29.4 pg (25.7-33.7); MCHC 33.6 g/dl (32.0-35.9); MEAN CELL VOLUME 87.7 fl (80-96); MEAN PLT VOLUME 9.4 fl (7.5-11.1); PLATELET COUNT 223 10^3/uL (134-434); RBC 4.89 M/mm3 (4.00-5.60); RDW 14.1 % (11.9-15.9); WHITE BLOOD COUNT 4.1 K/mm3 (4.0-10.0)
[2024-01-22 12:39] LABS: CHLORIDE 100 mmol/L (98-107); POTASSIUM 3.9 mmol/L (3.5-5.1); SODIUM 137 mmol/L (136-145)
[2024-01-22 12:47] LABS: CALCIUM 10.4 mg/dL (8.5-10.1)
[2024-01-22 12:48] LABS: ALBUMIN 3.8 g/dl (3.4-5.0); ANION GAP 9 mmol/L (4-13); BLOOD UREA NITROGEN 9.8 mg/dL (7-18); CO2 28 mmol/L (21-32); GLUCOSE,RANDOM 144 mg/dL (74-106)
[2024-01-22 12:51] LABS: CREATININE 1.1 mg/dL (0.55-1.3); SGOT/AST 29 U/L (15-37); SGPT/ALT 23 U/L (13-61)
[2024-01-22 12:53] LABS: BILIRUBIN,TOTAL 0.5 mg/dL (0.2-1); TOT PROT 8.3 g/dl (6.4-8.2)
[2024-01-22] MEDS: METHOCARBAMOL 500 MG TABLET PO PRN (12:53)
[2024-01-22] MEDS: hydrOXYzine PAMOATE 25 MG CAPSULE (FP) PO PRN (12:53)
[2024-01-22 12:54] LABS: ALK PHOS 137 U/L (45-117)
[2024-01-22] MEDS ORDERED: metFORMIN HCL 500 MG TABLET (FP) PO SCH (16:30)
[2024-01-22] MEDS: MIRTAZAPINE 15 MG TABLET (FP) PO SCH (22:02)
[2024-01-22] MEDS: QUEtiapine FUMARATE 100 MG TABLET (FP) PO SCH (22:04)
[2024-01-22] MEDS: INSULIN (NOVOLOG) ASPART 100 UNITS/ML 10ML VIAL SQ ONE (22:06)
[2024-01-23] MEDS: chlordiazePOXIDE HCL 25 MG CAPSULE PO SCH (05:44)
[2024-01-23] MEDS: metFORMIN HCL 500 MG TABLET (FP) PO SCH (10:07)
[2024-01-23] MEDS: IBUPROFEN 600 MG TABLET (FP) PO PRN (10:08)
[2024-01-23] MEDS: INSULIN (NOVOLOG) ASPART 100 UNITS/ML 10ML VIAL SQ SCH (12:43)
[2024-01-23] MEDS ORDERED: INSULIN ASPART SLIDING SCALE (NOVOLOG) 1 VIAL SQ ONE (12:46)
[2024-01-24] MEDS ORDERED: chlordiazePOXIDE HCL 10 MG CAPSULE PO PRN
[2024-01-24] MEDS: chlordiazePOXIDE HCL 10 MG CAPSULE PO SCH (05:20)
[2024-01-24] MEDS ORDERED: ACETAMINOPHEN 325 MG TABLET (FP) PO PRN (10:13)
[2024-01-24] MEDS: NALTREXONE HCL 50 MG TABLET PO SCH (15:50)
[2024-01-24] MEDS: INSULIN (NOVOLOG) ASPART 100 UNITS/ML 10ML VIAL SQ SCH (16:49)
[2024-01-25] MEDS: chlordiazePOXIDE HCL 10 MG CAPSULE PO SCH (05:55)
[2024-01-25] MEDS: NALTREXONE HCL 50 MG TABLET PO SCH (09:53)
[2024-01-26] MEDS: chlordiazePOXIDE HCL 10 MG CAPSULE PO ONE (05:25)
[2024-01-26 05:52] VITALS: BP 113/67; PULSE 76; RESP 17; TEMP 98.7
== END 2024-01-26 08:46 | disposition home or self-care (01) | DRG 775 ==
LOC: YASAS 14:52 → Y3N 19:23
PROVIDERS: ADMIT Allergy & Immunology; ATTEND Family Medicine Addiction Medicine
PROC: HZ2ZZZZ Detoxification Services for Substance Abuse Treatment (ICD-10-PCS; principal; 2024-01-21)
DX: F10.230 Alcohol dependence with withdrawal, uncomplicated (principal); F17.210 Nicotine dependence, cigarettes, uncomplicated; F10.982 Alcohol use, unspecified with alcohol-induced sleep disorder; F19.24 Other psychoactive substance dependence with psychoactive substance-induced mood disorder; F32.A Depression, unspecified; I10 Essential (primary) hypertension; E78.5 Hyperlipidemia, unspecified; E11.9 Type 2 diabetes mellitus without complications; Z79.4 Long term (current) use of insulin; Z79.84 Long term (current) use of oral hypoglycemic drugs; M25.562 Pain in left knee; Z59.00 Homelessness unspecified
CPT/HCPCS: 36415; 73562-TC-LT-FY; 80053; 80305; 80307; 82962; 85027; 86780; 93005; 93010

== ENCOUNTER 2024-08-18 12:14 | Inpatient (IN) | payer OTHER ==
[2024-08-18 12:37] VITALS: BMI 24.4
[2024-08-18] MEDS ORDERED: IBUPROFEN 400 MG TABLET (FP) PO PRN (12:53)
[2024-08-18] MEDS ORDERED: BENZONATATE 200 MG CAPSULE PO PRN (12:53)
[2024-08-18] MEDS ORDERED: POLYETHYLENE GLYCOL (HEALTHYLAX) 3350 17 GM PACKET PO PRN (12:53)
[2024-08-18] MEDS ORDERED: BENZOCAINE/MENTHOL (CHLORASEPTIC ) LOZENGE MM PRN (12:53)
[2024-08-18] MEDS ORDERED: MAG HYDROX/AL HYDROX/SIMETH 30 ML UNIT-DOSE CUP PO PRN (12:53)
[2024-08-18] MEDS ORDERED: NALOXONE (NARCAN) HCL 4 MG/0.1 ML SPRAY NS PRN (12:53)
[2024-08-18] MEDS ORDERED: NICOTINE POLACRILEX 2 MG GUM BUC PRN (12:53)
[2024-08-18] MEDS ORDERED: NICOTINE POLACRILEX 2 MG LOZENGE BC PRN (12:53)
[2024-08-18] MEDS ORDERED: MAGNESIUM HYDROX 2400MG/30ML ORAL SUSPENSION 30 ML CUP PO PRN (12:53)
[2024-08-18] MEDS ORDERED: DICYCLOMINE HCL 10 MG CAPSULE PO PRN (12:53)
[2024-08-18] MEDS ORDERED: ONDANSETRON *ODT* 4 MG TABLET SL PRN (12:53)
[2024-08-18] MEDS ORDERED: LOPERAMIDE HCL 2 MG CAPSULE PO PRN (12:53)
[2024-08-18] MEDS ORDERED: guaiFENesin 600 MG TABLET.ER (FP) PO PRN (12:53)
[2024-08-18] MEDS ORDERED: BISMUTH SUBSALICYLATE 524 MG/30 ML PO PRN (12:53)
[2024-08-18] MEDS ORDERED: chlordiazePOXIDE HCL 25 MG CAPSULE ONE (13:50)
[2024-08-18] MEDS ORDERED: levETIRAcetam 500 MG TABLET (FP) PO ONE (13:50)
[2024-08-18] MEDS ORDERED: propRANOLol HCL 10 MG TABLET ONE (13:50)
[2024-08-18] MEDS: chlordiazePOXIDE HCL 25 MG CAPSULE PO ONE (13:53)
[2024-08-18] MEDS: propRANOLol HCL 10 MG TABLET PO ONE (13:53)
[2024-08-18] MEDS: levETIRAcetam 500 MG TABLET (FP) PO SCH (13:53)
[2024-08-18] MEDS: INSULIN (NOVOLOG) ASPART 100 UNITS/ML 10ML VIAL SQ ONE ×2 (13:59→17:14)
[2024-08-18] MEDS: INSULIN (NOVOLOG) ASPART 100 UNITS/ML 10ML VIAL SQ SCH (14:01)
[2024-08-18] MEDS: METHOCARBAMOL 500 MG TABLET PO PRN (14:55)
[2024-08-18] MEDS: IBUPROFEN 600 MG TABLET (FP) PO PRN (14:55)
[2024-08-18] MEDS: chlordiazePOXIDE HCL 25 MG CAPSULE PO SCH (17:37)
[2024-08-18] MEDS: THIAMINE 100 MG TABLET PO SCH (22:40)
[2024-08-18] MEDS: INSULIN GLARGINE (LANTUS) 100 UNITS/ML UNITS SQ SCH (22:41)
[2024-08-18] MEDS: MELATONIN 5 MG TABLETS PO SCH (22:48)
[2024-08-19] MEDS ORDERED: sitaGLIPtin PHOSPHATE 50 MG TABLET PO SCH (07:47)
[2024-08-19] MEDS: sitaGLIPtin PHOSPHATE 50 MG TABLET PO SCH ×2 (07:51→07:53)
[2024-08-19] MEDS: PRENATAL VITAMINS W/ FOLIC ACID TABLET (FP) PO SCH (10:02)
[2024-08-19] MEDS: amLODIPine BESYLATE 5 MG TABLET (FP) PO SCH (10:02)
[2024-08-19 14:34] LABS: POTASSIUM 3.9 mmol/L (3.5-5.1)
[2024-08-19 14:36] LABS: ALBUMIN 3.6 g/dl (3.4-5.0); CALCIUM 10.1 mg/dL (8.5-10.1)
[2024-08-19 14:37] LABS: BLOOD UREA NITROGEN 4.2 mg/dL (7-18)
[2024-08-19 14:38] LABS: HEMATOCRIT 39.5 % (40.1-51.0); HEMOGLOBIN 12.9 g/dL (13.7-17.5); MCHC 32.7 g/dl (32.3-36.5); MEAN CELL VOLUME 86.8 fl (79.0-92.2); MEAN PLT VOLUME 12.6 fl (9.4-12.4); PLATELET COUNT 221 x10^3/uL (163-337); RDW 13.6 % (12.1-15.9)
[2024-08-19 14:41] LABS: BILIRUBIN,TOTAL 0.2 mg/dL (0.2-1); TOT PROT 7.8 g/dl (6.4-8.2)
[2024-08-19 14:42] LABS: CREATININE 1.1 mg/dL (0.55-1.3)
[2024-08-19] MEDS ORDERED: INSULIN (NOVOLOG) ASPART 100 UNITS/ML 10ML VIAL ONE ×2 (17:18→22:49)
[2024-08-19] MEDS: chlordiazePOXIDE HCL 25 MG CAPSULE PO PRN (17:25)
[2024-08-19] MEDS: QUEtiapine FUMARATE 100 MG TABLET (FP) PO SCH (22:46)
[2024-08-20] MEDS: chlordiazePOXIDE HCL 25 MG CAPSULE PO SCH (06:00)
[2024-08-20] MEDS ORDERED: INSULIN (NOVOLOG) ASPART 100 UNITS/ML 10ML VIAL ONE (06:17)
[2024-08-20] MEDS: INSULIN (NOVOLOG) ASPART 100 UNITS/ML 10ML VIAL SQ SCH (11:47)
[2024-08-20] MEDS: INSULIN GLARGINE (LANTUS) 100 UNITS/ML UNITS SQ SCH (22:17)
[2024-08-21] MEDS ORDERED: chlordiazePOXIDE HCL 10 MG CAPSULE PO PRN
[2024-08-21] MEDS: chlordiazePOXIDE HCL 10 MG CAPSULE PO SCH (05:29)
[2024-08-21] MEDS ORDERED: INSULIN (NOVOLOG) ASPART 100 UNITS/ML 10ML VIAL ONE ×2 (17:22→22:08)
[2024-08-22] MEDS ORDERED: INSULIN (NOVOLOG) ASPART 100 UNITS/ML 10ML VIAL ONE (05:30)
[2024-08-22] MEDS: chlordiazePOXIDE HCL 10 MG CAPSULE PO SCH (05:33)
[2024-08-22] MEDS: INSULIN (NOVOLOG) ASPART 100 UNITS/ML 10ML VIAL SQ SCH (16:37)
[2024-08-23] MEDS: chlordiazePOXIDE HCL 10 MG CAPSULE PO ONE (06:00)
[2024-08-23] MEDS: ACETAMINOPHEN 325 MG TABLET (FP) PO PRN (06:05)
[2024-08-23 10:13] VITALS: BP 123/72; PULSE 107; RESP 18; TEMP 96
== END 2024-08-23 11:33 | disposition other institution (70) | DRG 775 ==
LOC: YASAS 12:14 → Y6N 14:04
PROVIDERS: ADMIT Neuromusculoskeletal Medicine & OMM; ATTEND Allergy & Immunology
PROC: HZ2ZZZZ Detoxification Services for Substance Abuse Treatment (ICD-10-PCS; principal; 2024-08-18)
DX: F10.230 Alcohol dependence with withdrawal, uncomplicated (principal); F17.210 Nicotine dependence, cigarettes, uncomplicated; F25.9 Schizoaffective disorder, unspecified; F41.9 Anxiety disorder, unspecified; F32.A Depression, unspecified; G40.909 Epilepsy, unspecified, not intractable, without status epilepticus; I10 Essential (primary) hypertension; E11.9 Type 2 diabetes mellitus without complications; Z79.4 Long term (current) use of insulin; Z79.84 Long term (current) use of oral hypoglycemic drugs
CPT/HCPCS: 36415; 80053; 80305; 80307; 82140; 82962; 83036; 85027; 86780; 87811; 93005; 93010